=== PATIENT | male | born 1955 | race Caucasian/White ===

== ENCOUNTER → 2017-09-11 14:24 | Outpatient (CLI) | payer MEDICARE, SELFPAY ==
[2016-08-31 15:27] VITALS: BMI 33.3
[2017-09-11 18:40] LABS: Hemoglobin A1c 6.7 % (4.2-6.3)
[2017-09-11 19:03] LABS: ALB/GLOB Ratio 0.8 RATIO (0.9-2.4); AST(SGOT) 38 U/L (15-37); Alanine Aminotransfer ALT/SGPT 55 U/L (16-61); Albumin, Serum 3.2 g/dL (3.2-5.0); Alkaline Phosphatase 80 U/L (45-117); Anion Gap 10 (5-15); BUN 10 mg/dL (7-18); BUN/Creat Ratio 11.3 RATIO (10-20); Calcium,Total 8.6 mg/dL (8.5-10.1); Chloride 103 mmol/L (98-107); Cholesterol 159 mg/dL (200); Creatinine, Serum 0.88 mg/dL (0.70-1.30); EST Glomerular Filtration Rate 93 mL/min (>60); Est Glom Filt Rate - Afr Amer 113 mL/min (>60); Globulin 4.2 g/dL (2.2-4.2); Glucose 94 mg/dL (74-106); High Density Lipoprotein 34 mg/dL; Potassium 3.8 mmol/L (3.5-5.1); Protein, Total 7.4 g/dL (6.4-8.2); Sodium Level 139 mmol/L (136-145); Triglycerides 156 mg/dL; Very Low Density Lipoprotein 31 mg/dL (5-40)
== END ==
PROVIDERS: Family Provider Family Medicine; PCP Family Medicine; Visit Provider Family Medicine
DX: E11.65 Type 2 diabetes mellitus with hyperglycemia (principal); I95.9 Hypotension, unspecified; R53.83 Other fatigue
CPT/HCPCS: 36415; 80053; 80061; 83036

== ENCOUNTER 2017-11-12 05:23 | Day surgery (SDC) | payer MEDICARE, SELFPAY ==
[2016-08-31 15:27] VITALS: BMI 33.3
[2017-11-05 11:03] VITALS: BP 122/81; PULSE 81; RESP 16; TEMP 36.4; O2SAT 95; BMI 34.0
[2017-11-05 11:52] LABS: Hemoglobin 17.3 g/dl (13.0-16.5); Mean Corp Hgb Conc 33.9 g/gl (32-36); Mean Corpuscular Hgb 28.3 pg (27.0-32.0); Mean Corpuscular Volume 83.3 fL (80-94); Mean Platelet Vol. 10.7 fl (6.2-12.0); Platelet Count 279 K/mm3 (150-450); RBC Distribution Width CV 14.8 % (11.6-14.6); Red Blood Count 6.12 M/mm3 (4.6-6.2); White Blood Count 13.2 K/mm3 (4.4-11.0)
[2017-11-05 11:55] LABS: Scan Indicated on CBC? Y/N NO
[2017-11-05 12:03] LABS: International Normalized Ratio 1.2; Partial Thromboplast Time 34.7 Seconds (24.1-36.2); Prothrombin Time (Protime)PT. 14.7 SECONDS (11.7-14.9)
[2017-11-05 12:50] LABS: AST(SGOT) 24 U/L (15-37); Alanine Aminotransfer ALT/SGPT 39 U/L (16-61); Albumin, Serum 3.3 g/dL (3.2-5.0); Alkaline Phosphatase 108 U/L (45-117); Bilirubin, Direct 0.14 mg/dL (0.00-0.30); Globulin 4.2 g/dL (2.2-4.2); Protein, Total 7.5 g/dL (6.4-8.2)
[2017-11-12 05:41] VITALS: BP 132/95; PULSE 78; RESP 18; TEMP 36.1; O2SAT 96; BMI 34.0
[2017-11-12] MEDS: oxyCODONE HCl Cr 10 MG Tablet PO (05:55)
[2017-11-12 06:11] LABS: Bedside Glucose 119 mg/dL (70-110)
--- NOTE | 2017-11-12 06:55 | PCM.IMDPSTOP ---
Immediate Post-Op Note Date of Procedure: 11/12/17 Primary Surgeon/Physician: Kings Mathur DO enterostomal therapy nurse: Naheed Butts Pre-Operative Diagnosis: Right shoulder rotator cuff tear, type IV SLAP, subacromial impingement Post-Operative Diagnosis: Same as above Surgery/Procedure Performed:: Right shoulder arthroscopy, type IV SLAP debridement with associated biceps tenotomy, arthroscopic rotator cuff repair and arthroscopic subacromial decompression Description of Surgical Findings:: See dictation Estimated Blood Loss: 30 Specimen's removed: None Type of Anesthesia:: General ASA Class: ASA3 Severe Disease - Admit VTE Documentation VTE Present on Admission: No VTE Mechan Device Prophylaxis: SCD's, Knee High TYRONE Hose VTE Pharm Prophylaxis ordered?: No Reason prophylaxis not ordered:: Treatment Not Indicated
--- NOTE | 2017-11-12 06:55 | PCM.DC.ORTHO ---
Discharge Activity: Return to Normal Activity, May not drive while taking narcotic pain medications., May Shower, - - Sling 24 7 except for shower May shower in (days): 2 May resume sexual activity in: 8 weeks Ice area for (Minutes): 20 Weight Bearing Status: No weight bearing Additional Activity Instructions:: May flex and extend elbow ad kosta. Perform pendulum exercises 3 times per day. Call your doctor if your incision/area has: Continuous Slow Oozing, Sudden Increased Bleeding, Increased Pain/ Swelling, Increased Redness, Foul Smelling Discharge, Swelling at the incision site Call your doctor if you observe: Fever of 101 or Higher, Coldness, Increased Pain, Numbness or Tingling, Change in Color, Inability to urinate, Inability to have a bowel movement, Using more than one pad per hour, Shortness of breath, Dizziness, Fainting spells, Swelling in the ankles, Chest pain, Prolonged hiccoughing, Increased palpitations (irregular heartbeat), Calf discomfort, Uncontrolled pain Suture Line Care: Avoid Pulling/Pushing, Avoid Pinching/Bending Change Dressing in (Days):: 2 Remove Dressing in (days):: 2 Cleanse incision/area with: Soap & Water Additional Dressing/Incision Instructions:: Replace dressing after shower as long as there is drainage. Recommend wearing button-down shirts. Wash hands prior to touching wounds. Allergies/Adverse Reactions: Allergies codeine Adverse Reaction (Verified 08/01/17 11:53) Nausea ibuprofen Adverse Reaction (Verified 11/05/17 11:02) Nausea Medications to take at Discharge Aspirin E.C. [Ecotrin] 81 mg PO DAILY@0800 06/18/17 Tamsulosin HCl [Flomax] 0.4 mg PO DAILY 06/18/17 metoprolol succinate ER 25 mg tablet,extended release 24 hr 50 mg PO QDAY tab 07/02/17 metformin 500 mg tablet 500 mg PO ONCE tab 07/17/17 Docusate Sodium [Colace] 100 mg PO BID PRN PRN #10 cap 11/12/17 Oxycodone HCl/Acetaminophen [Percocet 5/325] 1 - 2 tablet PO Q4H PRN PRN #60 tablet 11/12/17 proMETHazine tablet [Phenergan] 25 mg PO Q4H PRN PRN #10 tab 11/12/17 The following prescriptions were given: Oxycodone HCl/Acetaminophen [Percocet 5/325] 1 - 2 tablet PO Q4H PRN PRN #60 tablet PRN Reason: Pain proMETHazine tablet [Phenergan] 25 mg PO Q4H PRN PRN #10 tab PRN Reason: Nausea Docusate Sodium [Colace] 100 mg PO BID PRN PRN #10 cap PRN Reason: Constipation Primary Care Physician: Renee Jackson DO [Primary Care Provider] - Please Follow Up With: Kings Mathur DO When: call [facility] for appt for 2 weeks Proposed Discharge Date: 11/12/17
--- NOTE | 2017-11-12 09:19 | PCM.OPRPT ---
Report of Operation Date of Procedure: 11/12/17 Pre-Operative Diagnosis: Right shoulder rotator cuff tear, type IV SLAP, subacromial impingement. Left hip trochanteric bursitis and gluteal tendinopathy Post-Operative Diagnosis: Same as above Surgery/Procedure Performed:: Right shoulder arthroscopy, type IV SLAP debridement with associated biceps tenotomy, arthroscopic rotator cuff repair and arthroscopic subacromial decompression. Left hip trochanteric injection Description of Surgical Findings:: 62-year-old male with recalcitrant right shoulder pain that failed on management to include NSAIDs activity modifications physical therapy and injections. Patient MRI consistent with SLAP changes full-thickness rotator cuff tear and significant subacromial bursitis. Patient also has a history of trochanteric bursitis and request a left trochanteric injection at the time of operative intervention. Patient was counseled and consented for a left left hip trochanteric injection and associated right shoulder rotator cuff repair SLAP debridement and subacromial decompression and evaluation the biceps labral complex for tenotomy versus tenodesis. Patient was met in the holding area where the right upper extremity and the left hip were marked and identified by the with surgeon. Patient was taken to the operating room in satisfactory condition with somewhat to place to identify patient operative procedure and limb. Patient received 2 g Ancef. He was simply placed into the beachchair position after a successful intubation. His head was in a fine neutral position. The right upper extremity was in the [place] O arm garcia. He was then prepped and draped in usual fashion. Posterior portal was established and we entered in the intra-articular space. Upon identification of anatomic triangle and anterior inferior working portal was established. Diagnostic scope should the patient have a type IV SLAP with extension into the biceps root and moving distally and fraying most likely related to the biceps lateralizing through his rotator cuff tear of the supraspinatus. The subscapularis was otherwise normal. He showed no signs of any tearing to the posterior inferior or anterior inferior labrum. The central and posterior cuffs were pristine. There is no loose bodies in the x-ray pouch. The patient had moderate synovitis to the shoulder. I subsequently debrided the type IV SLAP changes across the superior rim of the glenoid and tenotomized the biceps subsequently at the root secondary to the degenerative changes in extension. I performed a partial synovectomy around the capsule and the superior recess and release the superior glenohumeral ligament to allow for better mobilization of the rotator cuff if needed. At that point time the scope was retracted and removed in the subacromial space. We established a anterior superior mid lateral and posterior lateral working portals using standard technique. The patient had moderate to severe subacromial bursitis which was subsequently decompressed using standard technique. The patient had a type II to type III acromion and showed an impingement lesion to the CA ligament. The CA ligament was peeled off the anterolateral acromion to allow to float anteriorly and we subsequent performed a 6 mm acromioplasty using standard technique. We co-planed across the distal clavicle secondary to hypertrophy through that area. Patient's tear was obvious moving from the most leading edge of the supraspinatus into the midportion of the supraspinatus and transitioning into the infraspinatus. He showed a degree of delamination to the rotator cuff but the tendon quality was overall very good in the mobility of the tissue was greater across the superior lamination however I wish I elected to incorporate. At that point time after appropriate decompression we then acromion iced to prepare the bone bled no bed excuse me of the humeral head for better healing. This was done from the articular margin using laterally. We had good bleeding surface. At that point time using a percutaneous technique I placed 2 4.5 mm bio composite anchors from [employer] across the articular margin in order for him perform a transosseous equivalent technique. I did elect to place one margin convergent suture based on tear pattern using a free suture. This incorporated the delaminated layers into the superior layer very well. It also shortened our overall tendon construct. At that point time I then passed the suture tapes related to the implant of choice to the posterior aspect in the anterior aspects of the rotator cuff tear. I elected to place the saving suture in a simple fashion across both anchors using standard technique. I then tied the simple suture anchors which reapproximated 10 down to the articular margin and posteriorly with good incorporation. We then used the orthostasis again to perform a transosseous equivalent rotator cuff repair. One suture tape from the posterior anchor was then seated with a suture from the anterior anchor after the peripheral row had been established. This was repeated posteriorly again to give us a transosseous equivalent. We had excellent reapproximation of the anatomy covered roughly 75% of the articular footprint and the cuff moved through excellent range of motion through internal and external motion. At that point time the scope was retracted portal sites are closed with 3-0 nylon. He was injected with roughly 20 cc of 0.5% Marcaine without epinephrine around the portal sites and into the subacromial space. He was then dressed in usual fashion with Xeroform 4 x 4's ABDs and Medipore tape and placed to an UltraSling. We had no drains or complications. Implants included 2 bio composite anchors from [employer] medially with associated fiber tapes and suture and 2 peripheral anchors as well. We used 1 #2 FiberWire for margin convergent suture. After the patient had been extubated and placed onto the gurney table we then prepared his left hip using standard technique. We identified the area of maximal tenderness over the trochanter and then injected a 10 cc cocktail of 9 cc of 0.5% Marcaine without epinephrine and 1 cc of 40 mg of Kenalog mixture down onto the trochanteric bursa using needle stimulation technique. Simple bandage was then placed after application of the injection. Patient tolerated the procedures well. Patient will be discharged home and will follow me in 2 weeks. Any major issues please contact me. clinical account liaison: Naheed Butts Type of Anesthesia:: General Specimen's removed: None Estimated Blood Loss (mL): 30 Grafts/Implants Used: depuy mitek 4x 4.5mm anchors with 1 #2 fiberwire. - Complications None - Admit VTE Documentation VTE Present on Admission: No VTE Mechan Device Prophylaxis: SCD's, Knee High TYRONE Hose VTE Pharm Prophylaxis ordered?: No
[2017-11-12] MEDS: Bupivacaine 0.25% 30 ML Vial (09:23)
[2017-11-12] MEDS: Triamcinolone Acetonide 40 MG/ML Vial (09:24)
[2017-11-12 09:52] VITALS: BP 120/83; BP 132/95; PULSE 86; RESP 16; TEMP 36.2; O2SAT 91
[2017-11-12 10:03] VITALS: BP 119/86; BP 132/95; PULSE 80; RESP 16; O2SAT 96
[2017-11-12 10:16] VITALS: BP 113/71; BP 132/95; PULSE 74; RESP 16; O2SAT 95
[2017-11-12 10:30] VITALS: BP 115/89; BP 132/95; PULSE 78; RESP 16; TEMP 36.3; O2SAT 96
[2017-11-12 10:31] LABS: Bedside Glucose 100 mg/dL (70-110)
[2017-11-12 10:59] VITALS: BP 132/95
== END 2017-11-12 11:35 | disposition home or self-care (01) ==
LOC: SDC 05:24 → AC 05:25
PROVIDERS: Anesthesiology; Family Provider Family Medicine; PCP Family Medicine; Visit Provider Orthopaedic Surgery
PROC: (CPT 29827; principal; 2017-11-12 06:55)
DX: M75.41 Impingement syndrome of right shoulder (principal); M75.111 Incomplete rotator cuff tear or rupture of right shoulder, not specified as traumatic; M70.62 Trochanteric bursitis, left hip; M25.552 Pain in left hip; E11.9 Type 2 diabetes mellitus without complications; M19.90 Unspecified osteoarthritis, unspecified site; F17.200 Nicotine dependence, unspecified, uncomplicated; I10 Essential (primary) hypertension; Z95.5 Presence of coronary angioplasty implant and graft; Z86.711 Personal history of pulmonary embolism; Z86.718 Personal history of other venous thrombosis and embolism; Z79.82 Long term (current) use of aspirin; Z79.02 Long term (current) use of antithrombotics/antiplatelets; Z79.84 Long term (current) use of oral hypoglycemic drugs; Z79.899 Other long term (current) drug therapy
CPT/HCPCS: 20610; 29807; 29826; 29827; 29828; 80076; 82962; 85027; 85610; 85730; J7120; J2405

== ENCOUNTER 2017-12-03 13:25 | Outpatient (RCR) | payer MEDICARE, SELFPAY ==
[2016-08-31 15:27] VITALS: BMI 33.3
--- NOTE | 2017-12-03 15:00 | HP.PTEVAL_ITS ---
Patient's Visit Information RADHA BENJAMIN is a 62 year old M referred to Physical Therapy by Kings Mathur DO with a diagnosis of R rot cuff repair. Date of Evaluation: 12/03/17 Physical Therapist: Sergio Sullivan PT, - Visit Plan Frequency: 1x/Week Duration: 4-6 Weeks Plan: Follow rot cuff protocal. - Subjective Subjective: DOS: 11/19/17. Pt reports he had a rot cuff repair performed. Pt reports he was carrying a water heater and fell, landing on his R shoulder. Pt reports his shoulder became more and more sore, so he had an MRI which revealed a torn rot cuff. Pt enters the clinic today not wearing his brace. Pt notes he wore one for 2 weeks, but it was uncomfortable so he has stopped wearing it. Pt notes he has been moving his shoulder very little, but does move it. Pt reports his L one will need fixed in the future. Pt reports diff with sleep at this time secondary to pain. Pt is L hand dom. Pt is disabled at the time. Pt reports he has had multiple health issues over the past year, and is ready to move on now. 3/10 at rest, 10/10 if he tries to lift anything with R UE - Pain R shoulder Pain Intensity (Out of 10): 3 Pain Intensity Range: 10 - Objective Neuro: B UE sensation is WNL to light touch. ROM: L shoulder Flex= 155, abd= 115, ER= 65, IR WNL; R shoulder flex= 75, abd= 85, ER= 35, IR severely limited. Observation: Incisions are still healing. No obvious signs of infection. - Goals Goal 1:: Decrease R shoulder pain x 50% to aid with sleep Goal Time Frame: 4-6 Weeks Goal 2:: Increase R shoulder strength x 1 grade to aid with IADL's Goal Time Frame: 4-6 Weeks Goal 3:: Increase R shoulder flex and abd ROM x 40 degrees to aid with overhead activity. Goal Time Frame: 4-6 Weeks Goal 4:: I with HEP Goal Time Frame: 4-6 Weeks - Rehabilitation Potential Physical Therapy Diagnosis: R shuolder pain, weakness, and limited ROM secondary to R rot cuff repair Rehabilitation Potential: Good - Anticipated Interventions Patient/Client Instruction: Educate patient on: Condition, Plan of Care For the Purpose of:: To improve self management Therapeutic Exercise to Include: Strength training, Endurance training, Flexibilty training, Passive ROM, Active ROM, Scapular Strength/Stabilization For the Purpose of:: To decrease pain, To increase ROM, To improve muscle performance and motor function Cryotherapy (ice pack, ice massage): Yes For the Purpose of:: To decrease pain Thank you for the opportunity to evaluate your patient. For Medicare and Medicare HMO plans, please review the plan of care and approve it. It will need to be FAXED BACK to us at [phone] for Medicare purposes. Please let me know if there are questions or concerns regarding this plan of care. Physician Signature: Date:
--- NOTE | 2018-02-27 16:59 | HP.PT.NRP ---
HP - Discharge Summary (1) - Patient Information RADHA BENJAMIN was seen in my office for initial evaluation on 12/03/17. The following Plan of Care was established for this patient: Initial Frequency: 1x/Week Initial Duration: 4-6 Weeks - Anticipated Interventions Patient/Client Instruction: Educate patient on: Condition, Plan of Care For the Purpose of:: To improve self management Therapeutic Exercise to Include: Strength training, Endurance training, Flexibilty training, Passive ROM, Active ROM, Scapular Strength/Stabilization For the Purpose of:: To decrease pain, To increase ROM, To improve muscle performance and motor function Cryotherapy (ice pack, ice massage): Yes For the Purpose of:: To decrease pain This patient was last seen in our office . Pertinent comments regarding their Physical therapy will appear below: Pt was evaluated on the date 12/13/17 for his shoulder surgery. Pt did not return after that date and is therefore discontinued at this time. At this point I will be discontinuing this patient from physical therapy. I would be happy to see this patient again in the future if found appropriate by the physician. Thank you! Sergio Sullivan, PT,
== END 2017-12-03 19:00 | disposition home or self-care (01) ==
LOC: PT 13:25
PROVIDERS: Family Provider Family Medicine; PCP Family Medicine; Visit Provider Orthopaedic Surgery
DX: Z98.890 Other specified postprocedural states (principal)
CPT/HCPCS: 97161; G8984; G8985

== ENCOUNTER → 2018-02-12 08:42 | Outpatient (CLI) | payer MEDICARE, SELFPAY ==
[2016-08-31 15:27] VITALS: BMI 33.3
[2018-02-12 12:47] LABS: ALB/GLOB Ratio 0.8 RATIO (0.9-2.4); AST(SGOT) 28 U/L (15-37); Alanine Aminotransfer ALT/SGPT 40 U/L (16-61); Albumin, Serum 3.3 g/dL (3.2-5.0); Alkaline Phosphatase 91 U/L (45-117); Anion Gap 8 (5-15); BUN 10 mg/dL (7-18); BUN/Creat Ratio 9.9 RATIO (10-20); Calcium,Total 8.7 mg/dL (8.5-10.1); Chloride 107 mmol/L (98-107); Creatinine, Serum 1.01 mg/dL (0.70-1.30); EST Glomerular Filtration Rate 80 mL/min (>60); Est Glom Filt Rate - Afr Amer 96 mL/min (>60); Globulin 3.9 g/dL (2.2-4.2); Glucose 106 mg/dL (74-106); Potassium 3.5 mmol/L (3.5-5.1); Protein, Total 7.2 g/dL (6.4-8.2); Sodium Level 143 mmol/L (136-145)
== END ==
PROVIDERS: Family Provider Family Medicine; PCP Family Medicine; Visit Provider Family Medicine
DX: E11.9 Type 2 diabetes mellitus without complications (principal); R16.0 Hepatomegaly, not elsewhere classified
CPT/HCPCS: 36415; 80053

== ENCOUNTER → 2018-03-12 10:43 | Outpatient (CLI) | payer MEDICARE, SELFPAY ==
[2016-08-31 15:27] VITALS: BMI 33.3
--- NOTE | 2018-03-16 19:06 | LEAS ---
Arterial Study - Arterial Study Arterial Study: This is a 62-year-old male with a history of coronary artery disease, hypertension, hyperlipidemia, diabetes mellitus, and tobacco use. The patient also complains of bilateral lower extremity pain and discomfort. Suspecting the presence of atherosclerotic peripheral arterial occlusive disease, the patient was brought to the noninvasive vascular laboratory at this time for the purpose of bilateral noninvasive lower extremity arterial assessment. Doppler signal assessment was used to evaluate the pulses at ankle level bilaterally. The posterior tibial and dorsalis pedis pulses were triphasic bilaterally. Segmental limb pressures were obtained bilaterally. The right ankle pressure, as determined by posterior tibial pulse, was measured at 159 mmHg. The right ankle pressure, as determined by dorsalis pedis pulse, was measured at 154 mmHg. The right digital pressure was measured at 121 mmHg. The left ankle pressure, as determined by posterior tibial pulse, was measured at 160 mmHg. The left ankle pressure, as determined by dorsalis pedis pulse, was measured at 146 mmHg. The left digital pressure was measured at 129 mmHg. Pulse-volume recordings were obtained bilaterally and segmentally. Waveform amplitudes appeared to be satisfactory at all levels bilaterally, including low thigh, calf, ankle, and digital levels. Resting ankle-brachial indices were calculated bilaterally. The resting right ankle-brachial index was calculated to be 1.23. The resting left ankle-brachial index was calculated to be 1.24. Digital-brachial indices were calculated bilaterally. The right digital-brachial index was calculated to be 0.94. The left digital-brachial index was calculated to be 1.00. Impression: Based upon the findings of this resting noninvasive lower extremity arterial study, there is no evidence of significant atherosclerotic peripheral arterial occlusive disease in the lower extremities bilaterally. Triphasic waveforms were noted at ankle level bilaterally. Resting ankle-brachial indices were bilaterally normal. Digital-brachial indices were also normal bilaterally. In summary, this represents a normal resting noninvasive lower extremity arterial study bilaterally.
== END ==
PROVIDERS: Family Provider Family Medicine; PCP Family Medicine; Visit Provider Family Medicine
DX: I70.213 Atherosclerosis of native arteries of extremities with intermittent claudication, bilateral legs (principal); M79.604 Pain in right leg; M79.605 Pain in left leg
CPT/HCPCS: 93923

== ENCOUNTER → 2018-03-25 10:14 | Outpatient (CLI) | payer MEDICARE, SELFPAY ==
[2016-08-31 15:27] VITALS: BMI 33.3
== END ==
PROVIDERS: Family Provider Family Medicine; PCP Family Medicine; Visit Provider Family Medicine
DX: R16.0 Hepatomegaly, not elsewhere classified (principal); M54.16 Radiculopathy, lumbar region; M51.26 Other intervertebral disc displacement, lumbar region
CPT/HCPCS: 72148; 74183; A9585

== ENCOUNTER → 2018-08-19 13:04 | Outpatient (CLI) | payer MEDICARE, SELFPAY ==
[2016-08-31 15:27] VITALS: BMI 33.3
--- NOTE | 2018-08-19 13:07 | RAD_ITS ---
STUDY: X-RAY - LUMBOSACRAL SPINE REASON FOR EXAM: Male, 63 years old. Chronic low back pain. TECHNIQUE: 6 view(s) of the lumbosacral spine were obtained including oblique and flexion and extension views. COMPARISON: None FINDINGS: Normal lumbar lordosis. There is no substantial scoliosis. Minimal retrolisthesis of L2 on L3. This improves with the flexion maneuver. Normal vertebral bodies and endplates. There is multi-level degenerative disc disease with multi-level disc space narrowing. Normal bilateral sacral ala, sacroiliac joints, and visualized sacrum. There is atherosclerotic calcification of the abdominal aorta without a demonstrated aneurysm. RAD/L/S Spine Comp/w Bending Views IMPRESSION: Degenerative changes of the spine, as detailed above. Electronically Signed: Kg Wilhelm, at 11:00 EST , Service support ,
--- OUTSIDE RECORDS SUMMARY | 2018-10-21 17:26 | XMS RPT_ITS ---
:1955 Author Organization OHIP Support Name Relationship Address Phone D Unavailable Unavailable Unavailable SCHUR, JOSÉ MIGUEL Unavailable [address] + [place] [address] D Unavailable Unavailable Unavailable SCHUR, JOSÉ MIGUEL Unavailable [address] + [place] [address] D Unavailable Unavailable Unavailable SCHUR, JOSÉ MIGUEL Unavailable [address] + [place] [address] D Unavailable Unavailable Unavailable SCHUR, JOSÉ MIGUEL Unavailable [address] + [place] [address] D Unavailable Unavailable Unavailable SCHUR, JOSÉ MIGUEL Unavailable [address] + [place] [address] D Unavailable Unavailable Unavailable SCHUR, JOSÉ MIGUEL Unavailable [address] + [place] [address] D Unavailable Unavailable Unavailable SCHUR, JOSÉ MIGUEL Unavailable [address] + [place] [address] D Unavailable Unavailable Unavailable SCHUR, JOSÉ MIGUEL Unavailable [address] + [place] [address] D Unavailable Unavailable Unavailable SCHUR, JOSÉ MIGUEL Unavailable [address] + [place] [address] D Unavailable Unavailable Unavailable SCHUR, JOSÉ MIGUEL Unavailable [address] + [place] [address] D Unavailable Unavailable Unavailable SCHUR, JOSÉ MIGUEL Unavailable [address] + [place] [address] SCHUR, JOSÉ MIGUEL Unavailable [address] + [place] [address] UE Unavailable Unavailable Unavailable SCHUR, JOSÉ MIGUEL Unavailable [address] + [place] [address] UE Unavailable Unavailable Unavailable Care Team Providers Name Role Phone Kelsi Ahn Attending Unavailable Malys, Renee Referring Unavailable Ahn, Kelsi Attending Unavailable Malys, Renee Primary Care Unavailable Malys, Renee Attending Unavailable Malys, Renee Primary Care Unavailable Kevan, Kings Attending Unavailable Malys, Renee Referring Unavailable Malys, Renee Primary Care Unavailable Kevan, Kings Attending Unavailable Malys, Renee Primary Care Unavailable Kevan, Kings Referring Unavailable Kevan, Kings Attending Unavailable Kevan, Kings Referring Unavailable Malys, Renee Primary Care Unavailable Kevan, Kings Consulting Unavailable Kevan, Kings Attending Unavailable Malys, Renee Referring Unavailable Malys, Renee Primary Care Unavailable Kevan, Kings Attending Unavailable Kevan, Kings Referring Unavailable Malys, Renee Primary Care Unavailable Kevan, Kings Attending Unavailable Malys, Renee Referring Unavailable Nishi Haynes Attending Unavailable Malys, Renee Attending Unavailable Malys, Renee Primary Care Unavailable Malys, Renee Attending Unavailable Malys, Renee Referring Unavailable Malys, Renee Primary Care Unavailable Malys, Renee Attending Unavailable Malys, Renee Referring Unavailable Malys, Renee Primary Care Unavailable PROBLEMS PROBLEMS DATE TYPE CONDITION / CODE ATTENDING STATUS SOURCE 08/19/2018 Unknown M54.16 - Kelsi Ahn Active [facility] Radiculopathy, [facility] lumbar region / Hospital M54.16(ICD-10) Repository 03/05/2018 Unknown Z98.890 - Other Kings Mathur specified Community postprocedural Hospital states / Repository Z98.890(ICD-10) 11/12/2017 Unknown M75.101 - Kings Mathur Active [facility] Unspecified rotator Community cuff tear or rupture Hospital of right shoulder, Repository not specified as traumatic / M75.101(ICD-10) 09/12/2017 Unknown E11.65 - Type 2 Malys, Renee Active [facility] diabetes mellitus Community with hyperglycemia / Hospital E11.65(ICD-10) Repository PROCEDURES PROCEDURES No Procedure Records FoundRESULTS RESULTS ORTHOPEDIC VISIT Observed: 08/23/2018 Status: F Source: [facility] REPORT 10:38 AM [facility] REPOSITORY [facility] [address] [place] [address] OFFICE VISIT Date of Service: 08/19/18 MR#: [id number] Acct: [id number] Name: RADHA GROSS Rep #: [id number] : 1955 Provider: Kelsi Ahn MD Age/Sex: 63/M Location: [facility] Status: Signed Intake Intake Visit Reasons: LOW BACK Allergies codeine Adverse Reaction (Verified 11/25/17 10:01) Nausea ibuprofen Adverse Reaction (Verified 11/25/17 10:01) Nausea Medications Aspirin E.C. [Ecotrin] 81 mg PO DAILY@0800 06/18/17 [History Confirmed 11/05/17] Tamsulosin HCl [Flomax] 0.4 mg PO DAILY 06/18/17 [History Confirmed 11/05/17] metoprolol succinate ER 25 mg tablet,extended release 24 hr 50 mg PO QDAY tab 07/02/17 [History Confirmed 11/12/17] metformin 500 mg tablet 500 mg PO ONCE tab 07/17/17 [History Confirmed 11/05/17] Docusate Sodium [Colace] 100 mg PO BID PRN PRN #10 cap 11/12/17 [Rx] Oxycodone HCl/Acetaminophen [Percocet 5/325] 1 - 2 tab PO Q4H PRN PRN #60 tab 11/12/17 [Rx] proMETHazine tablet [Phenergan] 25 mg PO Q4H PRN PRN #10 tab 11/12/17 [Rx] PFSH Medical History Non-ST elevation (NSTEMI) myocardial infarction (Chronic 08/2016) Atherosclerosis of coronary artery of [place] heart without angina pectoris (Chronic) Trochanteric bursitis of left hip (Chronic) Saddle embolus (Chronic) Diabetes mellitus type 2 in obese (Chronic) Morbid obesity (Chronic) Hypertension (Chronic) Tobacco abuse (Chronic) Hypercholesterolemia (Chronic) Alcoholism (Chronic) Anxiety and depression (Chronic) Arthritis (Chronic) BPH (benign prostatic hyperplasia) (Chronic) COPD (chronic obstructive pulmonary disease) (Chronic) DVT (deep venous thrombosis) (Chronic) Liver mass (Chronic) Pulmonary embolism (Chronic) Seasonal allergies (Chronic) Type 2 diabetes mellitus without complications (Chronic) Surgical History History of coronary artery stent placement (Chronic 09/10/16) History of total left knee replacement (TKR) (Chronic) Previous back surgery (Chronic) S/P right rotator cuff repair (Chronic 11/12/17) H/O heart artery stent (Inactive) Herniated disc (Inactive) History of total left knee replacement (Inactive) S/P right knee arthroscopy (Inactive) S/P right unicompartmental knee replacement (Inactive) lumbar disc (Inactive) Family History Mother CHF (congestive heart failure) Social History Smoking Status: Current every day smoker HPI LOW BACK: Details: RADHA GROSS is a 63 year old LHD M here today for low back pain 50% that radiates into his left groin, medial thigh and medial calf and some right similar pattern pain 50% since 2009. He has a history of herniated disc removal of the lumbar spine 06/2015 for the back and left leg pain. He states the back pain was improved after surgery, but his leg pain remained unchanged. He denies postoperative complications. This was done by Dr. Montaño. He fell 2 months after surgery on the ice and his back pain returned. He has tried physical therapy over 1 year ago, aqua therapy, tens unit and chiropractic treatment without improvement. He takes NSAIDs at night. He states his pain is worse with everything and improved with nothing. He had injections with Dr Gauthier in 2016 without improvement. No records are available today. He is not interested in returning to Dr. Gauthier. He denies bowel or bladder issues or difficulty with hand dexterity. He does have knee pain and intermittently uses a cane. He denies constitutional symptoms. He has a history of SC status post stenting. He takes ASA. He has had a pulmonary embolism, DM, BPH, anxiety, history of left TKA complicated by infection with revision TKA and right unicompartmental knee replacement. He is retired. He smokes 1 ppd. Ortho Exam Spine Neuro: Yes Clonus (none bilaterally), Waterman's (negative bilaterally), Babinski (downgoing bilaterally), Straight Leg Raise (negative bilaterally) and Light Touch Sensation (intact throughout) General: alert, oriented x3 Skin: Yes healed (midline lumbar incision) Capillary Refill <2sec: Yes Palpable Pulses: 1+ dp/pt pulses bilaterally Gait: antalgic, other (able to heel and toe stand) Motor: strength 5/5 throughout Sensory Exam: no sensory deficits noted DTR's: Rt Triceps: 2+, Lt Triceps: 2+, Rt Biceps: 2+, Lt Biceps: 2+, Rt Brachioradialis: 2+, Lt Brachioradialis: 2+, Rt Patellar: 2+, Lt Patellar: 2+, Rt Ankle: 2+, Lt Ankle: 2+ Plantar Reflexes: Downgoing: bilateral Coordination: Romberg test normal, tandem gait normal SPINE TESTING CERVICAL THORACIC LUMBAR SLR: Negative Musculoskeletal General: Yes normal posture Cervical Spine: cervical ROM normal Thoracic/Lumbar Spine: surgical scar(s) present, straight leg raise negative bilaterally, pain with thoraco-lumbar ROM (worse with lumbar flexion than extension), thoraco-lumbar ROM limited, paraspinal tenderness Strength 0=absent - 5=normal Deltoid R (C5): 5, Deltoid L (C5): 5, R Bicep (C5-6): 5, L Bicep (C5-6): 5, R Wrist Extensor (C6): 5, L Wrist Extensor (C6): 5, R Tricep (C7): 5, L Tricep (C7): 5, R Finger Flexors (C8): 5, L Finger Flexors (C8): 5, R First Dorsal Interossei (C8): 5, L First Dorsal Interossei (C8): 5, R Hip Flexor (L1-3): 5, L Hip Flexor (L1-3): 5, R Quadriceps (L2-4): 5, L Quadriceps (L2-4): 5, R Anterior Tibialis (L4-5): 5, L Anterior Tibialis (L4- 5): 5, R Hamstrings (L5-S1): 5, L Hamstrings (L5-S1): 5, GS (S1): 5, L GS (S1): 5, R Peroneals (S1): 5, L Peroneals (S1): 5 Assessment AND Plan Problems 1. Chronic bilateral low back pain with left-sided sciatica M54.42; G89.29 Plan Imaging: XR lumbar spine 08/19/2018 reveals diffuse spondylosis MRI lumbar spine 03/25/2018 reveals diffuse spondylosis with bilateral L5-S1 foraminal stenosis. no significant central stenosis I/R/P: 1. back pain, chronic 2. left leg pain, nondermatomal 3. SC with stent 4. h/o PE 5. DM 6. nicotine use 7. prior TKA s/p infection Mr. Gross presents with chronic back pain and nondermatomal left leg pain. His MRI lumbar spine reveals lower lumbar foraminal stenosis, but his clinical symptoms do not correlate with his imaging. The natural history and course of the symptomatology of back pain was discussed in detail with the patient. I answered all questions regarding the mode of onset, pathophysiology, symptoms, imaging findings, treatment options regarding his diagnosis. Recommend continued conservative treatment, to include physical therapy and aqua therapy. Referral placed to Dr. Becerra, pain management. Counseled on nicotine cessation. Follow up as needed. Plan of care discussed. All questions answered. The patient verbalized understanding of the disease process and agreed to the treatment plan formulated for this visit. Orders Orders: Coding Level of Care Code Off vis,new,level 4 Diagnoses Chronic bilateral low back pain with left-sided sciatica M54.42; G89.29 Back pain location: low back pain Chronicity: chronic Back pain laterality: bilateral Sciatica laterality: sciatica of left side Sciatica presence: with sciatica 08/23/18 1038 <Electronically signed by Kelsi Ahn MD> Date Kelsi Ahn MD Cosigner Signature: Date (if applicable) CC: Renee Jackson DO; Helder Pleitez MD L/S SPINE COMP/W Observed: 08/19/2018 Status: F Source: [facility] BENDING VIEWS 1:07 PM [facility] REPOSITORY [facility] Imaging Services [address] [place] [address] L/S Spine Comp/w Bending Views MR#: [id number] Acct: [id number] Name: RADHA GROSS Rogerio Rep #: [id number] : 1955 M 63 From: Kg Wilhelm MD PCP: Renee Jackson DO Status: REG CLI Study: L/S Spine Comp/w Bending Views Date of Exam: 08/19/18 Exam# [id number] Ordering Dr: Kelsi Ahn MD STUDY: X-RAY - LUMBOSACRAL SPINE REASON FOR EXAM: Male, 63 years old. Chronic low back pain. TECHNIQUE: 6 view(s) of the lumbosacral spine were obtained including oblique and flexion and extension views. COMPARISON: None FINDINGS: Normal lumbar lordosis. There is no substantial scoliosis. Minimal retrolisthesis of L2 on L3. This improves with the flexion maneuver. Normal vertebral bodies and endplates. There is multi-level degenerative disc disease with multi-level disc space narrowing. Normal bilateral sacral ala, sacroiliac joints, and visualized sacrum. There is atherosclerotic calcification of the abdominal aorta without a demonstrated aneurysm. RAD/L/S Spine Comp/w Bending Views IMPRESSION: Degenerative changes of the spine, as detailed above. Electronically Signed: Kg Wilhelm, at 11:00 EST , Service support , CC: Kelsi Ahn MD; Renee Jackson DO Operations Analyst: Signed MRI ABD WITH AND W/O Observed: 03/25/2018 Status: F Source: [facility] CONTRAST 11:37 AM [facility] REPOSITORY [facility] Imaging Services [address] [place] [address] MRI Abd WITH and W/O Contrast MR#: [id number] Acct: [id number] Name: RADHA GROSS Rep #: [id number] : 1955 M 62 From: Anita Almanzar MD PCP: Renee Jackson DO Status: REG CLI Study: MRI Abd WITH and W/O Contrast Date of Exam: 03/25/18 Exam# [id number] Ordering Dr: Renee Jackson DO STUDY: MRI ABDOMEN WITH AND WITHOUT CONTRAST REASON FOR EXAM: Male, 62 years old. Follow-up of the liver lesion identified on recent CT. TECHNIQUE: Standardized fat and water weighted pulse sequences were obtained in all 3 orthogonal planes post contrast administration. 11 ml of Gadavist contrast material was administered intravenously for the contrast portion of the examination. Several images are limited by patient motion. COMPARISON: CT of the abdomen and pelvis dated June 20, 2017. FINDINGS: The visualized lung bases are unremarkable. The visualized portions of the heart are within normal limits. There is hepatic steatosis. No hepatic masses are visualized. Normal gallbladder and extrahepatic biliary system. Normal spleen. Normal pancreas. Normal bilateral adrenal glands. There is a small well-circumscribed lesion arising from lower pole the right kidney that does not appear to enhance and has decreased T1 signal measuring 8.9 mm in size. Normal left kidney. Normal visualized stomach. There is no evidence for dilated bowel or ascites. Scattered colonic diverticula are visualized. There is non-visualization of the appendix. Normal abdominal aorta. Normal inferior vena cava. Normal retroperitoneum. Normal abdominal wall. There is degenerative disc disease at L5-S1. MRI/MRI Abd WITH and W/O Contrast IMPRESSION: 1. No MR evidence for hepatic mass. 2. Hepatic steatosis. 3. Small right-sided renal cyst. Electronically Signed: Anita Almanzar MD at 4:39 EDT , Service support , CC: Renee Jackson DO Operations Analyst: Signed SPINE LUMBAR Observed: 03/25/2018 Status: F Source: BARBIE (ROUTINE) 10:23 AM [facility] REPOSITORY [facility] Imaging Services [address] [place] [address] Spine Lumbar (Routine) MR#: [id number] Acct: [id number] Name: RADHA GROSS Rep #: [id number] : 1955 M 62 From: Anita Almanzar MD PCP: Renee Jackson DO Status: REG CLI Study: Spine Lumbar (Routine) Date of Exam: 03/25/18 Exam# [id number] Ordering Dr: Renee Jackson DO STUDY: MRI LUMBAR SPINE WITHOUT CONTRAST REASON FOR EXAM: Male, 62 years old. Low back pain and bilateral leg pain. Patient had previous lumbar spine surgery in 2014. TECHNIQUE: Standardized fat and water weighted pulse sequences were obtained in the sagittal and axial planes. COMPARISON: MRI of lumbar spine dated March 23, 2014. FINDINGS: T12-L1: Normal endplates. Normal disc height, signal and morphology. Normal bilateral facet joints. Normal central canal and bilateral lateral recesses. Normal bilateral intervertebral neural foramina. Normal lumbar lordosis. There is no substantial scoliosis. Normal conus medullaris that terminates at the T12-L1. L1-2: There is mild annular disk bulge and osteophyte complex. There is mild degenerative arthropathy of the facet joints. Bilateral neuroforamina are narrowed without MR evidence for nerve impingement. There is no significant acquired central canal stenosis. L2-3: There is mild annular disk bulge and osteophyte complex. There is mild degenerative arthropathy of the facet joints. Bilateral neuroforamina are narrowed without MR evidence for nerve impingement. There is no significant acquired central canal stenosis. L3-4: There is mild annular disk bulge and osteophyte complex. There is mild degenerative arthropathy of the facet joints. Bilateral neuroforamina are narrowed without MR evidence for nerve impingement. There is no significant acquired central canal stenosis. L4-5: There is mild annular disk bulge and osteophyte complex. There is mild degenerative arthropathy of the facet joints. Bilateral neuroforamina are narrowed without MR evidence for nerve impingement. There is no significant acquired central canal stenosis. L5-S1: There is narrowing of this disc. There is a mild broad central disc fusion with endplate osteophytes. There is severe neural foraminal narrowing with potential impingement of the L5 nerve roots at the neural foramina. There is no significant central acquired canal stenosis. There is mild degenerative arthropathy of facet joints. Normal visualized sacral ala. Normal visualized paraspinous soft tissue structures. MRI/Spine Lumbar (Routine) IMPRESSION: Multilevel degenerative disc disease and degenerative arthropathy of the lumbar spine with acquired canal stenosis, neural foraminal narrowing and potential nerve impingement, as described. Electronically Signed: Anita Almanzar MD at 11:32 EDT , Service support , CC: Renee Jackson DO Operations Analyst: Signed LOWER EXT ARTERIAL Observed: 03/16/2018 Status: F Source: [facility] 7:25 PM [facility] REPOSITORY [facility] Cardiovascular Services [address] [place] [address] 03/16/18 1906 MR#: [id number] Acct: [id number] Name: RADHA GROSS Rep #: [id number] : 1955 62 From: Skyler Rodriguez MD Attending Dr: Renee Jackson DO Status: REG CLI Ordering Dr: Date: 03/16/18 Location: [facility] Sex: M C Admitted: Arterial Study - Arterial Study Arterial Study: This is a 62-year-old male with a history of coronary artery disease, hypertension, hyperlipidemia, diabetes mellitus, and tobacco use. The patient also complains of bilateral lower extremity pain and discomfort. Suspecting the presence of atherosclerotic peripheral arterial occlusive disease, the patient was brought to the noninvasive vascular laboratory at this time for the purpose of bilateral noninvasive lower extremity arterial assessment. Doppler signal assessment was used to evaluate the pulses at ankle level bilaterally. The posterior tibial and dorsalis pedis pulses were triphasic bilaterally. Segmental limb pressures were obtained bilaterally. The right ankle pressure, as determined by posterior tibial pulse, was measured at 159 mmHg. The right ankle pressure, as determined by dorsalis pedis pulse, was measured at 154 mmHg. The right digital pressure was measured at 121 mmHg. The left ankle pressure, as determined by posterior tibial pulse, was measured at 160 mmHg. The left ankle pressure, as determined by dorsalis pedis pulse, was measured at 146 mmHg. The left digital pressure was measured at 129 mmHg. Pulse-volume recordings were obtained bilaterally and segmentally. Waveform amplitudes appeared to be satisfactory at all levels bilaterally, including low thigh, calf, ankle, and digital levels. Resting ankle-brachial indices were calculated bilaterally. The resting right ankle-brachial index was calculated to be 1.23. The resting left ankle-brachial index was calculated to be 1.24. Digital-brachial indices were calculated bilaterally. The right digital-brachial index was calculated to be 0.94. The left digital-brachial index was calculated to be 1.00. Impression: Based upon the findings of this resting noninvasive lower extremity arterial study, there is no evidence of significant atherosclerotic peripheral arterial occlusive disease in the lower extremities bilaterally. Triphasic waveforms were noted at ankle level bilaterally. Resting ankle-brachial indices were bilaterally normal. Digital- brachial indices were also normal bilaterally. In summary, this represents a normal resting noninvasive lower extremity arterial study bilaterally. 03/16/181924 <Electronically signed by Skyler Rodriguez MD> Date Skyler Rodriguez MD CC: Renee Jackson DO Date Dictated: 03/16/181905 Date Transcribed: 03/16/181905 Operations Analyst: ASHLYN Barkley COMPREHENSIVE METABOLIC Collected: 02/12/2018 Status: F Source: [facility] [place]AY 8:44 AM [facility] REPOSITORY TYPE CODE TESTS RESULT OUT OF RANGE REFERENCE UNITS LAB L501.0100 74-106 mg/dL Normal GLU 106 Result Comment: Fasting Glucose result from 100 to 125 mg/dL suggests IMPAIRED HOMEOSTASIS per A.D.A. criteria. Please note revised GLUCOSE reference range effective 2017. LAB L501.1000 7-18 mg/dL Normal BUN 10 LAB L501.1100 0.70-1.30 mg/dL Normal CREAT,SERUM 1.01 Result Comment: The validity of the calculated GFR AND GFRAA in patients over 70 years has not been determined. Clinical correlation is essential. LAB L501.1110 >60 mL/min Normal EST GFR 80 Result Comment: Non- GFR Calc LAB L501.1115 >60 mL/min Normal EST GFR - AA 96 Result Comment: GFR Calc LAB L501.1300 10-20 RATIO Low BUN/CRE 9.9 LAB L501.1500 6.4-8.2 g/dL Normal T PROT 7.2 LAB L501.1800 3.2-5.0 g/dL Normal ALB 3.3 LAB L501.1950 2.2-4.2 g/dL Normal GLOB 3.9 LAB L501.2000 0.9-2.4 RATIO Low A/G 0.8 LAB L501.2200 8.5-10.1 mg/dL Normal CA 8.7 LAB L501.4100 15-37 U/L Normal AST 28 LAB L501.4305 45-117 U/L Normal ALK P 91 LAB L501.4405 16-61 U/L Normal ALT 40 LAB L501.4600 0.20-1.00 mg/dL Normal T BILI 0.60 LAB L501.5300 136-145 mmol/L Normal NA 143 LAB L501.5600 3.5-5.1 mmol/L Normal K 3.5 LAB L501.5900 98-107 mmol/L Normal CL 107 LAB L501.6100 21.0-32.0 mmol/L Normal CO2 28.0 LAB L501.6200 5-15 Normal GAP 8 Performed By: #### L500.4050 #### [facility] [address] [place], [address] ORTHOPEDIC VISIT Observed: 12/05/2017 Status: F Source: [facility] REPORT 11:24 AM [facility] REPOSITORY [facility] [address] [place] [address] OFFICE VISIT Date of Service: 11/25/17 MR#: [id number] Acct: [id number] Name: RADHA GROSS Rep #: [id number] : 1955 Provider: Kings Mathur DO Age/Sex: 62/M Location: [facility] Status: Signed Intake Intake Visit Reasons: RIGHT SHOULDER Is patient in pain?: Yes Allergies codeine Adverse Reaction (Verified 11/25/17 10:01) Nausea ibuprofen Adverse Reaction (Verified 11/25/17 10:01) Nausea Medications Aspirin E.C. [Ecotrin] 81 mg PO DAILY@0800 06/18/17 [History Confirmed 11/05/17] Tamsulosin HCl [Flomax] 0.4 mg PO DAILY 06/18/17 [History Confirmed 11/05/17] metoprolol succinate ER 25 mg tablet,extended release 24 hr 50 mg PO QDAY tab 07/02/17 [History Confirmed 11/12/17] metformin 500 mg tablet 500 mg PO ONCE tab 07/17/17 [History Confirmed 11/05/17] Docusate Sodium [Colace] 100 mg PO BID PRN PRN #10 cap 11/12/17 [Rx] Oxycodone HCl/Acetaminophen [Percocet 5/325] 1 - 2 tab PO Q4H PRN PRN #60 tab 11/12/17 [Rx] proMETHazine tablet [Phenergan] 25 mg PO Q4H PRN PRN #10 tab 11/12/17 [Rx] PFSH Medical History Back pain (Acute) Pulmonary embolism (Acute) Alcoholism (Chronic) Arthritis (Chronic) COPD (chronic obstructive pulmonary disease) (Chronic) Diabetes (Chronic) Seasonal allergies (Chronic) Surgical History S/P right rotator cuff repair (Acute) H/O heart artery stent (Inactive) Herniated disc (Inactive) History of total left knee replacement (Inactive) S/P right knee arthroscopy (Inactive) S/P right unicompartmental knee replacement (Inactive) lumbar disc (Inactive) Family History Mother CHF (congestive heart failure) Social History Smoking Status: Current every day smoker HPI RIGHT SHOULDER: Details: RADHA GROSS is a 62 year old M here today for s/p right shoulder RTC repair and left greater trochanter injection, dos 11/12/17. He is doing well and has minimal pain. Patient is not wearing his brace as it is causing him more pain. He has not been actively moving his arm. His incision is healing with no redness or drainage. Denies numbness, tingling or other associated symptoms. ROS Const Reports system reviewed and no additional complaints, except as docu Eyes Reports system reviewed and no additional complaints, except as docu ENT Reports system reviewed and no additional complaints, except as docu Card Reports system reviewed and no additional complaints, except as docu Resp Reports system reviewed and no additional complaints, except as docu GI Reports system reviewed and no additional complaints, except as docu Reports system reviewed and no additional complaints, except as docu Musc Reports muscle weakness Skin/Breast Reports system reviewed and no additional complaints, except as docu Neuro Yes system reviewed and no additional complaints, except as docu Psych Reports system reviewed and no additional complaints, except as docu Endo Reports system reviewed and no additional complaints, except as docu Ortho Exam Right Shoulder suture/rivera removed: Yes Skin/Wound: Yes CDI, Yes suture/rivera removed Contralateral Normal: Yes SHOULDER: Incisions are clean dry and intact sutures removed Steri-Strips were applied. Intraoperative findings discussed. Patient is status post right shoulder rotator cuff repair with subacromial decompression patient also had a left-sided intertrochanteric injection Assessment AND Plan Problems 1. Orthopedic aftercare Z47.89 Plan Assessment: After orthopedics status post right shoulder rotator cuff repair subacromial decompression. Patient had a left greater trochanteric injection. Doing well. Plan: We will send the patient to physical therapy at this point time. Patient needs to wear his brace even though he does not like it. Otherwise been transitioning from the new brace into a typical UltraSling. Warned the patient that noncompliance potentially can result a re-tear. This point time patient agrees to plan we will go and wear his brace. I will see him back in 4 weeks. Any major issues return. Coding Level of Care Code Global Post Op Diagnoses Orthopedic aftercare Z47.89 12/05/17 1124 <Electronically signed by Kings Mathur DO> Date Kings Mathur DO Cosigner Signature: Date (if applicable) CC: INITAL EVALUATION (1) Observed: 12/03/2017 Status: F Source: [place] Forbes PT 3:00 PM [facility] REPOSITORY [facility] [address] [place] [address]. [address] [place] [address] Fax REHABILITATION SERVICES INITIAL EVALUATION MR#: [id number] Acct: [id number] Name: RADHA GROSS Rep #: [id number] : 1955 62 From: Sergio Sullivan PT, ATC Referring Dr.: Kings Mathur DO Status: REG RCR Insurance: [employer] MEDICARE PPO SELF PAY INSURANCE Patient's Visit Information RADHA GROSS is a 62 year old M referred to Physical Therapy by Kings Mathur DO with a diagnosis of R rot cuff repair. Date of Evaluation: 12/03/17 Physical Therapist: Sergio Sullivan PT, - Visit Plan Frequency: 1x/Week Duration: 4-6 Weeks Plan: Follow rot cuff protocal. - Subjective Subjective: DOS: 11/19/17. Pt reports he had a rot cuff repair performed. Pt reports he was carrying a water heater and fell, landing on his R shoulder. Pt reports his shoulder became more and more sore, so he had an MRI which revealed a torn rot cuff. Pt enters the clinic today not wearing his brace. Pt notes he wore one for 2 weeks, but it was uncomfortable so he has stopped wearing it. Pt notes he has been moving his shoulder very little, but does move it. Pt reports his L one will need fixed in the future. Pt reports diff with sleep at this time secondary to pain. Pt is L hand dom. Pt is disabled at the time. Pt reports he has had multiple health issues over the past year, and is ready to move on now. 3/10 at rest, 10/10 if he tries to lift anything with R UE - Pain R shoulder Pain Intensity (Out of 10): 3 Pain Intensity Range: 10 - Objective Neuro: B UE sensation is WNL to light touch. ROM: L shoulder Flex= 155, abd= 115, ER= 65, IR WNL; R shoulder flex= 75, abd= 85, ER= 35, IR severely limited. Observation: Incisions are still healing. No obvious signs of infection. - Goals Goal 1:: Decrease R shoulder pain x 50% to aid with sleep Goal Time Frame: 4-6 Weeks Goal 2:: Increase R shoulder strength x 1 grade to aid with IADL's Goal Time Frame: 4-6 Weeks Goal 3:: Increase R shoulder flex and abd ROM x 40 degrees to aid with overhead activity. Goal Time Frame: 4-6 Weeks Goal 4:: I with HEP Goal Time Frame: 4-6 Weeks - Rehabilitation Potential Physical Therapy Diagnosis: R shuolder pain, weakness, and limited ROM secondary to R rot cuff repair Rehabilitation Potential: Good - Anticipated Interventions Patient/Client Instruction: Educate patient on: Condition, Plan of Care For the Purpose of:: To improve self management Therapeutic Exercise to Include: Strength training, Endurance training, Flexibilty training, Passive ROM, Active ROM, Scapular Strength/Stabilization For the Purpose of:: To decrease pain, To increase ROM, To improve muscle performance and motor function Cryotherapy (ice pack, ice massage): Yes For the Purpose of:: To decrease pain Thank you for the opportunity to evaluate your patient. For Medicare and Medicare HMO plans, please review the plan of care and approve it. It will need to be FAXED BACK to us at [phone] for Medicare purposes. Please let me know if there are questions or concerns regarding this plan of care. Physician Signature: Date: <Electronically signed by Sergio Sullivan PT, ATC> 12/03/17 1500 CC: Renee Jackson DORochelle Mathur DO [facility] Signed For Medicare only, by signing this I certify the plan of care. Physicians Signature Date BEDSIDE GLUCOSE Collected: 11/12/2017 Status: F Source: [place] 10:23 AM [facility] REPOSITORY TYPE CODE TESTS RESULT OUT OF RANGE REFERENCE UNITS LAB L501.080 70-110 mg/dL Normal BEDSIDE GLU 100 Result Comment: MANAGEMENT OF PATIENT CARE PER NURSING PROTOCOL Performed By: #### L501.080 #### [facility] Point of Care [address] [place] [address] OPERATIVE REPORT Observed: 11/12/2017 Status: F Source: [place] 9:29 AM [facility] REPOSITORY [facility] Medical Records Department [address] [place] [address] Operative Report 11/12/17 0919 MR#: [id number] Acct: [id number] Name: RADHA GROSS Rep #: [id number] : 1955 62 From: Kings Mathur DO PCP: Renee Jackson DO Status: REG SDC Y Location: [place] [address] Report of Operation Date of Procedure: 11/12/17 Pre-Operative Diagnosis: Right shoulder rotator cuff tear, type IV SLAP, subacromial impingement. Left hip trochanteric bursitis and gluteal tendinopathy Post-Operative Diagnosis: Same as above Surgery/Procedure Performed:: Right shoulder arthroscopy, type IV SLAP debridement with associated biceps tenotomy, arthroscopic rotator cuff repair and arthroscopic subacromial decompression. Left hip trochanteric injection Description of Surgical Findings:: 62-year-old male with recalcitrant right shoulder pain that failed on management to include NSAIDs activity modifications physical therapy and injections. Patient MRI consistent with SLAP changes full-thickness rotator cuff tear and significant subacromial bursitis. Patient also has a history of trochanteric bursitis and request a left trochanteric injection at the time of operative intervention. Patient was counseled and consented for a left left hip trochanteric injection and associated right shoulder rotator cuff repair SLAP debridement and subacromial decompression and evaluation the biceps labral complex for tenotomy versus tenodesis. Patient was met in the holding area where the right upper extremity and the left hip were marked and identified by the with surgeon. Patient was taken to the operating room in satisfactory condition with somewhat to place to identify patient operative procedure and limb. Patient received 2 g Ancef. He was simply placed into the beachchair position after a successful intubation. His head was in a fine neutral position. The right upper extremity was in the Maynard O arm garcia. He was then prepped and draped in usual fashion. Posterior portal was established and we entered in the intra- articular space. Upon identification of anatomic triangle and anterior inferior working portal was established. Diagnostic scope should the patient have a type IV SLAP with extension into the biceps root and moving distally and fraying most likely related to the biceps lateralizing through his rotator cuff tear of the supraspinatus. The subscapularis was otherwise normal. He showed no signs of any tearing to the posterior inferior or anterior inferior labrum. The central and posterior cuffs were pristine. There is no loose bodies in the x-ray pouch. The patient had moderate synovitis to the shoulder. I subsequently debrided the type IV SLAP changes across the superior rim of the glenoid and tenotomized the biceps subsequently at the root secondary to the degenerative changes in extension. I performed a partial synovectomy around the capsule and the superior recess and release the superior glenohumeral ligament to allow for better mobilization of the rotator cuff if needed. At that point time the scope was retracted and removed in the subacromial space. We established a anterior superior mid lateral and posterior lateral working portals using standard technique. The patient had moderate to severe subacromial bursitis which was subsequently decompressed using standard technique. The patient had a type II to type III acromion and showed an impingement lesion to the CA ligament. The CA ligament was peeled off the anterolateral acromion to allow to float anteriorly and we subsequent performed a 6 mm acromioplasty using standard technique. We co-planed across the distal clavicle secondary to hypertrophy through that area. Patient's tear was obvious moving from the most leading edge of the supraspinatus into the midportion of the supraspinatus and transitioning into the infraspinatus. He showed a degree of delamination to the rotator cuff but the tendon quality was overall very good in the mobility of the tissue was greater across the superior lamination however I wish I elected to incorporate. At that point time after appropriate decompression we then acromion iced to prepare the bone bled no bed excuse me of the humeral head for better healing. This was done from the articular margin using laterally. We had good bleeding surface. At that point time using a percutaneous technique I placed 2 4.5 mm bio composite anchors from [employer] across the articular margin in order for him perform a transosseous equivalent technique. I did elect to place one margin convergent suture based on tear pattern using a free suture. This incorporated the delaminated layers into the superior layer very well. It also shortened our overall tendon construct. At that point time I then passed the suture tapes related to the implant of choice to the posterior aspect in the anterior aspects of the rotator cuff tear. I elected to place the saving suture in a simple fashion across both anchors using standard technique. I then tied the simple suture anchors which reapproximated 10 down to the articular margin and posteriorly with good incorporation. We then used the orthostasis again to perform a transosseous equivalent rotator cuff repair. One suture tape from the posterior anchor was then seated with a suture from the anterior anchor after the peripheral row had been established. This was repeated posteriorly again to give us a transosseous equivalent. We had excellent reapproximation of the anatomy covered roughly 75% of the articular footprint and the cuff moved through excellent range of motion through internal and external motion. At that point time the scope was retracted portal sites are closed with 3-0 nylon. He was injected with roughly 20 cc of 0.5% Marcaine without epinephrine around the portal sites and into the subacromial space. He was then dressed in usual fashion with Xeroform 4 x 4's ABDs and Medipore tape and placed to an UltraSling. We had no drains or complications. Implants included 2 bio composite anchors from [employer] medially with associated fiber tapes and suture and 2 peripheral anchors as well. We used 1 #2 FiberWire for margin convergent suture. After the patient had been extubated and placed onto the gurney table we then prepared his left hip using standard technique. We identified the area of maximal tenderness over the trochanter and then injected a 10 cc cocktail of 9 cc of 0.5% Marcaine without epinephrine and 1 cc of 40 mg of Kenalog mixture down onto the trochanteric bursa using needle stimulation technique. Simple bandage was then placed after application of the injection. Patient tolerated the procedures well. Patient will be discharged home and will follow me in 2 weeks. Any major issues please contact me. 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 - Complications None - Admit VTE Documentation VTE Present on Admission: No VTE Mechan Device Prophylaxis: SCD's, Knee High TYRONE Hose VTE Pharm Prophylaxis ordered?: No 11/12/17 0929 <Electronically signed by Kings Mathur DO> Date Kings Mathur DO CC: Renee Jackson DO; Kings Mathur DO Signed DISCHARGE INSTRUCTION Observed: 11/12/2017 Status: F Source: [place] 6:57 AM [facility] REPOSITORY [facility] Medical Records Department [address] [place] [address] Instructions for Home/Discharge Instructions 11/12/17 0655 MR#: [id number] Acct: [id number] Name: RADHA GROSS Rep #: [id number] : 1955 62 From: Kings Mathur DO PCP: Renee Jackson DO Status: REG [facility] [place] Discharge Activity: Return to Normal Activity, May not drive while taking narcotic pain medications., May Shower, - - Sling 24 7 except for shower May shower in (days): 2 May resume sexual activity in: 8 weeks Ice area for (Minutes): 20 Weight Bearing Status: No weight bearing Additional Activity Instructions:: May flex and extend elbow ad kosta. Perform pendulum exercises 3 times per day. Call your doctor if your incision/area has: Continuous Slow Oozing, Sudden Increased Bleeding, Increased Pain/ Swelling, Increased Redness, Foul Smelling Discharge, Swelling at the incision site Call your doctor if you observe: Fever of 101 or Higher, Coldness, Increased Pain, Numbness or Tingling, Change in Color, Inability to urinate, Inability to have a bowel movement, Using more than one pad per hour, Shortness of breath, Dizziness, Fainting spells, Swelling in the ankles, Chest pain, Prolonged hiccoughing, Increased palpitations (irregular heartbeat), Calf discomfort, Uncontrolled pain Suture Line Care: Avoid Pulling/Pushing, Avoid Pinching/Bending Change Dressing in (Days):: 2 Remove Dressing in (days):: 2 Cleanse incision/area with: Soap AND Water Additional Dressing/Incision Instructions:: Replace dressing after shower as long as there is drainage. Recommend wearing button-down shirts. Wash hands prior to touching wounds. Allergies/Adverse Reactions: Allergies codeine Adverse Reaction (Verified 08/01/17 11:53) Nausea ibuprofen Adverse Reaction (Verified 11/05/17 11:02) Nausea Medications to take at Discharge Aspirin E.C. [Ecotrin] 81 mg PO DAILY@0800 06/18/17 Tamsulosin HCl [Flomax] 0.4 mg PO DAILY 06/18/17 metoprolol succinate ER 25 mg tablet,extended release 24 hr 50 mg PO QDAY tab 07/02/17 metformin 500 mg tablet 500 mg PO ONCE tab 07/17/17 Docusate Sodium [Colace] 100 mg PO BID PRN PRN #10 cap 11/12/17 Oxycodone HCl/Acetaminophen [Percocet 5/325] 1 - 2 tablet PO Q4H PRN PRN #60 tablet 11/12/17 proMETHazine tablet [Phenergan] 25 mg PO Q4H PRN PRN #10 tab 11/12/17 The following prescriptions were given: Oxycodone HCl/Acetaminophen [Percocet 5/325] 1 - 2 tablet PO Q4H PRN PRN #60 tablet PRN Reason: Pain proMETHazine tablet [Phenergan] 25 mg PO Q4H PRN PRN #10 tab PRN Reason: Nausea Docusate Sodium [Colace] 100 mg PO BID PRN PRN #10 cap PRN Reason: Constipation Primary Care Physician: Renee Jackson DO [Primary Care Provider] - Please Follow Up With: Kings Mathur DO When: call [facility] for appt for 2 weeks Proposed Discharge Date: 11/12/17 11/12/17 0657 <Electronically signed by Kings Mathur DO> Date Kings Mathur DO CC: Renee Jackson DO BEDSIDE GLUCOSE Collected: 11/12/2017 Status: F Source: [place] 5:52 AM [facility] REPOSITORY TYPE CODE TESTS RESULT OUT OF REFERENCE UNITS RANGE LAB L501.080 70-110 mg/dL High BEDSIDE GLU 119 Result Comment: MANAGEMENT OF PATIENT CARE PER NURSING PROTOCOL Performed By: #### L501.080 #### [facility] Point of Care [address] [place], [place] [address] CBC-COMPLETE BLOOD CNT Collected: 11/05/2017 Status: F Source: [place] NO DIFF 11:40 AM [facility] REPOSITORY TYPE CODE TESTS RESULT OUT OF RANGE REFERENCE UNITS LAB L100.1000 4.4-11.0 K/mm3 High WBC 13.2 LAB L100.1200 4.6-6.2 M/mm3 Normal RBC 6.12 LAB L100.1300 13.0-16.5 g/dl High HGB 17.3 LAB L100.1400 40-54 % Normal HCT 51.0 LAB L100.1500 80-94 fL Normal MCV 83.3 LAB L100.1600 27.0-32.0 pg Normal MCH 28.3 LAB L100.1700 32-36 g/gl Normal MCHC 33.9 LAB L100.1810 11.6-14.6 % High RDW CV 14.8 LAB L100.1820 35.1-43.9 fl High RDW SD 45.0 LAB L100.1900 150-450 K/mm3 Normal PLT 279 LAB L100.2000 6.2-12.0 fl Normal MPV 10.7 Performed By: #### L100.0500 #### [facility] [address] [place], [place], [id number] PROTHROMBIN TIME W/INR Collected: 11/05/2017 Status: F Source: [place] 11:40 AM [facility] REPOSITORY TYPE CODE TESTS RESULT OUT OF RANGE REFERENCE UNITS LAB L300.4150 11.7-14.9 SECONDS Normal PROTIME 14.7 LAB L300.4200 Normal INR 1.2 Performed By: #### L300.3900, L300.4310 #### [facility] [address] [place], [place], [id number] PARTIAL THROMBOPLAST Collected: 11/05/2017 Status: F Source: [place] TIME 11:40 AM [facility] REPOSITORY TYPE CODE TESTS RESULT OUT OF RANGE REFERENCE UNITS LAB L300.4310 24.1-36.2 Seconds Normal PTT 34.7 Performed By: #### L300.3900, L300.4310 #### [facility] [address] [facility]. [place], [place], [id number] LIVER PROFILE Collected: 11/05/2017 Status: F Source: [place] 11:40 AM [facility] REPOSITORY TYPE CODE TESTS RESULT OUT OF RANGE REFERENCE UNITS LAB L501.1500 6.4-8.2 g/dL Normal T PROT 7.5 LAB L501.1800 3.2-5.0 g/dL Normal ALB 3.3 LAB L501.1950 2.2-4.2 g/dL Normal GLOB 4.2 LAB L501.4100 15-37 U/L Normal AST 24 LAB L501.4305 45-117 U/L Normal ALK P 108 LAB L501.4405 16-61 U/L Normal ALT 39 Result Comment: Please note revised ALT reference range effective 2017. LAB L501.4600 0.20-1.00 mg/dL Normal T BILI 0.80 LAB L501.4700 0.00-0.30 mg/dL Normal D BILI 0.14 Performed By: #### L500.3400 #### [facility] [address] [place], [address] ORTHOPEDIC VISIT Observed: 10/27/2017 Status: F Source: [place] REPORT 9:10 AM [facility] REPOSITORY [facility] [address] [place] [address] [address] [place] [address] OFFICE VISIT Date of Service: 10/21/17 MR#: [id number] Acct: [id number] Name: RADHA GROSS Rep #: [id number] : 1955 Provider: Kings Mathur DO Age/Sex: 62/M [place] [facility] [place] [place]: Signed Intake Intake Visit Reasons: left shoulder Is patient in pain?: Yes Pain scale (1-10): 6 Allergies codeine Adverse Reaction (Verified 08/01/17 11:53) Nausea Medications Aspirin E.C. [Ecotrin] 81 mg PO DAILY@0800 06/18/17 [History Confirmed 10/21/17] Tamsulosin HCl [Flomax] 0.4 mg PO DAILY 06/18/17 [History Confirmed 10/21/17] Apixaban [Eliquis] 5 mg PO BID #74 tab 06/21/17 [Rx Confirmed 10/21/17] metoprolol succinate ER 25 mg tablet,extended release 24 hr 50 mg PO QDAY tab 07/02/17 [History Confirmed 10/21/17] metformin 500 mg tablet 500 mg PO ONCE tab 07/17/17 [History Confirmed 10/21/17] handicap placard See Label Instructions .ROUTE .COMPLEX #1 10/21/17 [Rx Confirmed 10/21/17] PFSH Medical History Back pain (Acute) Pulmonary embolism (Acute) Alcoholism (Chronic) Arthritis (Chronic) COPD (chronic obstructive pulmonary disease) (Chronic) Diabetes (Chronic) Seasonal allergies (Chronic) Surgical History H/O heart artery stent (Inactive) Herniated disc (Inactive) History of total left knee replacement (Inactive) S/P right knee arthroscopy (Inactive) S/P right unicompartmental knee replacement (Inactive) lumbar disc (Inactive) Family History Mother CHF (congestive heart failure) Social History Smoking Status: Current every day smoker HPI left shoulder: Details: RADHA GROSS is a 62 year old M here today for bilateral shoulder pain and left hip pain. He states he would like to discuss surgery for the right rtc tear because the injections are not helping but the left shoulder still gets three months relief with injections. His diabetes is much better controlled with his recent weight loss, A1C was 6 at latest eval. He has pain with all rom and weight bearing. His left hip is ttp and he can't sleep on that side and he is walking with a cane. Denies numbness, tingling or other associated symptoms. ROS Const Reports system reviewed and no additional complaints, except as docu Eyes Reports system reviewed and no additional complaints, except as docu ENT Reports system reviewed and no additional complaints, except as docu Card Reports system reviewed and no additional complaints, except as docu Resp Reports system reviewed and no additional complaints, except as docu GI Reports system reviewed and no additional complaints, except as docu Musc Reports joint pain, Reports muscle weakness, Reports stiffness, Reports limited joint movement, Reports abnormal walking, Reports as per HPI Skin/Breast Reports system reviewed and no additional complaints, except as docu Neuro Yes system reviewed and no additional complaints, except as docu, Yes abnormal walking Psych Reports system reviewed and no additional complaints, except as docu Endo Reports system reviewed and no additional complaints, except as docu Ortho Exam Right Shoulder Contralateral Normal: No Testing: Positive Hawkin's, Neer's, Speed's, TTP Biceps, TTP AC Joint, Drop Arm, Yergason's, empty can, AROM-Forward Elevation 0-180 (0-170), AROM-External Rotation at 90 0-60 (0-80) and AROM-External Rotation at side 0-60 (Out of 45) Internal Rotation: L1 SHOULDER: General: well developed, well nourished in no acute distress. Head: normocephalic and atraumatic Pulses: pulses normal in all 4 extremities. Neurologic: no focal deficits, cranial nerves II-XII grossly intact with normal sensation, reflexed, coordination, muscle strength and tone. Axillary Nodes: no significant adenopathy. Psych: alert and cooperative, normal mood and affect, normal attention span and concentration. Heart regular with an S1-S2. Lungs clear to auscultation bilaterally. Abdomen is soft nontender nondistended with no gross hepatosplenomegaly. MRI: Previously evaluated-patient shows partial rotator cuff tear the supraspinatus fluid in the subacromial space changes the biceps labral complex and AC arthrosis. Central posterior cuff show high-grade tendinopathy. No obvious arthrosis. Left Shoulder Contralateral Normal: No Testing: Yes Hawkin's, Yes Neer's, Yes Speed's, Yes TTP Biceps, Yes TTP AC Joint, Yes AROM-Forward Elevation 0-180, Yes empty can Internal Rotation: T12 Left Hip Hip: Present TTP Greater Troch Ganesh test: 2 Ernestine's Signs: no Overreaction, Simulation (pelvic rotation or axial loading), Regional (non-dermatomal complaint), Superficial tenderness or Flip Test (sitting vs. supine SLR test) Homans Sign: No HIP: Abductor and abductor strength is maintained. Patient is tender palpation across the greater trochanter across the IT band. There is no obvious overs at this point. Distally neurovascular intact. No calf pain negative Homans. Patient drains otherwise intact the C5 to the T2 distributions of the upper extremity and from L1-S1 distributions distally. Office Procedures Ortho Injections Injections Yes Subacromial Injection Left Details: Obtained consent for injection. Under sterile conditions, injected the patients left subacromial injection with a 10cc cocktail of 8cc bupivacaine and 2cc kenalog. The patient tolerated the injection well without any noted complication. Patient should call our office if redness develops, pain worsens or if they have any concerns. Office Meds Kenalog Performing Provider: Kings Mathur DO Administered by: Kings Mathur DO on 10/21/17 11:54 Dose Route Admin Location Lot Number Expiration DateNDC [employer] Worker 2 mg Intra-Articularleft [id number] 10/27/18 4914-5669-82 BRISTOL VYAS l SQUIBB Assessment AND Plan Problems 1. Impingement syndrome of right shoulder region M75.41 2. Nontraumatic incomplete tear of right rotator cuff M75.111 3. Chronic right shoulder pain M25.511; G89.29 4. Pain of left hip M25.552 5. Trochanteric bursitis of left hip M70.62 Plan Assessment: Right shoulder rotator cuff tear, right shoulder impingement, right shoulder pain, right shoulder AC arthrosis and biceps tendinitis. MRI: Evaluated myself patient-MRI shows patient have a right shoulder supraspinous rotator cuff tear with mild retraction. He has otherwise rotator cuff tendinopathy to the remaining portion of the cuff moving posteriorly. Fluid in subacromial space. Biceps appears to be located subscap was normal normal. Mild fluid around the biceps at this point time. Patient has radiographic evidence of AC arthrosis. Plan: Radiographic findings discussed with the patient that are consistent with his physical examination. Having failed conservative measures to include NSAIDs activity modifications physical therapy and injections the patient would like to proceed with operative intervention. At this point time patient has been counseled and consented for right shoulder arthroscopy rotator cuff repair versus debridement evaluation the biceps labral complex for possible biceps tenodesis if needed. Arthroscopic subacromial decompression and distal clavicle resection. Patient understands risks and benefits to include damage to nerves muscles arteries veins in a DVT PE infection or and continued shoulder pain and need for further information intervention. Patient desires to proceed. Reviewed the pre-operative plans with the patient. Risks and benefits of the procedure were fully explained, including but not limited to infection, neurovascular injury, continued pain, arthritis, stiffness, need for further surgery, re-injury, DVT, PE, general risks of anesthesia, and loss of limb or life. The patient understands all the risks and does wish to proceed with written consent. We will also perform a left trochanteric injection at the time of operative intervention. 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 [place], [place], [address] COMPREHENSIVE METABOLIC Collected: 09/11/2017 Status: F Source: [facility] 2:54 PM [facility] REPOSITORY TYPE CODE TESTS RESULT OUT OF RANGE REFERENCE UNITS LAB L501.0100 74-106 mg/dL Normal GLU 94 Result Comment: Please note revised GLUCOSE reference range effective 2017. LAB L501.1000 7-18 mg/dL Normal BUN 10 LAB L501.1100 0.70-1.30 mg/dL Normal CREAT,SERUM 0.88 Result Comment: The validity of the calculated GFR AND GFRAA in patients over 70 years has not been determined. Clinical correlation is essential. LAB L501.1110 >60 mL/min Normal EST GFR 93 Result Comment: Non- GFR Calc LAB L501.1115 >60 mL/min Normal EST GFR - AA 113 Result Comment: GFR Calc LAB L501.1300 10-20 RATIO Normal BUN/CRE 11.3 LAB L501.1500 6.4-8.2 g/dL T Normal PROT 7.4 LAB L501.1800 3.2-5.0 g/dL Normal ALB 3.2 LAB L501.1950 2.2-4.2 g/dL Normal GLOB 4.2 LAB L501.2000 0.9-2.4 RATIO Low A/G 0.8 LAB L501.2200 8.5-10.1 mg/dL CA Normal 8.6 LAB L501.4100 15-37 U/L High AST 38 LAB L501.4305 45-117 U/L Normal ALK P 80 LAB L501.4405 16-61 U/L Normal ALT 55 Result Comment: Please note revised ALT reference range effective 2017. LAB L501.4600 0.20-1.00 mg/dL Normal T BILI 0.80 LAB L501.5300 136-145 mmol/L Normal NA 139 LAB L501.5600 3.5-5.1 mmol/L Normal K 3.8 LAB L501.5900 98-107 mmol/L Normal CL 103 LAB L501.6100 21.0-32.0 mmol/L Normal CO2 26.0 LAB L501.6200 5-15 Normal GAP 10 Performed By: #### L500.4050, L500.4100 #### [facility] [address] [place], [place], [address] LIPID PROFILE Collected: 09/11/2017 Status: F Source: [place] 2:54 PM [facility] REPOSITORY TYPE CODE TESTS RESULT OUT OF RANGE REFERENCE UNITS LAB L501.4900 200 mg/dL Normal CHOL 159 Result Comment: <200 mg/dL Desirable 200-240 mg/dL Borderline >240 mg/dL High Risk LAB L501.5000 mg/dL Normal TRIG 156 Result Comment: The drugs N-Acetylcysteine and Metamizole may falsely depress this assay. Serum Triglycerides Reference Interval Normal <150 mg/dL Borderline high 150 - 199 mg/dL High 200 - 499 mg/dL Very High > or = 500 mg/dL LAB L501.6400 mg/dL Low HDL 34 Result Comment: The drugs N-Acetylcysteine and Metamizole may falsely depress this assay. Reference Range HDL <40 mg/dL Low HDL Cholesterol HDL >or= 60 mg/dL High HDL Cholesterol LAB L501.6500 0-130 mg/dL Normal LDL 94 LAB L501.6600 5-40 mg/dL Normal VLDL 31 Performed By: #### L500.4050, L500.4100 #### [facility] [address] [place], [address] ALLERGIES ALLERGIES DATE TYPE / CODE NAME / CODE REACTION SEVERITY SOURCE 11/25/2017 Drug codeine/F006 Nausea Unknown [facility] Allergy/4160 137639([facility] [address](SNOMED M) Repository CT) 11/25/2017 Drug ibuprofen/F0 Nausea Unknown [facility] Allergy/4160 [id number]([facility] [address](SNOMED ORM) Repository CT) ENCOUNTERS ENCOUNTERS ADMIT/DISCHARGE ACCOUNT ADMITTING ENCOUNTER LOCATION SOURCE NUMBER CLASS 08/19/2018 [id number] Ambulatory [place] [address] [facility] ing:HPRAD Repository 08/19/2018/ [id number] Ambulatory BMSBuilding:B [place] 9 0 [place].[facility] Repository 03/25/2018 [id number] Ambulatory [place] [address] [facility] ing:MRI Repository 03/12/2018 [id number] Ambulatory [place] [address] [facility] ing:CVS Repository 02/12/2018 [id number] Ambulatory [place] [address] [facility] ing:BFHLAB Repository 01/19/2018 [id number] Ambulatory BMSBuilding:B [place] 0 [facility] Repository 12/03/2017/ [id number] Ambulatory [place] Bar[place] [address] [facility] ing:PT Repository 11/28/2017 [id number] Ambulatory BMSBuilding:B [place] 5 [facility] Repository 11/25/2017/ [id number] Ambulatory BMSBuilding:B [place] 8 3 [facility] Repository 11/12/2017/ [id number] Ambulatory [place] [address] [facility] ing:SDC Repository 11/12/2017 [id number] Ambulatory BMSBuilding:B [place] 2 [facility] Repository 10/21/2017/ [id number] Ambulatory BMSBuilding:B [place] 8 8 [facility] Repository 09/11/2017 [id number] Ambulatory [place] [address] [facility] ing:BFHLAB Repository PAYERS PAYERS ENCOUNTER GUARANTOR PAYER SUBSCRIBER SOURCE 08/19/2018 RADHA D Primary RADHA D [place] [id number] Insurance:HUMANA FOREMANDOB: Community [id number] Number: Repository [address]Upu: 440 [id number] [phone] () Date:6696-12-03RD [address] [address]HX: 08/19/2018 Secondary NOT GIVENUNK [place] Insurance:SELF PAY [facility] Number: Effective Repository Date:2018-08-19 08/19/2018 RADHA D Primary RADHA D [place] [id number] Insurance:HUMANA FOREMANDOB: Community [place] [id number] Number: Repository [address]Egc: 440 [id number] [phone] () Date:2248-39-65QA [address] [address]JS: 08/19/2018 Secondary NOT GIVENUNK [place] Insurance:SELF PAY [facility] Number: Effective Repository Date:2018-08-18 03/25/2018 RADHA D Primary RADHA D [place] [id number] Insurance:HUMANA FOREMANDOB: Community [place] [id number], [place] Number: Repository [address]Rdk: 440 [id number] [phone] () Date:6337-10-22EM [address] [address]QS: 03/25/2018 Secondary NOT GIVENUNK [place] Insurance:SELF PAY [facility] Number: Effective Repository Date:2018-03-20 03/12/2018 RADHA D Primary RADAH D [place] [id number] Insurance:HUMANA FOREMANDOB: Community [place] [id number] Number: Repository [address]Ofb: 440 [id number] [phone] (HP) Date:0741-53-72FS [address] [address]UI: 03/12/2018 Secondary NOT GIVENUNK [place] Insurance:SELF PAY [facility] Number: Effective Repository Date:2018-03-05 02/12/2018 RADHA D Primary RADHA D [place] [id number] Insurance:HUMANA FOREMANDOB: Community [place] [id number] Number: Repository [address]Tlk: 440 [id number] [phone] (HP) Date:7772-54-39JG [address] [address]OO: 02/12/2018 Secondary NOT GIVENUNK [place] Insurance:SELF PAY [facility] Number: Effective Repository Date:2018-02-12 01/19/2018 RADHA D Primary RADHA D [place] [id number] Insurance:HUMANA FOREMANDOB: Community [place] [id number] Number: Repository [address]Iqj: 440 [id number] [phone] () Date:9853-04-37ZN [address] [address]RN: 01/19/2018 Secondary NOT GIVENUNK [place] Insurance:SELF PAY [facility] Number: Effective Repository Date:2018-01-19 12/03/2017 RADHA D Primary RADHA D [place] [id number] Insurance:HUMANA FOREMANDOB: Community [place] [id number] Number: Repository [address]Jai: 440 [id number] [phone] () Date:3987-51-29II [address] [address]OK: 12/03/2017 Secondary NOT GIVENUNK [place] Insurance:SELF PAY [facility] Number: Effective Repository Date:2017-11-25 11/28/2017 RADHA D Primary RADHA D [place] [id number] Insurance:HUMANA FOREMANDOB: Community [place] [id number] Number: Repository [address]Eqw: (440 [id number] [phone]) Date:3469-53-90CN [address] [place] [address]FD: 11/28/2017 Secondary NOT GIVENUNK [place] Insurance:SELF PAY [facility] Number: Effective Repository Date:2017-11-13 11/25/2017 RADHA D Primary RADHA D [place] [id number] Insurance:HUMANA FOREMANDOB: Community [place] [id number] Number: Repository [address]Sfw: 440 [id number] [phone] (HP) Date:0134-13-24WH [address] [address]KT: 11/25/2017 Secondary NOT GIVENUNK [place] Insurance:SELF PAY [facility] Number: Effective Repository Date:2017-11-25 11/12/2017 RADHA D Primary RADHA D [place] [id number] Insurance:HUMANA FOREMANDOB: Community [place] [id number], [place] Number: Repository [address]Vjl: 440 [id number] [phone]) Date:9823-61-62UE [address] [address]PI: 11/12/2017 Secondary NOT GIVENUNK [place] Insurance:SELF PAY [facility] Number: Effective Repository Date:2017-10-28 11/12/2017 RADHA D Primary RADHA D [place] [id number] Insurance:HUMANA FOREMANDOB: Community [place] [id number], [place] Number: Repository [address]Pqk: 440 [id number] [phone] (HP) Date:4912-79-17XQ [address] [address]QU: 11/12/2017 Secondary NOT GIVENUNK [place] Insurance:SELF PAY [facility] Number: Effective Repository Date:2017-11-12 10/21/2017 RADHA D Primary RADHA D [place] [id number] Insurance:HUMANA FOREMANDOB: Community [place] [id number] Number: Repository [address]Vuh: 440 [id number] [phone] () Date:9460-24-73AE [address] [place] [address]LS: 10/21/2017 Secondary NOT GIVENUNK [place] Insurance:SELF PAY [facility] Number: Effective Repository Date:2017-10-21 09/11/2017 RADHA D Primary RADHA D [place] [id number] Insurance:HUMANA FOREMANDOB: Community [place] [id number] Number: Repository [address]Ktr: 440 [id number] [phone] () Date:7285-53-44DS [address] [place] [address]TF: 09/11/2017 Secondary NOT GIVENUNK [place] Insurance:SELF PAY [facility] Number: Effective Repository Date:2017-09-11
== END ==
PROVIDERS: Family Provider Family Medicine; PCP Family Medicine; Visit Provider Orthopaedic Surgery
DX: M54.16 Radiculopathy, lumbar region (principal)
CPT/HCPCS: 72114

== ENCOUNTER → 2018-10-17 14:03 | Outpatient (CLI) | payer MEDICARE, SELFPAY ==
[2016-08-31 15:27] VITALS: BMI 33.3
--- NOTE | 2018-10-17 14:08 | RAD_ITS ---
STUDY: X-RAY - LEFT HIP REASON FOR EXAM: Male, 63 years old. Chronic hip pain. TECHNIQUE: 2 views of the hip. COMPARISON: None. FINDINGS: Normal femoral head, neck, intertrochanteric region and visualized proximal femur. There is osteoarthritic spur formation of the acetabular rim. There is mild articular joint space narrowing. Normal visualized superior and inferior pubic rami and ischial tuberosities. RAD/HIP, UNI W/ Pelvis 2-3 Views IMPRESSION: Degenerative changes of the hip. Electronically Signed: Kg Wilhelm, at 10:31 EDT , Service support ,
== END ==
PROVIDERS: Family Provider Family Medicine; PCP Family Medicine; Referring Provider Nurse Practitioner Family; Visit Provider Nurse Practitioner Family
DX: M25.552 Pain in left hip (principal)
CPT/HCPCS: 73502

== ENCOUNTER → 2019-01-08 | Outpatient (CLI) | payer MEDICARE, SELFPAY ==
[2016-08-31 15:27] VITALS: BMI 33.3
[2019-01-10 15:25] LABS: V-Zoster IgG (Immunity) 730 index (Immune >165)
== END | disposition home or self-care (01) ==
LOC: BFHLAB 08:13
PROVIDERS: Family Provider Family Medicine; PCP Family Medicine; Visit Provider Family Medicine
DX: Z11.59 Encounter for screening for other viral diseases (principal)
CPT/HCPCS: 36415; 86787

== ENCOUNTER 2019-01-25 09:24 | Emergency (ER) | payer MEDICARE, SELFPAY ==
[2016-08-31 15:27] VITALS: BMI 33.3
[2019-01-25 09:26] VITALS: BP 114/74; PULSE 64; RESP 12; TEMP 36.5; O2SAT 98; BMI 31.7
--- NOTE | 2019-01-25 09:31 | RAD_ITS ---
STUDY: X-RAY - PELVIS REASON FOR EXAM: Male, 63 years old. Fall from a ladder, pain TECHNIQUE: One view of the pelvis was obtained. COMPARISON: None. FINDINGS: There is a non-specific bowel gas pattern. Normal visualized soft tissue structures. Normal bilateral iliac wings, sacroiliac joints and visualized sacrum. Normal visualized bilateral superior and inferior pubic rami. Normal pubic symphysis. Normal ischial tuberosities. Normal visualized right femoral head. Normal right acetabulum. Normal right hip joint. Normal visualized left femoral head. Normal left acetabulum. Normal left hip joint. RAD/Pelvis 1 or 2 Views IMPRESSION: No pelvic ring fracture. Electronically Signed: Gurjit Wallace MD at 10:49 EDT , Service support ,
--- NOTE | 2019-01-25 09:31 | RAD_ITS ---
STUDY: X-RAY - RIGHT TIBIA AND FIBULA REASON FOR EXAM: Male, 63 years old. Fall from ladder, abrasions TECHNIQUE: 2 view(s) of the tibia and fibula were obtained. COMPARISON: None. FINDINGS: Normal visualized tibia. Normal visualized fibula. Hemiarthroplasty of the medial compartment. There are degenerative changes of the ankle/hindfoot. The soft tissue structures are unremarkable. RAD/Tibia & Fibula 2 Views IMPRESSION: No demonstrated fracture. Electronically Signed: Gurjit Wallace MD at 10:46 EDT , Service support ,
--- NOTE | 2019-01-25 09:31 | CT_ITS ---
STUDY: CT CERVICAL SPINE WITHOUT CONTRAST REASON FOR EXAM: Male, 63 years old. Fall from ladder, 8-10 feet, hit head, headache RADIATION DOSAGE (If Supplied By Facility): CTDIvol = ( 11.79 ) mGy, DLP = ( 222.93 ) mGycm TECHNIQUE: High resolution transaxial imaging was performed without contrast material. Sagittal and coronal images were reconstructed. Individualized dose optimization techniques were used for this CT. COMPARISON: None FINDINGS: Normal craniovertebral junction. There are degenerative changes of the anterior atlantoaxial articulation. Normal odontoid process. There is straightening of the normal cervical lordosis. Normal vertebral bodies and posterior osseous elements. C2-3: Mild spondylosis. Normal disc height and morphology. Normal central canal and intervertebral neuroforamina. Moderate facet arthropathy. C3-4: Mild spondylosis. Normal disc height and morphology. Normal central canal and intervertebral neuroforamina. Moderate facet arthropathy. C4-5: Normal endplates. Normal disc height and morphology. Normal central canal and intervertebral neuroforamina. C5-6: Endplate spondylosis. Normal disc height and morphology. Normal central canal and intervertebral neuroforamina. C6-7: Normal endplates. Normal disc height and morphology. Normal central canal and intervertebral neuroforamina. C7-T1: Normal endplates. Normal disc height and morphology. Normal central canal and intervertebral neuroforamina. Normal visualized soft tissue structures. CT/Spine Cervical without Contras IMPRESSION: 1. No cervical spine fracture or traumatic subluxation. 2. Degenerative changes. Electronically Signed: Gurjit Wallace MD at 10:50 EDT , Service support ,
--- NOTE | 2019-01-25 09:31 | RAD_ITS ---
STUDY: X-RAY - LEFT TIBIA AND FIBULA REASON FOR EXAM: Male, 63 years old. Fall from a ladder, leg pain, abrasions TECHNIQUE: 2 view(s) of the tibia and fibula were obtained. COMPARISON: None. FINDINGS: Normal visualized tibia. Normal visualized fibula. Knee replacement noted. There are degenerative changes of the ankle. Soft tissue swelling and air/defect compatible with laceration. RAD/Tibia & Fibula 2 Views IMPRESSION: No fracture or malalignment. Soft tissue laceration/injury. Electronically Signed: Gurjit Wallace MD at 10:48 EDT , Service support ,
--- NOTE | 2019-01-25 09:31 | EKG12_ITS ---
Test Reason : FALL Blood Pressure : / mmHG Vent. Rate : 059 BPM Atrial Rate : 059 BPM P-R Int : 168 ms QRS Dur : 096 ms QT Int : 442 ms P-R-T Axes : 042 -28 014 degrees QTc Int : 437 ms Sinus bradycardia Otherwise normal ECG Confirmed by KATIE BENNETT, BHAVANI ([id number]), industrial editor DARIN BLANCO ([id number]) on 01/26/2019 1:05:57 PM Referred By: AMMY Confirmed By:BHAVANI WILSON MD
--- NOTE | 2019-01-25 09:31 | CT_ITS ---
STUDY: CT BRAIN WITHOUT CONTRAST REASON FOR EXAM: Male, 63 years old. Fall 8-10 feet off ladder, hit back of head RADIATION DOSAGE (If Supplied By Facility): CTDIvol = ( 44.99 ) mGy, DLP = ( 846.73 ) mGycm TECHNIQUE: Transaxial CT imaging of the brain was performed without administration of intravenous contrast material. Individualized dose optimization techniques were used for this CT. COMPARISON: No relevant priors. FINDINGS: Small focal soft tissue swelling of the posterior scalp. Normal calvarium. There is mild cerebral atrophy with widening of the extra-axial spaces and ventricular dilatation. There are areas of decreased attenuation within the white matter tracts of the supratentorial brain, consistent with microvascular disease changes. Normal basal ganglia and thalami. Normal brainstem. Normal cerebellum. There is no intracranial hemorrhage. There are no findings of an acute ischemic infarction. Normal visualized paranasal sinuses. CT/Brain/Head without Contrast IMPRESSION: 1. No acute intracranial hemorrhage or mass effect. 2. Mild posterior scalp soft tissue swelling. 3. Central parenchymal volume loss. White matter changes that are nonspecific but most commonly associated with chronic small vessel ischemic disease. Electronically Signed: Gurjit Wallace MD at 10:35 EDT , Service support ,
--- NOTE | 2019-01-25 09:31 | RAD_ITS ---
STUDY: X-RAY CHEST REASON FOR EXAM: Male, 63 years old. Fall from a ladder, pain TECHNIQUE: AP COMPARISON: None. FINDINGS: EKG leads project over the chest. Right hemidiaphragm is mildly elevated. There is no demonstrated pleural abnormality. Normal size cardiac silhouette for portable technique. Normal mediastinum and mario. Normal visualized pulmonary arteries. Normal visualized aortic arch and descending thoracic aorta. Normal visualized thoracic spine. Normal visualized ribs, clavicles, and shoulders. There is no demonstrated abnormality of the visualized soft tissue structures of the upper abdomen. RAD/Chest 1 View (Portable) IMPRESSION: Nonacute portable x-ray examination of the chest. Electronically Signed: Gurjit Wallace MD at 10:48 EDT , Service support ,
--- NOTE | 2019-01-25 09:35 | ED.DCSUM_ITS ---
- ER Visit Summary Date of Service: 01/25/19 Chief Complaint: Fall History of Present Illness: The patient is a 63 M presents to the emergency department after a fall. Patient was on a ladder. He thinks he was approximately 10 to 12 feet up. He lost his balance and fell. He struck his anterior shins against a ladder when he was falling down. He landed and struck his head. He did not lose consciousness. On squad arrival, he was awake and alert. The patient does take baby aspirin every other day. He is on no other anticoagulants. He does have a history of coronary vascular disease. He was not prodromal prior to the fall. He has no seizure disorder. He has no history of coagulopathy. He is unsure of his last tetanus. He is otherwise been in his normal state of health. Physical Examination: Patient is awake and alert. He is a GCS of 15. He does have evidence of contusion on posterior scalp. He has no midline neck tenderness. TMs are clear. Midface is stable. No evidence of malocclusion. His airway is patent. Heart is regular rhythm. Chest is nontender. Abdomen is soft. He does have a superficial abrasion to the right lower quadrant, but no tenderness to palpation. Back is nontender. Pelvis is stable. Right lower extremity shows a linear oriented deep laceration that goes into the muscle belly that is approximately 14 cm. Left lower extremity shows a 27 cm complex degloving type injury. Pulses are normal. Test Results: [] Emergency Department Course and Treatment: Patient presents after fall from height with head injury, loss of consciousness, and significant degloving injury. I do feel that he would best be served at a trauma center. Patient was discussed with Jack canales. Patient was given Tdap and Ancef. He is given fluids and Zofran. His wounds were dressed with wet gauze. Imaging is currently pending. He will be transferred immediately to the trauma facility. Treatment Plan: [] Disposition: Transfer Impression: 1. Fall from height 2. Closed head injury 3. Bilateral lower extremity degloving injuries This note was generated with [employer] software. It may contain incorrect words, spelling, and punctuation that were not noted in review of the chart prior to signing ED Disposition - Plan for ED Patient: Referrals: Renee Jackson DO [Primary Care Provider] -
[2019-01-25] MEDS: Ondansetron 4 MG/2 ML Vial IV ×2 (09:42→09:59)
[2019-01-25] MEDS: 0.9% Normal Saline 1,000 ML 999 ML IV (09:42)
[2019-01-25 09:46] LABS: Absolute Lymphocyte Count 2.44 X10^3/ul (0.83-4.51); Absolute Neutrophil Count 5.8 X10^3/uL (2.0-7.7); Basophil# 0.05 X10^3/uL; Basophil% 0.6 % (0-1); Eosinophils% 1.1 % (0-5); Hematocrit 46.4 % (40-54); Hemoglobin 15.8 g/dl (13.0-16.5); Lymphocyte # 2.44 X10^3/ul (4.0); Lymphocyte % 27.3 % (19-41); Mean Corp Hgb Conc 34.1 g/gl (32-36); Mean Corpuscular Hgb 29.6 pg (27.0-32.0); Mean Corpuscular Volume 86.9 fL (80-94); Mean Platelet Vol. 10.2 fl (6.2-12.0); Monocyte# 0.52 X10^3/uL; Monocyte% 5.8 % (0-10); POSITIVE COUNT NO; POSITIVE DIFFERENTIAL NO; POSITIVE MORPHOLOGY NO; Platelet Count 222 K/mm3 (150-450); RBC Distribution Width CV 14.5 % (11.6-14.6); RBC Distribution Width SD 46.3 fl (35.1-43.9); Red Blood Count 5.34 M/mm3 (4.6-6.2); White Blood Count 8.9 K/mm3 (4.4-11.0)
[2019-01-25] MEDS: Diphth,Pertuss(Acell),Tet Vac 0.5 ML Vial IM (09:47)
[2019-01-25] MEDS: Cefazolin 1 GM/50 ML BAG IV (09:58)
[2019-01-25 09:59] LABS: Anion Gap 5 (5-15); BUN 13 mg/dL (7-18); BUN/Creat Ratio 13.3 RATIO (10-20); Calcium,Total 8.5 mg/dL (8.5-10.1); Chloride 112 mmol/L (98-107); Creatinine, Serum 0.98 mg/dL (0.70-1.30); EST Glomerular Filtration Rate 83 mL/min (>60); Est Glom Filt Rate - Afr Amer 100 mL/min (>60); Estimated Creatinine Clearance 78.15 ml/min; Glucose 132 mg/dL (74-106); Potassium 3.6 mmol/L (3.5-5.1); Sodium Level 142 mmol/L (136-145)
[2019-01-25 10:28] VITALS: BP 112/71; PULSE 62; RESP 14; O2SAT 98
[2019-01-25] MEDS: fentaNYL 100 MCG/2 ML Ampul 25 MCG IV (10:28)
[2019-01-25 10:36] LABS: Alcohol, Blood (Medical)-Serum < 3.0 mg/dL
== END 2019-01-25 10:48 | disposition short-term general hospital (02) ==
LOC: ED 09:45
PROVIDERS: Emergency Provider Emergency Medicine; Family Provider Family Medicine; PCP Family Medicine
DX: S00.03XA Contusion of scalp, initial encounter (principal); S81.811A Laceration without foreign body, right lower leg, initial encounter; S81.802A Unspecified open wound, left lower leg, initial encounter; Z23 Encounter for immunization; I25.2 Old myocardial infarction; I10 Essential (primary) hypertension; Z87.891 Personal history of nicotine dependence; Z79.82 Long term (current) use of aspirin; W11.XXXA Fall on and from ladder, initial encounter; Y93.89 Activity, other specified; Y92.89 Other specified places as the place of occurrence of the external cause; Y99.8 Other external cause status
CPT/HCPCS: 70450; 71045; 72125; 72170; 73590; 80048; 80320; 85025; 90715; 93005; 96365; 96375; 99284; J7030; A4216; G0480; J2405

== ENCOUNTER 2019-03-03 08:23 | Observation (INO) | payer MEDICARE, SELFPAY ==
[2016-08-31 15:27] VITALS: BMI 33.3
[2019-02-19 15:24] VITALS: BMI 31.7
[2019-03-03] VITALS (10 sets, daily range): BP systolic 110–130; BP diastolic 63–80; PULSE 54–77; RESP 16–18; TEMP 36.3–36.8; O2SAT 95–100; BMI 31.0
--- NOTE | 2019-03-03 01:09 | PCM.HP.BLA ---
History and Physical Date of Admission: 03/03/19 HISTORY OF PRESENT ILLNESS 63 year old man presents with nonhealing ulcers bilateral legs after sustaining complex degloving lacerations when he fell off a ladder on 01/25/19. He had operative intervention with cleansing of the wounds with closure. Some of the degloved tissue on the left became necrotic leading to a nonhealing ulcer. He had a portion of the sutured laceration breakdown on the right leading to a nonhealing ulcer. Patient has diabetes mellitus, and he states his last HgbA1c was 6. He had been on antibiotics for concomitant infections during the healing process. He has chronic redness and cellulitis left leg. He is currently placing antibiotic ointment on his ulcers daily. He presents at this time for surgical options for treatment. PAST MEDICAL HISTORY Non-ST elevation (NSTEMI) myocardial infarction Atherosclerosis of coronary artery of [place] heart without angina pectoris Trochanteric bursitis of left hip Hypertension Tobacco abuse Hypercholesterolemia Back problem History of prostate disorder Alcoholism Anxiety and depression Arthritis BPH (benign prostatic hyperplasia) COPD (chronic obstructive pulmonary disease) DVT (deep venous thrombosis) Liver mass Pulmonary embolism Type 2 diabetes mellitus without complications PAST SURGICAL HISTORY coronary artery stent placement total left knee replacement (TKR) back surgery - herniated disc right rotator cuff repair right knee arthroscopy right unicompartmental knee replacement ALLERGIES adhesive tape codeine ibuprofen MEDICATIONS Aspirin E.C. [Ecotrin] Tamsulosin HCl [Flomax] metoprolol succinate ER metformin clonazepam doxycycline hyclate tramadol oxycodone-acetaminophen FAMILY HISTORY Mother - CHF (congestive heart failure) SOCIAL HISTORY Smoking Status: Current every day smoker counseling given: provider counseling, counseling >10 minutes alcohol intake: never substance use type: does not use REVIEW OF SYSTEMS General - Denies fever, fatigue, and weight loss. Eyes - Denies cataracts and glaucoma. ENT - Denies nasal congestion and sore throat. Endocrine - Denies excessive thirst and urination. Has diabetes mellitus. Skin - Denies skin cancer. Has post-traumatic nonhealing ulcers bilateral legs after falling off a ladder. Musculoskeletal - Has joint pain, joint stiffness, weakness of muscles and joints, back pain. Denies arthritis. Neuro - Denies headaches. Cardiovascular - Denies chest pain, fatigue, and shortness of breath with exertion. Psych - Denies anxiety and depression. Respiratory - Denies chronic cough and shortness of breath. Patient is a smoker. Gastrointestinal - Denies nausea, vomiting, diarrhea, and constipation. Hematologic - Denies abnormal bruising and bleeding. Genitourinary - Denies hematuria and urinary frequency. PHYSICAL EXAMINATION General - Alert and Oriented. HEENT - PERRL. EOMI. Throat is clear. Neck - Supple and nontender. No cervical adenopathy. Lungs - Clear to auscultation. Heart - Regular rate and rhythm. Abdomen - Soft and nondistended. Extremities - FROM. No axillary adenopathy. Radial pulses are palpable. No inguinal adenopathy. Dorsalis pedis pulses are palpable. On the left anterior leg is a nonhealing ulcer measuring 13 x 6 cm. There is exposed subcutaneous tissue with some fat necrosis present. No purulent drainage. No exposed bone. Mild swelling present. Some surrounding redness. Some tenderness to palpation. On the right anterior lower leg is a residual ulceration into the subcutaneous tissue. Some fat necrosis present. Measures 2.5 x 0.6 cm. No purulent drainage. No exposed bone. Mild swelling present. Some surrounding redness. Some tenderness to palpation. Neuro - CN II-XII grossly intact. Psych - Normal mood and affect. ASSESSMENT 1. Fall from a ladder, sequela. 2. Nonhealing infected diabetic ulcer left anterior leg with chronic cellulitis. 3. Nonhealing infected diabetic ulcer right anterior lower leg. 4. Diabetes mellitus. 5. Smoker. PLAN Begin Silver dressing changes daily to the left anterior leg ulcer. Continue antibiotic ointment daily to the right anterior lower leg ulcer. Will begin Doxycycline until the surgery with his history of infection. Will obtain operative cultures. A positive culture may necessitate antibiotic modification. Recommend surgical preparation bilateral legs with incision and drainage and excisional debridement nonhealing infected diabetic ulcers. Will leave the ulcers open and begin postop care with the VAC. Will check a Prealbumin while in the hospital. Anticipate increased metabolic demands from the chronic ulceration. Encourage nutritional supplementation with protein to help the healing process. After discharge, will followup at the Wound Center. When the ulcers have stabilized and the infection is under control and the nutrition has maximized and the HgbA1c is less than 8, then can proceed with further operative debridement and skin grafting. Patient may ambulate. Try and minimize standing. Will wear compression JESÚS wraps to minimize swelling. For his continued ulcer pain, I wrote a script for Percocet for pain (40 tabs). Surgery will be done under general anesthesia with a surgical observation overnight stay in the hospital. Patient was informed of the risks and complications of the procedure including alternatives to surgery. These were discussed with the patient personally. Patient voices understanding and wishes to proceed. Some of the risks and complications were included in a form from the [employer]. Encouraged patient to stop smoking as it may have deleterious effects on wound healing.
[2019-03-03 07:05] LABS: International Normalized Ratio 1.1; Partial Thromboplast Time 33.9 Seconds (24.1-36.2); Prothrombin Time (Protime)PT. 14.2 SECONDS (11.7-14.9)
[2019-03-03 07:17] LABS: AST(SGOT) 15 U/L (15-37); Alanine Aminotransfer ALT/SGPT 15 U/L (16-61); Albumin, Serum 2.9 g/dL (3.2-5.0); Alkaline Phosphatase 75 U/L (45-117); Bilirubin, Direct 0.14 mg/dL (0.00-0.30); Globulin 3.6 g/dL (2.2-4.2); Protein, Total 6.5 g/dL (6.4-8.2)
[2019-03-03] MEDS: Cefazolin 2 GM in 0.9% Normal Saline 100 ML IV (07:26)
--- NOTE | 2019-03-03 07:30 | UL_PTH ---
PATIENT: RADHA BENJAMIN LOC: MS3 U#:[id number] AGE/SX: 63/M ROOM: [facility] [place] RE03/03/[address]: Dr. Og Aldana MD : [id number] BED: 1 DIS: 03/04/2019 SPEC #: [id number] RECD: 03/03/19 11:11 STATUS: JORGE LUIS REFlorencia #: [id number] GHULAM: 03/03/19 07:[address]: Og Aldana DEPT: SURGICAL PATHOLOGY RECD BY: Zach Hart ENTERED: 03/03/19 12:20 SP TYPE: ULCER OTHR DR: Dr. Renee Jackson, DO Tissues: ULCER Procedures: Surgery Specimen Level III HEADER OPERATION: Surgical prep, anterior leg with I & D, excisional debridement PRE-OP DIAGNOSIS: Nonhealing infected diabetic ulcer left anterior leg with chronic cellulitis TISSUE SUBMITTED: Debrided ulcer left anterior leg MICROSCOPIC DIAGNOSIS Skin and soft tissue, left anterior leg, excision: Ulceration with associated acute and chronic inflammation and granulation. AM:landry 03/04/19 MICROSCOPIC DESCRIPTION Slides are reviewed. GROSS DESCRIPTION Received in fixative is one container labeled with the patient's name and designated debrided ulcer left anterior leg. The specimen consists of two variable sized pieces of irregular skin measuring 10 x 5 x 0.5 cm and 9 x 3.5 x 0.5 cm. The skin surface shows an extensive area of ulceration. Field Case Manager sections are submitted in two cassettes. / ETHAN:landry 03/03/19 TC:2 CPT: 62146
[2019-03-03 07:31] LABS: Bedside Glucose 92 mg/dL (70-110)
[2019-03-03 07:44] LABS: Hemoglobin A1c 5.8 % (4.2-6.3)
--- NOTE | 2019-03-03 08:15 | OP.PCM_ITS ---
Report of Operation Date of Procedure: 03/03/19 Pre-Operative Diagnosis: 1. Fall from a ladder, sequela. 2. Nonhealing infected diabetic ulcer left anterior leg with chronic cellulitis. 3. Nonhealing infected diabetic ulcer right anterior lower leg. 4. Diabetes mellitus. 5. Smoker. Post-Operative Diagnosis: 1. Fall from a ladder, sequela. 2. Nonhealing infected diabetic ulcer left anterior leg with chronic cellulitis. 3. Infected diabetic ulcer right anterior lower leg, appears healed at this time. 4. Diabetes mellitus. 5. Smoker. Surgery/Procedure Performed:: Surgical preparation left anterior leg with incision and drainage and excisonal debridement nonhealing infected diabetic ulcer (156 cm2). Description of Surgical Findings:: 63 year old man presents with nonhealing ulcers bilateral legs after sustaining complex degloving lacerations when he fell off a ladder on 01/25/19. He had operative intervention with cleansing of the wounds with closure. Some of the degloved tissue on the left became necrotic leading to a nonhealing ulcer. He had a portion of the sutured laceration breakdown on the right leading to a nonhealing ulcer. Patient has diabetes mellitus, and he states his last HgbA1c was 6. He had been on antibiotics for concomitant infections during the healing process. He has chronic redness and cellulitis left leg. He is currently placing antibiotic ointment on his ulcers daily. On the day of surgery, the smaller ulceration on the right anterior lower leg appears healed at this time. Patient was informed of the risks and complications of the procedure including alternatives to surgery. These were discussed with the patient personally. Patient voices understanding and wishes to proceed. Some of the risks and complications were included in a form from the [employer]. Encouraged patient to stop smoking as it may have deleterious effects on wound healing. Size of defect left anterior leg - 12 x 13 cm. sex worker or escort: None Type of Anesthesia:: Local MAC - xylocaine with epinephrine and IV sedation. Specimen's removed: Nonhealing infected diabetic ulcer left anterior leg to Pathology and Microbiology. Drains: None. Estimated Blood Loss (mL): 50 ml. Description of Procedure: Patient was taken to OR in supine position and was given IV sedation. The left leg was prepped and draped in the usual fashion. SCD was placed for DVT prophylaxis on the right leg. Perioperative antibiotics were given intrav enously. The nonhealing infected diabetic ulcer left anterior leg was infiltrated with xylocaine and epinephrine. After waiting 5 minutes for the anesthetic to take effect, I proceeded with incision and drainage of the infected ulcer down through the subcutaneous tissue until the muscular fascia was seen. No pus was seen. The fascia was inflamed yet viable. A lot of fat necrosis was present. There was some necrotic skin at the edges of the ulcer from the recent trauma that was excised and debrided. The fat necrosis was also excised and debrided. Good bleeding was seen after the incision and drainage and excisional debridement. The bone was easily palpable, but it was not exposed. There was viable soft tissue covering the tibia. The size of the defect left anterior leg after incision and drainage and excisional debridement was 12 x 13 cm. The ulcer was irrigated with saline. Hemostasis was obtained with electrocautery. I dressed the ulcer with Mepitel nonadherent dressing followed by Kerlix gauze and Betadine followed by dry Kerlix gauze, ABD pads, and a compression JESÚS wrap. Patient tolerated the procedure well and was sent to PACU in satisfactory condition. Patient will be sent upstairs for continued postop care. The VAC will be applied tomorrow. It will be changed three times per week at 150 mmHg continuous suction. After discharge, he will followup at the Wound Center. If there is a plateau in the healing process, will proceed with delayed closure with skin grafting. He will keep his left leg elevated when sitting. Grafts/Implants Used: None. - Complications None. - Admit VTE Documentation VTE Present on Admission: No VTE Mechan Device Prophylaxis: SCD's VTE Pharm Prophylaxis ordered?: No Code Visit Surgery Charges CPT - 94934 ICD-10 - W11.xxxS, L97.922, L03.116, E11.622, E11.9, F17.200 01028 W11.xxxS, L97.922, L03.116, E11.622, E11.9, F17.200 21703 W11.xxxS, L97.922, L03.116, E11.622, E11.9, F17.200
[2019-03-03] MEDS: oxyCODONE 5 MG Tablet 10 MG PO ×4 (11:11→23:47)
[2019-03-03] MEDS: Lactated Ringers 1,000 ML 60 ML IV (11:11)
[2019-03-03 11:30] LABS: Bedside Glucose 94 mg/dL (70-110)
[2019-03-03] MEDS: clonazePAM 1 MG Tablet PO ×2 (14:24→21:38)
[2019-03-03] MEDS: Cefazolin 1 GM/50 ML BAG IV ×2 (15:07→21:38)
[2019-03-03] MEDS: Tamsulosin HCl 0.4 MG Capsule PO (16:57)
[2019-03-03 17:05] LABS: Bedside Glucose 126 mg/dL (70-110)
[2019-03-03 21:50] LABS: Bedside Glucose 120 mg/dL (70-110)
[2019-03-04 02:35] VITALS: BP 117/60; PULSE 65; RESP 18; TEMP 37.1; O2SAT 95
[2019-03-04] MEDS: oxyCODONE 5 MG Tablet 10 MG PO ×2 (03:55→09:57)
[2019-03-04] MEDS: Lactated Ringers 1,000 ML 60 ML IV (03:56)
[2019-03-04] MEDS: Cefazolin 1 GM/50 ML BAG IV (05:09)
[2019-03-04] MEDS: clonazePAM 1 MG Tablet PO (05:09)
[2019-03-04 05:17] LABS: Hematocrit 43.6 % (40-54); Hemoglobin 14.5 g/dL (13.0-16.5); Mean Corp Hgb Conc 33.3 g/dL (32-36); Mean Corpuscular Hgb 29.5 pg (27.0-32.0); Mean Corpuscular Volume 88.6 fL (80-94); Mean Platelet Vol. 10.9 fl (6.2-12.0); Platelet Count 222 K/mm3 (150-450); RBC Distribution Width SD 45.9 fl (35.1-43.9); Red Blood Count 4.92 M/mm3 (4.6-6.2); White Blood Count 10.3 K/mm3 (4.4-11.0)
[2019-03-04 05:56] LABS: Anion Gap 7 (5-15); BUN 13 mg/dL (7-18); BUN/Creat Ratio 13.4 RATIO (10-20); Calcium,Total 7.9 mg/dL (8.5-10.1); Chloride 108 mmol/L (98-107); Creatinine, Serum 0.97 mg/dL (0.70-1.30); EST Glomerular Filtration Rate 83 mL/min (>60); Est Glom Filt Rate - Afr Amer 101 mL/min (>60); Estimated Creatinine Clearance 76.39 ml/min; Glucose 87 mg/dL (74-106); Potassium 4.3 mmol/L (3.5-5.1); Sodium Level 140 mmol/L (136-145)
[2019-03-04 06:16] LABS: Bedside Glucose 90 mg/dL (70-110)
--- NOTE | 2019-03-04 09:50 | CASEMGMT ---
ARLETTE SHAVER Face to Face with patient for initial transition planning/care coordination assessment. ARLETTE SHAVER introduced self and role at [facility]. Patient lying in bed, alert and oriented. Patient willing to participate in assessment and is able to answer all questions appropriately. Care providers, pharmacy, and demographics verified. Patient wishes to discharge home with HHC to assist with wound vac changes. Patient states he has no further needs or concerns at this time. CM to follow for discharge planning needs that may arise. PCP: Manuel Specialists: camilo Aldana Preferred Pharmacy: [facility] Insurance: [facility] Prescription Benefit: yes Living Will/HPOA: yes, Felicia Dorcas LNOK: Living Arrangements: patient lives with in 1 story home. Transportation: DME/HHC: Patient has cane, walker, rollator at home. Patient has had HHC in the past, not sure of company. Patient would like [facility] for HHC. ARLETTE SHAVER sent referral to [facility] and they are able to accept the patient. Disposition Plan: Patient to discharge home with HHC, family support, and follow-up plans in place. Jenn TANG, RN, CM
[2019-03-04] MEDS: metFORMIN HCl 500 MG Tablet PO (09:58)
[2019-03-04 09:59] VITALS: PULSE 62
[2019-03-04] MEDS: Metoprolol(XL)Succ 25 MG Tablet PO (09:59)
[2019-03-04] MEDS: Docusate Sodium 100 MG Capsule PO (09:59)
[2019-03-04 10:13] VITALS: BP 130/86; PULSE 62; RESP 18; TEMP 36.9; O2SAT 95
--- NOTE | 2019-03-04 11:17 | NURSING ---
wound photo: left lower leg
--- NOTE | 2019-03-04 11:17 | NURSING ---
wound photo: left lower leg (lateral view)
--- NOTE | 2019-03-04 11:18 | NURSING ---
wound photo: left lower leg (medial view)
--- NOTE | 2019-03-04 11:43 | CASEMGMT ---
RN CM is to complete and discuss MINOR form with patient regarding observation level of care. Patient voiced understanding and had no questions at this time. Patient signed MINOR form and copy provided to patient. Original form filed on chart.
--- NOTE | 2019-03-04 13:11 | PCM.PN.SRG ---
Subjective: Postop #1 Patient is resting comfortably. He is tolerating po analgesia. - Physical Exam General: Alert, Oriented x3 HEENT: PERRLA, EOMI Oral: Moist Mucosa Neck: Supple Abdomen: Soft, Non-Distended Skin: Ulcer/ Wound - left leg ulcer is stable. No active bleeding seen. VAC applied today without difficulty. Covered with compression JESÚS wrap. Neurological: Cranial nerves II-XII grossly intact Psych/Mental Status: Normal Affect, Appropriate Vital Signs Temp Pulse Resp BP Pulse Ox 98.4 F 62 18 130/86 H 95 03/04/19 10:13 03/04/19 10:13 03/04/19 10:13 03/04/19 10:13 03/04/19 10:13 Oxygen Delivery Method Room Air Weight: 203 lb 14.841 oz Body Mass Index (BMI) 31.0 Finger Stick Blood Glucose 100 Intake and Output for Last 24 Hours 03/02/19 03/03/19 03/04/19 23:59 23:59 23:59 Intake Total 2785 / 2785 573 / 573 Balance 2785 / 2785 573 / 573 Microbiology Past 72 Hours 03/03/19 Unknown Gram Stain - Final Tissue - Leg, Left Laboratory Tests Past 24 Hrs 03/04/19 03/04/19 03/04/19 04:56 04:56 04:56 WBC 10.3 RBC 4.92 Hgb 14.5 Hct 43.6 MCV 88.6 MCH 29.5 MCHC 33.3 RDW Std Deviation 45.9 H RDW Coeff of Maximilian 14.0 Plt Count 222 MPV 10.9 Sodium 140 Potassium 4.3 Chloride 108 H Carbon Dioxide 25.0 Anion Gap 7 BUN 13 Creatinine 0.97 Estim Creat Clear Calc 76.39 Est GFR (MDRD) Af Amer 101 Est GFR (MDRD) Non-Af 83 BUN/Creatinine Ratio 13.4 Glucose 87 Hemoglobin A1c 6.0 Calcium 7.9 L Prealbumin 18.0 L POC Glucose 03/04/19 03/03/19 03/03/19 06:11 21:42 16:59 POC Glucose 90 120 H 126 H Medical Necessity - Tobacco Use Smoking Status: Current every day smoker Tobacco Use: Cigarettes Assessment/Plan All Active Problems (Last Updated 02/19/19 @ 15:03 by Charlee Haley) Cor pulmonale, acute (Resolved) Impingement syndrome of left shoulder (Resolved) Impingement syndrome of right shoulder (Resolved) Non-STEMI (non-ST elevated myocardial infarction) (Resolved) Unstable angina (Resolved) 1. Fall from a ladder, sequela. 2. Nonhealing infected diabetic ulcer left anterior leg with chronic cellulitis. 3. Diabetes mellitus. 4. Smoker. 5. s/p surgical preparation left anterior leg with incision and drainage and excisional debridement nonhealing infected diabetic ulcer (156 cm2). Ulcer is stable. No active bleeding noted. VAC applied today followed by compression JESÚS wrap. Operative culture is negative thus far. He will continue Doxycycline that he has at home. Prealbumin was 18.0. Encourage nutritional supplementation with protein to help the healing process. HgbA1c was 6.0. it needs to be less than 8 before proceeding with an elective skin graft reconstruction. Patient may ambulate. Minimize standing. Elevate left leg when sitting. Discharge home today. Wrote script for Valium for spasm (30 tabs). He has a recent script for Percocet at home. Followup Wound Center on 03/16/19. If there is a plateau in the healing process, can proceed with delayed closure with skin grafting.
--- NOTE | 2019-03-04 13:24 | DCINST_ITS ---
You will use the following diet at home:: No restrictions Discharge Activity: May not drive while taking narcotic pain medications., May Shower - place a plastic bag over the left leg when showering., - - no standing. elevate left leg when sitting. May shower in (days): 1 - wear plastic bag over left leg when showering. May resume sexual activity in: No Restrictions Weight Bearing Status: Weight bearing as tolerated Keep extremity elevated above heart level: Left Leg Call your doctor if your incision/area has: Continuous Slow Oozing, Sudden Increased Bleeding, Increased Pain/ Swelling, Increased Redness, Foul Smelling Discharge, Swelling at the incision site Call your doctor if you observe: Fever of 101 or Higher, Coldness, Increased Pain, Shortness of breath, Chest pain, Calf discomfort, Uncontrolled pain Suture Line Care: - - vac changes three times per week at 150 mmHg continuous suction. Change Dressing in (Days):: 2 - vac changes three times per week. Cleanse incision/area with: Soap & Water - may cleanse the left leg wound with soap and water on the days the vac is changed., - - wear plastic bag over left leg when showering. Additional Dressing/Incision Instructions:: Home Health to assist with vac dressing changes to left leg three times per week at 150 mmHg continuous suction followed by compression valery wrap. Home Health may cleanse the wound with soap and water at the time of the vac changes. Additional Instructions: DO NOT TAKE VALIUM AND CLONAZEPAM AT THE SAME TIME. THE COMBINATION OF THESE MEDICATIONS SHOULD NOT EXCEED 4 TIMES PER DAY TOTAL. Allergies/Adverse Reactions: Allergies adhesive tape Adverse Reaction (Verified 02/24/19 10:14) THIN FRAGILE SKIN codeine Adverse Reaction (Verified 02/24/19 10:13) Nausea ibuprofen Adverse Reaction (Verified 02/24/19 10:13) Nausea Medications to take at Discharge Aspirin E.C. [Ecotrin] 81 mg PO QODAY 06/18/17 Tamsulosin HCl [Flomax] 0.4 mg PO DAILY 06/18/17 metoprolol succinate ER 25 mg tablet,extended release 24 hr 25 mg PO QDAY tab 07/02/17 metformin 500 mg tablet 500 mg PO DAILY tab 07/17/17 clonazepam 1 mg tablet 1 mg PO TID 02/19/19 doxycycline hyclate 100 mg capsule 100 mg PO BID 02/19/19 tramadol 50 mg tablet 50 mg PO QHS 02/19/19 oxycodone-acetaminophen 5 mg-325 mg tablet 1 tab PO Q4H PRN 7 Days #40 tab 03/02/19 Diazepam [Valium] 5 mg PO 4X/DAY PRN PRN #30 tab 03/04/19 The following prescriptions were given: Diazepam [Valium] 5 mg PO 4X/DAY PRN PRN #30 tab PRN Reason: Spasms Prescription Printed Primary Care Physician: Renee Jackson DO [Primary Care Provider] - Test Results: Test results from this visit will be discussed in further detail at your follow- up appointment, if applicable. Please Follow Up With: Og Aldana MD When: 03/16/19 at [facility]. Call [phone] for appointment time. Proposed Discharge Date: 03/04/19
[2019-03-04 13:44] VITALS: BP 134/70; PULSE 67; RESP 18; TEMP 36.6; O2SAT 96
== END 2019-03-04 14:00 | disposition home health service (06) ==
LOC: MS3 10:41 → SDC 10:42
PROVIDERS: Anesthesiology; Admitting Provider Surgery; Family Provider Family Medicine; PCP Family Medicine; Referring Provider Surgery; Visit Provider Surgery
PROC: (CPT 15002; principal; 2019-03-03 07:20)
DX: E11.622 Type 2 diabetes mellitus with other skin ulcer (principal); L97.822 Non-pressure chronic ulcer of other part of left lower leg with fat layer exposed; I25.2 Old myocardial infarction; L03.116 Cellulitis of left lower limb; S81.812S Laceration without foreign body, left lower leg, sequela; S81.811S Laceration without foreign body, right lower leg, sequela; W11.XXXS Fall on and from ladder, sequela; J44.9 Chronic obstructive pulmonary disease, unspecified; N40.0 Benign prostatic hyperplasia without lower urinary tract symptoms; M19.90 Unspecified osteoarthritis, unspecified site; E78.00 Pure hypercholesterolemia, unspecified; I25.10 Atherosclerotic heart disease of native coronary artery without angina pectoris; F41.9 Anxiety disorder, unspecified; F32.9 Major depressive disorder, single episode, unspecified; I10 Essential (primary) hypertension; M79.89 Other specified soft tissue disorders; F17.210 Nicotine dependence, cigarettes, uncomplicated; Z86.711 Personal history of pulmonary embolism; Z79.899 Other long term (current) drug therapy; Z86.718 Personal history of other venous thrombosis and embolism; Z79.84 Long term (current) use of oral hypoglycemic drugs; Z79.82 Long term (current) use of aspirin; Z95.5 Presence of coronary angioplasty implant and graft
CPT/HCPCS: 15002; 15003; 27603; 36415; 80048; 80076; 82962; 83036; 84134; 85027; 85610; 85730; 87070; 87075; 87077; 87186; 87205; 88304; 96365; 96366; 99218; 99406; J7120; G0378; G0379

== ENCOUNTER 2019-03-23 09:15 | Outpatient (RCR) | payer MEDICARE, SELFPAY ==
[2016-08-31 15:27] VITALS: BMI 33.3
[2019-03-03 06:49] VITALS: BMI 31.0
[2019-03-16 10:56] VITALS: BP 103/72; PULSE 72; RESP 18; TEMP 36.6; BMI 31.0
--- NOTE | 2019-03-16 22:37 | PCM.WC.PN ---
Type of Wound Date of Service: 03/16/19 Chief Complaint: Nonhealing infected diabetic ulcer left anterior leg. History of Wound: Surgery 03/03/19 - Surgical preparation left anterior leg with incision and drainage and excisonal debridement nonhealing infected diabetic ulcer (156 cm2). Wound care - VAC with compression valery wrap. Operative culture - Leclercia adecarboxylata. He was initially placed on Levaquin and had issues with it and was changed to Bactrim. Prealbumin from 03/04/19 was 18.0. Encouraged nutritional supplementation with protein to help the healing process. HgbA1c from 03/04/19 was 6.0. Today he denies fever. His appetite is ok. He states he has burning nerve pain in the area of the ulcer left leg. Progress of Wound: Recent surgery 03/03/19. - Physical Exam Vital Signs Temp Pulse Resp BP 98 F 72 18 103/72 03/16/19 10:56 03/16/19 10:56 03/16/19 10:56 03/16/19 10:56 Wound Measurements and Assessment WC - Nurse 1 - General Ulcer Measurement Start: 03/16/19 10:56 Freq: Status: Active Protocol: Activity Type Activity Date Activity User E-Sign Co-Sign Detail Recorded Client Recorded Date Recorded By Document 03/16/19 10:56 DV [id number] 03/16/19 11:35 DV 03/16/19 10:56 Wound Center Nurse 1 [Ulcer Assessment] #1 LEFT POWERS -Combined with other wound No -Current Size (cm) - Length 12.0 -Current Size (cm) - Width 13.5 -Current Size (cm) - Depth 0.2 -Total Square Cm 162.00 -Date of Last Picture (Recall this 03/16/19 field) -Photo Taken Yes -Epithelialization Small 1-33% -Tunneling No -Undermining/Tunneling No -Circular Undermining No -Classification - Thickness Full Thickness without Exposed Support Structure -Exudate Type Serosanguineous -Wound Margin Flat & Intact -Granulation Amt Large (67-100%) -Granulation Quality Red -Slough/Fibrin Yes -Necrosis Amt Medium (34-66%) -Necrotic Tissue Type Adherent Slough -Structure Exposed None/Limited to Skin Breakdown -Texture (Martha-wound Skin Appearance) Assessed, Scarring -Moisture (Martha-wound Skin Appearance No Abnormality, ) Assessed -Color (Martha-wound Skin Appearance) No Abnormality, Assessed -Temperature (Martha-wound Skin No Abnormality Appearance) (Pt Warm) -Tenderness on Palpation (Martha-wound Yes Skin Appearance) -Foul Odor after Cleansing No -Anesthetic Used 5% Lidocaine Gel [Edema Assessment] -Lower Limb Edema Present No -Right Calf (cm) 34.2 -Right Ankle (cm) 24.0 -Left Ankle (cm) 32.0 -Left Foot (cm) 23.4 Debridement Note #1 Left anterior leg. Grade 2. Dimensions pre debridement - 12 x 13.5 x 0.2 cm - 162 cm2. Dimensions post debridement - 12.1 x 13.5 x 0.2 cm - 163.35 cm2. Tolerated procedure well. VAC applied. Wound debrided: #1 Left anterior leg. Laterality: Left Wound Grade/Stage: 2. Type of Debridement: Excisional debridement Anesthesia Used: 4% Lidocaine Solution Depth: Down to and including healthy tissue, in the subcutaneous layer Percentage of wound debrided: 100 Instrument Used: 7mm curette Tissue Removed: subcutaneous tissue. Severity: Fat Layer Exposed Amount of bleeding with debridement: Mild Bleeding Controlled with: Pressure Patient tolerated procedure well Assessment/Plan Assessment: 1. Fall from a ladder, sequela. 2. Nonhealing infected diabetic ulcer left anterior leg with chronic cellulitis. 3. Diabetes mellitus. 4. Smoker. 5. s/p surgical preparation left anterior leg with incision and drainage and excisonal debridement nonhealing infected diabetic ulcer (156 cm2). Plan: Continue VAC to left anterior leg to be changed three times per week at 150 mmHg continuous suction followed by compression valery wrap. Keep left leg elevated when sitting. He is tolerating the Bactrim from his operative culture that showed Leclercia adecarboxylata. Prealbumin from 03/04/19 was 18.0. Encourage nutritional supplementation with protein to help the healing process. HgbA1c from 03/04/19 was 6.0. Before any elective reconstructive surgery, it needs to be 8 or less. He is having burning nerve pain. Wrote a script for Neurontin with a refill. Renewed his Percocet for pain (40 tabs). Because of the persistent pain he is having, he would benefit from operative debridement and skin grafting sooner than later. Will discuss at future visits. Followup one week. Encouraged the patient to stop smoking as it may have deleterious effects on wound healing.
[2019-03-23 09:41] VITALS: BP 102/62; PULSE 85; RESP 16; TEMP 36.5; BMI 31.0
--- NOTE | 2019-03-23 17:03 | PCM.WC.PN ---
(1) Non-pressure chronic ulcer of left lower leg with fat layer exposed Status: Chronic Code(s): L97.922 - Non-pressure chronic ulcer of unspecified part of left lower leg with fat layer exposed (2) Diabetes mellitus with ulcer of lower extremity Status: Chronic Code(s): E11.622 - Type 2 diabetes mellitus with other skin ulcer; L97.909 - Non-pressure chronic ulcer of unspecified part of unspecified lower leg with unspecified severity (3) Diabetes mellitus Status: Chronic Code(s): E11.9 - Type 2 diabetes mellitus without complications (4) Smoker Status: Chronic Code(s): F17.200 - Nicotine dependence, unspecified, uncomplicated Type of Wound Date of Service: 03/24/19 Chief Complaint: Nonhealing infected diabetic ulcer left anterior leg. History of Wound: Surgery 03/03/19 - Surgical preparation left anterior leg with incision and drainage and excisonal debridement nonhealing infected diabetic ulcer (156 cm2). Wound care - will take a VAC holiday this week and use Fibracol covered by adaptic. Operative culture - Leclercia adecarboxylata. He was initially placed on Levaquin and had issues with it and was changed to Bactrim. Prealbumin from 03/04/19 was 18.0. Encouraged nutritional supplementation with protein to help the healing process. HgbA1c from 03/04/19 was 6.0. Today he denies fever. His appetite is ok. He states he has burning nerve pain in the area of the ulcer left leg. Progress of Wound: Recent surgery 03/03/19. Stable. - Physical Exam Vital Signs Temp Pulse Resp BP 97.7 F L 85 16 102/62 03/23/19 09:41 03/23/19 09:41 03/23/19 09:41 03/23/19 09:41 General: Alert, Oriented x3, Cooperative HEENT: Atraumatic Oral: Moist Mucosa Lungs: Normal air movement Cardiovascular: Regular rate Extremities: Capillary Refill Less than 3 Seconds, Edema, Peripheral Pulses Normal Skin: Ulcer/ Wound - Left anterior lateral leg ulcer Wound Measurements and Assessment WC - Nurse 1 - General Ulcer Measurement Start: 03/16/19 10:56 Freq: Status: Active Protocol: Activity Type Activity Date Activity User E-Sign Co-Sign Detail Recorded Client Recorded Date Recorded By Document 03/23/19 09:41 MW [id number] 03/23/19 09:43 MW 03/23/19 09:41 Wound Center Nurse 1 [Ulcer Assessment] #1 LEFT POWERS -Combined with other wound No -Current Size (cm) - Length 12.5 -Current Size (cm) - Width 12.7 -Current Size (cm) - Depth 0.3 -Total Square Cm 158.75 -Photo Taken No -Epithelialization Small 1-33% -Tunneling No -Undermining/Tunneling No -Circular Undermining No -Exudate Amt Medium -Exudate Type Serosanguineous -Wound Margin Flat & Intact -Granulation Amt Large (67-100%) -Granulation Quality [place] -Slough/Fibrin Yes -Necrosis Amt Small (1-33%) -Necrotic Tissue Type Adherent Slough -Structure Exposed N/A -Texture (Martha-wound Skin Appearance) Assessed, Scarring -Moisture (Martha-wound Skin Appearance No Abnormality, ) Assessed -Color (Martha-wound Skin Appearance) No Abnormality, Assessed -Temperature (Martha-wound Skin No Abnormality Appearance) (Pt Warm) -Tenderness on Palpation (Martha-wound No Skin Appearance) -Ulcer Cleansing SAOP AND WATER -Foul Odor after Cleansing No -Anesthetic Used 4% Lidocaine Solution,5% Lidocaine Gel [Edema Assessment] -Lower Limb Edema Present Yes -Left Calf (cm) 34.4 -Left Ankle (cm) 21.5 WC - Nurse 2 - General Ulcer CM Notes Start: 03/16/19 10:56 Freq: Status: Active Protocol: Activity Type Activity Date Activity User E-Sign Co-Sign Detail Recorded Client Recorded Date Recorded By Document 03/23/19 10:09 [id number] 03/23/19 10:20 03/23/19 10:09 Wound Center Nurse 2 [Procedure/Treatment] #1 LEFT POWERS -Time 10:10 -Correct Patient Yes -Correct Side, Site, Position Yes -Correct Procedure Yes -Procedure Performed Yes -Type of Procedure Debridement -Clinical Debridement Subcutaneous -Post Debridement Size (cm) - Length 12.3 -Post Debridement Size (cm) - Width 12.5 -Post Debridement Size (cm) - Depth 0.8 -Total Square Cm 153.75 -Wound/Ulcer Outcome Not Healed -Ulcer Cleansing Rinsed/ Irrigated with Saline -Foul Odor after Cleansing No -Bioengineered Tissue No -Bleeding Controlled with Pressure -Offloading No -Treatment Response Procedure Tolerated Well [See Physician Procedure note for Specifics] Pain Scale: 0-10 Numeric [Pain] -Is Patient Pain Free? Yes Musculoskeletal: No Tenderness to Palpation of Joints or Extremities Neurological: Neuro grossly intact Psych/Mental Status: Normal Affect, Appropriate Debridement Note Post-Debridement Measurements/Treatment WC - Nurse 2 - General Ulcer CM Notes Start: 03/16/19 10:56 Freq: Status: Active Protocol: Activity Type Activity Date Activity User E-Sign Co-Sign Detail Recorded Client Recorded Date Recorded By Document 03/23/19 10:09 [id number] 03/23/19 10:20 QUEENIE 03/23/19 10:09 Wound Center Nurse 2 #1 LEFT POWERS -Time 10:10 -Correct Patient Yes -Correct Side, Site, Position Yes -Correct Procedure Yes -Procedure Performed Yes -Type of Procedure Debridement -Clinical Debridement Subcutaneous -Post Debridement Size (cm) - Length 12.3 -Post Debridement Size (cm) - Width 12.5 -Post Debridement Size (cm) - Depth 0.8 -Total Square Cm 153.75 -Wound/Ulcer Outcome Not Healed -Ulcer Cleansing Rinsed/ Irrigated with Saline -Foul Odor after Cleansing No -Bioengineered Tissue No -Bleeding Controlled with Pressure -Offloading No -Treatment Response Procedure Tolerated Well Pain Scale: 0-10 Numeric Is Patient Pain Free? Yes Wound debrided: Left anterior lower leg Type of Debridement: Excisional debridement Anesthesia Used: 4% Lidocaine Solution, 5% Lidocaine Gel Depth: Down to and including healthy tissue, in the subcutaneous layer Percentage of wound debrided: 100 Instrument Used: 7mm curette Tissue Removed: Subcutaneous tissue and slough Severity: Fat Layer Exposed Amount of bleeding with debridement: Mild Bleeding Controlled with: Compression and gauze Patient tolerated procedure well Assessment/Plan Assessment: 1. Fall from a ladder, sequela. 2. Nonhealing infected diabetic ulcer left anterior leg with chronic cellulitis. 3. Diabetes mellitus. 4. Smoker. 5. s/p surgical preparation left anterior leg with incision and drainage and excisonal debridement nonhealing infected diabetic ulcer (156 cm2). Plan: Will do a wound VAC holiday this week and start Fibracol covered by adapt[employer]. Will use Tubigrip for compression. Keep left leg elevated when sitting. He is tolerating the Bactrim from his operative culture that showed Leclercia adecarboxylata. Prealbumin from 03/04/19 was 18.0. Encourage nutritional supplementation with protein to help the healing process. HgbA1c from 03/04/19 was 6.0. Before any elective reconstructive surgery, it needs to be 8 or less. He is having burning nerve pain, which the neurotin seems to be helping. . Because of the persistent pain he is having, he would benefit from operative debridement and skin grafting sooner than later. Will discuss at future visits. Renewed Percocet (30). Followup one week, it will have to be on Saturday due to the holiday next Saturday. Will reevaluated the VAC then. Encouraged the patient to stop smoking as it may have deleterious effects on wound healing. Code Visit [id number]
== END 2019-03-28 23:59 ==
LOC: WC 09:15
PROVIDERS: Family Provider Family Medicine; PCP Family Medicine; Visit Provider Surgery
DX: E11.622 Type 2 diabetes mellitus with other skin ulcer (principal); L97.822 Non-pressure chronic ulcer of other part of left lower leg with fat layer exposed; L03.116 Cellulitis of left lower limb; W11.XXXS Fall on and from ladder, sequela; F17.200 Nicotine dependence, unspecified, uncomplicated
CPT/HCPCS: 11042; 11045; 97606; 99213; G0463

== ENCOUNTER 2019-04-27 09:15 | Outpatient (RCR) | payer MEDICARE, SELFPAY ==
[2016-08-31 15:27] VITALS: BMI 33.3
[2019-03-29 01:13] VITALS: BP 102/62; PULSE 85; RESP 16; TEMP 36.5
[2019-03-31 14:05] VITALS: BP 101/62; PULSE 81; RESP 18; TEMP 36.6; BMI 31.0
--- NOTE | 2019-03-31 17:12 | PN.PCM_ITS ---
(1) Non-pressure chronic ulcer of left lower leg with fat layer exposed Status: Chronic Code(s): L97.922 - Non-pressure chronic ulcer of unspecified part of left lower leg with fat layer exposed (2) Diabetes mellitus with ulcer of lower extremity Status: Chronic Code(s): E11.622 - Type 2 diabetes mellitus with other skin ulcer; L97.909 - Non-pressure chronic ulcer of unspecified part of unspecified lower leg with unspecified severity (3) Diabetes mellitus Status: Chronic Code(s): E11.9 - Type 2 diabetes mellitus without complications (4) Smoker Status: Chronic Code(s): F17.200 - Nicotine dependence, unspecified, uncomplicated Type of Wound Date of Service: 03/31/19 Chief Complaint: Nonhealing infected diabetic ulcer left anterior leg. History of Wound: Surgery 03/03/19 - Surgical preparation left anterior leg with incision and drainage and excisonal debridement nonhealing infected diabetic ulcer (156 cm2). Wound care - will take a VAC holiday for another week and continue to use Fibracol covered by adapt[employer]. Operative culture - Leclercia adecarboxylata. He was initially placed on Levaquin and had issues with it and was changed to Bactrim. Prealbumin from 03/04/19 was 18.0. Encouraged nutritional supplementation with protein to help the healing process. HgbA1c from 03/04/19 was 6.0. Today he denies fever. His appetite is ok. He states he has burning nerve pain in the area of the ulcer left leg. Progress of Wound: Improved - Physical Exam Vital Signs Temp Pulse Resp BP 97.8 F 81 18 101/62 03/31/19 14:05 03/31/19 14:05 03/31/19 14:05 03/31/19 14:05 General: Alert, Oriented x3, Cooperative HEENT: Atraumatic Oral: Moist Mucosa Neck: Supple Lungs: Normal air movement Cardiovascular: Regular rate Extremities: Capillary Refill Less than 3 Seconds, Edema, Peripheral Pulses Normal Skin: Ulcer/ Wound - Left anterior leg Wound Measurements and Assessment WC - Nurse 1 - General Ulcer Measurement Start: 03/31/19 14:05 Freq: Status: Active Protocol: Activity Type Activity Date Activity User E-Sign Co-Sign Detail Recorded Client Recorded Date Recorded By Document 03/31/19 14:05 [id number] 03/31/19 14:09 03/31/19 14:05 Wound Center Nurse 1 [Ulcer Assessment] #1 LEFT POWERS -Combined with other wound No -Current Size (cm) - Length 12.3 -Current Size (cm) - Width 3.2 -Current Size (cm) - Depth 0.3 -Total Square Cm 39.36 -Tunneling No -Undermining/Tunneling No -Circular Undermining No -Exudate Amt Small -Exudate Type Serosanguineous -Wound Margin Flat & Intact -Granulation Amt Medium (34-66%) -Granulation Quality [place] -Slough/Fibrin Yes -Necrosis Amt Small (1-33%) -Necrotic Tissue Type Adherent Slough -Structure Exposed N/A -Texture (Martha-wound Skin Appearance) Assessed, Scarring -Moisture (Martha-wound Skin Appearance Assessed ) -Color (Martha-wound Skin Appearance) Assessed -Temperature (Martha-wound Skin No Abnormality Appearance) (Pt Warm) -Tenderness on Palpation (Martha-wound No Skin Appearance) -Ulcer Cleansing Wound Cleanser -Foul Odor after Cleansing No -Anesthetic Used 4% Lidocaine Solution [Edema Assessment] -Lower Limb Edema Present Yes -Left Calf (cm) 34 -Left Ankle (cm) 22 WC - Nurse 2 - General Ulcer CM Notes Start: 03/31/19 14:05 Freq: Status: Active Protocol: Activity Type Activity Date Activity User E-Sign Co-Sign Detail Recorded Client Recorded Date Recorded By Document 03/31/19 14:32 [id number] 03/31/19 14:36 03/31/19 14:32 Wound Center Nurse 2 [Procedure/Treatment] #1 LEFT POWERS -Time 14:32 -Correct Patient Yes -Correct Side, Site, Position Yes -Correct Procedure Yes -Procedure Performed Yes -Type of Procedure Debridement -Clinical Debridement Subcutaneous -Post Debridement Size (cm) - Length 12.2 -Post Debridement Size (cm) - Width 13.0 -Post Debridement Size (cm) - Depth 0.5 -Total Square Cm 158.60 -Wound/Ulcer Outcome Not Healed -Ulcer Cleansing Rinsed/ Irrigated with Saline -Foul Odor after Cleansing No -Bioengineered Tissue No -Bleeding Controlled with Pressure -Offloading No -Treatment Response Procedure Tolerated Well [See Physician Procedure note for Specifics] Pain Scale: 0-10 Numeric [Pain] -Is Patient Pain Free? Yes Musculoskeletal: No Tenderness to Palpation of Joints or Extremities Neurological: Neuro grossly intact Psych/Mental Status: Normal Affect, Appropriate Debridement Note Post-Debridement Measurements/Treatment WC - Nurse 2 - General Ulcer CM Notes Start: 03/31/19 14:05 Freq: Status: Active Protocol: Activity Type Activity Date Activity User E-Sign Co-Sign Detail Recorded Client Recorded Date Recorded By Document 03/31/19 14:32 [id number] 03/31/19 14:36 03/31/19 14:32 Wound Center Nurse 2 #1 LEFT POWERS -Time 14:32 -Correct Patient Yes -Correct Side, Site, Position Yes -Correct Procedure Yes -Procedure Performed Yes -Type of Procedure Debridement -Clinical Debridement Subcutaneous -Post Debridement Size (cm) - Length 12.2 -Post Debridement Size (cm) - Width 13.0 -Post Debridement Size (cm) - Depth 0.5 -Total Square Cm 158.60 -Wound/Ulcer Outcome Not Healed -Ulcer Cleansing Rinsed/ Irrigated with Saline -Foul Odor after Cleansing No -Bioengineered Tissue No -Bleeding Controlled with Pressure -Offloading No -Treatment Response Procedure Tolerated Well Pain Scale: 0-10 Numeric Is Patient Pain Free? Yes Wound debrided: Left anterior leg Type of Debridement: Excisional debridement Anesthesia Used: 4% Lidocaine Solution, 5% Lidocaine Gel Depth: Down to and including healthy tissue, in the subcutaneous layer Percentage of wound debrided: 100 Instrument Used: 7mm curette Tissue Removed: Subcutaneous tissue and slough Severity: Fat Layer Exposed Amount of bleeding with debridement: Mild Bleeding Controlled with: Pressure, Compression and gauze Patient tolerated procedure well Assessment/Plan Assessment: 1. Fall from a ladder, sequela. 2. Nonhealing infected diabetic ulcer left anterior leg with chronic cellulitis. 3. Diabetes mellitus. 4. Smoker. 5. s/p surgical preparation left anterior leg with incision and drainage and excisonal debridement nonhealing infected diabetic ulcer (156 cm2). Plan: Will do a wound VAC holiday again this week and continue Fibracol covered by adaptic. Will use Tubigrip for compression. Keep left leg elevated when sitting. He is tolerating the Bactrim from his operative culture that showed Leclercia adecarboxylata. Prealbumin from 03/04/19 was 18.0. Encourage nutritional supplementation with protein to help the healing process. HgbA1c from 03/04/19 was 6.0. Before any elective reconstructive surgery, it needs to be 8 or less. He is having burning nerve pain, which the neurotin seems to be helping. . Because of the persistent pain he is having, he would benefit from operative debridement and skin grafting sooner than later. Will discuss at future visits. Renewed Percocet (30) OARRS report run, no suspicous activity. Followup one week. Will reevaluated the VAC then. Encouraged the patient to stop smoking as it may have deleterious effects on wound healing. Code Visit [id number]
[2019-04-07 15:26] VITALS: BP 120/73; PULSE 74; RESP 16; TEMP 36.4; BMI 31.0
--- NOTE | 2019-04-07 16:38 | PCM.WC.PN ---
(1) Non-pressure chronic ulcer of left lower leg with fat layer exposed Status: Chronic Current Visit: Yes Code(s): L97.922 - Non-pressure chronic ulcer of unspecified part of left lower leg with fat layer exposed (2) Diabetes mellitus with ulcer of lower extremity Status: Chronic Current Visit: Yes Code(s): E11.622 - Type 2 diabetes mellitus with other skin ulcer; L97.909 - Non-pressure chronic ulcer of unspecified part of unspecified lower leg with unspecified severity (3) Diabetes mellitus Status: Chronic Current Visit: Yes Code(s): E11.9 - Type 2 diabetes mellitus without complications (4) Smoker Status: Chronic Current Visit: Yes Code(s): F17.200 - Nicotine dependence, unspecified, uncomplicated Type of Wound Date of Service: 04/07/19 Chief Complaint: Nonhealing infected diabetic ulcer left anterior leg. History of Wound: Surgery 03/03/19 - Surgical preparation left anterior leg with incision and drainage and excisonal debridement nonhealing infected diabetic ulcer (156 cm2). Wound care - will discontinue the VAC per the patient request and continue to use Fibracol covered by [employer]. Will apply for [employer] advanced wound product. Patient would benefit from having an adavanced wound product to help with wound healing. Operative culture - Leclercia adecarboxylata. He was initially placed on Levaquin and had issues with it and was changed to Bactrim. Prealbumin from 03/04/19 was 18.0. Encouraged nutritional supplementation with protein to help the healing process. HgbA1c from 03/04/19 was 6.0. Today he denies fever. His appetite is ok. He states he has burning nerve pain in the area of the ulcer left leg. Progress of Wound: Stable - Physical Exam Vital Signs Temp Pulse Resp BP 97.5 F L 74 16 120/73 04/07/19 15:26 04/07/19 15:26 04/07/19 15:26 04/07/19 15:26 General: Alert, Oriented x3, Cooperative HEENT: Atraumatic Oral: Moist Mucosa Lungs: Normal air movement Cardiovascular: Regular rate Abdomen: Soft Extremities: Capillary Refill Less than 3 Seconds, Edema, Peripheral Pulses Normal Skin: Ulcer/ Wound - Left lower anterior leg ulcer Wound Measurements and Assessment WC - Nurse 1 - General Ulcer Measurement Start: 03/31/19 14:05 Freq: Status: Active Protocol: Activity Type Activity Date Activity User E-Sign Co-Sign Detail Recorded Client Recorded Date Recorded By Document 04/07/19 15:26 MW [id number] 04/07/19 15:35 MW 04/07/19 15:26 Wound Center Nurse 1 [Ulcer Assessment] #1 LEFT POWERS -Combined with other wound No -Current Size (cm) - Length 11.5 -Current Size (cm) - Width 11.7 -Current Size (cm) - Depth 0.1 -Total Square Cm 134.55 -Photo Taken No -Epithelialization Small 1-33% -Tunneling No -Undermining/Tunneling No -Circular Undermining No -Exudate Amt Large -Exudate Type Serosanguineous -Wound Margin Flat & Intact -Granulation Amt Large (67-100%) -Granulation Quality [place] -Slough/Fibrin Yes -Necrosis Amt Small (1-33%) -Necrotic Tissue Type Adherent Slough -Structure Exposed N/A -Texture (Martha-wound Skin Appearance) Assessed, Localized Edema ,Scarring -Moisture (Martha-wound Skin Appearance Assessed,Dry/ ) Scaly -Color (Martha-wound Skin Appearance) No Abnormality, Assessed -Temperature (Martha-wound Skin No Abnormality Appearance) (Pt Warm) -Tenderness on Palpation (Martha-wound No Skin Appearance) -Ulcer Cleansing soap and water -Foul Odor after Cleansing No -Anesthetic Used 4% Lidocaine Solution,5% Lidocaine Gel [Edema Assessment] -Lower Limb Edema Present Yes -Left Calf (cm) 34.0 -Left Ankle (cm) 20.2 WC - Nurse 2 - General Ulcer CM Notes Start: 03/31/19 14:05 Freq: Status: Active Protocol: Activity Type Activity Date Activity User E-Sign Co-Sign Detail Recorded Client Recorded Date Recorded By Document 04/07/19 15:51 JF [id number] 04/07/19 15:56 JF 04/07/19 15:51 Wound Center Nurse 2 [Procedure/Treatment] #1 LEFT POWERS -Time 15:51 -Correct Patient Yes -Correct Side, Site, Position Yes -Correct Procedure Yes -Procedure Performed Yes -Type of Procedure Debridement -Clinical Debridement Subcutaneous -Post Debridement Size (cm) - Length 12.2 -Post Debridement Size (cm) - Width 12.7 -Post Debridement Size (cm) - Depth 0.4 -Total Square Cm 154.94 -Wound/Ulcer Outcome Not Healed -Ulcer Cleansing Rinsed/ Irrigated with Saline -Foul Odor after Cleansing No -Bioengineered Tissue No -Bleeding Controlled with Pressure -Offloading No -Treatment Response Procedure Tolerated Well [See Physician Procedure note for Specifics] Pain Scale: 0-10 Numeric [Pain] -Is Patient Pain Free? Yes Musculoskeletal: No Tenderness to Palpation of Joints or Extremities Neurological: Neuro grossly intact Psych/Mental Status: Normal Affect, Appropriate Debridement Note Post-Debridement Measurements/Treatment WC - Nurse 2 - General Ulcer CM Notes Start: 03/31/19 14:05 Freq: Status: Active Protocol: Activity Type Activity Date Activity User E-Sign Co-Sign Detail Recorded Client Recorded Date Recorded By Document 03/31/19 14:32 [id number] 03/31/19 14:36 Document 04/07/19 15:51 [id number] 04/07/19 15:56 03/31/19 04/07/19 14:32 15:51 Wound Center Nurse 2 #1 LEFT POWERS -Time 14:32 15:51 -Correct Patient Yes Yes -Correct Side, Site, Position Yes Yes -Correct Procedure Yes Yes -Procedure Performed Yes Yes -Type of Procedure Debridement Debridement -Clinical Debridement Subcutaneous Subcutaneous -Post Debridement Size (cm) - Length 12.2 12.2 -Post Debridement Size (cm) - Width 13.0 12.7 -Post Debridement Size (cm) - Depth 0.5 0.4 -Total Square Cm 158.60 154.94 -Wound/Ulcer Outcome Not Healed Not Healed -Ulcer Cleansing Rinsed/ Rinsed/ Irrigated with Irrigated with Saline Saline -Foul Odor after Cleansing No No -Bioengineered Tissue No No -Bleeding Controlled with Pressure Pressure -Offloading No No -Treatment Response Procedure Procedure Tolerated Well Tolerated Well Pain Scale: 0-10 Numeric Is Patient Pain Free? Yes Yes Wound debrided: Left lower anterior leg ulcer Laterality: Left Type of Debridement: Excisional debridement Anesthesia Used: 4% Lidocaine Solution, 5% Lidocaine Gel Depth: Down to and including healthy tissue, in the subcutaneous layer Percentage of wound debrided: 100 Instrument Used: 7mm curette Tissue Removed: Subcutaneous tissue and slough Severity: Fat Layer Exposed Amount of bleeding with debridement: Mild Bleeding Controlled with: Pressure, Compression and gauze Patient tolerated procedure well Increased hypergranulation Assessment/Plan Active Problems (Last Updated 02/19/19 @ 15:03 by Charlee Haley) Diabetes mellitus (Chronic) Smoker (Chronic) Diabetes mellitus with ulcer of lower extremity (Chronic) 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 Fall from a ladder, sequela. 2. Nonhealing infected diabetic ulcer left anterior leg with chronic cellulitis. 3. Diabetes mellitus. 4. Smoker. 5. s/p surgical preparation left anterior leg with incision and drainage and excisonal debridement nonhealing infected diabetic ulcer (156 cm2). Plan: Will discontinue the wound VAC per patient request and continue Fibracol covered by [employer]. Will use Tubigrip for compression. Keep left leg elevated when sitting. Patient would benefit from an advanced wound healing product to help decrease the size of the ulcer. The patient is interested in having a skin graft in the future, but would like the ulcer to be smaller so that there does not have to be as much donor skin obtained. We will apply for [employer] to help decrease the size of his ulcer. 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 Prealbumin from 03/04/19 was 18.0. Encourage nutritional supplementation with protein to help the healing process. HgbA1c from 03/04/19 was 6.0. Before any elective reconstructive surgery, it needs to be 8 or less. He is having burning nerve pain, which the neurotin seems to be helping. . Because of the persistent pain he is having, he would benefit from operative debridement and skin grafting sooner than later. Will discuss at future visits. Renewed Percocet (21) OARRS report run, no suspicous activity. Followup one week. Encouraged the patient to stop smoking as it may have deleterious effects on wound healing. Code Visit [id number]
[2019-04-13 12:01] VITALS: BP 107/71; PULSE 78; RESP 18; TEMP 36.4; BMI 31.0
--- NOTE | 2019-04-13 14:13 | PN.PCM_ITS ---
(1) Non-pressure chronic ulcer of left lower leg with fat layer exposed Status: Chronic Current Visit: Yes Code(s): L97.922 - Non-pressure chronic ulcer of unspecified part of left lower leg with fat layer exposed (2) Diabetes mellitus with ulcer of lower extremity Status: Chronic Current Visit: Yes Code(s): E11.622 - Type 2 diabetes mellitus with other skin ulcer; L97.909 - Non-pressure chronic ulcer of unspecified part of unspecified lower leg with unspecified severity (3) Diabetes mellitus Status: Chronic Current Visit: Yes Code(s): E11.9 - Type 2 diabetes mellitus without complications (4) Smoker Status: Chronic Current Visit: Yes Code(s): F17.200 - Nicotine dependence, unspecified, uncomplicated Type of Wound Date of Service: 04/13/19 Chief Complaint: Nonhealing infected diabetic ulcer left anterior leg. History of Wound: Surgery 03/03/19 - Surgical preparation left anterior leg with incision and drainage and excisonal debridement nonhealing infected diabetic ulcer (156 cm2). Wound care - will continue to use Fibracol covered by [email or web address]. Applied for [employer] advanced wound product. Waiting for insurance approval. Patient would benefit from having an adavanced wound product to help with wound healing. Operative culture - Leclercia adecarboxylata. He was initially placed on Levaquin and had issues with it and was changed to Bactrim. Prealbumin from 03/04/19 was 18.0. Encouraged nutritional supplementation with protein to help the healing process. HgbA1c from 03/04/19 was 6.0. Today he denies fever. His appetite is ok. He states he has burning nerve pain in the area of the ulcer left leg. Progress of Wound: Improved - Physical Exam Vital Signs Temp Pulse Resp BP 97.5 F L 78 18 107/71 04/13/19 12:01 04/13/19 12:01 04/13/19 12:01 04/13/19 12:01 General: Alert, Oriented x3, Cooperative HEENT: Atraumatic Oral: Moist Mucosa Lungs: Normal air movement Cardiovascular: Regular rate Extremities: Capillary Refill Less than 3 Seconds, Peripheral Pulses Normal Skin: Ulcer/ Wound - Left anterior lower leg ulcer Wound Measurements and Assessment WC - Nurse 1 - General Ulcer Measurement Start: 03/31/19 14:05 Freq: Status: Active Protocol: Activity Type Activity Date Activity User E-Sign Co-Sign Detail Recorded Client Recorded Date Recorded By Document 04/13/19 12:01 [id number] 04/13/19 12:11 04/13/19 12:01 Wound Center Nurse 1 [Ulcer Assessment] #1 LEFT POWERS -Combined with other wound No -Current Size (cm) - Length 11.4 -Current Size (cm) - Width 12.0 -Current Size (cm) - Depth 0.1 -Total Square Cm 136.80 -Photo Taken No -Epithelialization Small 1-33% -Tunneling No -Undermining/Tunneling No -Circular Undermining No -Exudate Amt Medium -Exudate Type Serosanguineous -Wound Margin Flat & Intact -Granulation Amt Large (67-100%) -Granulation Quality Red -Slough/Fibrin Yes -Necrosis Amt Small (1-33%) -Necrotic Tissue Type Adherent Slough -Structure Exposed N/A -Texture (Martha-wound Skin Appearance) Assessed, Localized Edema ,Scarring -Moisture (Martha-wound Skin Appearance No Abnormality, ) Assessed -Color (Martha-wound Skin Appearance) No Abnormality, Assessed -Temperature (Martha-wound Skin No Abnormality Appearance) (Pt Warm) -Tenderness on Palpation (Martha-wound No Skin Appearance) -Ulcer Cleansing soap and water -Foul Odor after Cleansing No [Edema Assessment] -Lower Limb Edema Present Yes -Left Calf (cm) 34.0 -Left Ankle (cm) 20.5 WC - Nurse 2 - General Ulcer CM Notes Start: 03/31/19 14:05 Freq: Status: Active Protocol: Activity Type Activity Date Activity User E-Sign Co-Sign Detail Recorded Client Recorded Date Recorded By Document 04/13/19 12:50 [id number] 04/13/19 12:55 04/13/19 12:50 Wound Center Nurse 2 [Procedure/Treatment] #1 LEFT POWERS -Time 12:51 -Correct Patient Yes -Correct Side, Site, Position Yes -Correct Procedure Yes -Procedure Performed Yes -Type of Procedure Debridement -Clinical Debridement Subcutaneous -Post Debridement Size (cm) - Length 11.5 -Post Debridement Size (cm) - Width 12.5 -Post Debridement Size (cm) - Depth 0.5 -Total Square Cm 143.75 -Wound/Ulcer Outcome Not Healed -Ulcer Cleansing Rinsed/ Irrigated with Saline -Foul Odor after Cleansing No -Bioengineered Tissue No -Bleeding Controlled with Pressure -Offloading No -Treatment Response Procedure Tolerated Well [See Physician Procedure note for Specifics] Pain Scale: 0-10 Numeric [Pain] -Is Patient Pain Free? Yes Musculoskeletal: No Tenderness to Palpation of Joints or Extremities Neurological: Neuro grossly intact Psych/Mental Status: Normal Affect, Appropriate Debridement Note Post-Debridement Measurements/Treatment WC - Nurse 2 - General Ulcer CM Notes Start: 03/31/19 14:05 Freq: Status: Active Protocol: Activity Type Activity Date Activity User E-Sign Co-Sign Detail Recorded Client Recorded Date Recorded By Document 03/31/19 14:32 [id number] 03/31/19 14:36 Document 04/07/19 15:51 [id number] 04/07/19 15:56 Document 04/13/19 12:50 [id number] 04/13/19 12:55 03/31/19 04/07/19 04/13/19 14:32 15:51 12:50 Wound Center Nurse 2 #1 LEFT POWERS -Time 14:32 15:51 12:51 -Correct Patient Yes Yes Yes -Correct Side, Site, Position Yes Yes Yes -Correct Procedure Yes Yes Yes -Procedure Performed Yes Yes Yes -Type of Procedure Debridement Debridement Debridement -Clinical Debridement Subcutaneous Subcutaneous Subcutaneous -Post Debridement Size (cm) - Length 12.2 12.2 11.5 -Post Debridement Size (cm) - Width 13.0 12.7 12.5 -Post Debridement Size (cm) - Depth 0.5 0.4 0.5 -Total Square Cm 158.60 154.94 143.75 -Wound/Ulcer Outcome Not Healed Not Healed Not Healed -Ulcer Cleansing Rinsed/ Rinsed/ Rinsed/ Irrigated with Irrigated with Irrigated with Saline Saline Saline -Foul Odor after Cleansing No No No -Bioengineered Tissue No No No -Bleeding Controlled with Pressure Pressure Pressure -Offloading No No No -Treatment Response Procedure Procedure Procedure Tolerated Well Tolerated Well Tolerated Well Pain Scale: 0-10 Numeric Is Patient Pain Free? Yes Yes Yes Wound debrided: Left anterior leg Laterality: Left Type of Debridement: Excisional debridement Anesthesia Used: 4% Lidocaine Solution, 5% Lidocaine Gel Depth: Down to and including healthy tissue, in the subcutaneous layer Percentage of wound debrided: 100 Instrument Used: 7mm curette Tissue Removed: Subcutaneous tissue and slough Severity: Fat Layer Exposed Amount of bleeding with debridement: Mild Bleeding Controlled with: Pressure, Compression and gauze Patient tolerated procedure well Assessment/Plan Active Problems (Last Updated 02/19/19 @ 15:03 by Charlee Haley) Diabetes mellitus (Chronic) Smoker (Chronic) Diabetes mellitus with ulcer of lower extremity (Chronic) 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 Fall from a ladder, sequela. 2. Nonhealing infected diabetic ulcer left anterior leg with chronic cellulitis. 3. Diabetes mellitus. 4. Smoker. 5. s/p surgical preparation left anterior leg with incision and drainage and excisonal debridement nonhealing infected diabetic ulcer (156 cm2). Plan: VAC was discontinued per patient request and continue Fibracol covered by [employer]. Will use Tubigrip for compression. Keep left leg elevated when sitting. Patient would benefit from an advanced wound healing product to help decrease the size of the ulcer. The patient is interested in having a skin graft in the future, but would like the ulcer to be smaller so that there does not have to be as much donor skin obtained. Waiting for approval from insurance for Theraskin to help decrease the size of his ulcer. 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 Prealbumin from 03/04/19 was 18.0. Encourage nutritional supplementation with protein to help the healin g process. HgbA1c from 03/04/19 was 6.0. Before any elective reconstructive surgery, it needs to be 8 or less. He is having burning nerve pain, which the neurotin seems to be helping. Because of the persistent pain he is having, he would benefit from operative debridement and skin grafting sooner than later. Will discuss at future visits. He states his pain has been much worse this past week. Renewed Percocet (28) OARRS report run, no suspicous activity. Followup one week. Also will renew his Colace. Encouraged the patient to stop smoking as it may have deleterious effects on wound healing. Code Visit 33253
[2019-04-20 14:14] VITALS: BP 115/76; PULSE 71; RESP 16; TEMP 36.6; BMI 31.0
[2019-04-27 09:28] VITALS: BP 118/69; PULSE 63; RESP 18; TEMP 36.6; BMI 31.0
--- NOTE | 2019-04-27 14:04 | PN.PCM_ITS ---
(1) Non-pressure chronic ulcer of left lower leg with fat layer exposed Status: Chronic Current Visit: Yes Code(s): L97.922 - Non-pressure chronic ulcer of unspecified part of left lower leg with fat layer exposed (2) Diabetes mellitus with ulcer of lower extremity Status: Chronic Current Visit: Yes Code(s): E11.622 - Type 2 diabetes mellitus with other skin ulcer; L97.909 - Non-pressure chronic ulcer of unspecified part of unspecified lower leg with unspecified severity (3) Diabetes mellitus Status: Chronic Current Visit: Yes Code(s): E11.9 - Type 2 diabetes mellitus without complications (4) Smoker Status: Chronic Current Visit: Yes Code(s): F17.200 - Nicotine dependence, unspecified, uncomplicated Type of Wound Date of Service: 04/27/19 Chief Complaint: Nonhealing infected diabetic ulcer left anterior leg. History of Wound: Surgery 03/03/19 - Surgical preparation left anterior leg with incision and drainage and excisonal debridement nonhealing infected diabetic ulcer (156 cm2). Wound care - will continue to use Fibracol covered by [employer]. Applied for [employer] advanced wound product. It is too expensive for the patient. He is scheduled for a skin graft 05/12/19. Operative culture - Leclercia adecarboxylata. He was initially placed on Levaquin and had issues with it and was changed to Bactrim. Prealbumin from 03/04/19 was 18.0. Encouraged nutritional supplementation with protein to help the healing process. HgbA1c from 03/04/19 was 6.0. Today he denies fever. His appetite is ok. Progress of Wound: Improved - Physical Exam Vital Signs Temp Pulse Resp BP 97.8 F 63 18 118/69 04/27/19 09:28 04/27/19 09:28 04/27/19 09:28 04/27/19 09:28 General: Alert, Oriented x3, Cooperative HEENT: Atraumatic Oral: Moist Mucosa Lungs: Normal air movement Cardiovascular: Regular rate Extremities: Capillary Refill Less than 3 Seconds, Edema, Peripheral Pulses No rmal Skin: Ulcer/ Wound - left anterior lower leg Wound Measurements and Assessment WC - Nurse 1 - General Ulcer Measurement Start: 03/31/19 14:05 Freq: Status: Active Protocol: Activity Type Activity Date Activity User E-Sign Co-Sign Detail Recorded Client Recorded Date Recorded By Document 04/27/19 09:28 DL [id number] 04/27/19 09:34 DL 04/27/19 09:28 Wound Center Nurse 1 [Ulcer Assessment] #1 LEFT POWERS -Current Size (cm) - Length 10.5 -Current Size (cm) - Width 10 -Current Size (cm) - Depth 0.1 -Total Square Cm 105.0 -Photo Taken No -Exudate Amt Small -Exudate Type Serosanguineous -Wound Margin Distinct, Outline Attached -Granulation Amt Large (67-100%) -Granulation Quality Red -Necrosis Amt None Present (0 %) -Structure Exposed N/A -Texture (Martha-wound Skin Appearance) Scarring -Moisture (Martha-wound Skin Appearance No Abnormality ) -Color (Martha-wound Skin Appearance) Hemosiderin Staining -Temperature (Martha-wound Skin No Abnormality Appearance) (Pt Warm) -Tenderness on Palpation (Martha-wound No Skin Appearance) -Ulcer Cleansing Rinsed/ Irrigated with Saline -Foul Odor after Cleansing No -Anesthetic Used 4% Lidocaine Solution,5% Lidocaine Gel [Edema Assessment] -Left Calf (cm) 31.5 -Left Ankle (cm) 19.4 WC - Nurse 2 - General Ulcer CM Notes Start: 03/31/19 14:05 Freq: Status: Active Protocol: Activity Type Activity Date Activity User E-Sign Co-Sign Detail Recorded Client Recorded Date Recorded By Document 04/27/19 10:09 [email or web address] [id number] 04/27/19 10:11 04/27/19 10:09 Wound Center Nurse 2 [Procedure/Treatment] #1 LEFT POWERS -Time 10:09 -Correct Patient Yes -Correct Side, Site, Position Yes -Correct Procedure Yes -Procedure Performed Yes -Type of Procedure Debridement -Clinical Debridement Subcutaneous -Post Debridement Size (cm) - Length 10.5 -Post Debridement Size (cm) - Width 10.5 -Post Debridement Size (cm) - Depth 0.2 -Total Square Cm 110.25 -Wound/Ulcer Outcome Not Healed -Ulcer Cleansing Rinsed/ Irrigated with Saline -Foul Odor after Cleansing No -Bioengineered Tissue No -Bleeding Controlled with Pressure -Offloading No -Treatment Response Procedure Tolerated Well [See Physician Procedure note for Specifics] Pain Scale: 0-10 Numeric [Pain] -Is Patient Pain Free? Yes Musculoskeletal: Tenderness Neurological: Neuro grossly intact Psych/Mental Status: Normal Affect, Appropriate, Anxious Debridement Note Post-Debridement Measurements/Treatment WC - Nurse 2 - General Ulcer CM Notes Start: 03/31/19 14:05 Freq: Status: Active Protocol: Activity Type Activity Date Activity User E-Sign Co-Sign Detail Recorded Client Recorded Date Recorded By Document 03/31/19 14:32 [id number] 03/31/19 14:36 Document 04/07/19 15:51 [id number] 04/07/19 15:56 Document 04/13/19 12:50 [id number] 04/13/19 12:55 Document 04/20/19 15:06 [id number] 04/20/19 15:11 Document 04/27/19 10:09 [id number] 04/27/19 10:11 03/31/19 04/07/19 04/13/19 14:32 15:51 12:50 Wound Center Nurse 2 #1 LEFT POWERS -Time 14:32 15:51 12:51 -Correct Patient Yes Yes Yes -Correct Side, Site, Position Yes Yes Yes -Correct Procedure Yes Yes Yes -Procedure Performed Yes Yes Yes -Type of Procedure Debridement Debridement Debridement -Clinical Debridement Subcutaneous Subcutaneous Subcutaneous -Post Debridement Size (cm) - Length 12.2 12.2 11.5 -Post Debridement Size (cm) - Width 13.0 12.7 12.5 -Post Debridement Size (cm) - Depth 0.5 0.4 0.5 -Total Square Cm 158.60 154.94 143.75 -Wound/Ulcer Outcome Not Healed Not Healed Not Healed -Ulcer Cleansing Rinsed/ Rinsed/ Rinsed/ Irrigated with Irrigated with Irrigated with Saline Saline Saline -Foul Odor after Cleansing No No No -Bioengineered Tissue No No No -Bleeding Controlled with Pressure Pressure Pressure -Offloading No No No -Treatment Response Procedure Procedure Procedure Tolerated Well Tolerated Well Tolerated Well Pain Scale: 0-10 Numeric Is Patient Pain Free? Yes Yes Yes 04/20/19 04/27/19 15:06 10:09 Wound Center Nurse 2 #1 LEFT POWERS -Time 15:06 10:09 -Correct Patient Yes Yes -Correct Side, Site, Position Yes Yes -Correct Procedure Yes Yes -Procedure Performed Yes Yes -Type of Procedure Debridement Debridement -Clinical Debridement Subcutaneous Subcutaneous -Post Debridement Size (cm) - Length 10.8 10.5 -Post Debridement Size (cm) - Width 11.4 10.5 -Post Debridement Size (cm) - Depth 0.3 0.2 -Total Square Cm 123.12 110.25 -Wound/Ulcer Outcome Not Healed Not Healed -Ulcer Cleansing Rinsed/ Rinsed/ Irrigated with Irrigated with Saline Saline -Foul Odor after Cleansing No No -Bioengineered Tissue No No -Bleeding Controlled with Pressure Pressure -Offloading No No -Treatment Response Procedure Procedure Tolerated Well Tolerated Well Pain Scale: 0-10 Numeric Is Patient Pain Free? Yes Yes Wound debrided: left lower anterior leg Laterality: Left Type of Debridement: Excisional debridement Anesthesia Used: 4% Lidocaine Solution, 5% Lidocaine Gel Depth: Down to and including healthy tissue, in the subcutaneous layer Percentage of wound debrided: 100 Instrument Used: 7mm curette Tissue Removed: Subcutanous tissue and slough Severity: Fat Layer Exposed Amount of bleeding with debridement: Mild Bleeding Controlled with: Pressure, Compression and gauze Patient tolerated procedure well Assessment/Plan Active Problems (Last Updated 02/19/19 @ 15:03 by Charlee Haley) Diabetes mellitus (Chronic) Smoker (Chronic) Diabetes mellitus with ulcer of lower extremity (Chronic) 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 Fall from a ladder, sequela. 2. Nonhealing infected diabetic ulcer left anterior leg with chronic cellulitis. 3. Diabetes mellitus. 4. Smoker. 5. s/p surgical preparation left anterior leg with incision and drainage and excisonal debridement nonhealing infected diabetic ulcer (156 cm2). Plan: Wound care is Fibracol covered by [employer]. Will use Tubigrip for compression. Keep left leg elevated when sitting. Theraskin was approved but is too much out of pocket for patient. He is scheduled 05/12/19 for a skin graft. 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 Prealbumin from 03/04/19 was 18.0. Encourage nutritional supplementation with protein to help the healing process. HgbA1c from 03/04/19 was 6.0. Before any elective reconstructive surgery, it needs to be 8 or less. He is having burning nerve pain, which the neurotin seems to be helping. Because of the persistent pain he is having, he would benefit from operative debridement and skin grafting sooner than later. Will discuss at future visits. He states his pain has been much worse this past week. The pain medication only lasts 2-3 hours. He saw pain management and is waiting to hear back from them for their recommendations. He states when his pain is bad it makes his anxiety worse. Renewed Percocet (28) OARRS report run, no suspicous activity. He has a an appointment with pain management in [place] this week. Followup one week. Encouraged the patient to stop smoking as it may have deleterious effects on wound healing. Code Visit [id number]: [id number] Melinda subq tissue 20 sq cm/< Add On Codes: [id number] Melinda subq tissue add-on - x5
--- NOTE | 2019-04-27 19:00 | PN.PCM_ITS ---
(1) Non-pressure chronic ulcer of left lower leg with fat layer exposed Status: Chronic Code(s): L97.922 - Non-pressure chronic ulcer of unspecified part of left lower leg with fat layer exposed (2) Diabetes mellitus with ulcer of lower extremity Status: Chronic Code(s): E11.622 - Type 2 diabetes mellitus with other skin ulcer; L97.909 - Non-pressure chronic ulcer of unspecified part of unspecified lower leg with unspecified severity (3) Diabetes mellitus Status: Chronic Code(s): E11.9 - Type 2 diabetes mellitus without complications (4) Smoker Status: Chronic Code(s): F17.200 - Nicotine dependence, unspecified, uncomplicated Type of Wound Date of Service: 04/20/19 Chief Complaint: Nonhealing infected diabetic ulcer left anterior leg. History of Wound: Surgery 03/03/19 - Surgical preparation left anterior leg with incision and drainage and excisonal debridement nonhealing infected diabetic ulcer (156 cm2). Wound care - will continue to use Fibracol covered by [employer]. Applied for [employer] advanced wound product. It is too expensive for the patient. He is scheduled for a skin graft 05/12/19. Operative culture - Leclercia adecarboxylata. He was initially placed on Levaquin and had issues with it and was changed to Bactrim. Prealbumin from 03/04/19 was 18.0. Encouraged nutritional supplementation with protein to help the healing process. HgbA1c from 03/04/19 was 6.0. Today he denies fever. His appetite is ok. Progress of Wound: Improved - Physical Exam Vital Signs Temp Pulse Resp BP 97.8 F 63 18 118/69 04/27/19 09:28 04/27/19 09:28 04/27/19 09:28 04/27/19 09:28 General: Alert, Oriented x3, Cooperative HEENT: Atraumatic Oral: Moist Mucosa Lungs: Normal air movement Cardiovascular: Regular rate Extremities: Edema, Peripheral Pulses Normal Skin: Ulcer/ Wound - Left anterior lower leg Wound Measurements and Assessment WC - Nurse 1 - General Ulcer Measurement Start: 03/31/19 14:05 Freq: Status: Active Protocol: Activity Type Activity Date Activity User E-Sign Co-Sign Detail Recorded Client Recorded Date Recorded By Document 04/27/19 09:28 DL [id number] 04/27/19 09:34 DL 04/27/19 09:28 Wound Center Nurse 1 [Ulcer Assessment] #1 LEFT POWERS -Current Size (cm) - Length 10.5 -Current Size (cm) - Width 10 -Current Size (cm) - Depth 0.1 -Total Square Cm 105.0 -Photo Taken No -Exudate Amt Small -Exudate Type Serosanguineous -Wound Margin Distinct, Outline Attached -Granulation Amt Large (67-100%) -Granulation Quality Red -Necrosis Amt None Present (0 %) -Structure Exposed N/A -Texture (Martha-wound Skin Appearance) Scarring -Moisture (Martha-wound Skin Appearance No Abnormality ) -Color (Martha-wound Skin Appearance) Hemosiderin Staining -Temperature (Martha-wound Skin No Abnormality Appearance) (Pt Warm) -Tenderness on Palpation (Martha-wound No Skin Appearance) -Ulcer Cleansing Rinsed/ Irrigated with Saline -Foul Odor after Cleansing No -Anesthetic Used 4% Lidocaine Solution,5% Lidocaine Gel [Edema Assessment] -Left Calf (cm) 31.5 -Left Ankle (cm) 19.4 WC - Nurse 2 - General Ulcer CM Notes Start: 03/31/19 14:05 Freq: Status: Active Protocol: Activity Type Activity Date Activity User E-Sign Co-Sign Detail Recorded Client Recorded Date Recorded By Document 04/27/19 10:09 QUEENIE [id number] 04/27/19 10:11 04/27/19 10:09 Wound Center Nurse 2 [Procedure/Treatment] #1 LEFT POWERS -Time 10:09 -Correct Patient Yes -Correct Side, Site, Position Yes -Correct Procedure Yes -Procedure Performed Yes -Type of Procedure Debridement -Clinical Debridement Subcutaneous -Post Debridement Size (cm) - Length 10.5 -Post Debridement Size (cm) - Width 10.5 -Post Debridement Size (cm) - Depth 0.2 -Total Square Cm 110.25 -Wound/Ulcer Outcome Not Healed -Ulcer Cleansing Rinsed/ Irrigated with Saline -Foul Odor after Cleansing No -Bioengineered Tissue No -Bleeding Controlled with Pressure -Offloading No -Treatment Response Procedure Tolerated Well [See Physician Procedure note for Specifics] Pain Scale: 0-10 Numeric [Pain] -Is Patient Pain Free? Yes Musculoskeletal: No Tenderness to Palpation of Joints or Extremities Neurological: Neuro grossly intact Psych/Mental Status: Normal Affect, Appropriate, Anxious Debridement Note Post-Debridement Measurements/Treatment WC - Nurse 2 - General Ulcer CM Notes Start: 03/31/19 14:05 Freq: Status: Active Protocol: Activity Type Activity Date Activity User E-Sign Co-Sign Detail Recorded Client Recorded Date Recorded By Document 03/31/19 14:32 [id number] 03/31/19 14:36 Document 04/07/19 15:51 [id number] 04/07/19 15:56 Document 04/13/19 12:50 [id number] 04/13/19 12:55 Document 04/20/19 15:06 [id number] 04/20/19 15:11 Document 04/27/19 10:09 [id number] 04/27/19 10:11 03/31/19 04/07/19 04/13/19 14:32 15:51 12:50 Wound Center Nurse 2 #1 LEFT POWERS -Time 14:32 15:51 12:51 -Correct Patient Yes Yes Yes -Correct Side, Site, Position Yes Yes Yes -Correct Procedure Yes Yes Yes -Procedure Performed Yes Yes Yes -Type of Procedure Debridement Debridement Debridement -Clinical Debridement Subcutaneous Subcutaneous Subcutaneous -Post Debridement Size (cm) - Length 12.2 12.2 11.5 -Post Debridement Size (cm) - Width 13.0 12.7 12.5 -Post Debridement Size (cm) - Depth 0.5 0.4 0.5 -Total Square Cm 158.60 154.94 143.75 -Wound/Ulcer Outcome Not Healed Not Healed Not Healed -Ulcer Cleansing Rinsed/ Rinsed/ Rinsed/ Irrigated with Irrigated with Irrigated with Saline Saline Saline -Foul Odor after Cleansing No No No -Bioengineered Tissue No No No -Bleeding Controlled with Pressure Pressure Pressure -Offloading No No No -Treatment Response Procedure Procedure Procedure Tolerated Well Tolerated Well Tolerated Well Pain Scale: 0-10 Numeric Is Patient Pain Free? Yes Yes Yes 04/20/19 04/27/19 15:06 10:09 Wound Center Nurse 2 #1 LEFT POWERS -Time 15:06 10:09 -Correct Patient Yes Yes -Correct Side, Site, Position Yes Yes -Correct Procedure Yes Yes -Procedure Performed Yes Yes -Type of Procedure Debridement Debridement -Clinical Debridement Subcutaneous Subcutaneous -Post Debridement Size (cm) - Length 10.8 10.5 -Post Debridement Size (cm) - Width 11.4 10.5 -Post Debridement Size (cm) - Depth 0.3 0.2 -Total Square Cm 123.12 110.25 -Wound/Ulcer Outcome Not Healed Not Healed -Ulcer Cleansing Rinsed/ Rinsed/ Irrigated with Irrigated with Saline Saline -Foul Odor after Cleansing No No -Bioengineered Tissue No No -Bleeding Controlled with Pressure Pressure -Offloading No No -Treatment Response Procedure Procedure Tolerated Well Tolerated Well Pain Scale: 0-10 Numeric Is Patient Pain Free? Yes Yes Wound debrided: anterior lower leg Laterality: Left Type of Debridement: Excisional debridement Anesthesia Used: 4% Lidocaine Solution, 5% Lidocaine Gel Depth: Down to and including healthy tissue, in the subcutaneous layer Percentage of wound debrided: 100 Instrument Used: 7mm curette Tissue Removed: Subcutaneous tissue and slough Severity: Fat Layer Exposed Amount of bleeding with debridement: Mild Bleeding Controlled with: Pressure, Compression and gauze Patient tolerated procedure well Assessment/Plan Assessment: 1. Fall from a ladder, sequela. 2. Nonhealing infected diabetic ulcer left anterior leg with chronic cellulitis. 3. Diabetes mellitus. 4. Smoker. 5. s/p surgical preparation left anterior leg with incision and drainage and excisonal debridement nonhealing infected diabetic ulcer (156 cm2). Plan: Wound care is Fibracol covered by [employer]. Will use Tubigrip for compression. Keep left leg elevated when sitting. Theraskin was approved but is too much out of pocket for patient. He is scheduled 05/12/19 for a skin graft. 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 Prealbumin from 03/04/19 was 18.0. Encourage nutritional supplementation with protein to help the healing process. HgbA1c from 03/04/19 was 6.0. Before any elective reconstructive surgery, it needs to be 8 or less. He is having burning nerve pain, which the neurotin seems to be helping. Because of the persistent pain he is having, he would benefit from operative debridement and skin grafting sooner than later. Will discuss at future visits. He states his pain has been much worse this past week. Renewed Percocet (21) OARRS report run, no suspicous activity. He has a an appointment with pain management in [place] this week. Followup one week. Encouraged the patient to stop smoking as it may have deleterious effects on wound healing. Code Visit 111xxx-113xx: 71240 Melinda subq tissue 20 sq cm/< Add On Codes: [id number] Melinda subq tissue add-on
== END 2019-04-27 23:59 ==
LOC: WC 09:15
PROVIDERS: Family Provider Family Medicine; PCP Family Medicine; Visit Provider Surgery
DX: E11.622 Type 2 diabetes mellitus with other skin ulcer (principal); L97.822 Non-pressure chronic ulcer of other part of left lower leg with fat layer exposed; F17.200 Nicotine dependence, unspecified, uncomplicated; W11.XXXS Fall on and from ladder, sequela; L03.116 Cellulitis of left lower limb
CPT/HCPCS: 11042; 11045

== ENCOUNTER → 2019-05-13 | Outpatient (CLI) | payer MEDICARE, SELFPAY ==
[2016-08-31 15:27] VITALS: BMI 33.3
[2019-05-11 08:12] VITALS: BMI 31.0
--- NOTE | 2019-05-13 10:31 | RAD_ITS ---
STUDY: X-RAY - LEFT ANKLE REASON FOR EXAM: Male, 64 years old. Pain TECHNIQUE: 3 view(s) of the ankle. COMPARISON: July 20, 2015 FINDINGS: Normal visualized distal tibia and fibula. Old healed fracture of the distal tibial plafond. Normal medial and lateral malleoli. Normal tibiotalar articulation and ankle mortise. Normal visualized talus. Small plantar calcaneal spur and calcific tendinitis of the Achilles tendon The visualized subtalar, talonavicular, calcaneocuboid and tarsal articulations are normal. The soft tissue structures are unremarkable. No change since prior exam RAD/Ankle min 3 Views IMPRESSION: No acute fracture or dislocation. Findings unchanged since prior exam Electronically Signed: Cesar Barahona MD at 16:42 EDT , Service support ,
--- NOTE | 2019-05-13 10:31 | RAD_ITS ---
STUDY: X-RAY - LEFT FOOT CLINICAL: Male, 64 years old. Pain TECHNIQUE: 3 view(s) of the foot. COMPARISON: None. FINDINGS: Normal talus,, and tarsal bones. Small plantar calcaneal spur and posterior enthesophyte Normal visualized subtalar, talonavicular, calcaneocuboid, tarsal and tarsometatarsal articulations. Normal metatarsi. Normal metatarsophalangeal joint of the great toe. Normal tibial and fibular sesamoid bones. Normal interphalangeal joint of the great toe. Normal phalanges of the great toe. Normal second through fifth metatarsophalangeal joints. Normal interphalangeal joints and phalanges of the lesser toes. The soft tissue structures are unremarkable. RAD/Foot min 3 Views IMPRESSION: No acute fracture or dislocation Calcaneal spurring.. Electronically Signed: Cesar Barahona MD at 16:43 EDT , Service support ,
== END | disposition home or self-care (01) ==
LOC: HPRAD 10:29
PROVIDERS: Family Provider Family Medicine; PCP Family Medicine; Referring Provider Podiatrist; Visit Provider Podiatrist
DX: M19.072 Primary osteoarthritis, left ankle and foot (principal)
CPT/HCPCS: 73610; 73630

== ENCOUNTER 2019-05-25 09:30 | Outpatient (RCR) | payer MEDICARE, SELFPAY ==
[2016-08-31 15:27] VITALS: BMI 33.3
[2019-04-28 01:04] VITALS: BP 118/69; PULSE 63; RESP 18; TEMP 36.6
[2019-05-04 08:46] VITALS: BP 109/76; PULSE 74; RESP 20; TEMP 36.4; BMI 31.0
--- NOTE | 2019-05-04 23:03 | PCM.WC.PN ---
Type of Wound Date of Service: 05/04/19 Chief Complaint: Nonhealing infected diabetic ulcer left anterior leg. History of Wound: Surgery 03/03/19 - Surgical preparation left anterior leg with incision and drainage and excisonal debridement nonhealing infected diabetic ulcer (156 cm2). Wound care - Fibracol with Tubigrip for compression. Operative culture - Leclercia adecarboxylata. He was initially placed on Levaquin and had issues with it and was changed to Bactrim and has finished them. Prealbumin from 03/04/19 was 18.0. Encouraged nutritional supplementation with protein to help the healing process. HgbA1c from 03/04/19 was 6.0. Today he denies fever. His appetite is ok. He states his burning nerve pain in the area of the ulcer left leg has improved. Progress of Wound: Improved. - Physical Exam Vital Signs Temp Pulse Resp BP 97.5 F L 74 20 H 109/76 05/04/19 08:46 05/04/19 08:46 05/04/19 08:46 05/04/19 08:46 Wound Measurements and Assessment WC - Nurse 1 - General Ulcer Measurement Start: 05/04/19 08:46 Freq: Status: Active Protocol: Activity Type Activity Date Activity User E-Sign Co-Sign Detail Recorded Client Recorded Date Recorded By Document 05/04/19 08:46 DL [id number] 05/04/19 08:53 DL 05/04/19 08:46 Wound Center Nurse 1 [Ulcer Assessment] #1 LEFT POWERS -Current Size (cm) - Length 9.9 -Current Size (cm) - Width 9 -Current Size (cm) - Depth 0.1 -Total Square Cm 89.1 -Photo Taken No -Exudate Amt Small -Exudate Type Serosanguineous -Wound Margin Distinct, Outline Attached -Granulation Amt Large (67-100%) -Granulation Quality Red -Necrosis Amt None Present (0 %) -Structure Exposed N/A -Texture (Martha-wound Skin Appearance) Scarring -Moisture (Martha-wound Skin Appearance No Abnormality ) -Color (Martha-wound Skin Appearance) Hemosiderin Staining -Temperature (Martha-wound Skin No Abnormality Appearance) (Pt Warm) -Tenderness on Palpation (Martha-wound No Skin Appearance) -Ulcer Cleansing Rinsed/ Irrigated with Saline -Foul Odor after Cleansing No -Anesthetic Used 4% Lidocaine Solution [Edema Assessment] -Left Calf (cm) 31.5 -Left Ankle (cm) 19 WC - Nurse 2 - General Ulcer CM Notes Start: 05/04/19 08:46 Freq: Status: Active Protocol: Activity Type Activity Date Activity User E-Sign Co-Sign Detail Recorded Client Recorded Date Recorded By Document 05/04/19 09:34 [id number] 05/04/19 09:40 05/04/19 09:34 Wound Center Nurse 2 [Procedure/Treatment] #1 LEFT POWERS -Time 09:36 -Correct Patient Yes -Correct Side, Site, Position Yes -Correct Procedure Yes -Procedure Performed Yes -Type of Procedure Debridement -Clinical Debridement Subcutaneous -Post Debridement Size (cm) - Length 10.3 -Post Debridement Size (cm) - Width 10 -Post Debridement Size (cm) - Depth 0.2 -Total Square Cm 103.0 -Wound/Ulcer Outcome Not Healed -Ulcer Cleansing Rinsed/ Irrigated with Saline -Foul Odor after Cleansing No -Bioengineered Tissue No -Bleeding Controlled with Pressure -Offloading No -Treatment Response Procedure Tolerated Well [See Physician Procedure note for Specifics] Pain Scale: 0-10 Numeric [Pain] -Is Patient Pain Free? Yes Debridement Note Post-Debridement Measurements/Treatment - Nurse 2 - General Ulcer CM Notes Start: 05/04/19 08:46 Freq: Status: Active Protocol: Activity Type Activity Date Activity User E-Sign Co-Sign Detail Recorded Client Recorded Date Recorded By Document 05/04/19 09:34 JF [id number] 05/04/19 09:40 05/04/19 09:34 Wound Center Nurse 2 #1 LEFT POWERS -Time 09:36 -Correct Patient Yes -Correct Side, Site, Position Yes -Correct Procedure Yes -Procedure Performed Yes -Type of Procedure Debridement -Clinical Debridement Subcutaneous -Post Debridement Size (cm) - Length 10.3 -Post Debridement Size (cm) - Width 10 -Post Debridement Size (cm) - Depth 0.2 -Total Square Cm 103.0 -Wound/Ulcer Outcome Not Healed -Ulcer Cleansing Rinsed/ Irrigated with Saline -Foul Odor after Cleansing No -Bioengineered Tissue No -Bleeding Controlled with Pressure -Offloading No -Treatment Response Procedure Tolerated Well Pain Scale: 0-10 Numeric Is Patient Pain Free? Yes Wound debrided: #1 Left anterior leg. Laterality: Left Wound Grade/Stage: 2. Type of Debridement: Excisional debridement Anesthesia Used: 4% Lidocaine Solution Depth: Down to and including healthy tissue, in the subcutaneous layer Percentage of wound debrided: 100 Instrument Used: 5mm curette Tissue Removed: subcutaneous tissue. Severity: Fat Layer Exposed Amount of bleeding with debridement: Mild Bleeding Controlled with: Pressure Patient tolerated procedure well Assessment/Plan Assessment: 1. Fall from a ladder, sequela. 2. Nonhealing infected diabetic ulcer left anterior leg with chronic cellulitis. 3. Diabetes mellitus. 4. Smoker. 5. s/p surgical preparation left anterior leg with incision and drainage and excisonal debridement nonhealing infected diabetic ulcer (156 cm2). Plan: Continue Fibracol dressing changes daily to left anterior leg followed by Tubigrip for compression. Keep left leg elevated when sitting. 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 Prealbumin from 03/04/19 was 18.0. Encourage nutritional supplementation with protein to help the healing process. HgbA1c from 03/04/19 was 6.0. Before any elective reconstructive surgery, it needs to be 8 or less. His burning nerve pain has improved with the Neurontin. Because of his persistent pain, it was recommended that he proceed with operative debridement and skin grafting. He has declined on any further surgery at this time as he states his pain is slowly improving in his left leg. Followup one week. Encouraged the patient to stop smoking as it may have deleterious effects on wound healing.
[2019-05-11 08:12] VITALS: RESP 16; TEMP 36.2; BMI 31.0
--- NOTE | 2019-05-11 09:20 | PN.PCM_ITS ---
(1) Non-pressure chronic ulcer of left lower leg with fat layer exposed Status: Chronic Code(s): L97.922 - Non-pressure chronic ulcer of unspecified part of left lower leg with fat layer exposed (2) Diabetes mellitus Status: Chronic Code(s): E11.9 - Type 2 diabetes mellitus without complications Type of Wound Date of Service: 05/11/19 Chief Complaint: Nonhealing infected diabetic ulcer left anterior leg. History of Wound: Surgery 03/03/19 - Surgical preparation left anterior leg with incision and drainage and excisonal debridement nonhealing infected diabetic ulcer (156 cm2). Wound care - will continue to use Fibracol plus covered by [employer]. Applied for [employer] advanced wound product. It is too expensive for the patient. He is scheduled for a skin graft 05/12/19. Operative culture - Leclercia adecarboxylata. He was initially placed on Levaquin and had issues with it and was changed to Bactrim. Prealbumin from 03/04/19 was 18.0. Encouraged nutritional supplementation with protein to help the healing process. HgbA1c from 03/04/19 was 6.0. Today he denies fever. His appetite is ok. Progress of Wound: Improved - Physical Exam Vital Signs Temp Pulse Resp BP 97.1 F L 74 16 109/76 05/11/19 08:12 05/04/19 08:46 05/11/19 08:12 05/04/19 08:46 General: Alert, Oriented x3, Cooperative HEENT: Atraumatic Oral: Moist Mucosa Lungs: Normal air movement Cardiovascular: Regular rate Extremities: Capillary Refill Less than 3 Seconds, Edema Skin: Ulcer/ Wound - left lower anterior leg Wound Measurements and Assessment WC - Nurse 1 - General Ulcer Measurement Start: 05/04/19 08:46 Freq: Status: Active Protocol: Activity Type Activity Date Activity User E-Sign Co-Sign Detail Recorded Client Recorded Date Recorded By Document 05/11/19 08:12 [facility] [id number] 05/11/19 08:20 [facility] 05/11/19 08:12 Wound Center Nurse 1 [Ulcer Assessment] #1 LEFT POWERS -Combined with other wound No -Current Size (cm) - Length 9.6 -Current Size (cm) - Width 8.8 -Current Size (cm) - Depth 0.1 -Total Square Cm 84.48 -Photo Taken No -Epithelialization Small 1-33% -Tunneling No -Undermining/Tunneling No -Circular Undermining No -Exudate Amt Medium -Exudate Type Serosanguineous -Wound Margin Distinct, Outline Attached -Granulation Amt Large (67-100%) -Granulation Quality Pale,Red -Slough/Fibrin Yes -Necrosis Amt Small (1-33%) -Necrotic Tissue Type Adherent Slough -Texture (Martha-wound Skin Appearance) Assessed, Scarring -Moisture (Martha-wound Skin Appearance Assessed ) -Color (Martha-wound Skin Appearance) Assessed -Temperature (Martha-wound Skin No Abnormality Appearance) (Pt Warm) -Tenderness on Palpation (Martha-wound No Skin Appearance) -Ulcer Cleansing Rinsed/ Irrigated with Saline -Foul Odor after Cleansing No -Anesthetic Used 5% Lidocaine Gel [Edema Assessment] -Lower Limb Edema Present Yes -Left Calf (cm) 33.5 -Left Ankle (cm) 20 WC - Nurse 2 - General Ulcer CM Notes Start: 05/04/19 08:46 Freq: Status: Active Protocol: Activity Type Activity Date Activity User E-Sign Co-Sign Detail Recorded Client Recorded Date Recorded By Document 05/11/19 08:32 [id number] 05/11/19 08:36 QUEENIE 05/11/19 08:32 Wound Center Nurse 2 [Procedure/Treatment] #1 LEFT POWERS -Time 08:32 -Correct Patient Yes -Correct Side, Site, Position Yes -Correct Procedure Yes -Procedure Performed Yes -Type of Procedure Debridement -Clinical Debridement Subcutaneous -Post Debridement Size (cm) - Length 10.4 -Post Debridement Size (cm) - Width 10 -Post Debridement Size (cm) - Depth 0.1 -Total Square Cm 104.0 -Wound/Ulcer Outcome Not Healed -Ulcer Cleansing Rinsed/ Irrigated with Saline -Foul Odor after Cleansing No -Bioengineered Tissue No -Bleeding Controlled with Pressure -Offloading No -Treatment Response Procedure Tolerated Well [See Physician Procedure note for Specifics] Pain Scale: 0-10 Numeric [Pain] -Is Patient Pain Free? Yes Musculoskeletal: No Tenderness to Palpation of Joints or Extremities Lymphatic: No Cervical, Supraclavicular, or Inguinal Adenopathy Neurological: Neuro grossly intact Psych/Mental Status: Normal Affect, Appropriate Debridement Note Post-Debridement Measurements/Treatment WC - Nurse 2 - General Ulcer CM Notes Start: 05/04/19 08:46 Freq: Status: Active Protocol: Activity Type Activity Date Activity User E-Sign Co-Sign Detail Recorded Client Recorded Date Recorded By Document 05/04/19 09:34 [id number] 05/04/19 09:40 Document 05/11/19 08:32 [id number] 05/11/19 08:36 05/04/19 05/11/19 09:34 08:32 Wound Center Nurse 2 #1 LEFT POWERS -Time 09:36 08:32 -Correct Patient Yes Yes -Correct Side, Site, Position Yes Yes -Correct Procedure Yes Yes -Procedure Performed Yes Yes -Type of Procedure Debridement Debridement -Clinical Debridement Subcutaneous Subcutaneous -Post Debridement Size (cm) - Length 10.3 10.4 -Post Debridement Size (cm) - Width 10 10 -Post Debridement Size (cm) - Depth 0.2 0.1 -Total Square Cm 103.0 104.0 -Wound/Ulcer Outcome Not Healed Not Healed -Ulcer Cleansing Rinsed/ Rinsed/ Irrigated with Irrigated with Saline Saline -Foul Odor after Cleansing No No -Bioengineered Tissue No No -Bleeding Controlled with Pressure Pressure -Offloading No No -Treatment Response Procedure Procedure Tolerated Well Tolerated Well Pain Scale: 0-10 Numeric Is Patient Pain Free? Yes Yes Wound debrided: lower anterior leg Laterality: Left Type of Debridement: Excisional debridement Anesthesia Used: 4% Lidocaine Solution, 5% Lidocaine Gel Depth: Down to and including healthy tissue, in the subcutaneous layer Percentage of wound debrided: 100 Instrument Used: 7mm curette Tissue Removed: Subcutaneous tissue and slough Severity: Fat Layer Exposed Amount of bleeding with debridement: Moderate Bleeding Controlled with: Pressure, Compression and gauze Patient tolerated procedure well Assessment/Plan Assessment: 1. Fall from a ladder, sequela. 2. Nonhealing infected diabetic ulcer left anterior leg with chronic cellulitis. 3. Diabetes mellitus. 4. Smoker. 5. s/p surgical preparation left anterior leg with incision and drainage and excisonal debridement nonhealing infected diabetic ulcer (156 cm2). Plan: Wound care is Fibracol plus covered by [employer]. Will use Tubigrip for compression. Keep left leg elevated when sitting. [employer]in was approved but is too much out of pocket for patient. He chose not to have a skin graft. He would prefer to continue with the current wound care since he is healing. 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 Prealbumin from 03/04/19 was 18.0. Encourage nutritional supplementation with protein to help the healing process. HgbA1c from 03/04/19 was 6.0. Before any elective reconstructive surgery, it needs to be 8 or less. He is having burning nerve pain, which the neurotin seems to be helping. Because of the persistent pain he is having, he would benefit from operative debridement and skin grafting sooner than later. Will discuss at future visits. He saw pain management and they are willing to prescribe pain medication from him but they don't want to drive to [place] to pickle sorter the prescription and told them that they would just get pain medication from either Dr. Aldana or myself. Plus he was concerned because they wanted to prescribe more pills per day then he thought was necessary. I did discuss with them that we need to wean him off the pain medication or he will need to get them from pain management. Renewed Percocet (21) OARRS report run, no suspicous activity. Followup one week. Encouraged the patient to stop smoking as it may have deleterious effects on wound healing. Code Visit 111xxx-113xx: 59075 Melinda subq tissue 20 sq cm/< Add On Codes: [id number] Melinda subq tissue add-on - x5
[2019-05-18 08:43] VITALS: BP 134/75; PULSE 48; RESP 16; TEMP 36.1; BMI 31.0
--- NOTE | 2019-05-18 09:47 | PCM.WC.PN ---
(1) Non-pressure chronic ulcer of left lower leg with fat layer exposed Status: Chronic Code(s): L97.922 - Non-pressure chronic ulcer of unspecified part of left lower leg with fat layer exposed (2) Diabetes mellitus Status: Chronic Code(s): E11.9 - Type 2 diabetes mellitus without complications Type of Wound Date of Service: 05/18/19 Chief Complaint: Nonhealing infected diabetic ulcer left anterior leg. History of Wound: Surgery 03/03/19 - Surgical preparation left anterior leg with incision and drainage and excisonal debridement nonhealing infected diabetic ulcer (156 cm2). Wound care - Fibracol (+) with Tubigrip for compression. Operative culture - Leclercia adecarboxylata. He was initially placed on Levaquin and had issues with it and was changed to Bactrim and has finished them. Prealbumin from 03/04/19 was 18.0. Encouraged nutritional supplementation with protein to help the healing process. HgbA1c from 03/04/19 was 6.0. Today he denies fever. His appetite is ok. He states his burning nerve pain in the area of the ulcer left leg has improved. Progress of Wound: Improved. - Physical Exam Vital Signs Temp Pulse Resp BP 96.9 F L 48 L 16 134/75 H 05/18/19 08:43 05/18/19 08:43 05/18/19 08:43 05/18/19 08:43 General: Alert, Oriented x3, Cooperative HEENT: Atraumatic Oral: Moist Mucosa Lungs: Normal air movement Cardiovascular: Regular rate Extremities: Capillary Refill Less than 3 Seconds, Edema Skin: Ulcer/ Wound - Left lower leg ulcer Wound Measurements and Assessment WC - Nurse 1 - General Ulcer Measurement Start: 05/04/19 08:46 Freq: Status: Active Protocol: Activity Type Activity Date Activity User E-Sign Co-Sign Detail Recorded Client Recorded Date Recorded By Document 05/18/19 08:43 MW [id number] 05/18/19 08:51 MW 05/18/19 08:43 Wound Center Nurse 1 [Ulcer Assessment] #1 LEFT POWERS -Combined with other wound No -Current Size (cm) - Length 8.9 -Current Size (cm) - Width 8.0 -Current Size (cm) - Depth 0.1 -Total Square Cm 71.20 -Date of Last Picture (Recall this 05/18/19 field) -Photo Taken Yes -Epithelialization Small 1-33% -Tunneling No -Undermining/Tunneling No -Circular Undermining No -Exudate Amt Medium -Exudate Type Serosanguineous -Wound Margin Flat & Intact -Granulation Amt Large (67-100%) -Granulation Quality [place] -Slough/Fibrin Yes -Necrosis Amt Small (1-33%) -Necrotic Tissue Type Adherent Slough -Structure Exposed N/A -Texture (Martha-wound Skin Appearance) Assessed, Scarring -Moisture (Martha-wound Skin Appearance No Abnormality, ) Assessed -Color (Martha-wound Skin Appearance) No Abnormality, Assessed -Temperature (Martha-wound Skin No Abnormality Appearance) (Pt Warm) -Tenderness on Palpation (Martha-wound No Skin Appearance) -Ulcer Cleansing soap and water -Foul Odor after Cleansing No -Anesthetic Used 4% Lidocaine Solution,5% Lidocaine Gel [Edema Assessment] -Lower Limb Edema Present Yes -Right Calf (cm) 33.5 -Right Ankle (cm) 20.5 WC - Nurse 2 - General Ulcer CM Notes Start: 05/04/19 08:46 Freq: Status: Active Protocol: Activity Type Activity Date Activity User E-Sign Co-Sign Detail Recorded Client Recorded Date Recorded By Document 05/18/19 09:07 QUEENIE [id number] 05/18/19 09:10 QUEENIE 05/18/19 09:07 Wound Center Nurse 2 [Procedure/Treatment] #1 LEFT POWERS -Time 09:08 -Correct Patient Yes -Correct Side, Site, Position Yes -Correct Procedure Yes -Procedure Performed Yes -Type of Procedure Debridement -Clinical Debridement Subcutaneous -Post Debridement Size (cm) - Length 9.5 -Post Debridement Size (cm) - Width 9.2 -Post Debridement Size (cm) - Depth 0.1 -Total Square Cm 87.40 -Wound/Ulcer Outcome Not Healed -Ulcer Cleansing Rinsed/ Irrigated with Saline -Foul Odor after Cleansing No -Bioengineered Tissue No -Bleeding Controlled with Pressure -Offloading No -Treatment Response Procedure Tolerated Well [See Physician Procedure note for Specifics] Pain Scale: 0-10 Numeric [Pain] -Is Patient Pain Free? Yes Musculoskeletal: No Tenderness to Palpation of Joints or Extremities Neurological: Neuro grossly intact Psych/Mental Status: Normal Affect, Appropriate Debridement Note Post-Debridement Measurements/Treatment WC - Nurse 2 - General Ulcer CM Notes Start: 05/04/19 08:46 Freq: Status: Active Protocol: Activity Type Activity Date Activity User E-Sign Co-Sign Detail Recorded Client Recorded Date Recorded By Document 05/04/19 09:34 [id number] 05/04/19 09:40 Document 05/11/19 08:32 [id number] 05/11/19 08:36 Document 05/18/19 09:07 [id number] 05/18/19 09:10 05/04/19 05/11/19 05/18/19 09:34 08:32 09:07 Wound Center Nurse 2 #1 LEFT POWERS -Time 09:36 08:32 09:08 -Correct Patient Yes Yes Yes -Correct Side, Site, Position Yes Yes Yes -Correct Procedure Yes Yes Yes -Procedure Performed Yes Yes Yes -Type of Procedure Debridement Debridement Debridement -Clinical Debridement Subcutaneous Subcutaneous Subcutaneous -Post Debridement Size (cm) - Length 10.3 10.4 9.5 -Post Debridement Size (cm) - Width 10 10 9.2 -Post Debridement Size (cm) - Depth 0.2 0.1 0.1 -Total Square Cm 103.0 104.0 87.40 -Wound/Ulcer Outcome Not Healed Not Healed Not Healed -Ulcer Cleansing Rinsed/ Rinsed/ Rinsed/ Irrigated with Irrigated with Irrigated with Saline Saline Saline -Foul Odor after Cleansing No No No -Bioengineered Tissue No No No -Bleeding Controlled with Pressure Pressure Pressure -Offloading No No No -Treatment Response Procedure Procedure Procedure Tolerated Well Tolerated Well Tolerated Well Pain Scale: 0-10 Numeric Is Patient Pain Free? Yes Yes Yes Wound debrided: left lower leg ulcer Laterality: Left Type of Debridement: Excisional debridement Anesthesia Used: 4% Lidocaine Solution, 5% Lidocaine Gel Depth: Down to and including healthy tissue, in the subcutaneous layer Percentage of wound debrided: 100 Instrument Used: 7mm curette Tissue Removed: Subcutaneous tissue and slough Severity: Fat Layer Exposed Amount of bleeding with debridement: Mild Bleeding Controlled with: Pressure, Compression and gauze Patient tolerated procedure well Assessment/Plan Assessment: 1. Fall from a ladder, sequela. 2. Nonhealing infected diabetic ulcer left anterior leg with chronic cellulitis. 3. Diabetes mellitus. 4. Smoker. 5. s/p surgical preparation left anterior leg with incision and drainage and excisonal debridement nonhealing infected diabetic ulcer (156 cm2). Plan: Continue Fibracol plus covered by adapatic dressing changes daily to left anterior leg followed by Tubigrip for compression. Keep left leg elevated when sitting. 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 Prealbumin from 03/04/19 was 18.0. Encourage nutritional supplementation with protein to help the healing process. HgbA1c from 03/04/19 was 6.0. Before any elective reconstructive surgery, it needs to be 8 or less. His burning nerve pain has improved with the Neurontin. Because of his persistent pain, it was recommended that he proceed with operative debridement and skin grafting. He has declined on any further surgery at this time as he states his pain is slowly improving in his left leg. Renewed Percocet (21). OARRS reviewed. Patient has an appointment with pain management who is willing to treat his pain. Patient doesn't want to drive to [place] for his pain medication. Instructed patient that we need to be weaning his pain meds, therefore for his chronic pain he needs to be getting his medication from Pain management. Followup one week. Encouraged the patient to stop smoking as it may have deleterious effects on wound healing. Code Visit 111xxx-113xx: [id number] Melinda subq tissue 20 sq cm/< Add On Codes: [id number] Melinda subq tissue add-on - x4
[2019-05-25 09:36] VITALS: BP 124/74; PULSE 59; RESP 18; TEMP 36.2; BMI 31.0
--- NOTE | 2019-05-25 18:31 | PN.PCM_ITS ---
Type of Wound Date of Service: 05/25/19 Chief Complaint: Nonhealing infected diabetic ulcer left anterior leg. History of Wound: Surgery 03/03/19 - Surgical preparation left anterior leg with incision and drainage and excisonal debridement nonhealing infected diabetic ulcer (156 cm2). Wound care - Fibracol with Tubigrip for compression. Operative culture - Leclercia adecarboxylata. He was initially placed on Levaquin and had issues with it and was changed to Bactrim and has finished them. Prealbumin from 03/04/19 was 18.0. Encouraged nutritional supplementation with protein to help the healing process. HgbA1c from 03/04/19 was 6.0. Today he denies fever. His appetite is ok. He states his burning nerve pain in the area of the ulcer left leg has improved. Progress of Wound: Improved. - Physical Exam Vital Signs Temp Pulse Resp BP 97.1 F L 59 L 18 124/74 H 05/25/19 09:36 05/25/19 09:36 05/25/19 09:36 05/25/19 09:36 Wound Measurements and Assessment WC - Nurse 1 - General Ulcer Measurement Start: 05/04/19 08:46 Freq: Status: Active Protocol: Activity Type Activity Date Activity User E-Sign Co-Sign Detail Recorded Client Recorded Date Recorded By Document 05/25/19 09:36 DL [id number] 05/25/19 09:40 DL 05/25/19 09:36 Wound Center Nurse 1 [Ulcer Assessment] #1 LEFT POWERS -Current Size (cm) - Length 8.2 -Current Size (cm) - Width 7.8 -Current Size (cm) - Depth 0.1 -Total Square Cm 63.96 -Photo Taken No -Exudate Amt Small -Exudate Type Serosanguineous -Wound Margin Distinct, Outline Attached -Granulation Amt Large (67-100%) -Granulation Quality Red -Necrosis Amt Small (1-33%) -Necrotic Tissue Type Adherent Slough -Structure Exposed Fat Layer Exposed -Texture (Martha-wound Skin Appearance) Scarring -Moisture (Martha-wound Skin Appearance No Abnormality ) -Color (Martha-wound Skin Appearance) Hemosiderin Staining,Rubor -Temperature (Martha-wound Skin No Abnormality Appearance) (Pt Warm) -Tenderness on Palpation (Martha-wound No Skin Appearance) -Ulcer Cleansing Wound Cleanser -Anesthetic Used 4% Lidocaine Solution,5% Lidocaine Gel [Edema Assessment] -Left Calf (cm) 33.3 -Left Ankle (cm) 20.1 - Nurse 2 - General Ulcer CM Notes Start: 05/04/19 08:46 Freq: Status: Active Protocol: Activity Type Activity Date Activity User E-Sign Co-Sign Detail Recorded Client Recorded Date Recorded By Document 05/25/19 09:46 [id number] 05/25/19 09:48 05/25/19 09:46 Wound Center Nurse 2 [Procedure/Treatment] #1 LEFT POWERS -Time 09:46 -Correct Patient Yes -Correct Side, Site, Position Yes -Correct Procedure Yes -Procedure Performed Yes -Type of Procedure Debridement -Clinical Debridement Subcutaneous -Post Debridement Size (cm) - Length 8.3 -Post Debridement Size (cm) - Width 7.4 -Post Debridement Size (cm) - Depth 0.1 -Total Square Cm 61.42 -Wound/Ulcer Outcome Not Healed -Ulcer Cleansing Rinsed/ Irrigated with Saline -Foul Odor after Cleansing No -Bioengineered Tissue No -Bleeding Controlled with Pressure -Offloading No -Treatment Response Procedure Tolerated Well [See Physician Procedure note for Specifics] Pain Scale: 0-10 Numeric [Pain] -Is Patient Pain Free? Yes Debridement Note Post-Debridement Measurements/Treatment - Nurse 2 - General Ulcer CM Notes Start: 05/04/19 08:46 Freq: Status: Active Protocol: Activity Type Activity Date Activity User E-Sign Co-Sign Detail Recorded Client Recorded Date Recorded By Document 05/04/19 09:34 [id number] 05/04/19 09:40 Document 05/11/19 08:32 [id number] 05/11/19 08:36 Document 05/18/19 09:07 [id number] 05/18/19 09:10 Document 05/25/19 09:46 [id number] 05/25/19 09:48 05/04/19 05/11/19 05/18/19 09:34 08:32 09:07 Wound Center Nurse 2 #1 LEFT POWERS -Time 09:36 08:32 09:08 -Correct Patient Yes Yes Yes -Correct Side, Site, Position Yes Yes Yes -Correct Procedure Yes Yes Yes -Procedure Performed Yes Yes Yes -Type of Procedure Debridement Debridement Debridement -Clinical Debridement Subcutaneous Subcutaneous Subcutaneous -Post Debridement Size (cm) - Length 10.3 10.4 9.5 -Post Debridement Size (cm) - Width 10 10 9.2 -Post Debridement Size (cm) - Depth 0.2 0.1 0.1 -Total Square Cm 103.0 104.0 87.40 -Wound/Ulcer Outcome Not Healed Not Healed Not Healed -Ulcer Cleansing Rinsed/ Rinsed/ Rinsed/ Irrigated with Irrigated with Irrigated with Saline Saline Saline -Foul Odor after Cleansing No No No -Bioengineered Tissue No No No -Bleeding Controlled with Pressure Pressure Pressure -Offloading No No No -Treatment Response Procedure Procedure Procedure Tolerated Well Tolerated Well Tolerated Well Pain Scale: 0-10 Numeric Is Patient Pain Free? Yes Yes Yes 05/25/19 09:46 Wound Center Nurse 2 #1 LEFT POWERS -Time 09:46 -Correct Patient Yes -Correct Side, Site, Position Yes -Correct Procedure Yes -Procedure Performed Yes -Type of Procedure Debridement -Clinical Debridement Subcutaneous -Post Debridement Size (cm) - Length 8.3 -Post Debridement Size (cm) - Width 7.4 -Post Debridement Size (cm) - Depth 0.1 -Total Square Cm 61.42 -Wound/Ulcer Outcome Not Healed -Ulcer Cleansing Rinsed/ Irrigated with Saline -Foul Odor after Cleansing No -Bioengineered Tissue No -Bleeding Controlled with Pressure -Offloading No -Treatment Response Procedure Tolerated Well Pain Scale: 0-10 Numeric Is Patient Pain Free? Yes Wound debrided: #1 Left anterior leg. Laterality: Left Wound Grade/Stage: 2. Type of Debridement: Excisional debridement Anesthesia Used: 4% Lidocaine Solution Depth: Down to and including healthy tissue, in the subcutaneous layer Percentage of wound debrided: 100 Instrument Used: 5mm curette Tissue Removed: subcutaneous tissue. Severity: Fat Layer Exposed Amount of bleeding with debridement: Mild Bleeding Controlled with: Pressure Patient tolerated procedure well Assessment/Plan Assessment: 1. Fall from a ladder, sequela. 2. Nonhealing infected diabetic ulcer left anterior leg with chronic cellulitis. 3. Diabetes mellitus. 4. Smoker. 5. s/p surgical preparation left anterior leg with incision and drainage and excisonal debridement nonhealing infected diabetic ulcer (156 cm2). Plan: Continue Fibracol dressing changes daily to left anterior leg followed by Tubigrip for compression. Keep left leg elevated when sitting. 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 Prealbumin from 03/04/19 was 18.0. Encourage nutritional supplementation with protein to help the healing process. HgbA1c from 03/04/19 was 6.0. Before any elective reconstructive surgery, it needs to be 8 or less. His burning nerve p ain has improved with the Neurontin. Because of his persistent pain, it was recommended that he proceed with operative debridement and skin grafting. He has declined on any further surgery at this time as he states his pain is slowly improving in his left leg. Renewed his Percocet for pain (14 tabs). We are weaning him off the Percocet, so then additional medication can be addressed to his Pain Management Physician. Followup 2 weeks. Encouraged the patient to stop smoking as it may have deleterious effects on wound healing.
== END 2019-05-28 23:59 ==
LOC: WC 09:30
PROVIDERS: Family Provider Family Medicine; PCP Family Medicine; Visit Provider Surgery
DX: E11.622 Type 2 diabetes mellitus with other skin ulcer (principal); L97.822 Non-pressure chronic ulcer of other part of left lower leg with fat layer exposed; F17.200 Nicotine dependence, unspecified, uncomplicated; L03.116 Cellulitis of left lower limb; W11.XXXA Fall on and from ladder, initial encounter
CPT/HCPCS: 11042; 11045

== ENCOUNTER 2019-06-22 09:00 | Outpatient (RCR) | payer MEDICARE, SELFPAY ==
[2016-08-31 15:27] VITALS: BMI 33.3
[2019-05-29 01:01] VITALS: BP 124/74; PULSE 59; RESP 18; TEMP 36.2
[2019-06-08 09:58] VITALS: BP 136/69; PULSE 73; RESP 18; TEMP 37; BMI 31.0
--- NOTE | 2019-06-08 11:00 | PCM.WC.PN ---
(1) Non-pressure chronic ulcer of left lower leg with fat layer exposed Status: Chronic Code(s): L97.922 - Non-pressure chronic ulcer of unspecified part of left lower leg with fat layer exposed (2) Diabetes mellitus Status: Chronic Code(s): E11.9 - Type 2 diabetes mellitus without complications Type of Wound Date of Service: 06/08/19 Chief Complaint: Nonhealing infected diabetic ulcer left anterior leg. History of Wound: Surgery 03/03/19 - Surgical preparation left anterior leg with incision and drainage and excisonal debridement nonhealing infected diabetic ulcer (156 cm2). Wound care - Fibracol with Tubigrip for compression. Operative culture - Leclercia adecarboxylata. He was initially placed on Levaquin and had issues with it and was changed to Bactrim and has finished them. Prealbumin from 03/04/19 was 18.0. Encouraged nutritional supplementation with protein to help the healing process. HgbA1c from 03/04/19 was 6.0. Today he denies fever. His appetite is ok. He states his burning nerve pain in the area of the ulcer left leg has improved. Progress of Wound: Improved. - Physical Exam Vital Signs Temp Pulse Resp BP 98.6 F 73 18 136/69 H 06/08/19 09:58 06/08/19 09:58 06/08/19 09:58 06/08/19 09:58 General: Alert, Oriented x3, Cooperative HEENT: Atraumatic Oral: Moist Mucosa Lungs: Normal air movement Cardiovascular: Regular rate Extremities: Capillary Refill Less than 3 Seconds, Peripheral Pulses Normal Skin: Ulcer/ Wound - left anterior lower leg Wound Measurements and Assessment WC - Nurse 1 - General Ulcer Measurement Start: 06/08/19 09:58 Freq: Status: Active Protocol: Activity Type Activity Date Activity User E-Sign Co-Sign Detail Recorded Client Recorded Date Recorded By Document 06/08/19 09:58 DV [id number] 06/08/19 10:07 DV 06/08/19 09:58 Wound Center Nurse 1 [Ulcer Assessment] #1 LEFT POWERS -Combined with other wound No -Current Size (cm) - Length 6.2 -Current Size (cm) - Width 7.0 -Current Size (cm) - Depth 0.1 -Total Square Cm 43.40 -Photo Taken No -Epithelialization Small 1-33% -Tunneling No -Undermining/Tunneling No -Circular Undermining No -Exudate Amt Medium -Exudate Type Serosanguineous -Wound Margin Flat & Intact -Granulation Amt Large (67-100%) -Granulation Quality Red -Slough/Fibrin Yes -Necrosis Amt Medium (34-66%) -Necrotic Tissue Type Adherent Slough -Structure Exposed None/Limited to Skin Breakdown -Texture (Martha-wound Skin Appearance) Assessed, Scarring -Moisture (Martha-wound Skin Appearance Assessed, ) Weeping -Color (Martha-wound Skin Appearance) No Abnormality, Assessed -Temperature (Martha-wound Skin No Abnormality Appearance) (Pt Warm) -Tenderness on Palpation (Martha-wound No Skin Appearance) -Ulcer Cleansing Rinsed/ Irrigated with Saline -Foul Odor after Cleansing No -Anesthetic Used 4% Lidocaine Solution - Nurse 2 - General Ulcer CM Notes Start: 06/08/19 09:58 Freq: Status: Active Protocol: Activity Type Activity Date Activity User E-Sign Co-Sign Detail Recorded Client Recorded Date Recorded By Document 06/08/19 10:27 QUEENIE [id number] 06/08/19 10:32 QUEENIE 06/08/19 10:27 Wound Center Nurse 2 [Procedure/Treatment] -Time 10:27 -Correct Patient Yes -Correct Side, Site, Position Yes -Correct Procedure Yes -Procedure Performed Yes -Type of Procedure Debridement -Clinical Debridement Subcutaneous -Post Debridement Size (cm) - Length 7 -Post Debridement Size (cm) - Width 8 -Post Debridement Size (cm) - Depth 0.1 -Total Square Cm 56 -Wound/Ulcer Outcome Not Healed -Ulcer Cleansing Rinsed/ Irrigated with Saline -Foul Odor after Cleansing No -Bioengineered Tissue No -Bleeding Controlled with Pressure -Offloading No -Treatment Response Procedure Tolerated Well [See Physician Procedure note for Specifics] Pain Scale: 0-10 Numeric [Pain] -Is Patient Pain Free? Yes Musculoskeletal: No Muscle Wasting Neurological: Neuro grossly intact Psych/Mental Status: Normal Affect, Appropriate Debridement Note Post-Debridement Measurements/Treatment - Nurse 2 - General Ulcer CM Notes Start: 06/08/19 09:58 Freq: Status: Active Protocol: Activity Type Activity Date Activity User E-Sign Co-Sign Detail Recorded Client Recorded Date Recorded By Document 06/08/19 10:27 QUEENIE [id number] 06/08/19 10:32 JF 06/08/19 10:27 Wound Center Nurse 2 #1 LEFT POWERS -Time 10:27 -Correct Patient Yes -Correct Side, Site, Position Yes -Correct Procedure Yes -Procedure Performed Yes -Type of Procedure Debridement -Clinical Debridement Subcutaneous -Post Debridement Size (cm) - Length 7 -Post Debridement Size (cm) - Width 8 -Post Debridement Size (cm) - Depth 0.1 -Total Square Cm 56 -Wound/Ulcer Outcome Not Healed -Ulcer Cleansing Rinsed/ Irrigated with Saline -Foul Odor after Cleansing No -Bioengineered Tissue No -Bleeding Controlled with Pressure -Offloading No -Treatment Response Procedure Tolerated Well Pain Scale: 0-10 Numeric Is Patient Pain Free? Yes Wound debrided: ulcer lower anterior leg Laterality: Left Type of Debridement: Excisional debridement Anesthesia Used: 5% Lidocaine Gel Depth: Down to and including healthy tissue, in the subcutaneous layer Percentage of wound debrided: 100 Instrument Used: 5mm curette Tissue Removed: subcutaneous tissue and slough Severity: Fat Layer Exposed Amount of bleeding with debridement: Mild Bleeding Controlled with: Pressure, Compression and gauze Patient tolerated procedure well Assessment/Plan Assessment: 1. Fall from a ladder, sequela. 2. Nonhealing infected diabetic ulcer left anterior leg with chronic cellulitis. 3. Diabetes mellitus. 4. Smoker. 5. s/p surgical preparation left anterior leg with incision and drainage and excisonal debridement nonhealing infected diabetic ulcer (156 cm2). Plan: Continue Fibracol dressing changes daily to left anterior leg followed by Tubigrip for compression. Keep left leg elevated when sitting. 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 Prealbumin from 03/04/19 was 18.0. Encourage nutritional supplementation with protein to help the healing process. HgbA1c from 03/04/19 was 6.0. Before any elective reconstructive surgery, it needs to be 8 or less. His burning nerve pain has improved with the Neurontin. Because of his persistent pain, it was recommended that he proceed with operative debridement and skin grafting. He has declined on any further surgery at this time as he states his pain is slowly improving in his left leg. Renewed his Percocet for pain (14 tabs). We are weaning him off the Percocet, so then additional medication can be addressed to his Pain Management Physician. Followup 2 weeks. Encouraged the patient to stop smoking as it may have deleterious effects on wound healing. Code Visit 111xxx-113xx: [id number] Melinda subq tissue 20 sq cm/< Add On Codes: [id number] Melinda subq tissue add-on
[2019-06-22 09:01] VITALS: BP 138/64; PULSE 70; RESP 20; TEMP 30.1; BMI 31.0
--- NOTE | 2019-06-22 14:05 | PCM.WC.PN ---
(1) Non-pressure chronic ulcer of left lower leg with fat layer exposed Status: Chronic Code(s): L97.922 - Non-pressure chronic ulcer of unspecified part of left lower leg with fat layer exposed (2) Tobacco abuse Status: Chronic Code(s): Z72.0 - Tobacco use (3) Diabetes mellitus Status: Chronic Code(s): E11.9 - Type 2 diabetes mellitus without complications Type of Wound Date of Service: 06/22/19 Chief Complaint: Nonhealing infected diabetic ulcer left anterior leg. History of Wound: Surgery 03/03/19 - Surgical preparation left anterior leg with incision and drainage and excisonal debridement nonhealing infected diabetic ulcer (156 cm2). Wound care - Fibracol with Tubigrip for compression. Operative culture - Leclercia adecarboxylata. He was initially placed on Levaquin and had issues with it and was changed to Bactrim and has finished them. Prealbumin from 03/04/19 was 18.0. Encouraged nutritional supplementation with protein to help the healing process. HgbA1c from 03/04/19 was 6.0. Today he denies fever. His appetite is ok. He states his burning nerve pain in the area of the ulcer left leg has improved. Progress of Wound: Improved. - Physical Exam Vital Signs Temp Pulse Resp BP 86.2 F L 70 20 H 138/64 H 06/22/19 09:01 06/22/19 09:01 06/22/19 09:01 06/22/19 09:01 General: Alert, Oriented x3, Cooperative HEENT: Atraumatic Oral: Moist Mucosa Lungs: Normal air movement Cardiovascular: Regular rate Extremities: Capillary Refill Less than 3 Seconds, Edema, Peripheral Pulses Normal Skin: Ulcer/ Wound - left anterior lower leg ulcer improving Wound Measurements and Assessment WC - Nurse 1 - General Ulcer Measurement Start: 06/08/19 09:58 Freq: Status: Active Protocol: Activity Type Activity Date Activity User E-Sign Co-Sign Detail Recorded Client Recorded Date Recorded By Document 06/22/19 09:01 [email or web address] [id number] 06/22/19 09:08 DL 06/22/19 09:01 Wound Center Nurse 1 [Ulcer Assessment] #1 LEFT POWERS -Current Size (cm) - Length 5 -Current Size (cm) - Width 2.8 -Current Size (cm) - Depth 0.1 -Total Square Cm 14.0 -Photo Taken No -Exudate Amt Small -Exudate Type Serosanguineous -Wound Margin Thickened -Granulation Amt Large (67-100%) -Granulation Quality Red -Structure Exposed N/A -Texture (Martha-wound Skin Appearance) Scarring -Moisture (Martha-wound Skin Appearance Dry/Scaly ) -Color (Martha-wound Skin Appearance) No Abnormality -Temperature (Martha-wound Skin No Abnormality Appearance) (Pt Warm) -Tenderness on Palpation (Martha-wound No Skin Appearance) -Ulcer Cleansing Wound Cleanser -Foul Odor after Cleansing No -Anesthetic Used 4% Lidocaine Solution [Edema Assessment] -Left Calf (cm) 36.6 -Left Ankle (cm) 19.5 - Nurse 2 - General Ulcer CM Notes Start: 06/08/19 09:58 Freq: Status: Active Protocol: Activity Type Activity Date Activity User E-Sign Co-Sign Detail Recorded Client Recorded Date Recorded By Document 06/22/19 09:47 [id number] 06/22/19 09:49 06/22/19 09:47 Wound Center Nurse 2 [Procedure/Treatment] #1 LEFT POWERS -Time 09:47 -Correct Patient Yes -Correct Side, Site, Position Yes -Correct Procedure Yes -Procedure Performed Yes -Type of Procedure Debridement -Clinical Debridement Subcutaneous -Post Debridement Size (cm) - Length 6.0 -Post Debridement Size (cm) - Width 6.2 -Post Debridement Size (cm) - Depth 0.2 -Total Square Cm 37.20 -Wound/Ulcer Outcome Not Healed -Ulcer Cleansing Rinsed/ Irrigated with Saline -Foul Odor after Cleansing No -Bioengineered Tissue No -Bleeding Controlled with Pressure -Offloading No -Treatment Response Procedure Tolerated Well [See Physician Procedure note for Specifics] Pain Scale: 0-10 Numeric [Pain] -Is Patient Pain Free? Yes Musculoskeletal: No Tenderness to Palpation of Joints or Extremities Neurological: Neuro grossly intact Psych/Mental Status: Normal Affect, Appropriate Debridement Note Post-Debridement Measurements/Treatment - Nurse 2 - General Ulcer CM Notes Start: 06/08/19 09:58 Freq: Status: Active Protocol: Activity Type Activity Date Activity User E-Sign Co-Sign Detail Recorded Client Recorded Date Recorded By Document 06/08/19 10:27 [id number] 06/08/19 10:32 Document 06/22/19 09:47 [id number] 06/22/19 09:49 06/08/19 06/22/19 10:27 09:47 Wound Center Nurse 2 #1 LEFT POWERS -Time 10:27 09:47 -Correct Patient Yes Yes -Correct Side, Site, Position Yes Yes -Correct Procedure Yes Yes -Procedure Performed Yes Yes -Type of Procedure Debridement Debridement -Clinical Debridement Subcutaneous Subcutaneous -Post Debridement Size (cm) - Length 7 6.0 -Post Debridement Size (cm) - Width 8 6.2 -Post Debridement Size (cm) - Depth 0.1 0.2 -Total Square Cm 56 37.20 -Wound/Ulcer Outcome Not Healed Not Healed -Ulcer Cleansing Rinsed/ Rinsed/ Irrigated with Irrigated with Saline Saline -Foul Odor after Cleansing No No -Bioengineered Tissue No No -Bleeding Controlled with Pressure Pressure -Offloading No No -Treatment Response Procedure Procedure Tolerated Well Tolerated Well Pain Scale: 0-10 Numeric Is Patient Pain Free? Yes Yes Wound debrided: anterior lower leg ulcer Laterality: Left Type of Debridement: Excisional debridement Anesthesia Used: 5% Lidocaine Gel Depth: Down to and including healthy tissue, in the subcutaneous layer Percentage of wound debrided: 100 Instrument Used: 5mm curette Tissue Removed: subcutaneous tissue and slough Severity: Fat Layer Exposed Amount of bleeding with debridement: Mild Bleeding Controlled with: Pressure, Compression and gauze Patient tolerated procedure well Assessment/Plan Assessment: 1. Fall from a ladder, sequela. 2. Nonhealing infected diabetic ulcer left anterior leg with chronic cellulitis. 3. Diabetes mellitus. 4. Smoker. 5. s/p surgical preparation left anterior leg with incision and drainage and excisonal debridement nonhealing infected diabetic ulcer (156 cm2). Plan: Continue Fibracol dressing changes daily and cover with adaptic. to left anterior leg followed by Tubigrip for compression. Keep left leg elevated when sitting. 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 Prealbumin from 03/04/19 was 18.0. Encourage nutritional supplementation with protein to help the healing process. HgbA1c from 03/04/19 was 6.0. Before any elective reconstructive surgery, it needs to be 8 or less. His burning nerve pain has improved with the Neurontin. Because of his persistent pain, it was recommended that he proceed with operative debridement and skin grafting. He has declined on any further surgery at this time as he states his pain is slowly improving in his left leg. We have weaned him off the Percocet, so then additional medication can be addressed to his Pain Management Physician. Followup 2 weeks. Encouraged the patient to stop smoking as it may have deleterious effects on wound healing. Code Visit 111xxx-113xx: 12031 Melinda subq tissue 20 sq cm/< Add On Codes: [id number] Melinda subq tissue add-on
== END 2019-06-27 23:59 ==
LOC: WC 09:00
PROVIDERS: Family Provider Family Medicine; PCP Family Medicine; Visit Provider Surgery
DX: E11.622 Type 2 diabetes mellitus with other skin ulcer (principal); L97.822 Non-pressure chronic ulcer of other part of left lower leg with fat layer exposed; W11.XXXA Fall on and from ladder, initial encounter; F17.200 Nicotine dependence, unspecified, uncomplicated; L03.116 Cellulitis of left lower limb
CPT/HCPCS: 11042; 11045

== ENCOUNTER 2019-07-20 09:30 | Outpatient (RCR) | payer MEDICARE, SELFPAY ==
[2016-08-31 15:27] VITALS: BMI 33.3
[2019-06-28 00:47] VITALS: BP 138/64; PULSE 70; RESP 20; TEMP 30.1
[2019-07-06 09:06] VITALS: BP 122/73; PULSE 77; RESP 16; TEMP 36.2; BMI 31.0
--- NOTE | 2019-07-06 14:43 | PCM.WC.PN ---
(1) Non-pressure chronic ulcer of left lower leg with fat layer exposed Status: Chronic Code(s): L97.922 - Non-pressure chronic ulcer of unspecified part of left lower leg with fat layer exposed (2) Diabetes mellitus with ulcer of lower extremity Status: Chronic Code(s): E11.622 - Type 2 diabetes mellitus with other skin ulcer; L97.909 - Non-pressure chronic ulcer of unspecified part of unspecified lower leg with unspecified severity (3) Tobacco abuse Status: Chronic Code(s): Z72.0 - Tobacco use Type of Wound Date of Service: 07/06/19 Chief Complaint: Nonhealing infected diabetic ulcer left anterior leg. History of Wound: Surgery 03/03/19 - Surgical preparation left anterior leg with incision and drainage and excisonal debridement nonhealing infected diabetic ulcer (156 cm2). Wound care - Moistened Fibracol covered by adaptic with Tubigrip for compression. Operative culture - Leclercia adecarboxylata. He was initially placed on Levaquin and had issues with it and was changed to Bactrim and has finished them. Prealbumin from 03/04/19 was 18.0. Encouraged nutritional supplementation with protein to help the healing process. HgbA1c from 03/04/19 was 6.0. Today he denies fever. His appetite is ok. He states his burning nerve pain in the area of the ulcer left leg has improved. Progress of Wound: Improved. - Physical Exam Vital Signs Temp Pulse Resp BP 97.1 F L 77 16 122/73 H 07/06/19 09:06 07/06/19 09:06 07/06/19 09:06 07/06/19 09:06 General: Alert, Oriented x3, Cooperative HEENT: Atraumatic Oral: Moist Mucosa Lungs: Normal air movement Cardiovascular: Regular rate Extremities: Capillary Refill Less than 3 Seconds, Diminished Peripheral Pulses, Edema Skin: Ulcer/ Wound - left anterior lower leg Wound Measurements and Assessment WC - Nurse 1 - General Ulcer Measurement Start: 07/06/19 09:06 Freq: Status: Active Protocol: Activity Type Activity Date Activity User E-Sign Co-Sign Detail Recorded Client Recorded Date Recorded By Document 07/06/19 09:06 MW [id number] 07/06/19 09:17 MW 07/06/19 09:06 Wound Center Nurse 1 [Ulcer Assessment] #1 LEFT POWERS -Combined with other wound No -Current Size (cm) - Length 4.0 -Current Size (cm) - Width 4.0 -Current Size (cm) - Depth 0.1 -Total Square Cm 16.00 -Date of Last Picture (Recall this 07/06/19 field) -Photo Taken Yes -Epithelialization Small 1-33% -Tunneling No -Undermining/Tunneling No -Circular Undermining No -Exudate Amt Small -Exudate Type Serosanguineous -Wound Margin Flat & Intact -Granulation Amt Large (67-100%) -Granulation Quality Red -Slough/Fibrin Yes -Necrosis Amt Small (1-33%) -Necrotic Tissue Type Adherent Slough -Structure Exposed N/A -Texture (Martha-wound Skin Appearance) Assessed, Scarring -Moisture (Martha-wound Skin Appearance Assessed,Dry/ ) Scaly -Color (Martha-wound Skin Appearance) No Abnormality, Assessed -Temperature (Martha-wound Skin No Abnormality Appearance) (Pt Warm) -Tenderness on Palpation (Martha-wound No Skin Appearance) -Ulcer Cleansing soap and water -Foul Odor after Cleansing No [Edema Assessment] -Lower Limb Edema Present Yes -Left Calf (cm) 34.4 -Left Ankle (cm) 21.0 WC - Nurse 2 - General Ulcer CM Notes Start: 07/06/19 09:06 Freq: Status: Active Protocol: Activity Type Activity Date Activity User E-Sign Co-Sign Detail Recorded Client Recorded Date Recorded By Document 07/06/19 09:38 QUEENIE [id number] 07/06/19 09:39 QUEENIE 07/06/19 09:38 Wound Center Nurse 2 [Procedure/Treatment] #1 LEFT POWERS -Time 09:38 -Correct Patient Yes -Correct Side, Site, Position Yes -Correct Procedure Yes -Procedure Performed Yes -Type of Procedure Debridement -Clinical Debridement Subcutaneous -Post Debridement Size (cm) - Length 5.5 -Post Debridement Size (cm) - Width 3.5 -Post Debridement Size (cm) - Depth 0.1 -Total Square Cm 19.25 -Wound/Ulcer Outcome Not Healed -Ulcer Cleansing Rinsed/ Irrigated with Saline -Foul Odor after Cleansing No -Bioengineered Tissue No -Bleeding Controlled with Pressure -Offloading No -Treatment Response Procedure Tolerated Well [See Physician Procedure note for Specifics] Pain Scale: 0-10 Numeric [Pain] -Is Patient Pain Free? Yes Musculoskeletal: No Muscle Wasting Neurological: Neuro grossly intact Psych/Mental Status: Normal Affect, Appropriate Debridement Note Post-Debridement Measurements/Treatment WC - Nurse 2 - General Ulcer CM Notes Start: 07/06/19 09:06 Freq: Status: Active Protocol: Activity Type Activity Date Activity User E-Sign Co-Sign Detail Recorded Client Recorded Date Recorded By Document 07/06/19 09:38 [id number] 07/06/19 09:39 07/06/19 09:38 Wound Center Nurse 2 #1 LEFT POWERS -Time 09:38 -Correct Patient Yes -Correct Side, Site, Position Yes -Correct Procedure Yes -Procedure Performed Yes -Type of Procedure Debridement -Clinical Debridement Subcutaneous -Post Debridement Size (cm) - Length 5.5 -Post Debridement Size (cm) - Width 3.5 -Post Debridement Size (cm) - Depth 0.1 -Total Square Cm 19.25 -Wound/Ulcer Outcome Not Healed -Ulcer Cleansing Rinsed/ Irrigated with Saline -Foul Odor after Cleansing No -Bioengineered Tissue No -Bleeding Controlled with Pressure -Offloading No -Treatment Response Procedure Tolerated Well Pain Scale: 0-10 Numeric Is Patient Pain Free? Yes Wound debrided: Anterior lower leg Laterality: Left Type of Debridement: Excisional debridement Anesthesia Used: 5% Lidocaine Gel Depth: Down to and including healthy tissue Percentage of wound debrided: 100 Instrument Used: 7mm curette Tissue Removed: Subcutaneous tissue and slough Severity: Fat Layer Exposed Amount of bleeding with debridement: Mild Bleeding Controlled with: Pressure Patient tolerated procedure well Assessment/Plan Assessment: 1. Fall from a ladder, sequela. 2. Nonhealing infected diabetic ulcer left anterior leg with chronic cellulitis. 3. Diabetes mellitus. 4. Smoker. 5. s/p surgical preparation left anterior leg with incision and drainage and excisonal debridement nonhealing infected diabetic ulcer (156 cm2). Plan: Continue moistened Fibracol dressing changes daily and cover with adaptic to left anterior leg followed by Tubigrip for compression. Keep left leg elevated when sitting. 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 Prealbumin from 03/04/19 was 18.0. Encourage nutritional supplementation with protein to help the healing process. HgbA1c from 03/04/19 was 6.0. Before any elective reconstructive surgery, it needs to be 8 or less. His burning nerve pain has improved with the Neurontin. Because of his persistent pain, it was recommended that he proceed with operative debridement and skin grafting. He has declined on any further surgery at this time as he states his pain is slowly improving in his left leg. We have weaned him off the Percocet, so then additional medication can be addressed to his Pain Management Physician. Followup 2 weeks. Encouraged the patient to stop smoking as it may have deleterious effects on wound healing. Code Visit 111xxx-113xx: 24253 Melinda subq tissue 20 sq cm/<
[2019-07-20 09:32] VITALS: BP 121/73; PULSE 77; RESP 16; TEMP 36.7; BMI 31.0
--- NOTE | 2019-07-20 15:46 | PN.PCM_ITS ---
(1) Non-pressure chronic ulcer of left lower leg with fat layer exposed Status: Chronic Code(s): L97.922 - Non-pressure chronic ulcer of unspecified part of left lower leg with fat layer exposed (2) Diabetes mellitus with ulcer of lower extremity Status: Chronic Code(s): E11.622 - Type 2 diabetes mellitus with other skin ulcer; L97.909 - Non-pressure chronic ulcer of unspecified part of unspecified lower leg with unspecified severity (3) Tobacco abuse Status: Chronic Code(s): Z72.0 - Tobacco use Type of Wound Date of Service: 07/20/19 Chief Complaint: Nonhealing infected diabetic ulcer left anterior leg. History of Wound: Surgery 03/03/19 - Surgical preparation left anterior leg with incision and drainage and excisonal debridement nonhealing infected diabetic ulcer (156 cm2). Wound care - Moistened Fibracol covered by adaptic with Tubigrip for compression. Operative culture - Leclercia adecarboxylata. He was initially placed on Levaquin and had issues with it and was changed to Bactrim and has finished them. Prealbumin from 03/04/19 was 18.0. Encouraged nutritional supplementation with protein to help the healing process. HgbA1c from 03/04/19 was 6.0. Today he denies fever. His appetite is ok. He states his burning nerve pain in the area of the ulcer left leg has improved. Progress of Wound: Improved. - Physical Exam Vital Signs Temp Pulse Resp BP 98.1 F 77 16 121/73 H 07/20/19 09:32 07/20/19 09:32 07/20/19 09:32 07/20/19 09:32 General: Alert, Oriented x3, Cooperative HEENT: Atraumatic Oral: Moist Mucosa Lungs: Normal air movement Cardiovascular: Regular rate Extremities: No edema, Capillary Refill Less than 3 Seconds, Diminished Peripheral Pulses Skin: Ulcer/ Wound - Left lower anterior leg Wound Measurements and Assessment WC - Nurse 1 - General Ulcer Measurement Start: 07/06/19 09:06 Freq: Status: Active Protocol: Activity Type Activity Date Activity User E-Sign Co-Sign Detail Recorded Client Recorded Date Recorded By Document 07/20/19 09:32 [facility] [id number] 07/20/19 09:35 BMF 07/20/19 09:32 Wound Center Nurse 1 [Ulcer Assessment] #1 LEFT POWERS -Combined with other wound No -Current Size (cm) - Length 5.2 -Current Size (cm) - Width 2.7 -Current Size (cm) - Depth 0.1 -Total Square Cm 14.04 -Photo Taken No -Epithelialization Small 1-33% -Tunneling No -Undermining/Tunneling No -Circular Undermining No -Exudate Amt Small -Exudate Type Serosanguineous -Wound Margin Distinct, Outline Attached -Granulation Amt Large (67-100%) -Granulation Quality Red -Slough/Fibrin No -Necrosis Amt None Present (0 %) -Texture (Martha-wound Skin Appearance) Assessed, Scarring -Moisture (Martha-wound Skin Appearance Assessed,Dry/ ) Scaly -Color (Martha-wound Skin Appearance) Assessed -Temperature (Martha-wound Skin No Abnormality Appearance) (Pt Warm) -Tenderness on Palpation (Martha-wound No Skin Appearance) -Ulcer Cleansing Rinsed/ Irrigated with Saline -Foul Odor after Cleansing No -Anesthetic Used 5% Lidocaine Gel [Edema Assessment] -Lower Limb Edema Present Yes -Left Ankle (cm) 33.5 -Left Foot (cm) 20.4 WC - Nurse 2 - General Ulcer CM Notes Start: 07/06/19 09:06 Freq: Status: Active Protocol: Activity Type Activity Date Activity User E-Sign Co-Sign Detail Recorded Client Recorded Date Recorded By Document 07/20/19 10:06 QUEENIE [id number] 07/20/19 10:06 QUEENIE 07/20/19 10:06 Wound Center Nurse 2 [Procedure/Treatment] #1 LEFT POWERS -Time 10:06 -Correct Patient Yes -Correct Side, Site, Position Yes -Correct Procedure Yes -Procedure Performed Yes -Type of Procedure Debridement -Clinical Debridement Subcutaneous -Post Debridement Size (cm) - Length 3.5 -Post Debridement Size (cm) - Width 3.0 -Post Debridement Size (cm) - Depth 0.2 -Total Square Cm 10.50 -Wound/Ulcer Outcome Not Healed -Ulcer Cleansing Rinsed/ Irrigated with Saline -Foul Odor after Cleansing No -Bioengineered Tissue No -Bleeding Controlled with Pressure -Offloading No -Treatment Response Procedure Tolerated Well [See Physician Procedure note for Specifics] Pain Scale: 0-10 Numeric [Pain] -Is Patient Pain Free? Yes Musculoskeletal: No Muscle Wasting Lymphatic: No Cervical, Supraclavicular, or Inguinal Adenopathy Neurological: Neuro grossly intact Psych/Mental Status: Normal Affect, Appropriate Debridement Note Post-Debridement Measurements/Treatment - Nurse 2 - General Ulcer CM Notes Start: 07/06/19 09:06 Freq: Status: Active Protocol: Activity Type Activity Date Activity User E-Sign Co-Sign Detail Recorded Client Recorded Date Recorded By Document 07/06/19 09:38 [id number] 07/06/19 09:39 Document 07/20/19 10:06 [id number] 07/20/19 10:06 07/06/19 07/20/19 09:38 10:06 Wound Center Nurse 2 #1 LEFT POWERS -Time 09:38 10:06 -Correct Patient Yes Yes -Correct Side, Site, Position Yes Yes -Correct Procedure Yes Yes -Procedure Performed Yes Yes -Type of Procedure Debridement Debridement -Clinical Debridement Subcutaneous Subcutaneous -Post Debridement Size (cm) - Length 5.5 3.5 -Post Debridement Size (cm) - Width 3.5 3.0 -Post Debridement Size (cm) - Depth 0.1 0.2 -Total Square Cm 19.25 10.50 -Wound/Ulcer Outcome Not Healed Not Healed -Ulcer Cleansing Rinsed/ Rinsed/ Irrigated with Irrigated with Saline Saline -Foul Odor after Cleansing No No -Bioengineered Tissue No No -Bleeding Controlled with Pressure Pressure -Offloading No No -Treatment Response Procedure Procedure Tolerated Well Tolerated Well Pain Scale: 0-10 Numeric Is Patient Pain Free? Yes Yes Wound debrided: Lower anterior leg ulcer Laterality: Left Type of Debridement: Excisional debridement Anesthesia Used: 5% Lidocaine Gel Depth: Down to and including healthy tissue, in the subcutaneous layer Percentage of wound debrided: 100 Instrument Used: 5mm curette Tissue Removed: Subcutaneous tissue and slough Severity: Limited To Skin Breakdown Amount of bleeding with debridement: Mild Bleeding Controlled with: Pressure Patient tolerated procedure well Assessment/Plan Assessment: 1. Fall from a ladder, sequela. 2. Nonhealing infected diabetic ulcer left anterior leg with chronic cellulitis. 3. Diabetes mellitus. 4. Smoker. 5. s/p surgical preparation left anterior leg with incision and drainage and excisonal debridement nonhealing infected diabetic ulcer (156 cm2). Plan: Continue moistened Fibracol dressing changes daily and cover with adaptic to left anterior leg followed by Tubigrip for compression. Keep left leg elevated when sitting. 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 Prealbumin from 03/04/19 was 18.0. Encourage nutritional supplementation with protein to help the healing process. HgbA1c from 03/04/19 was 6.0. Before any elective reconstructive surgery, it needs to be 8 or less. His burning nerve pain has improved with the Neurontin. Because of his persistent pain, it was recommended that he proceed with operative debridement and skin grafting. He has declined on any further surgery at this time as he states his pain is slowly improving in his left leg. We have weaned him off the Percocet, so then additional medication can be addressed to his Pain Management Physician. Followup 3 weeks per patient request. Encou raged the patient to stop smoking as it may have deleterious effects on wound healing. Code Visit 111xxx-113xx: [id number] Melinda subq tissue 20 sq cm/<
== END 2019-07-28 23:59 ==
LOC: WC 09:30
PROVIDERS: Family Provider Family Medicine; PCP Family Medicine; Visit Provider Surgery
DX: E11.622 Type 2 diabetes mellitus with other skin ulcer (principal); L97.822 Non-pressure chronic ulcer of other part of left lower leg with fat layer exposed; L03.116 Cellulitis of left lower limb; F17.200 Nicotine dependence, unspecified, uncomplicated; L97.821 Non-pressure chronic ulcer of other part of left lower leg limited to breakdown of skin
CPT/HCPCS: 11042

== ENCOUNTER 2019-08-10 08:31 | Outpatient (RCR) | payer MEDICARE, SELFPAY ==
[2016-08-31 15:27] VITALS: BMI 33.3
[2019-07-29 00:36] VITALS: BP 121/73; PULSE 77; RESP 16; TEMP 36.7
[2019-08-10 09:13] VITALS: BP 105/69; PULSE 75; RESP 16; TEMP 36.5; BMI 31.0
--- NOTE | 2019-08-10 15:14 | PCM.WC.PN ---
(1) Non-pressure chronic ulcer of left lower leg with fat layer exposed Status: Chronic Current Visit: Yes Code(s): L97.922 - Non-pressure chronic ulcer of unspecified part of left lower leg with fat layer exposed (2) Diabetes mellitus Status: Chronic Current Visit: Yes Code(s): E11.9 - Type 2 diabetes mellitus without complications (3) Smoker Status: Chronic Current Visit: Yes Code(s): F17.200 - Nicotine dependence, unspecified, uncomplicated Type of Wound Date of Service: 08/10/19 Chief Complaint: Nonhealing infected diabetic ulcer left anterior leg. History of Wound: Surgery 03/03/19 - Surgical preparation left anterior leg with incision and drainage and excisonal debridement nonhealing infected diabetic ulcer (156 cm2). Wound care - Moistened Fibracol covered by adaptic with Tubigrip for compression. Operative culture - Leclercia adecarboxylata. He was initially placed on Levaquin and had issues with it and was changed to Bactrim and has finished them. Prealbumin from 03/04/19 was 18.0. Encouraged nutritional supplementation with protein to help the healing process. HgbA1c from 03/04/19 was 6.0. Today he denies fever. His appetite is ok. He states his burning nerve pain in the area of the ulcer left leg has improved. Progress of Wound: Improved. - Physical Exam Vital Signs Temp Pulse Resp BP 97.7 F L 75 16 105/69 08/10/19 09:13 08/10/19 09:13 08/10/19 09:13 08/10/19 09:13 General: Alert, Oriented x3, Cooperative HEENT: Atraumatic Oral: Moist Mucosa Lungs: Normal air movement Cardiovascular: Regular rate Skin: Ulcer/ Wound - left lower anterior leg ulcer Wound Measurements and Assessment WC - Nurse 1 - General Ulcer Measurement Start: 08/10/19 09:12 Freq: Status: Active Protocol: Activity Type Activity Date Activity User E-Sign Co-Sign Detail Recorded Client Recorded Date Recorded By Document 08/10/19 09:13 [facility] [id number] 08/10/19 09:21 [facility] 08/10/19 09:13 Wound Center Nurse 1 [Ulcer Assessment] #1 LEFT POWERS -Combined with other wound No -Current Size (cm) - Length 2.5 -Current Size (cm) - Width 2 -Current Size (cm) - Depth 0.1 -Total Square Cm 5.0 -Date of Last Picture (Recall this 08/10/19 field) -Photo Taken Yes -Epithelialization Small 1-33% -Tunneling No -Undermining/Tunneling No -Circular Undermining No -Exudate Amt Small -Exudate Type Serosanguineous -Wound Margin Distinct, Outline Attached -Granulation Amt Large (67-100%) -Granulation Quality Red -Slough/Fibrin No -Necrosis Amt None Present (0 %) -Texture (Martha-wound Skin Appearance) Assessed, Scarring -Moisture (Martha-wound Skin Appearance Assessed,Dry/ ) Scaly -Color (Martha-wound Skin Appearance) Assessed -Temperature (Martha-wound Skin No Abnormality Appearance) (Pt Warm) -Tenderness on Palpation (Martha-wound No Skin Appearance) -Ulcer Cleansing Rinsed/ Irrigated with Saline -Foul Odor after Cleansing No -Anesthetic Used 5% Lidocaine Gel [Edema Assessment] -Lower Limb Edema Present Yes -Left Calf (cm) 32.9 -Left Ankle (cm) 19.7 WC - Nurse 2 - General Ulcer CM Notes Start: 08/10/19 09:12 Freq: Status: Active Protocol: Activity Type Activity Date Activity User E-Sign Co-Sign Detail Recorded Client Recorded Date Recorded By Document 08/10/19 09:36 QUEENIE [id number] 08/10/19 09:44 QUEENIE 08/10/19 09:36 Wound Center Nurse 2 [Procedure/Treatment] #1 LEFT POWERS -Time 09:37 -Correct Patient Yes -Correct Side, Site, Position Yes -Correct Procedure Yes -Procedure Performed Yes -Type of Procedure Debridement -Clinical Debridement Subcutaneous -Post Debridement Size (cm) - Length 5.5 -Post Debridement Size (cm) - Width 2.0 -Post Debridement Size (cm) - Depth 0.1 -Total Square Cm 11.00 -Wound/Ulcer Outcome Not Healed -Ulcer Cleansing Rinsed/ Irrigated with Saline -Foul Odor after Cleansing No -Bioengineered Tissue No -Bleeding Controlled with Pressure -Offloading No -Treatment Response Procedure Tolerated Well [See Physician Procedure note for Specifics] Pain Scale: 0-10 Numeric [Pain] -Is Patient Pain Free? Yes Musculoskeletal: No Tenderness to Palpation of Joints or Extremities Neurological: Neuro grossly intact Psych/Mental Status: Normal Affect, Appropriate Debridement Note Post-Debridement Measurements/Treatment WC - Nurse 2 - General Ulcer CM Notes Start: 08/10/19 09:12 Freq: Status: Active Protocol: Activity Type Activity Date Activity User E-Sign Co-Sign Detail Recorded Client Recorded Date Recorded By Document 08/10/19 09:36 QUEENIE [id number] 08/10/19 09:44 QUEENIE 08/10/19 09:36 Wound Center Nurse 2 #1 LEFT POWERS -Time 09:37 -Correct Patient Yes -Correct Side, Site, Position Yes -Correct Procedure Yes -Procedure Performed Yes -Type of Procedure Debridement -Clinical Debridement Subcutaneous -Post Debridement Size (cm) - Length 5.5 -Post Debridement Size (cm) - Width 2.0 -Post Debridement Size (cm) - Depth 0.1 -Total Square Cm 11.00 -Wound/Ulcer Outcome Not Healed -Ulcer Cleansing Rinsed/ Irrigated with Saline -Foul Odor after Cleansing No -Bioengineered Tissue No -Bleeding Controlled with Pressure -Offloading No -Treatment Response Procedure Tolerated Well Pain Scale: 0-10 Numeric Is Patient Pain Free? Yes Wound debrided: anterior lower Laterality: Left Type of Debridement: Excisional debridement Anesthesia Used: 5% Lidocaine Gel Depth: Down to and including healthy tissue, in the subcutaneous layer Percentage of wound debrided: 100 Instrument Used: 5mm curette Tissue Removed: subcutaneous tissue and slough Severity: Limited To Skin Breakdown Amount of bleeding with debridement: Mild Bleeding Controlled with: Pressure Patient tolerated procedure well Assessment/Plan Active Problems (Last Updated 02/19/19 @ 15:03 by Chalree Haley) Diabetes mellitus (Chronic) Smoker (Chronic) 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 Fall from a ladder, sequela. 2. Nonhealing infected diabetic ulcer left anterior leg with chronic cellulitis. 3. Diabetes mellitus. 4. Smoker. 5. s/p surgical preparation left anterior leg with incision and drainage and excisonal debridement nonhealing infected diabetic ulcer (156 cm2). Plan: Continue moistened Fibracol dressing changes daily and cover with adaptic to left anterior leg followed by Tubigrip for compression. Keep left leg elevated when sitting. 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 Prealbumin from 03/04/19 was 18.0. Encourage nutritional supplementation with protein to help the healing process. HgbA1c from 03/04/19 was 6.0. Before any elective reconstructive surgery, it needs to be 8 or less. His burning nerve pain has improved with the Neurontin. Because of his persistent pain, it was recommended that he proceed with operative debridement and skin grafting. He has declined on any further surgery at this time as he states his pain is slowly improving in his left leg. We have weaned him off the Percocet, so then additional medication can be addressed to his Pain Management Physician. Followup 3 weeks per patient request. Encouraged the patient to stop smoking as it may have deleterious effects on wound healing. Code Visit [id number]: [id number] Melinda subq tissue 20 sq cm/<
== END 2019-08-28 23:59 ==
LOC: WC 08:31
PROVIDERS: Family Provider Family Medicine; PCP Family Medicine; Visit Provider Surgery
DX: E11.622 Type 2 diabetes mellitus with other skin ulcer (principal); F17.200 Nicotine dependence, unspecified, uncomplicated; L97.821 Non-pressure chronic ulcer of other part of left lower leg limited to breakdown of skin
CPT/HCPCS: 11042

== ENCOUNTER 2019-09-14 09:00 | Outpatient (RCR) | payer MEDICARE, SELFPAY ==
[2016-08-31 15:27] VITALS: BMI 33.3
[2019-08-29 00:38] VITALS: BP 105/69; PULSE 75; RESP 16; TEMP 36.5
[2019-08-31 09:12] VITALS: BP 122/75; PULSE 72; RESP 18; TEMP 36.2; BMI 31.0
--- NOTE | 2019-08-31 14:56 | PCM.WC.PN ---
(1) Non-pressure chronic ulcer of left lower leg with fat layer exposed Status: Chronic Code(s): L97.922 - Non-pressure chronic ulcer of unspecified part of left lower leg with fat layer exposed (2) Smoker Status: Chronic Code(s): F17.200 - Nicotine dependence, unspecified, uncomplicated (3) Diabetes mellitus Status: Chronic Code(s): E11.9 - Type 2 diabetes mellitus without complications Type of Wound Date of Service: 08/31/19 Chief Complaint: Nonhealing infected diabetic ulcer left anterior leg. History of Wound: Surgery 03/03/19 - Surgical preparation left anterior leg with incision and drainage and excisonal debridement nonhealing infected diabetic ulcer (156 cm2). Wound care - Will stop the moistened Fibracol and start Collagen hydrogel covered by adaptic with Tubigrip for compression. Operative culture - Leclercia adecarboxylata. He was initially placed on Levaquin and had issues with it and was changed to Bactrim and has finished them. Prealbumin from 03/04/19 was 18.0. Encouraged nutritional supplementation with protein to help the healing process. HgbA1c from 03/04/19 was 6.0. Today he denies fever. His appetite is ok. He states his burning nerve pain in the area of the ulcer left leg has improved. Progress of Wound: Improved. - Physical Exam Vital Signs Temp Pulse Resp BP 97.2 F L 72 18 122/75 H 08/31/19 09:12 08/31/19 09:12 08/31/19 09:12 08/31/19 09:12 General: Alert, Oriented x3, Cooperative HEENT: Atraumatic Oral: Moist Mucosa Lungs: Normal air movement Cardiovascular: Regular rate Extremities: Capillary Refill Less than 3 Seconds, Diminished Peripheral Pulses Skin: Ulcer/ Wound - Left lower leg ulcer Wound Measurements and Assessment WC - Nurse 1 - General Ulcer Measurement Start: 08/31/19 09:11 Freq: Status: Active Protocol: Activity Type Activity Date Activity User E-Sign Co-Sign Detail Recorded Client Recorded Date Recorded By Document 08/31/19 09:12 DL [id number] 08/31/19 09:16 DL 08/31/19 09:12 Wound Center Nurse 1 [Ulcer Assessment] #1 LEFT POWERS -Current Size (cm) - Length 0.2 -Current Size (cm) - Width 0.2 -Current Size (cm) - Depth 0.1 -Total Square Cm 0.04 -Photo Taken No -Exudate Amt None Present -Wound Margin Flat & Intact -Granulation Amt Small (1-33%) -Granulation Quality Queets -Necrosis Amt None Present (0 %) -Texture (Martha-wound Skin Appearance) Scarring -Moisture (Martha-wound Skin Appearance Dry/Scaly ) -Color (Martha-wound Skin Appearance) Hemosiderin Staining -Temperature (Martha-wound Skin No Abnormality Appearance) (Pt Warm) -Tenderness on Palpation (Martha-wound No Skin Appearance) -Ulcer Cleansing Rinsed/ Irrigated with Saline -Foul Odor after Cleansing No -Anesthetic Used 4% Lidocaine Solution [Edema Assessment] -Left Calf (cm) 31.2 -Left Ankle (cm) 19 WC - Nurse 2 - General Ulcer CM Notes Start: 08/31/19 09:11 Freq: Status: Active Protocol: Activity Type Activity Date Activity User E-Sign Co-Sign Detail Recorded Client Recorded Date Recorded By Document 08/31/19 09:35 QUEENIE [id number] 08/31/19 09:42 08/31/19 09:35 Wound Center Nurse 2 [Procedure/Treatment] #1 LEFT POWERS -Time 09:35 -Correct Patient Yes -Correct Side, Site, Position Yes -Correct Procedure Yes -Procedure Performed Yes -Type of Procedure Debridement -Clinical Debridement Subcutaneous -Post Debridement Size (cm) - Length 3.9 -Post Debridement Size (cm) - Width 3.2 -Post Debridement Size (cm) - Depth 0.1 -Total Square Cm 12.48 -Wound/Ulcer Outcome Not Healed -Ulcer Cleansing Rinsed/ Irrigated with Saline -Foul Odor after Cleansing No -Bioengineered Tissue No -Bleeding Controlled with Pressure -Offloading No -Treatment Response Procedure Tolerated Well [See Physician Procedure note for Specifics] Pain Scale: 0-10 Numeric [Pain] -Is Patient Pain Free? Yes Musculoskeletal: Tenderness Neurological: Neuro grossly intact Psych/Mental Status: Normal Affect, Appropriate Debridement Note Post-Debridement Measurements/Treatment - Nurse 2 - General Ulcer CM Notes Start: 08/31/19 09:11 Freq: Status: Active Protocol: Activity Type Activity Date Activity User E-Sign Co-Sign Detail Recorded Client Recorded Date Recorded By Document 08/31/19 09:35 QUEENIE [id number] 08/31/19 09:42 JF 08/31/19 09:35 Wound Center Nurse 2 #1 LEFT POWERS -Time 09:35 -Correct Patient Yes -Correct Side, Site, Position Yes -Correct Procedure Yes -Procedure Performed Yes -Type of Procedure Debridement -Clinical Debridement Subcutaneous -Post Debridement Size (cm) - Length 3.9 -Post Debridement Size (cm) - Width 3.2 -Post Debridement Size (cm) - Depth 0.1 -Total Square Cm 12.48 -Wound/Ulcer Outcome Not Healed -Ulcer Cleansing Rinsed/ Irrigated with Saline -Foul Odor after Cleansing No -Bioengineered Tissue No -Bleeding Controlled with Pressure -Offloading No -Treatment Response Procedure Tolerated Well Pain Scale: 0-10 Numeric Is Patient Pain Free? Yes Wound debrided: anterior lower leg Laterality: Left Type of Debridement: Excisional debridement Anesthesia Used: 5% Lidocaine Gel Depth: Down to and including healthy tissue, in the subcutaneous layer Percentage of wound debrided: 100 Instrument Used: 5mm curette Tissue Removed: subcutaneous tissue and slough Severity: Limited To Skin Breakdown Amount of bleeding with debridement: Mild Bleeding Controlled with: Pressure Patient tolerated procedure well Assessment/Plan Assessment: 1. Fall from a ladder, sequela. 2. Nonhealing infected diabetic ulcer left anterior leg with chronic cellulitis. 3. Diabetes mellitus. 4. Smoker. 5. s/p surgical preparation left anterior leg with incision and drainage and excisonal debridement nonhealing infected diabetic ulcer (156 cm2). Plan: Stop moistened Fibracol dressing changes and change to Collagen hydrogel covered with adaptic daily to left anterior leg followed by Tubigrip for compression. Keep left leg elevated when sitting. 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 Prealbumin from 03/04/19 was 18.0. Encourage nutritional supplementation with protein to help the healing process. HgbA1c from 03/04/19 was 6.0. Before any elective reconstructive surgery, it needs to be 8 or less. His burning nerve pain has improved with the Neurontin. Because of his persistent pain, it was recommended that he proceed with operative debridement and skin grafting. He has declined on any further surgery at this time as he states his pain is slowly improving in his left leg. We have weaned him off the Percocet, so then additional medication can be addressed to his Pain Management Physician. Followup 2 weeks. Encouraged the patient to stop smoking as it may have deleterious effects on wound healing. Code Visit 111xxx-113xx: [id number] Melinda subq tissue 20 sq cm/<
[2019-09-14 09:08] VITALS: BP 110/76; PULSE 75; RESP 16; TEMP 35.5; BMI 31.0
--- NOTE | 2019-09-14 18:12 | PCM.WC.PN ---
Type of Wound Date of Service: 09/14/19 Chief Complaint: Nonhealing infected diabetic ulcer left anterior leg. History of Wound: Surgery 03/03/19 - Surgical preparation left anterior leg with incision and drainage and excisonal debridement nonhealing infected diabetic ulcer (156 cm2). Wound care - Collagen Hydrogel with Tubigrip for compression. Operative culture - Leclercia adecarboxylata. He was initially placed on Levaquin and had issues with it and was changed to Bactrim and has finished them. Prealbumin from 03/04/19 was 18.0. Encouraged nutritional supplementation with protein to help the healing process. HgbA1c from 03/04/19 was 6.0. Today he denies fever. His appetite is ok. He states his burning nerve pain in the area of the ulcer left leg has improved. Progress of Wound: Healed. - Physical Exam Vital Signs Temp Pulse Resp BP 96 F L 75 16 110/76 09/14/19 09:08 09/14/19 09:08 09/14/19 09:08 09/14/19 09:08 General: Alert, Oriented x3 HEENT: PERRLA, EOMI Oral: Moist Mucosa Neck: Supple Lungs: Clear to auscultation Cardiovascular: Regular rate, Regular Rhythm Abdomen: Soft, Non-Distended Skin: Ulcer/ Wound - ulcer left leg has healed. Wound Measurements and Assessment WC - Nurse 1 - General Ulcer Measurement Start: 08/31/19 09:11 Freq: Status: Active Protocol: Activity Type Activity Date Activity User E-Sign Co-Sign Detail Recorded Client Recorded Date Recorded By Document 09/14/19 09:08 [facility] [id number] 09/14/19 09:11 [facility] 09/14/19 09:08 Wound Center Nurse 1 [Ulcer Assessment] #1 LEFT POWERS -Combined with other wound No -Current Size (cm) - Length 0.3 -Current Size (cm) - Width 0.3 -Current Size (cm) - Depth 0.1 -Total Square Cm 0.09 -Photo Taken No -Epithelialization Medium 34-66% -Tunneling No -Undermining/Tunneling No -Circular Undermining No -Exudate Amt None Present -Wound Margin Distinct, Outline Attached -Granulation Amt None Present (0 %) -Slough/Fibrin Yes -Necrosis Amt Small (1-33%) -Necrotic Tissue Type Eschar -Texture (Martha-wound Skin Appearance) Assessed, Scarring -Moisture (Martha-wound Skin Appearance Assessed,Dry/ ) Scaly -Color (Martha-wound Skin Appearance) Assessed -Temperature (Martha-wound Skin No Abnormality Appearance) (Pt Warm) -Tenderness on Palpation (Martha-wound No Skin Appearance) -Ulcer Cleansing Rinsed/ Irrigated with Saline -Foul Odor after Cleansing No -Anesthetic Used 5% Lidocaine Gel [Edema Assessment] -Lower Limb Edema Present No -Left Calf (cm) 33.4 -Left Ankle (cm) 20.4 - Nurse 2 - General Ulcer CM Notes Start: 08/31/19 09:11 Freq: Status: Active Protocol: Activity Type Activity Date Activity User E-Sign Co-Sign Detail Recorded Client Recorded Date Recorded By Document 09/14/19 09:34 QUEENIE [id number] 09/14/19 09:38 09/14/19 09:34 Wound Center Nurse 2 [Procedure/Treatment] #1 LEFT POWERS -Time 09:34 -Correct Patient No -Correct Side, Site, Position No -Correct Procedure No -Procedure Performed No -Post Debridement Size (cm) - Length 0 -Post Debridement Size (cm) - Width 0 -Post Debridement Size (cm) - Depth 0 -Total Square Cm 0 -Wound/Ulcer Outcome Healed- Epithelialized -Ulcer Cleansing Rinsed/ Irrigated with Saline -Foul Odor after Cleansing No -Bioengineered Tissue No -Bleeding Controlled with Pressure -Offloading No -Treatment Response Procedure Tolerated Well [See Physician Procedure note for Specifics] Pain Scale: 0-10 Numeric [Pain] -Is Patient Pain Free? Yes Neurological: Cranial nerves II-XII grossly intact Psych/Mental Status: Normal Affect, Appropriate Debridement Note Post-Debridement Measurements/Treatment - Nurse 2 - General Ulcer CM Notes Start: 08/31/19 09:11 Freq: Status: Active Protocol: Activity Type Activity Date Activity User E-Sign Co-Sign Detail Recorded Client Recorded Date Recorded By Document 08/31/19 09:35 [id number] 08/31/19 09:42 Document 09/14/19 09:34 QUEENIE [id number] 09/14/19 09:38 08/31/19 09/14/19 09:35 09:34 Wound Center Nurse 2 #1 LEFT POWERS -Time 09:35 09:34 -Correct Patient Yes No -Correct Side, Site, Position Yes No -Correct Procedure Yes No -Procedure Performed Yes No -Type of Procedure Debridement -Clinical Debridement Subcutaneous -Post Debridement Size (cm) - Length 3.9 0 -Post Debridement Size (cm) - Width 3.2 0 -Post Debridement Size (cm) - Depth 0.1 0 -Total Square Cm 12.48 0 -Wound/Ulcer Outcome Not Healed Healed- Epithelialized -Ulcer Cleansing Rinsed/ Rinsed/ Irrigated with Irrigated with Saline Saline -Foul Odor after Cleansing No No -Bioengineered Tissue No No -Bleeding Controlled with Pressure Pressure -Offloading No No -Treatment Response Procedure Procedure Tolerated Well Tolerated Well Pain Scale: 0-10 Numeric Is Patient Pain Free? Yes Yes Wound debrided: #1 Left anterior leg. Laterality: Left Wound Grade/Stage: 2. No debridement was completed today - The ulcer has healed. Assessment/Plan Assessment: 1. Fall from a ladder, sequela. 2. Diabetic ulcer left anterior leg with chronic cellulitis, healed. 3. Diabetes mellitus. 4. Smoker. 5. s/p surgical preparation left anterior leg with incision and drainage and excisonal debridement nonhealing infected diabetic ulcer (156 cm2). Plan: The ulcer has healed. Massage with skin lotion daily to help soften the scar. Continue compression to minimize swelling. Elevate legs when sitting. Followup on an as needed basis. Encouraged the patient to stop smoking as it may have deleterious effects on wound healing. Code Visit Office Visits / Consults: [id number] OV L3 Est - ICD-10 - E11.622, W11.xxxS, E11.9, F17.200
== END 2019-09-26 23:59 ==
LOC: WC 09:00
PROVIDERS: Family Provider Family Medicine; PCP Family Medicine; Visit Provider Surgery
DX: E11.622 Type 2 diabetes mellitus with other skin ulcer (principal); L97.821 Non-pressure chronic ulcer of other part of left lower leg limited to breakdown of skin; F17.200 Nicotine dependence, unspecified, uncomplicated
CPT/HCPCS: 11042; 99213; G0463

== ENCOUNTER → 2019-10-12 | Outpatient (CLI) | payer MEDICARE, SELFPAY ==
[2016-08-31 15:27] VITALS: BMI 33.3
[2019-09-14 09:08] VITALS: BMI 31.0
--- NOTE | 2019-10-12 12:31 | RAD_ITS ---
STUDY: X-RAY - LEFT KNEE REASON FOR EXAM: Male, 64 years old. Fall on knee. Pain. Unable to bear weight. TECHNIQUE: 3 view(s) of the knee. COMPARISON: July 27, 2013. FINDINGS: Total knee arthroplasty in normal alignment. No evidence of loosening or an acute fracture. 4 mm ovoid density adjacent to the lateral aspect of the distal femoral component, present previously. There may be mild soft tissue swelling medial to the distal femur. RAD/Knee 4 or More Views IMPRESSION: Stable appearance of a total knee arthroplasty without evidence of loosening. No fracture identified. Mild medial soft tissue swelling. Electronically Signed: Moustapha Cornelius MD at 2:23 EDT , Service support ,
== END | disposition home or self-care (01) ==
LOC: HPRAD 12:29
PROVIDERS: PCP Family Medicine; Referring Provider Family Medicine; Visit Provider Family Medicine
DX: M25.562 Pain in left knee (principal)
CPT/HCPCS: 73564

== ENCOUNTER 2019-11-18 13:08 | Emergency (ER) | payer MEDICARE, SELFPAY ==
[2016-08-31 15:27] VITALS: BMI 33.3
[2019-10-12 13:10] VITALS: BMI 31.0
[2019-11-18 13:09] VITALS: BP 153/89; PULSE 64; RESP 15; TEMP 36.4; O2SAT 98; BMI 30.7
--- NOTE | 2019-11-18 13:09 | EKG12_ITS ---
Test Reason : CP Blood Pressure : / mmHG Vent. Rate : 065 BPM Atrial Rate : 065 BPM P-R Int : 164 ms QRS Dur : 096 ms QT Int : 398 ms P-R-T Axes : 055 -28 037 degrees QTc Int : 413 ms Normal sinus rhythm Normal ECG Confirmed by KATHLEEN BENNETT, LUBNA ([id number]), features editor DAI GARZA ([id number]) on 11/23/2019 10:54:01 AM Referred By: JOANIE Confirmed By:ARISTIDES WANG MD
[2019-11-18 13:11] VITALS: BP 153/89; PULSE 65; RESP 14; O2SAT 98
[2019-11-18 13:18] VITALS: O2SAT 98
--- NOTE | 2019-11-18 13:21 | ED.VIS.GEN ---
History of Present Illness Chief Complaint: Chest Pain Informant: Patient Onset: Yesterday Context: Sudden Onset Timing: Continuous Quality: Midsternal pain Location: Midsternum Current Severity: Mild Maximum Severity: Moderate Worsened by: Deep breathing Relieved by: Nothing Associated Symptoms: No associated symptoms Narrative: Patient is a 64-year-old male with known history of coronary disease with placement of [address] Fajardo approximately 3 years ago as well as pulmonary embolus who presents with midsternal chest pain that started yesterday at rest. There is a pleuritic component. Pain does not radiate. There is no associated symptoms. He reports chronic leg pain. He denies swelling or discoloration. He did take aspirin. He states he takes a baby aspirin every other day because he bruises easily. He denies black or maroon stool. He denies anorexia, he denies food intolerance. There is no history of GERD. He states he was on medicine for diabetes. He is no longer because he lost 55 pounds. Prior similar symptoms: Yes - PE Recent Illness/Hospitalization: No - Past Medical History (1) History of coronary artery stent placement Status: Chronic Comment: [id number] LAD 3.5 x 12 Promus Synergy stent (2) Hypercholesterolemia Status: Chronic (3) Hypertension Status: Chronic (4) Smoker Status: Chronic Past Medical History - Allergies and Home Meds Allergies/Adverse Reactions: Allergies adhesive tape Adverse Reaction (Verified 11/18/19 13:08) THIN FRAGILE SKIN codeine Adverse Reaction (Verified 11/18/19 13:08) Nausea ibuprofen Adverse Reaction (Verified 11/18/19 13:08) Nausea Primary Care Physician: Renee Jackson DO [Primary Care Provider] - Prior records reviewed: Yes Surgical History: noncontributory, total knee arthroplasty - TKA on the left with a partial knee replacement on the R. Lives: Alone Smoking Status: Current every day smoker Alcohol: None Drugs: None - Family History Maternal Family History: Family History (Last Reviewed 02/19/19 @ 15:04 by Charlee Haley) Mother CHF (congestive heart failure) Family History: Reports: No pertinent history, - Review of Systems General: Denies: Chills, Fever, Malaise, Subjective, Sweats ENT: Denies: Rhinorrhea, Sore throat Cardiovascular: Reports: Chest pain. Denies: Palpitations, Heart racing Respiratory: Denies: Dyspnea, Cough, Dyspnea on exertion, Orthopnea, Paroxysmal nocturnal dyspnea Gastrointestinal: Denies: Abdominal pain, Nausea, Vomiting, Diarrhea, Melena, Hematochezia Genitourinary: Denies: Dysuria, Hematuria, Frequency Musculoskeletal: Denies: Myalgias, Arthralgias, Neck pain, Back pain, Swelling, Extremity Pain, -, - Skin: Denies: Rash, Wounds Neurological: Denies: Headache, Weakness, Numbness Endocrine: Denies: Polyuria, Polydipsia Hematologic: Reports: Easy bruising. Denies: Easy bleeding Allergy: Denies: Uticaria Physical Exam Vital Signs/Narrative: Vital Signs Temp Pulse Resp BP Pulse Ox 11/18/19 13:18 98 11/18/19 13:11 65 14 153/89 H 98 11/18/19 13:09 97.6 F L 64 15 153/89 H 98 Inital Vital Signs reviewed: Yes General: Well nourished, Well developed, No Acute Distress Head: Normocephalic, Atraumatic Eyes: Perrl, EOMI. Negative for: Pale conjunctiva, Scleral icterus ENT: Moist mucous membranes, No rhinorrhea Neck: Supple, Nontender, No lymphadenopathy, No JVD Cardiovascular: Regular rate, Regular rhythm, No murmurs, Normal S1, Normal S2 Respiratory: No distress, CTA bilaterally, Chest nontender Abdomen: Soft, Nontender, Nondistended, Normal bowel sounds Rectal: Deferred Back: Nontender, Normal Inspection. Negative for: CVA tenderness Extremities: No edema, - - Patient has tenderness, which she reports is chronic. There is evidence of prior trauma to both right and left lower extremity.. Negative for: Nontender Skin: Normal color, No rash, No Trauma. Negative for: Cyanosis, Diaphoresis, Jaundice Neurological: Alert, Oriented x3, Cranial nerves II-XII grossly intact, Normal Strength, Normal Sensation Psychological: Normal affect, Normal Mood Diagnostic/Tx/Re-eval Impressions Chest X-Ray 11/18/19 13:33 IMPRESSION: No acute abnormality is seen. Electronically Signed: Kg Wilhelm, at 13:42 EDT , Service support , Chest CTA 11/18/19 13:40 IMPRESSION: There is no evidence of thromboembolism. Emphysematous changes. Small gallstones. Electronically Signed: Kg Wilhelm, at 15:14 EDT , Service support , 11/18/19 13:33 Chest PA and Lateral [RAD] Stat 11/18/19 13:40 CTA Chest W/WO Contrast [CT] Stat Laboratory Results 11/18/19 11/18/19 11/18/19 13:13 13:13 13:13 WBC 10.1 RBC 5.64 Hgb 16.4 Hct 50.0 MCV 88.7 MCH 29.1 MCHC 32.8 RDW Std Deviation 43.8 RDW Coeff of Maximilian 13.6 Plt Count 243 MPV 10.7 Immature Gran % (Auto) 0.500 Neut % (Auto) 62.6 Lymph % (Auto) 24.9 [place] % (Auto) 9.9 Eos % (Auto) 1.4 Baso % (Auto) 0.7 Absolute Neuts (auto) 6.3 Absolute Lymphs (auto) 2.50 Nucleated RBC % 0 D-Dimer Quant (PE/DVT) 1.42 H* Sodium 138 Potassium 3.3 L Chloride 104 Carbon Dioxide 31.0 Anion Gap 3 L BUN 10 Creatinine 0.85 Estim Creat Clear Calc 83.17 Est GFR (MDRD) Af Amer 117 Est GFR (MDRD) Non-Af 97 BUN/Creatinine Ratio 11.8 Glucose 87 Calcium 8.7 Troponin I < 0.015 Cardiac work-up was unremarkable. D-dimer is elevated even if corrected for age. With prior history of PE and DVT a CTA was obtained to evaluate for PE. There is no evidence of PE. There is evidence of cholelithiasis. This would not explain his central chest pain with pleuritic component. With a normal EKG and normal troponin with greater than 16 hours of pain coronary etiology is ruled out as the cause of his present chest pain. - Rhythm Strip Rhythm Strip: Sinus Rhythm Rate: 70 Ectopy: None - EKG Initial EKG Interpretation: Sinus Rhythm - Sinus rhythm with a ventricular rate of 65. WV interval is 164 ms. QRS duration 96 ms. QT duration 398 ms. Butternut is normal. The EKG is normal. The EKG was obtained with patient experiencing pain - Medical Decision Making She presents with chest pain. Differential diagnoses coronary disease, pulmonary embolus, GI etiology, pulmonary etiology. Chest x-ray, EKG and appropriate labs were obtained. Patient did not receive aspirin since he has recently taken his dose aspirin and reports history of bruising easily. ED Disposition - Plan for ED Patient: Disposition: Home or Assisted Living Diagnosis: Central chest pain, Pleuritic chest pain, Atherosclerosis of coronary artery of [place] heart without angina pectoris, Hypertension Instructions: ED Chest Pain NonCardiac Referrals: Renee Jackson DO [Primary Care Provider] - 3-5 Days if not improving Additional Instructions: The cause of your chest pain is unknown. There is no evidence of heart disease. If there is no improvement follow-up with your primary care physician.
[2019-11-18] MEDS: 0.9% Normal Saline 1,000 ML 150 ML IV (13:25)
[2019-11-18 13:26] LABS: Absolute Neutrophil Count 6.3 X10^3/uL (2.0-7.7); Basophil# 0.07 X10^3/uL; Basophil% 0.7 % (0-1); Eosinophil# 0.14 X10^3/uL; Eosinophils% 1.4 % (0-5); Hemoglobin 16.4 g/dL (13.0-16.5); Lymphocyte % 24.9 % (19-41); Mean Corp Hgb Conc 32.8 g/dL (32-36); Mean Corpuscular Hgb 29.1 pg (27.0-32.0); Mean Corpuscular Volume 88.7 fL (80-94); Mean Platelet Vol. 10.7 fl (6.2-12.0); Monocyte% 9.9 % (0-10); NRBC Flagged by Analyzer 0 % (0-5); Neutrophil % 62.6 % (47-70); Platelet Count 243 K/mm3 (150-450); RBC Distribution Width CV 13.6 % (11.6-14.6); RBC Distribution Width SD 43.8 fl (35.1-43.9); Red Blood Count 5.64 M/mm3 (4.6-6.2); White Blood Count 10.1 K/mm3 (4.4-11.0)
--- NOTE | 2019-11-18 13:33 | RAD_ITS ---
STUDY: X-RAY CHEST REASON FOR EXAM: Male, 64 years old. CHEST PAIN TECHNIQUE: PA and lateral views of the chest. COMPARISON: Comparison is made with prior study dated January 25, 2019. FINDINGS: EKG electrodes are seen. The lungs are clear and expanded. There is no demonstrated pleural abnormality. Normal size heart. Normal mediastinum and mario. Normal visualized pulmonary arteries. There is atherosclerotic tortuosity of the aortic arch and descending thoracic aorta. There are diffuse degenerative changes of the visualized thoracic spine. Normal visualized ribs, clavicles, and shoulders. There is no demonstrated abnormality of the visualized soft tissue structures of the upper abdomen. RAD/Chest PA and Lateral IMPRESSION: No acute abnormality is seen. Electronically Signed: Kg Wilhelm, at 13:42 EDT , Service support ,
[2019-11-18 13:40] LABS: D-Dimer Quantitative (DVT/PE) 1.42 FEU/ug/m (0.27-0.49)
--- NOTE | 2019-11-18 13:40 | CT_ITS ---
STUDY: CTA CHEST REASON FOR EXAM: Male, 64 years old. PLEURITIC CHEST PAIN SINCE LAST NIGHT, ELEVATED D-DIMER RADIATION DOSAGE (If Supplied By Facility): CTDIvol = ( 12.585 ) mGy, DLP = ( 608.43 ) mGycm TECHNIQUE: The examination was performed with the intravenous administration of IV 100mL Isovue-370. Post-processing of the angiographic images was performed, with multiplanar reformation and 3D reconstruction. Individualized dose optimization techniques were used for this CT. COMPARISON: Comparison is made with prior chest radiograph done earlier in the day as well as prior CT scan of thorax dated June 18, 2017. FINDINGS: Normal enhancement of the main pulmonary artery and right and left pulmonary arteries. Normal enhancement of the bilateral peripheral pulmonary arteries. There is no demonstrated pulmonary embolism. Normal thoracic aorta and visualized great vessels. There is no demonstrated aortic dissection. Normal heart and pericardium. Normal mediastinum. Normal hilar regions. Normal visualized trachea and bronchi. The lungs are hyper expanded, with flattening of the hemidiaphragms. There is evidence of emphysematous changes with cystic formation worse in the upper lobes. No acute infiltration is seen. Normal pleura. Normal chest wall structures. There are degenerative changes of thoracic spine. Small gallstones. Small hiatal hernia. CT/CTA Chest W/WO Contrast IMPRESSION: There is no evidence of thromboembolism. Emphysematous changes. Small gallstones. Electronically Signed: Kg Wilhelm, at 15:14 EDT , Service support ,
[2019-11-18 14:13] LABS: Anion Gap 3 (5-15); BUN 10 mg/dL (7-18); BUN/Creat Ratio 11.8 RATIO (10-20); Calcium,Total 8.7 mg/dL (8.5-10.1); Chloride 104 mmol/L (98-107); Creatinine, Serum 0.85 mg/dL (0.70-1.30); EST Glomerular Filtration Rate 97 mL/min (>60); Est Glom Filt Rate - Afr Amer 117 mL/min (>60); Estimated Creatinine Clearance 83.17 ml/min; Glucose 87 mg/dL (74-106); Potassium 3.3 mmol/L (3.5-5.1); Sodium Level 138 mmol/L (136-145)
[2019-11-18 16:17] VITALS: BP 140/79; PULSE 66; RESP 16; O2SAT 95
[2019-11-18 16:33] VITALS: BP 140/79; PULSE 66; RESP 16; O2SAT 95
== END 2019-11-18 16:37 | disposition home or self-care (01) ==
PROVIDERS: Emergency Provider Emergency Medicine; PCP Family Medicine
DX: R07.81 Pleurodynia (principal); I25.10 Atherosclerotic heart disease of native coronary artery without angina pectoris; I10 Essential (primary) hypertension; E11.9 Type 2 diabetes mellitus without complications; F17.200 Nicotine dependence, unspecified, uncomplicated; Z86.711 Personal history of pulmonary embolism; Z95.5 Presence of coronary angioplasty implant and graft; Z79.82 Long term (current) use of aspirin; Z79.899 Other long term (current) drug therapy
CPT/HCPCS: 71046; 71275; 80048; 84484; 85025; 85379; 93005; 96360; 96361; 99284; J7030; Q9967; A4216

== ENCOUNTER → 2019-11-20 06:19 | Outpatient (CLI) | payer MEDICARE, SELFPAY ==
[2016-08-31 15:27] VITALS: BMI 33.3
[2019-11-18 13:09] VITALS: BMI 30.7
--- NOTE | 2019-11-20 12:27 | STRESSREP_ITS ---
Stress Test Report Date: 11-20-2019 Procedure: Pharmacologic stress nuclear imaging study Indications: Chest pain Consent: Per the patient Procedure: The patient underwent pharmacologic (Regadenoson) evaluation with a peak heart rate of 96 beats per minute (61 %predicted maximal heart rate) and a peak blood pressure of 108/70 mmHg. The baseline ECG demonstrated sinus bradycardia. The peak pharmacologic ECG demonstrated no obvious ECG changes. There were no cardiac dysrhythmias pretest, during pharmacologic infusion, or recovery. The patient has had chronic chest discomfort pretest, during pharmacologic infusion, and recovery without significant change. The examination was discontinued secondary to completion of protocol. Impression: 1. Pharmacologic (Regadenoson) evaluation 2. Peak pharmacologic ECG with no obvious ECG changes. 3. There were no cardiac dysrhythmias pretest, during pharmacologic infusion, or recovery. 4. Nuclear images pending Myocardial perfusion imaging study: Technique: The patient was injected with 14.0 millicuries of technetium 99m Cardiolite and subsequently rest SPECT Cardiolite nuclear imaging was obtained in the horizontal long, vertical long, and short axis views. The patient underwent pharmacologic (Regadenoson) evaluation with a peak heart rate of 96 beats per minute (61 % percent predicted maximal heart rate) and a peak blood pressure of 108/70 mmHg. The patient was injected with 42.0 millicuries of technetium 99m Cardiolite and subsequently stress SPECT Cardiolite nuclear imaging was obtained in the horizontal long, vertical long, and short axis views. A gated Cardiolite study at peak stress was obtained. Interpretation: Rest and stress SPECT Cardiolite nuclear imaging status post realignment, normalization, and attenuation correction demonstrate relative uniform tracer uptake and myocardial perfusion appearing within normal limits. There is end systolic thickening and brightening. The gated Cardiolite study demonstrates myocardial thickening and inward wall motion. The reported LVEF is 59 %. Impression: 1. Rest and stress SPECT Cardiolite nuclear imaging demonstrate relative uniform tracer uptake and myocardial perfusion appearing within normal limits. 2. The gated Cardiolite study reports an LVEF of 59 %. This note was generated with [id number] software. It may contain incorrect words, spelling, and punctuation that were not noted in checking the note before signing.
== END ==
PROVIDERS: PCP Family Medicine; Referring Provider Family Medicine; Visit Provider Family Medicine
DX: R07.9 Chest pain, unspecified (principal)
CPT/HCPCS: 78452; 93017; A9500; A4216; J2785

== ENCOUNTER 2019-11-20 07:50 | Emergency (ER) | payer MEDICARE, SELFPAY ==
[2016-08-31 15:27] VITALS: BMI 33.3
[2019-11-20 07:53] VITALS: BP 96/66; PULSE 54; RESP 13; TEMP 36.4; O2SAT 97; BMI 29.8
--- NOTE | 2019-11-20 08:12 | RAD_ITS ---
STUDY: X-RAY CHEST REASON FOR EXAM: Male, 64 years old. HYPOTENSIVE DURING STRESS TEST TECHNIQUE: Single AP portable view of the chest. COMPARISON: Comparison is made with prior study dated November 18, 2019. FINDINGS: EKG electrodes are seen. Stable elevation of the right hemidiaphragm. There is no demonstrated pleural abnormality. There is mild cardiac enlargement. Normal mediastinum and mario. Normal visualized pulmonary arteries. Normal visualized aortic arch and descending thoracic aorta. There are diffuse degenerative changes of the visualized thoracic spine. Normal visualized ribs, clavicles, and shoulders. There is no demonstrated abnormality of the visualized soft tissue structures of the upper abdomen. RAD/Chest 1 View (Portable) IMPRESSION: Stable examination. No acute abnormality is seen. Electronically Signed: Kg Wilhelm, at 9:11 EDT , Service support ,
--- NOTE | 2019-11-20 08:12 | EKG12_ITS ---
Test Reason : CP Blood Pressure : / mmHG Vent. Rate : 052 BPM Atrial Rate : 052 BPM P-R Int : 164 ms QRS Dur : 100 ms QT Int : 472 ms P-R-T Axes : 036 -20 022 degrees QTc Int : 438 ms Sinus bradycardia Poor R wave progression Confirmed by PABLITO BENNETT, ISAIAH ([id number]), newspaper editor DAI GARZA ([id number]) on 11/23/2019 10:07:14 AM Referred By: CELESTINA Confirmed By:ISAIAH KENNEY MD
[2019-11-20] MEDS: 0.9% Normal Saline 1,000 ML 1000 ML IV (08:20)
--- NOTE | 2019-11-20 08:27 | ED.DCSUM_ITS ---
- ER Visit Summary Date of Service: 11/20/19 Chief Complaint: Chest pain History of Present Illness: The patient is a [address] Reeves and Dr. Fajardo. Patient reports he is substernal chest pain that began 2 days ago. Is gradually gotten worse it is a continuous pressure that is 8 out of 10 at worst and 5 out of 10 currently. Is worsened by movement of his arms. There is no change with exertion or breathing. Is relieved by sleep. Reports that this morning he is nauseated, but he has not had breakfast. No vomiting, diaphoresis, or shortness of breath. Patient denies any injury. No fall, MVA, or change in activity. Patient was seen in the emergency department 2 days ago and had a negative work- up including a CT of the chest that was negative. He was started on Imdur by his primary care physician and took his first dose at 6:00 yesterday. He is unsure of the dose of this. He reports it was the lowest dose they could give me. His last dose of metoprolol was yesterday morning. He also reports that he was placed on trazodone 1 month ago. Physical Examination: Vitals: Stable. Afebrile. General: Well-nourished and well-developed. Head: Normocephalic atraumatic. Neck: Supple, no lymphadenopathy. No JVD. Nontender. Cardiovascular: Regular rate and rhythm. No murmurs. Respiratory: No respiratory distress. Clear to auscultation bilaterally. Abdominal: Soft, nontender, nondistended, normal bowel sounds. No guarding, rebound, or peritoneal signs. Back: Nontender. Extremities: Nontender, no edema. Healed wound to the left leg. There is no erythema, warmth, induration, or fluctuance to suggest infection. Skin: Normal color, no rash. Neurologic: Alert and oriented ?3. Cranial nerves II through XII are intact. Normal strength and sensation. Psych: Normal affect. Test Results: EKG is sinus bradycardia at 52. Is unchanged from 2 days ago. CBC is normal. Chem-7 shows a chloride of 108 and calcium of 8.4. Lactic acid is 0.8. Troponin is negative. TSH is normal. Chest x-ray shows chronic changes. Emergency Department Course and Treatment: Patient was given a liter of normal saline. He is resting comfortably. His blood pressure is improved to the 120 systolic. His heart rate is in the 40s to 50s. Treatment Plan: The patient was sent was discussed with Dr. Marin. He is instructed not take Imdur again. He is and will have his metoprolol decreased from 25 mg every morning to 12.5 mg every morning. Will be sent over to complete the stress test and instructed to follow-up his primary care physician 1 to 2 days for another exam. Follow-up with Dr. Fajardo as soon as possible. Return to the emergency department for any worsening symptoms. Disposition: To home in improved and stable condition. Impression: 1. Atypical chest pain. 2. Hypotension after Imdur. 3. Bradycardia on metoprolol. This note was generated with [employer] software. It may contain incorrect words, spelling, and punctuation that were not noted in review of the chart prior to signing ED Disposition - Plan for ED Patient: Disposition: Home or Assisted Living Instructions: ED Chest Pain Atypical Unkn Cause, ED Drug React Adverse Other Prescriptions: Metoprolol Succinate 12.5 mg PO CONT #30 tab.er.24h Prescription Printed Referrals: Ramesh Fajardo MD [STAFF PHYSICIAN] - As soon as possible Renee Jackson DO [Primary Care Provider] - 1-2 Days if not improving Additional Instructions: Decrease your metoprolol to 12.5 mg a day. Do not take a dose today. Do NOT take imdur anymore.
[2019-11-20 08:32] LABS: Absolute Lymphocyte Count 2.34 X10^3/uL (0.83-4.51); Absolute Neutrophil Count 7.3 X10^3/uL (2.0-7.7); Basophil# 0.06 X10^3/uL; Basophil% 0.6 % (0-1); Eosinophil# 0.11 X10^3/uL; Hematocrit 44.8 % (40-54); Hemoglobin 14.5 g/dL (13.0-16.5); Lymphocyte # 2.34 X10^3/ul (4.0); Lymphocyte % 21.6 % (19-41); Mean Corp Hgb Conc 32.4 g/dL (32-36); Mean Corpuscular Hgb 28.3 pg (27.0-32.0); Mean Corpuscular Volume 87.5 fL (80-94); Monocyte# 1.03 X10^3/uL; Monocyte% 9.5 % (0-10); NRBC Flagged by Analyzer 0 % (0-5); Neutrophil # 7.25 X10^3/uL (2.7-7.7); Neutrophil % 66.9 % (47-70); Platelet Count 219 K/mm3 (150-450); RBC Distribution Width CV 13.7 % (11.6-14.6); RBC Distribution Width SD 44.2 fl (35.1-43.9); Red Blood Count 5.12 M/mm3 (4.6-6.2); White Blood Count 10.8 K/mm3 (4.4-11.0)
[2019-11-20 08:53] LABS: Anion Gap 5 (5-15); BUN 15 mg/dL (7-18); BUN/Creat Ratio 14.6 RATIO (10-20); Calcium,Total 8.4 mg/dL (8.5-10.1); Chloride 108 mmol/L (98-107); Creatinine, Serum 1.03 mg/dL (0.70-1.30); EST Glomerular Filtration Rate 77 mL/min (>60); Est Glom Filt Rate - Afr Amer 94 mL/min (>60); Estimated Creatinine Clearance 71.02 ml/min; Glucose 95 mg/dL (74-106); Potassium 3.6 mmol/L (3.5-5.1); Sodium Level 142 mmol/L (136-145); Thyroid Stim Hormone (TSH) 2.01 uIU/mL (0.358-3.74)
[2019-11-20 08:57] LABS: Lactic Acid 0.8 mmol/L (0.4-1.9)
[2019-11-20 08:58] VITALS: BP 105/73; PULSE 57; RESP 18; O2SAT 99
[2019-11-20 09:46] VITALS: BP 117/73; PULSE 51; RESP 14; O2SAT 97
--- NOTE | 2019-11-20 09:48 | ED.RN ---
IV SITE LEFT INTACT FOR [facility]. DISCHARGE INSTRUCTIONS GIVEN TO AND REVIEWED WITH PATIENT, PATIENT DENIES QUESTIONS OR CONCERNS AND VOICES UNDERSTANDING OF DISCHARGE INSTRUCTIONS. [facility] MADE AWARE THAT PATIENT IS DC'ED AND THEY CAN PICK HIM UP VIA WHEELCHAIR.
--- NOTE | 2019-11-20 09:58 | ED.RN ---
PT TO [facility] VIA WHEELCHA[facility].
== END 2019-11-20 09:58 | disposition home or self-care (01) ==
PROVIDERS: Emergency Provider Emergency Medicine; PCP Family Medicine
DX: R07.9 Chest pain, unspecified (principal); R00.1 Bradycardia, unspecified; I95.2 Hypotension due to drugs; T46.3X5A Adverse effect of coronary vasodilators, initial encounter; I25.10 Atherosclerotic heart disease of native coronary artery without angina pectoris; J44.9 Chronic obstructive pulmonary disease, unspecified; E11.9 Type 2 diabetes mellitus without complications; E78.00 Pure hypercholesterolemia, unspecified; Z86.718 Personal history of other venous thrombosis and embolism; Z86.711 Personal history of pulmonary embolism; Z72.0 Tobacco use; Z79.82 Long term (current) use of aspirin; Z79.899 Other long term (current) drug therapy
CPT/HCPCS: 71045; 78452; 80048; 83605; 84443; 84484; 85025; 93005; 93017; 96360; 99283; A9500; J7030; A4216; J2785

== ENCOUNTER 2019-12-16 10:14 | Observation (INO) | payer MEDICARE, SELFPAY ==
[2016-08-31 15:27] VITALS: BMI 33.3
[2019-12-16] VITALS (10 sets, daily range): BP systolic 76–145; BP diastolic 45–79; PULSE 56–75; RESP 16–18; TEMP 36.4–36.7; O2SAT 93–99; BMI 29.5; BMI 28.5; BMI 28.6
--- NOTE | 2019-12-16 10:31 | RAD_ITS ---
STUDY: X-RAY CHEST REASON FOR EXAM: Male, 64 years old. Syncope, hypotension TECHNIQUE: Single AP portable view of the chest. COMPARISON: 11/20/2019 FINDINGS: EKG leads overlie the chest. The lungs are clear and expanded. There is no demonstrated pleural abnormality. Normal size heart. Normal mediastinum and mario. Normal visualized pulmonary arteries. Normal visualized aortic arch and descending thoracic aorta. There are diffuse degenerative changes of the visualized thoracic spine. Normal visualized ribs, clavicles, and shoulders. There is no demonstrated abnormality of the visualized soft tissue structures of the upper abdomen. RAD/Chest 1 View (Portable) IMPRESSION: No acute pulmonary process, no interval change Electronically Signed: Carlos Nicole MD at 10:59 EDT , Service support ,
--- NOTE | 2019-12-16 10:32 | EKG12_ITS ---
Test Reason : SYNCOPE Blood Pressure : / mmHG Vent. Rate : 058 BPM Atrial Rate : 058 BPM P-R Int : 168 ms QRS Dur : 104 ms QT Int : 480 ms P-R-T Axes : 056 -27 024 degrees QTc Int : 471 ms Sinus bradycardia Otherwise normal ECG Confirmed by KATIE BENNETT, BHAVANI ([id number]), book or script editor DAI GARZA ([id number]) on 12/22/2019 2:19:25 PM Referred By: RASHEL/MANA Confirmed By:BHAVANI WILSON MD
--- NOTE | 2019-12-16 10:33 | ED.VISSUMM ---
- ER Visit Summary Date of Service: 12/16/19 Chief Complaint: [Syncope] History of Present Illness: The patient is a 64 M [patient presents to the ER via EMS with a syncopal episode that occurred prior to arrival. Patient states that he was at urgent care for some wrist pain he been having he thinks related to gout when he stood up to leave after getting his prescriptions. Patient states that once he started to walk he started feeling lightheaded and passed out. Patient did not sustain any injuries as apparently his normally holds onto him for balance and both the and the nurse caught him. Patient denies any chest pain or shortness of breath. He has not had any recent illness. He had been having some chest discomfort last month and had a stress test that was unremarkable and was treated for GERD and states that his symptoms mostly resolved. Patient also has history of anxiety. He does have a heart history with prior coronary stents. Patient has history of diabetes and hypertension. Patient has not had syncopal episodes before. He denies any blood in stool or black tarry stools. Feels relatively well currently.] Physical Examination: [HEENT-PERRLA, EOMI. Cranial nerves II through XII grossly intact. TMs clear. Mucous membranes moist. No adenopathy. Cardiovascular-regular rate and rhythm without murmur or ectopy Lungs-clear to auscultation, chest wall stable without crepitus or subcu emphysema Abdomen-normoactive bowel sounds, soft, nontender, no rebound or rigidity, no peritoneal signs. Extremities-intact ?4, normal range of motion, normal pulses, atraumatic] Test Results: [EKG obtained arrival shows sinus bradycardia with a ventricular rate of 58 bpm with no acute ST segment changes. CBC with differential was normal. Chemistries unremarkable other than a slightly depressed potassium at 3.0. Troponin is less than 0.015. Chest x-ray was unremarkable.] Orthostatic vital signs were positive and his pressure dropped into the 70s systolic. Emergency Department Course and Treatment: [Patient was given a 500 cc fluid bolus. Patient placed on president & founder on arrival. Care discussed with hospitalist will evaluate patient for admission] Treatment Plan: [Admit for fluids and further evaluation of his syncope.] Disposition: [Admit] Impression: [Syncope Orthostatic hypotension] This note was generated with [employer] software. It may contain incorrect words, spelling, and punctuation that were not noted in review of the chart prior to signing ED Disposition - Plan for ED Patient: Referrals: Renee Jackson DO [Primary Care Provider] -
[2019-12-16 10:46] LABS: Absolute Lymphocyte Count 2.09 X10^3/uL (0.83-4.51); Absolute Neutrophil Count 7.4 X10^3/uL (2.0-7.7); Basophil# 0.07 X10^3/uL; Basophil% 0.6 % (0-1); Eosinophil# 0.12 X10^3/uL; Eosinophils% 1.1 % (0-5); Hematocrit 45.2 % (40-54); Hemoglobin 14.8 g/dL (13.0-16.5); Lymphocyte # 2.09 X10^3/ul (4.0); Lymphocyte % 19.1 % (19-41); Mean Corp Hgb Conc 32.7 g/dL (32-36); Mean Corpuscular Hgb 29.4 pg (27.0-32.0); Mean Corpuscular Volume 89.7 fL (80-94); Mean Platelet Vol. 10.8 fl (6.2-12.0); NRBC Flagged by Analyzer 0 % (0-5); Neutrophil # 7.41 X10^3/uL (2.7-7.7); Neutrophil % 67.9 % (47-70); Platelet Count 211 K/mm3 (150-450); RBC Distribution Width CV 13.2 % (11.6-14.6); RBC Distribution Width SD 43.4 fl (35.1-43.9); Red Blood Count 5.04 M/mm3 (4.6-6.2); White Blood Count 10.9 K/mm3 (4.4-11.0)
[2019-12-16] MEDS: 0.9% Normal Saline 1,000 ML 150 ML IV (11:02)
[2019-12-16 11:03] LABS: Anion Gap 5 (5-15); BUN 10 mg/dL (7-18); BUN/Creat Ratio 9.2 RATIO (10-20); Calcium,Total 8.2 mg/dL (8.5-10.1); Chloride 104 mmol/L (98-107); Creatinine, Serum 1.09 mg/dL (0.70-1.30); EST Glomerular Filtration Rate 73 mL/min (>60); Est Glom Filt Rate - Afr Amer 88 mL/min (>60); Estimated Creatinine Clearance 69.37 ml/min; Glucose 110 mg/dL (74-106); Sodium Level 139 mmol/L (136-145)
[2019-12-16] MEDS: 0.9% Normal Saline 500 ML IV.SOLN. IV (11:10)
--- NOTE | 2019-12-16 11:20 | NURSING ---
DR ISAIAS MILLER
--- NOTE | 2019-12-16 11:23 | ED.RN ---
TC MADE TO [facility]OS[facility] MIGUEL TO UPDATE ON ADMISSION. NO ANSWER, LEFT MESSAGE
--- NOTE | 2019-12-16 11:28 | NURSING ---
PCU OBS ISAIAS SYNCOPE, ORTHOSTATIC HYPOTENSION
--- NOTE | 2019-12-16 11:29 | HP.PCM_ITS ---
Problem List (1) Syncope and collapse Status: Acute (2) Diabetes mellitus Status: Chronic (3) Smoker Status: Chronic (4) Diabetes mellitus with ulcer of lower extremity Status: Chronic (5) Fall on and from ladder, sequela Status: Chronic (6) Non-pressure chronic ulcer of left lower leg with fat layer exposed Status: Chronic (7) Cellulitis of left anterior lower leg Status: Chronic (8) Non-pressure chronic ulcer of right lower leg with fat layer exposed Status: Chronic (9) Non-ST elevation (NSTEMI) myocardial infarction Status: Chronic (10) Left hip pain Status: Chronic (11) History of coronary artery stent placement Status: Chronic Comment: [id number] LAD 3.5 x 12 Promus Synergy stent (12) Atherosclerosis of coronary artery of [place] without angina pectoris Status: Chronic Comment: [id number]-ACS-[id number] LAD 3.5 x 12 Promus Synergy stent 09/10/2016 (13) Trochanteric bursitis of left hip Status: Chronic (14) Saddle embolus Status: Chronic (15) Diabetes mellitus type 2 in obese Status: Chronic (16) Morbid obesity Status: Chronic (17) Hypertension Status: Chronic (18) Tobacco abuse Status: Chronic (19) Hypercholesterolemia Status: Chronic History of Present Illness Date of Admission: 12/16/19 Chief Complaint: Syncope and collapse today in urgent care The patient is a 64 year old M with multiple comorbidities as listed above including coronary artery disease status post stents 3 years ago was brought in to ER by EMS after he had syncopal episode in urgent care. Patient had colonoscopy on last Saturday about 5 days ago and since then feeling tired and thirsty. He went to urgent care for left wrist pain which he was told because of gout but he felt dizzy and then passed out when he stood up on the way out. He does not have any history of seizure, drop attack or other prior syncope. Patient denies chest pain, shortness of breath, diaphoresis, missed heartbeat/arrhythmia or incontinence of bowel or bladder. He came back to senses after a few seconds/minutes. In ED, his orthostatics vital signs are positive of hypotension, from 102/62, Heart rate 75-70 6/45, 55 on standing. Patient was given 500 normal saline bolus and then started on 150 mL/h. Of note, patient is also on prazosin and Flomax for long time. ER basic labs shows hypokalemia, K3.0, magnesium 2.2. Troponin normal. Patient has other comorbidities diabetes mellitus type 2 and his A1c improved from 15 about 3 to 4 years ago to 5.9 the most recent about few months ago. He also lost 65 pounds on purpose. Chest x-ray no acute pulmonary process. [] Past Medical History Past Medical History (Chronic Problems): Chronic Problems (Last Updated 10/12/19 @ 13:09 by Glory Saleem) Diabetes mellitus (Chronic) Smoker (Chronic) Diabetes mellitus with ulcer of lower extremity (Chronic) Fall on and from ladder, sequela (Chronic) 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) Cellulitis of left anterior lower leg (Chronic) Non-pressure chronic ulcer of right lower leg with fat layer exposed (Chronic) Non-ST elevation (NSTEMI) myocardial infarction (Chronic ~08/2016) Left hip pain (Chronic) History of coronary artery stent placement (Chronic 09/10/16) [id number] LAD 3.5 x 12 Promus Synergy stent Atherosclerosis of coronary artery of [place] without angina pectoris (Chronic) [id number]-[id number] LAD 3.5 x 12 Promus Synergy stent 09/10/2016 Trochanteric bursitis of left hip (Chronic) Saddle embolus (Chronic) Diabetes mellitus type 2 in obese (Chronic) Morbid obesity (Chronic) Hypertension (Chronic) Tobacco abuse (Chronic) Hypercholesterolemia (Chronic) Medical History: Medical History (Last Updated 10/12/19 @ 13:09 by Glory Saleem) Non-ST elevation (NSTEMI) myocardial infarction (Chronic) Onset Date: ~08/2016 I21.4 Atherosclerosis of coronary artery of [place] without angina pectoris (Chronic) I25.10 MRZ-RIF-Oill LAD 3.5 x 12 Promus Synergy stent 09/10/2016 Trochanteric bursitis of left hip (Chronic) M70.62 Saddle embolus (Chronic) I74.9 Diabetes mellitus type 2 in obese (Chronic) E11.69, E66.9 Morbid obesity (Chronic) E66.01 Hypertension (Chronic) I10 Tobacco abuse (Chronic) Z72.0 Hypercholesterolemia (Chronic) E78.00 Back problem M53.9 History of prostate disorder Z87.438 Alcoholism F10.20 Anxiety and depression F41.9, F32.9 Arthritis M19.90 BPH (benign prostatic hyperplasia) N40.0 COPD (chronic obstructive pulmonary disease) J44.9 DVT (deep venous thrombosis) I82.409 Pulmonary embolism I26.99 Seasonal allergies J30.2 Liver mass R16.0 Type 2 diabetes mellitus without complications E11.9 Allergies adhesive tape Adverse Reaction (Verified 12/16/19 10:18) THIN FRAGILE SKIN codeine Adverse Reaction (Verified 12/16/19 10:18) Nausea ibuprofen Adverse Reaction (Verified 12/16/19 10:18) Nausea Home Medications: Ambulatory Orders Medication Instructions Recorded Aspirin E.C. [Ecotrin] 81 mg PO QODAY 06/18/17 Tamsulosin HCl [Flomax] 0.4 mg PO DAILY 06/18/17 metoprolol succinate 25 mg 25 mg PO DAILY tab 07/02/17 tablet,extended release 24 hr clonazepam 1 mg tablet 1 mg PO TID 02/19/19 fluoxetine 10 mg capsule 10 mg PO DAILY 10/12/19 Prazosin HCl 1 mg PO QHS 12/16/19 Surgical History: Surgical History (Last Reviewed 02/19/19 @ 15:03 by Charlee Haley) History of coronary artery stent placement (Chronic) Onset Date: 09/10/16 Z95.5 RJO-BSD-Pnow LAD 3.5 x 12 Promus Synergy stent History of total left knee replacement (TKR) Z96.652 Previous back surgery Z98.890 S/P right rotator cuff repair Onset Date: 11/12/17 Z98.890 11/12/17 H/O heart artery stent Z95.5 08/2015 Herniated disc 2014 History of total left knee replacement Z96.652 S/P right knee arthroscopy Z98.890 04/24/16 S/P right unicompartmental knee replacement Z96.651 07/10/16 lumbar disc 07/26/14 Surgical History: noncontributory, total knee arthroplasty - TKA on the left with a partial knee replacement on the R. Psychiatric History: No pertinent psych hx Smoking Status: Current every day smoker - Since teenage - *Family History Maternal Family History: Family History (Last Reviewed 02/19/19 @ 15:04 by Charlee Haley) Mother CHF (congestive heart failure) History Items: No pertinent history, - Review of Systems Constitutional: Denies: Chills, Fever, Weight Change HEENT: Denies: Head Aches, Sinus Congestion, Sinus Drainage Cardiovascular: Reports: Syncope. Denies: Chest Pain, Palpitations Respiratory: Denies: Cough, Shortness of breath at rest, Sputum production Gastrointestinal: Denies: Abdominal Pain, Nausea, Vomiting Genitourinary: Denies: Dysuria, Frequency, Hematuria, Incontinence, Urgency Musculoskeletal: Denies: Joint Pain, Joint Tenderness Skin: Reports: Wounds - Scab wound on right leg. Patient had nonhealing infected diabetic ulcer on the left anterior leg and right anterior leg after a fall from a ladder. Had incision and drainage and excisional debridement by Dr. Aldana on February 2019.. Denies: Rash Neurological: Denies: Numbness, Tingling, Focal weakness Psychiatric: Denies: Anxiety, Depression, Homicidal Ideations, Suicidal Ideations Hematologic/ Lymphatic: Denies: Easy Bruising, Easy Bleeding VTE Information - Inpt Only VTE Present on Admission: No VTE Mechan Device Prophylaxis: None VTE Pharm Prophylaxis ordered?: Yes Patient Problems: Active and Suspected Problems (Last Updated 10/12/19 @ 13:09 by Glory Saleem) Syncope and collapse (Acute) - Physical Exam Vitals/I&O's: Vital Signs Temp Pulse Resp BP Pulse Ox 97.8 F 60 18 100/57 L 97 12/16/19 11:25 12/16/19 11:25 12/16/19 11:25 12/16/19 11:25 12/16/19 11:25 Weight: 199 lb 11.821 oz Body Mass Index (BMI) 29.5 Finger Stick Blood Glucose 100 Intake and Output for Last 24 Hours 12/14/19 12/15/19 12/16/19 23:59 23:59 23:59 Intake Total Balance General: Alert, Oriented x3, Cooperative HEENT: Atraumatic, PERRLA, EOMI, Normocephalic Neck: Supple, No JVD, Negative Carotid Bruits Lungs: Clear to auscultation, No rhonchi, No wheeze, No rales, - - Air entry diminished bilaterally Cardiovascular: Regular rate, Regular Rhythm, Normal S1, Normal S2, No murmurs Abdomen: Bowel Sounds Present, Soft, Non Tender, Non-Distended Extremities: No edema, Capillary Refill Less than 3 Seconds Skin: No rashes, Ulcer/ Wound - Scabbed wound over right lower leg anteriorly. Healing scar on the left leg. History of bilateral nonhealing diabetic ulcers after fall in February 2019 status post debridement Musculoskeletal: No Tenderness to Palpation of Joints or Extremities, Arthritic Changes Neurological: Cranial nerves II-XII grossly intact, Neuro grossly intact Psych/Mental Status: Normal Affect, Appropriate Laboratory Results 12/16/19 10:37: WBC 10.9, RBC 5.04, Hgb 14.8, Hct 45.2, MCV 89.7, MCH 29.4, MCHC 32.7, RDW Std Deviation 43.4, RDW Coeff of Maximilian 13.2, Plt Count 211, MPV 10.8, Immature Gran % (Auto) 0.300, Neut % (Auto) 67.9, Lymph % (Auto) 19.1, Giles % (Auto) 11.0 H, Eos % (Auto) 1.1, Baso % (Auto) 0.6, Absolute Neuts (auto) 7.4, Absolute Lymphs (auto) 2.09, Nucleated RBC % 0 12/16/19 10:37: Sodium 139, Potassium 3.0 L, Chloride 104, Carbon Dioxide 30.0, Anion Gap 5, BUN 10, Creatinine 1.09, Estim Creat Clear Calc 69.37, Est GFR (MDRD) Af Amer 88, Est GFR (MDRD) Non-Af 73, BUN/Creatinine Ratio 9.2 L, Glucose 110 H, Calcium 8.2 L, Troponin I < 0.015 12/16/19 10:37: Magnesium Pending Current Medications Sodium Chloride () 1,000 mls @ 150 mls/hr IV .Q6H40M [facility] Last Infusion: 12/16/19 11:10 Dose: 0 mls/hr Documented by: Potassium Chloride (K-Dur) 40 meq PO Q3H JAMES Stop: 12/16/19 14:31 Assessment/Plan All Active Problems (Last Updated 10/12/19 @ 13:09 by Glory Saleem) Syncope and collapse (Acute) Cor pulmonale, acute (Resolved) Impingement syndrome of left shoulder (Resolved) Impingement syndrome of right shoulder (Resolved) Non-STEMI (non-ST elevated myocardial infarction) (Resolved) Unstable angina (Resolved) The patient is a 64 year old M with multiple comorbidities as listed above including coronary artery disease status post stents 3 years ago was brought in to ER by EMS after he had syncopal episode in urgent care. In ED, his orthostatics vital signs are positive of hypotension, from 102/62, Heart rate 75-70 6/45, 55 on standing. ER basic labs shows hypokalemia, K3.0, magnesium 2.2. Troponin normal. 1. Syncope secondary to orthostatic hypotension most probably from hypovolemia after colon prep compounded by prazosin and Flomax/other medications: Patient is being admitted in PCU. EKG independently reviewed and shows sinus bradycardia at 58 bpm. Volume resuscitation with IV fluid normal saline 100 mils per hour for 2 L. Repeat orthostatic vitals after volume resuscitation. Monitor intake and output. Hold prazosin. He takes prazosin for nightmares/PTSD. Chest x- ray no acute pulmonary process. Serial troponins x2 are negative 2. Coronary artery status post stent: Continue aspirin, metoprolol. Metoprolol with holding parameter. 3. Mild hypokalemia: Potassium replaced. Magnesium normal. 4. Diabetes mellitus type 2 with scabbed wound on the lower legs: Patient glucose is well controlled. Last A1c 5.8 on 03/04/2019. On 1800 ADA diet. 5. Other chronic comorbidities include hypertension, chronic tobacco/nicotine cigarette smoking, dyslipidemia and history of saddle embolus: Home medication reconciliation done. Currently not on antithrombotic agent. DVT prophylaxis: Lovenox 40 mg subcu daily. Living will/advanced directive/end of life care: Patient does not have living will or advanced directive. Power of assistant district attorney for health is his after discussion of procedures involved with full code, DNR CC arrest and DNR CC, the patient opted for DNR-CC Arrest Patient does not want artificial life support including intubation, tube feed, ventilator and/chest compression, central venous catheter, vasopressor and DC shock if needed DNR CC arrest. Total time spent in [id number] encounter in discussion of advanced directive 16 minutes. OBSV E&M: 17313 Initial observation care L3 Procedures: 31577 Advncd Care Plan 30 Min
[2019-12-16 11:48] LABS: Magnesium 2.2 mg/dL (1.6-2.6)
--- NOTE | 2019-12-16 12:06 | ECHOCS_ITS ---
Reason For Study: syncope Procedure This was a 2D Doppler, Color Flow transthoracic echocardiogram. The study was technically difficult. Due to body habitus. Contrast injection was performed. Exam performed portable in patient room. Left Ventricle Normal LV size. Left ventricular systolic function is normal. The estimated ejection fraction is 65 %. No regional wall motion abnormalities noted. Right Ventricle Normal RV size. Normal systolic function. Atria Normal left atrium. Normal right atrium. Mitral Valve Mitral valve not well visualized. Tricuspid Valve Normal tricuspid valve. Unable to estimate RV systolic pressure/pulmonary artery pressure due to technically difficult study. Aortic Valve The aortic valve is not well visualized. Pulmonic Valve The pulmonic valve is not well visualized. Great Vessels Normal aortic root. The pulmonary artery is normal size. Normal inferior vena cava. Pericardium/Pleural No pericardial effusion. Medication Definity3.0ml given slow IV push to enhance endocardial definition. MMode/2D Measurements & Calculations LVIDd: 4.3 cm IVSd: 1.1 cm Ao root diam: 3.1 cm LVIDs: 2.7 cm LVPWd: 1.1 cm RVDd: 3.2 cm FS: 36.9 % LAV(MOD-sp4): 53.0 ml LA A4 area: 19.3 cm2 LA dimension(2D): 3.6 cm RA A4 area: 15.4 cm2 Time Measurements MV dec time: 0.20 sec Doppler Measurements & Calculations MV E max justin: 80.7 cm/sec Lat Peak E' Justin: 7.9 cm/sec Med Peak E' Justin: 7.2 cm/sec MV A max justin: 89.7 cm/sec E/E' lat: 10.2 E/E' med: 11.3 MV E/A: 0.90 Ao V2 max: 116.9 cm/sec LV V1 max: 92.4 cm/sec PA V2 max: 109.7 cm/sec Ao max P.5 mmHg LV V1 max P.4 mmHg Interpretation Summary Normal LV size. Left ventricular systolic function is normal. The estimated ejection fraction is 65 %. Contrast injection was performed. Ordering Physician: Omid Segura Referring Physician: Renee Jackson Performed By: Krystal Guaman, FLORIN, RVT
[2019-12-16] MEDS: 0.9% Normal Saline 1,000 ML 100 ML IV ×2 (12:15→22:28)
[2019-12-16] MEDS: Enoxaparin 40 MG/0.4 ML Syringe SC (12:56)
[2019-12-16] MEDS: clonazePAM 1 MG Tablet PO ×2 (14:29→22:38)
[2019-12-16 16:50] LABS: Bedside Glucose 123 mg/dL (70-110)
[2019-12-16 23:01] LABS: Bedside Glucose 112 mg/dL (70-110)
[2019-12-17] VITALS (10 sets, daily range): BP systolic 87–125; BP diastolic 53–84; PULSE 57–73; RESP 14–18; TEMP 36.6–36.9; O2SAT 90–95
[2019-12-17] MEDS: clonazePAM 1 MG Tablet PO ×2 (05:00→13:41)
[2019-12-17 06:51] LABS: Bedside Glucose 88 mg/dL (70-110)
[2019-12-17 06:59] LABS: Absolute Lymphocyte Count 2.23 X10^3/uL (0.83-4.51); Absolute Neutrophil Count 5.5 X10^3/uL (2.0-7.7); Basophil# 0.06 X10^3/uL; Basophil% 0.7 % (0-1); Eosinophil# 0.14 X10^3/uL; Eosinophils% 1.5 % (0-5); Hematocrit 44.4 % (40-54); Hemoglobin 14.3 g/dL (13.0-16.5); Lymphocyte # 2.23 X10^3/ul (4.0); Lymphocyte % 24.5 % (19-41); Mean Corp Hgb Conc 32.2 g/dL (32-36); Mean Corpuscular Hgb 28.2 pg (27.0-32.0); Mean Corpuscular Volume 87.6 fL (80-94); Mean Platelet Vol. 11.5 fl (6.2-12.0); Monocyte# 1.15 X10^3/uL; Monocyte% 12.6 % (0-10); NRBC Flagged by Analyzer 0 % (0-5); Neutrophil # 5.52 X10^3/uL (2.7-7.7); Neutrophil % 60.5 % (47-70); Platelet Count 180 K/mm3 (150-450); RBC Distribution Width CV 13.2 % (11.6-14.6); RBC Distribution Width SD 42.4 fl (35.1-43.9); Red Blood Count 5.07 M/mm3 (4.6-6.2); White Blood Count 9.1 K/mm3 (4.4-11.0)
[2019-12-17 07:30] LABS: Anion Gap 5 (5-15); BUN 8 mg/dL (7-18); BUN/Creat Ratio 9.8 RATIO (10-20); Calcium,Total 7.8 mg/dL (8.5-10.1); Chloride 109 mmol/L (98-107); Creatinine, Serum 0.81 mg/dL (0.70-1.30); EST Glomerular Filtration Rate 102 mL/min (>60); Est Glom Filt Rate - Afr Amer 123 mL/min (>60); Estimated Creatinine Clearance 93.35 ml/min; Glucose 91 mg/dL (74-106); Potassium 3.8 mmol/L (3.5-5.1); Sodium Level 139 mmol/L (136-145)
[2019-12-17] MEDS: Tamsulosin HCl 0.4 MG Capsule PO (09:12)
[2019-12-17] MEDS: Enoxaparin 40 MG/0.4 ML Syringe SC (09:12)
[2019-12-17] MEDS: FLUoxetine 10 MG Capsule PO (09:12)
[2019-12-17] MEDS: 0.9% Normal Saline 1,000 ML 999 ML IV (11:00)
[2019-12-17 11:56] LABS: Bedside Glucose 111 mg/dL (70-110)
--- NOTE | 2019-12-17 13:49 | DCINST_ITS ---
- Discharge Diagnoses Current Active Problems: Current Active and Chronic Problems (Last Updated 10/12/19 @ 13:09 by Glory Saleem) Syncope and collapse (Acute) You will use the following diet at home:: No restrictions Discharge Activity: Return to Normal Activity Call your doctor if you observe: Shortness of breath, Dizziness, Fainting spells, Chest pain Additional Instructions: HOLD home prazosin and Flomax regimen until repeat orthostatic vitals at PCP follow-up. Allergies/Adverse Reactions: Allergies adhesive tape Adverse Reaction (Verified 12/16/19 10:18) THIN FRAGILE SKIN codeine Adverse Reaction (Verified 12/16/19 10:18) Nausea ibuprofen Adverse Reaction (Verified 12/16/19 10:18) Nausea Medications to take at Discharge Aspirin E.C. [Ecotrin] 81 mg PO QODAY 06/18/17 Tamsulosin HCl [Flomax] 0.4 mg PO DAILY 06/18/17 metoprolol succinate 25 mg tablet,extended release 24 hr 25 mg PO DAILY tab 07/02/17 clonazepam 1 mg tablet 1 mg PO TID 02/19/19 fluoxetine 10 mg capsule 10 mg PO DAILY 10/12/19 Prazosin HCl 1 mg PO QHS 12/16/19 Primary Care Physician: Renee Jackson DO [Primary Care Provider] - Please follow up with your Primary Care Physician in: Early next week- please make appt prior to DC Test Results: Test results from this visit will be discussed in further detail at your follow- up appointment, if applicable. Please Follow Up With: Ramesh Fajardo MD When: 2 Weeks Proposed Discharge Date: 12/17/19
--- NOTE | 2019-12-17 13:53 | DS.PCM_ITS ---
<Elizabeth Balbuena - Last Filed: 12/17/19 14:47> Discharge Date and Diagnosis Date of Admission: 12/16/19 Date of Discharge: 12/17/19 - Primary Discharge Diagnosis Acute Problems: Active Problems (Last Updated 10/12/19 @ 13:09 by Glory Saleem) 1. Syncope secondary to orthostatic hypotension 2. CAD with history of stent 3. Type 2 diabetes mellitus 4. Hypertension 5. Tobacco dependence 6. Hyperlipidemia 7. History of PE with saddle embolus 8. 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) Cellulitis of left anterior lower leg (Chronic) Non-pressure chronic ulcer of right lower leg with fat layer exposed (Chronic) Non-ST elevation (NSTEMI) myocardial infarction (Chronic ~08/2016) Left hip pain (Chronic) History of coronary artery stent placement (Chronic 09/10/16) [id number] LAD 3.5 x 12 Promus Synergy stent Atherosclerosis of coronary artery of [place] heart without angina pectoris (C hronic) [id number] LAD 3.5 x 12 Promus Synergy stent 09/10/2016 Trochanteric bursitis of left hip (Chronic) Saddle embolus (Chronic) Diabetes mellitus type 2 in obese (Chronic) Morbid obesity (Chronic) Hypertension (Chronic) Tobacco abuse (Chronic) Hypercholesterolemia (Chronic) Hospital Course and Treatment Imaging Results: Diagnostic Data Chest X-Ray 12/16/19 10:31 IMPRESSION: No acute pulmonary process, no interval change Electronically Signed: Carlos Nicole MD at 10:59 EDT , Service support , Operations: None Procedures: 2-D Echocardiogram Summary of Care Provided: The patient is a 64 year old M admitted 12/16/2019 due to syncope and collapse. 1. Syncope secondary to orthostatic hypotension-orthostatic vitals improved following IV fluids and holding prazosin/Flomax. Echocardiogram demonstrates an EF of 65%. Troponin negative. Recommend continuing to hold prazosin/Flomax at discharge. Follow-up with PCP early next week for repeat orthostatic vitals. Encouraged fluid intake. 2. CAD with history of stent-continue aspirin, beta-maryjane. 3. Type 2 diabetes mellitus-diet controlled. 4. Hypertension-stable, continue metoprolol regimen. 5. Tobacco dependence- encouraged cessation. 6. Hyperlipidemia- not on statin. 7. History of PE with saddle embolus 8. BPH- flomax on hold. Patient seen and examined prior to discharge. Physical assessment as noted below. Patient is stable for discharge with follow up recommendations as noted above. This patient was seen by ZEINAB Chase under the supervision of Dr. Segura. - Physical Exam Vitals/I&O's: Vital Signs Temp Pulse Resp BP Pulse Ox 97.8 F 61 14 125/77 H 92 12/17/19 13:32 12/17/19 13:35 12/17/19 13:32 12/17/19 13:35 12/17/19 13:32 Oxygen Delivery Method Room Air Weight: 196 lb 6.91 oz Body Mass Index (BMI) 28.5 Finger Stick Blood Glucose 100 Orthostatic Vital Signs Start: 12/17/19 04:55 Freq: q24h Status: Active Protocol: Activity Type Activity Date Activity User E-Sign Co-Sign Detail Recorded Client Recorded Date Recorded By Document 12/17/19 13:35 [facility] [id number] 12/17/19 13:35 [facility] 12/17/19 13:35 Orthostatic Vitals Sitting -Blood Pressure (90/60-120/80) 117/70 -Extremity Use Left Arm -Pulse Rate (60-100) 62 Lying -Blood Pressure (90/60-120/80) 125/77 H -Extremity Use Left Arm -Pulse Rate (60-100) 61 Intake and Output for Last 24 Hours 12/15/19 12/16/19 12/17/19 23:59 23:59 23:59 Intake Total 1480 / 1480 2119 Balance 1480 / 1480 2119 General: Alert, Oriented x3, Cooperative HEENT: Atraumatic, PERRLA, EOMI, Normocephalic Neck: Supple, No JVD, Negative Carotid Bruits Lungs: Clear to auscultation, Normal air movement Cardiovascular: Regular rate, Regular Rhythm, Normal S1, Normal S2, No murmurs Abdomen: Bowel Sounds Present, Soft, Non Tender, Non-Distended Extremities: No clubbing, No cyanosis, No edema, Capillary Refill Less than 3 Seconds Skin: No rashes, No breakdown Musculoskeletal: No Tenderness to Palpation of Joints or Extremities Neurological: Cranial nerves II-XII grossly intact, Neuro grossly intact Psych/Mental Status: Normal Affect, Appropriate Laboratory Results 12/16/19 13:30: Troponin I < 0.015 12/16/19 16:44: Troponin I < 0.015 12/16/19 16:45: POC Glucose 123 H 12/16/19 22:30: POC Glucose 112 H 12/17/19 06:18: WBC 9.1, RBC 5.07, Hgb 14.3, Hct 44.4, MCV 87.6, MCH 28.2, MCHC 32.2, RDW Std Deviation 42.4, RDW Coeff of Maximilian 13.2, Plt Count 180, MPV 11.5, Immature Gran % (Auto) 0.200, Neut % (Auto) 60.5, Lymph % (Auto) 24.5, [place] % (Auto) 12.6 H, Eos % (Auto) 1.5, Baso % (Auto) 0.7, Absolute Neuts (auto) 5.5, Absolute Lymphs (auto) 2.23, Nucleated RBC % 0 12/17/19 06:18: Sodium 139, Potassium 3.8, Chloride 109 H, Carbon Dioxide 25.0, Anion Gap 5, BUN 8, Creatinine 0.81, Estim Creat Clear Calc 93.35, Est GFR (MDRD) Af Amer 123, Est GFR (MDRD) Non-Af 102, BUN/Creatinine Ratio 9.8 L, Glucose 91, Calcium 7.8 L, TSH 1.00 12/17/19 06:47: POC Glucose 88 12/17/19 11:51: POC Glucose 111 H Current Medications Acetaminophen (Tylenol) 650 mg PO Q6H PRN PRN PRN Reason: Pain Score 1-10/Temp > 100.7 F Albuterol Sulfate (Ventolin Aerosols) 2.5 mg INHALATION Q2H PRN PRN PRN Reason: SOB/Wheezing Aspirin (Ecotrin) 81 mg PO QODAY@0800 JAMES Clonazepam (Klonopin) 1 mg PO TID JAMES Last Admin: 12/17/19 13:41 Dose: 1 mg Documented by: Dextrose (D50w Syringe) 0 gm IV X1 PRN; Protocol PRN Reason: Hypoglycemia Enoxaparin Sodium (Lovenox) 40 mg SC DAILY [facility] Last Admin: 12/17/19 09:12 Dose: 40 mg Documented by: Fluoxetine HCl (Prozac) 10 mg PO DAILY [facility] Last Admin: 12/17/19 09:12 Dose: 10 mg Documented by: Glucagon () 1 mg IM .X1 PRN PRN Reason: Hypoglycemia Sodium Chloride () 250 mls @ 15 mls/hr IV .[id number] PRN PRN Reason: Saline Flush Sodium Chloride () 250 mls @ 15 mls/hr IV .[id number] PRN PRN Reason: Additional IVPB Infusion Insulin Human Lispro (Humalog Kwikpen (Bkc)) 0 unit SC ACHS [facility]; Protocol Last Admin: 12/17/19 12:08 Dose: Not Given Documented by: Metoprolol Succinate (Toprol Xl (Beta Maryjane)) 25 mg PO DAILY [facility] Last Admin: 12/17/19 09:11 Dose: Not Given Documented by: Nitroglycerin (Nitrostat) 0.4 mg SUBLINGUAL Q5M PRN PRN Reason: CARDIAC/CHEST PAIN Prochlorperazine Edisylate (Compazine Iv) 5 mg IV Q4H PRN PRN PRN Reason: Breakthrough Nausea/Vomiting Psyllium Hydrophilic Mucilloid (Metamucil) 1 packet PO DAILY PRN PRN PRN Reason: Constipation Senna/Docusate Sodium (Senokot-S, Martha-Colace) 2 tablet PO BID [facility] Last Admin: 12/17/19 09:11 Dose: Not Given Documented by: Sodium Chloride () 10 - 40 ml IV UD PRN PRN Reason: SALINE FLUSH Tamsulosin HCl (Flomax) 0.4 mg PO DAILY@0830 [facility] Last Admin: 12/17/19 09:12 Dose: 0.4 mg Documented by: Discharge Diet: No Restrictions Discharge Activity: Return to Normal Activity Call your doctor if you observe: Shortness of breath, Dizziness, Fainting spells, Chest pain Home Medications: Medications to take at Discharge Aspirin E.C. [Ecotrin] 81 mg PO QODAY 06/18/17 Tamsulosin HCl [Flomax] 0.4 mg PO DAILY 06/18/17 metoprolol succinate 25 mg tablet,extended release 24 hr 25 mg PO DAILY tab 07/02/17 clonazepam 1 mg tablet 1 mg PO TID 02/19/19 fluoxetine 10 mg capsule 10 mg PO DAILY 10/12/19 Prazosin HCl 1 mg PO QHS 12/16/19 Primary Care Physician: Renee Jackson DO [Primary Care Provider] - Please follow up with your Primary Care Physician in: Early next week- please make appt prior to DC Please Follow Up With: Ramesh Fajardo MD When: 2 Weeks Disposition: Home Minutes spent on discharge:: 35 Patient Condition:: Stable Medical Necessity - Tobacco Use Smoking Status: Current every day smoker - Since teenage Meaningful Use Info Meaningful Use Diagnoses (Choose all that apply): None applicable <Omid Segura - Last Filed: 12/17/19 16:02> Discharge Date and Diagnosis - Secondary Discharge Diagnosis Chronic Problems: Chronic Problems (Last Updated 10/12/19 @ 13:09 by Glory Saleem) Diabetes mellitus (Chronic) Smoker (Chronic) Diabetes mellitus with ulcer of lower extremity (Chronic) Fall on and from ladder, sequela (Chronic) 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) Cellulitis of left anterior lower leg (Chronic) Non-pressure chronic ulcer of right lower leg with fat layer exposed (Chronic) Non-ST elevation (NSTEMI) myocardial infarction (Chronic ~08/2016) Left hip pain (Chronic) History of coronary artery stent placement (Chronic 09/10/16) [id number] LAD 3.5 x 12 Promus Synergy stent Atherosclerosis of coronary artery of [place] heart without angina pectoris (Chronic) [id number] LAD 3.5 x 12 Promus Synergy stent 09/10/2016 Trochanteric bursitis of left hip (Chronic) Saddle embolus (Chronic) Diabetes mellitus type 2 in obese (Chronic) Morbid obesity (Chronic) Hypertension (Chronic) Tobacco abuse (Chronic) Hypercholesterolemia (Chronic) Hospital Course and Treatment Summary of Care Provided: This patient was seen in conjunction with [employer]izabeth. I have independently interviewed and examined the patient and reviewed pertinent history, examination findings, laboratory and plan of management. I have reviewed the note and agree with the documented findings with the few additional points. In brief, patient is admitted for syncope secondary to orthostatic hypotension mostly from hypovolemia after colon prep compounded by prazosin and Flomax and other medications. Patient was admitted in PCU. Patient is volume assisted with normal saline. Near syncope symptoms resolved. EKG shows sinus bradycardia at 58 beats per hour. Orthostatic vitals were positive. Serial troponins negative. Chest x-ray no acute cardiopulmonary process. 2D echo was done shows EF 65%. Patient is advised to hold Prazosin was seen for 7 days. Mild hypokalemia corrected. Magnesium level normal. Patient has other comorbidities as mentioned above including coronary artery disease with stent, diabetes mellitus type 2 with well-controlled glucose. Last A1c 5.8 on 03/04/2019. Diet controlled Discharge medication reconciliation done. Discharge follow-up instructions completed. Discharge process discussed with the patient and all questions were answered to patient's satisfaction. Total time spent, exact 35 minutes on discharge meds reconciliation, examination, coordination of care with nurses and ancillary staff, review of imaging and blood test and discussion with the patient on follow-up instructions I have discussed my assessment with [employer]lizabeth and orders have been reviewed. [] Objective: Seen and examined. Patient did not had symptoms of near syncope or syncope including dizziness, diaphoresis, palpitation even when walking. Orthostatics done in the morning showed not much change between supine and sitting position but blood pressure dropped from 110/68 supine to 88/63 on standing. Heart rate did not show significant difference. 1 L normal saline bolus was given. - Physical Exam Vitals/I&O's: Vital Signs Temp Pulse Resp BP Pulse Ox 97.8 F 61 14 125/77 H 92 12/17/19 13:32 12/17/19 13:35 12/17/19 13:32 12/17/19 13:35 12/17/19 13:32 Oxygen Delivery Method Room Air Weight: 196 lb 6.91 oz Body Mass Index (BMI) 28.5 Finger Stick Blood Glucose 100 Orthostatic Vital Signs Start: 12/17/19 04:55 Freq: q24h Status: Active Protocol: Activity Type Activity Date Activity User E-Sign Co-Sign Detail Recorded Client Recorded Date Recorded By Document 12/17/19 13:35 [facility] [id number] 12/17/19 13:35 BAM 12/17/19 13:35 Orthostatic Vitals Sitting -Blood Pressure (90/60-120/80) 117/70 -Extremity Use Left Arm -Pulse Rate (60-100) 62 Lying -Blood Pressure (90/60-120/80) 125/77 H -Extremity Use Left Arm -Pulse Rate (60-100) 61 Intake and Output for Last 24 Hours 12/15/19 12/16/19 12/17/19 23:59 23:59 23:59 Intake Total 1480 / 1480 2119 Balance 1480 / 1480 2119 General: Alert, Oriented x3, Cooperative HEENT: Atraumatic, PERRLA, EOMI, Normocephalic Neck: Supple, No JVD, Negative Carotid Bruits Lungs: Clear to auscultation, Normal air movement Cardiovascular: Regular rate, Regular Rhythm, Normal S1, Normal S2, No murmurs Abdomen: Bowel Sounds Present, Soft, Non Tender Extremities: No edema, Capillary Refill Less than 3 Seconds Skin: Ulcer/ Wound - Scabbed wound on left leg. Musculoskeletal: No Tenderness to Palpation of Joints or Extremities Neurological: Cranial nerves II-XII grossly intact, Deep Tendon Reflexes 2+/4 and Symmetrical, Neuro grossly intact Psych/Mental Status: Normal Affect, Appropriate Laboratory Results 12/16/19 16:44: Troponin I < 0.015 12/16/19 16:45: POC Glucose 123 H 12/16/19 22:30: POC Glucose 112 H 12/17/19 06:18: WBC 9.1, RBC 5.07, Hgb 14.3, Hct 44.4, MCV 87.6, MCH 28.2, MCHC 32.2, RDW Std Deviation 42.4, RDW Coeff of Maximilian 13.2, Plt Count 180, MPV 11.5, Immature Gran % (Auto) 0.200, Neut % (Auto) 60.5, Lymph % (Auto) 24.5, [place] % (Auto) 12.6 H, Eos % (Auto) 1.5, Baso % (Auto) 0.7, Absolute Neuts (auto) 5.5, Absolute Lymphs (auto) 2.23, Nucleated RBC % 0 12/17/19 06:18: Sodium 139, Potassium 3.8, Chloride 109 H, Carbon Dioxide 25.0, Anion Gap 5, BUN 8, Creatinine 0.81, Estim Creat Clear Calc 93.35, Est GFR (MDRD) Af Amer 123, Est GFR (MDRD) Non-Af 102, BUN/Creatinine Ratio 9.8 L, Glucose 91, Calcium 7.8 L, TSH 1.00 12/17/19 06:47: POC Glucose 88 12/17/19 11:51: POC Glucose 111 H OBSV E&M: [id number] Observation care discharge
== END 2019-12-17 13:50 | disposition home or self-care (01) ==
LOC: ED 10:35 → PCU 11:57
PROVIDERS: Admitting Provider Internal Medicine; Emergency Provider Emergency Medicine; PCP Family Medicine; Visit Provider Internal Medicine
DX: I95.1 Orthostatic hypotension (principal); I25.10 Atherosclerotic heart disease of native coronary artery without angina pectoris; E11.9 Type 2 diabetes mellitus without complications; I10 Essential (primary) hypertension; E78.5 Hyperlipidemia, unspecified; N40.0 Benign prostatic hyperplasia without lower urinary tract symptoms; F41.9 Anxiety disorder, unspecified; M19.90 Unspecified osteoarthritis, unspecified site; R00.1 Bradycardia, unspecified; I25.2 Old myocardial infarction; E87.6 Hypokalemia; Z86.711 Personal history of pulmonary embolism; Z79.899 Other long term (current) drug therapy; Z79.82 Long term (current) use of aspirin; Z86.718 Personal history of other venous thrombosis and embolism; Z95.5 Presence of coronary angioplasty implant and graft; F17.210 Nicotine dependence, cigarettes, uncomplicated
CPT/HCPCS: 36415; 71045; 80048; 82962; 83735; 84443; 84484; 85025; 93005; 93306; 96360; 96361; 96372; 99218; 99251; 99285; 99406; J7030; Q9957; A4216; C8929; G0378; G0463

== ENCOUNTER 2020-01-29 08:44 | Emergency (ER) | payer MEDICARE, SELFPAY ==
[2016-08-31 15:27] VITALS: BMI 33.3
[2019-12-16 12:24] VITALS: BMI 28.5
[2020-01-29 08:45] VITALS: BP 129/76; PULSE 60; RESP 20; TEMP 36.7; O2SAT 96; BMI 29.5
--- NOTE | 2020-01-29 09:09 | CT_ITS ---
STUDY: CT BRAIN WITHOUT CONTRAST REASON FOR EXAM: Male, 64 years old. PT STATED FALL X3 HYPOTENSION RADIATION DOSAGE (If Supplied By Facility): CTDIvol = ( 44.99 ) mGy, DLP = ( 829.85 ) mGycm TECHNIQUE: Transaxial CT imaging of the brain was performed without administration of intravenous contrast material. Coronal and sagittal reconstructions were performed. Individualized dose optimization techniques were used for this CT. COMPARISON: CT head without contrast 01/25/2019. FINDINGS: Normal soft tissue structures. Normal calvarium. Normal size ventricles and extra-axial spaces for the patient''s age. Normal white matter tracts of the cerebral hemispheres. Normal basal ganglia and thalami. Normal brainstem. Normal cerebellum. There is no intracranial hemorrhage. There are no findings of an acute ischemic infarction. Normal visualized paranasal sinuses. CT/Brain/Head without Contrast IMPRESSION: Normal unenhanced CT scan of the brain and unchanged when compared to 01/25/2019. Electronically Signed: Duncan Agrawal MD at 10:05 EDT , Service support ,
--- NOTE | 2020-01-29 09:12 | RAD_ITS ---
STUDY: X-RAY - RIGHT HAND REASON FOR EXAM: Male, 64 years old. Pain in right hand. Patient has fallen 3 times in the last 2 days. Pat doesn''t remember falling this morning. TECHNIQUE: 3 view(s) of the hand. COMPARISON: None. FINDINGS: Normal radiocarpal articulation. Normal distal radioulnar joint. Normal visualized carpal bones. Normal carpal articulations Normal carpometacarpal articulation of the thumb. Normal second through fifth carpometacarpal joints. Normal metacarpi. Normal metacarpophalangeal joint of the thumb. Normal interphalangeal joint of the thumb. Normal proximal and distal phalanges of the thumb. Normal metacarpophalangeal joints of the second through fifth fingers. Normal proximal and distal interphalangeal joints of the second through fifth fingers. Normal phalanges of the second through fifth fingers. The soft tissue structures are unremarkable. RAD/Hand Min 3 Views IMPRESSION: No acute fracture or dislocation of the right hand. Electronically Signed: Duncan Agrawal MD at 10:26 EDT , Service support ,
--- NOTE | 2020-01-29 09:13 | RAD_ITS ---
STUDY: X-RAY - RIGHT SHOULDER REASON FOR EXAM: Male, 64 years old. Pain in right shoulder. Pat has fallen 3 times in the last 2 days. Pat doesn''t remember falling this morning. TECHNIQUE: 3 view(s) of the shoulder. COMPARISON: None. FINDINGS: Normal glenohumeral articulation. Normal acromioclavicular joint. Normal acromion. Normal humeral head and visualized proximal humerus. The soft tissue structures are unremarkable. Normal visualized pulmonary apex. RAD/Shoulder min 2 Views IMPRESSION: No acute fracture or dislocation of the right shoulder. Electronically Signed: Duncan Agrawal MD at 10:29 EDT , Service support ,
[2020-01-29 09:16] LABS: Absolute Lymphocyte Count 1.65 X10^3/uL (0.83-4.51); Absolute Neutrophil Count 7.1 X10^3/uL (2.0-7.7); Basophil# 0.06 X10^3/uL; Basophil% 0.6 % (0-1); Eosinophil# 0.06 X10^3/uL; Eosinophils% 0.6 % (0-5); Hematocrit 46.3 % (40-54); Hemoglobin 15.1 g/dL (13.0-16.5); Lymphocyte # 1.65 X10^3/ul (4.0); Lymphocyte % 16.7 % (19-41); Mean Corp Hgb Conc 32.6 g/dL (32-36); Mean Corpuscular Hgb 28.4 pg (27.0-32.0); Mean Corpuscular Volume 87.2 fL (80-94); Mean Platelet Vol. 10.8 fl (6.2-12.0); Monocyte# 0.96 X10^3/uL; Monocyte% 9.7 % (0-10); NRBC Flagged by Analyzer 0 % (0-5); Neutrophil # 7.13 X10^3/uL (2.7-7.7); Neutrophil % 72.1 % (47-70); Platelet Count 236 K/mm3 (150-450); RBC Distribution Width CV 12.7 % (11.6-14.6); RBC Distribution Width SD 40.2 fl (35.1-43.9); Red Blood Count 5.31 M/mm3 (4.6-6.2); White Blood Count 9.9 K/mm3 (4.4-11.0)
--- NOTE | 2020-01-29 09:21 | ED.VIS.GEN ---
History of Present Illness Chief Complaint: Fall Informant: Patient, Significant Other Onset: Today Narrative: 64-year-old male with past medical history of hypertension and coronary artery disease presents with concern for syncope. Patient presents with his who states that she heard him fall approximately 4 hours ago. States that she found him on the ground. States that he was responsive. States that his blood pressure was 70 systolic. States that over the course of laying him flat and raising his legs they are able to increase his blood pressure to approximately 120 over the course of the next 2 hours. Patient then walked outside and sat down to get some fresh air and had another episode of syncope and his blood pressure was low again. Patient has had this issue multiple times before in the past and 3 days ago was seen by his primary care physician who advised cutting his metoprolol in half. That he was following this advice and actually did not even take his medication yesterday. States that he likely did strike his head against the house but has no headache or vision change. States that his mood significant pain is in his right hand as well as the shoulder. He denies any chest pain, shortness of breath, nausea, vomiting, diaphoresis. She is only on aspirin and no other anticoagulation. Past Medical History - Allergies and Home Meds Allergies/Adverse Reactions: Allergies adhesive tape Adverse Reaction (Verified 01/29/20 08:51) THIN FRAGILE SKIN codeine Adverse Reaction (Verified 01/29/20 08:51) Nausea ibuprofen Adverse Reaction (Verified 01/29/20 08:51) Nausea Primary Care Physician: Renee Jackson DO [Primary Care Provider] - Past Medical History: - - HTN, CAD, HLD Surgical History: noncontributory, total knee arthroplasty - TKA on the left with a partial knee replacement on the R. Lives: Spouse/ Significant Other Smoking Status: Current every day smoker Alcohol: None Drugs: None - Family History Maternal Family History: Family History (Last Reviewed 02/19/19 @ 15:04 by Charlee Haley) Mother CHF (congestive heart failure) Family History: Reports: No pertinent history, - Review of Systems General: Denies: Chills, Fever, Sweats Eyes: Denies: Visual changes - bilaterally, Diplopia ENT: Denies: Rhinorrhea, Sore throat Cardiovascular: Denies: Chest pain, Palpitations Respiratory: Denies: Dyspnea, Cough, Dyspnea on exertion Gastrointestinal: Denies: Abdominal pain, Nausea, Vomiting, Diarrhea, Melena, Hematochezia Genitourinary: Denies: Dysuria, Hematuria, Frequency Musculoskeletal: Reports: Arthralgias. Denies: Back pain, Extremity Pain Skin: Denies: Rash, Wounds Neurological: Denies: Headache, Weakness, Numbness Physical Exam Vital Signs/Narrative: Vital Signs Temp Pulse Resp BP Pulse Ox 01/29/20 08:45 98.0 F 60 20 H 129/76 H 96 Inital Vital Signs reviewed: Yes General: Well nourished, Well developed, No Acute Distress Head: Normocephalic, Atraumatic Eyes: Perrl, EOMI ENT: Moist mucous membranes, No rhinorrhea Neck: Supple, Nontender Cardiovascular: Regular rate, Regular rhythm, No murmurs Respiratory: No distress, CTA bilaterally, Chest nontender Abdomen: Soft, Nontender, Nondistended, Normal bowel sounds Back: Nontender, Normal Inspection Extremities: No edema, - - TTP of the right hand and shoulder. Strong and palpable pulses. No change in sensation. Skin: Normal color, No rash, - - Skin tear to the right hand. Neurological: Alert, Oriented x3, Cranial nerves II-XII grossly intact, Normal Strength, Normal Sensation Psychological: Normal affect, Normal Mood Diagnostic/Tx/Re-eval Clinical Impression(s) from Imaging Studies Brain CT 01/29/20 09:09 IMPRESSION: Normal unenhanced CT scan of the brain and unchanged when compared to 01/25/2019. Electronically Signed: Duncan Agrawal MD at 10:05 EDT , Service support , Hand X-Ray 01/29/20 09:12 IMPRESSION: No acute fracture or dislocation of the right hand. Electronically Signed: Duncan Agrwaal MD at 10:26 EDT , Service support , Shoulder X-Ray 01/29/20 09:13 IMPRESSION: No acute fracture or dislocation of the right shoulder. Electronically Signed: Duncan Agrawal MD at 10:29 EDT , Service support , Chest X-Ray 01/29/20 09:55 IMPRESSION: Normal x-ray examination of the chest and unchanged when compared to 12/16/2019. Electronically Signed: Duncan Agrawal MD at 10:27 EDT , Service support , Laboratory Data 01/29/20 01/29/20 08:51 08:51 WBC 9.9 RBC 5.31 Hgb 15.1 Hct 46.3 MCV 87.2 MCH 28.4 MCHC 32.6 RDW Std Deviation 40.2 RDW Coeff of Maximilian 12.7 Plt Count 236 MPV 10.8 Immature Gran % (Auto) 0.300 Neut % (Auto) 72.1 H Lymph % (Auto) 16.7 L [place] % (Auto) 9.7 Eos % (Auto) 0.6 Baso % (Auto) 0.6 Absolute Neuts (auto) 7.1 Absolute Lymphs (auto) 1.65 Nucleated RBC % 0 Sodium 139 Potassium 3.3 L Chloride 109 H Carbon Dioxide 26.0 Anion Gap 4 L BUN 9 Creatinine 0.86 Estim Creat Clear Calc 85.06 Est GFR (MDRD) Af Amer 115 Est GFR (MDRD) Non-Af 95 BUN/Creatinine Ratio 10.4 Glucose 99 Calcium 8.0 L Total Bilirubin 1.10 H AST 13 L ALT 12 L Alkaline Phosphatase 92 Troponin I < 0.015 Total Protein 6.4 Albumin 2.8 L Globulin 3.6 Albumin/Globulin Ratio 0.8 L - Rhythm Strip Rhythm Strip: Sinus Bradycardia Rate: 59 Ectopy: None - EKG Initial EKG Interpretation: Sinus Bradycardia - Sinus bradycardia of [address] changes. CO and QTC within normal limits. - Medical Decision Making Patient appears well nontoxic. No evidence of head trauma. Patient has skin tear to the right hand as well as pain in the right shoulder. Imaging negative of the brain as well as right shoulder and right hand. Patient states he is up-to-date on tetanus. The wound was cleaned and dressed. Patient cannot stand up for orthostatics given the fact that he is too dizzy. He was given a total of 1.5 L of normal saline. Patient had a hypokalemia replaced p.o. Patient was advised that he likely needs to be admitted given his continued dizziness upon standing. I feel this is likely secondary to his metoprolol which needs to be discontinued or titrated more aggressively. Patient at this time does not want to be admitted and wants to leave AGAINST MEDICAL ADVICE. Discussion was had that he would be at risk for loss of life, limb, permanent disability. Patient states that he has a Rollator at home and will use this and ensures me that he will stay on the couch. I did advise him stopping his beta-caren for this time being and monitor his blood pressure as well as his heart rate. Patient states that he would return if he had any worsening symptoms. Patient stable at time of leaving AGAINST MEDICAL ADVICE. ED Disposition - Plan for ED Patient: Disposition: Against Medical Advice Diagnosis: Syncope, Orthostatic hypotension, Closed head injury, Skin tear, Shoulder contusion, Hand contusion Instructions: ED Low Blood Pressure All Causes, ED Fainting Uncertain Cause Referrals: Renee Jackson DO [Primary Care Provider] -
[2020-01-29] MEDS: 0.9% Normal Saline 1,000 ML 999 ML IV (09:30)
[2020-01-29 09:31] LABS: ALB/GLOB Ratio 0.8 RATIO (0.9-2.4); AST(SGOT) 13 U/L (15-37); Alanine Aminotransfer ALT/SGPT 12 U/L (16-61); Albumin, Serum 2.8 g/dL (3.2-5.0); Alkaline Phosphatase 92 U/L (45-117); Anion Gap 4 (5-15); BUN 9 mg/dL (7-18); BUN/Creat Ratio 10.4 RATIO (10-20); Chloride 109 mmol/L (98-107); Creatinine, Serum 0.86 mg/dL (0.70-1.30); EST Glomerular Filtration Rate 95 mL/min (>60); Est Glom Filt Rate - Afr Amer 115 mL/min (>60); Estimated Creatinine Clearance 85.06 ml/min; Globulin 3.6 g/dL (2.2-4.2); Glucose 99 mg/dL (74-106); Potassium 3.3 mmol/L (3.5-5.1); Protein, Total 6.4 g/dL (6.4-8.2); Sodium Level 139 mmol/L (136-145)
--- NOTE | 2020-01-29 09:55 | RAD_ITS ---
STUDY: X-RAY CHEST REASON FOR EXAM: Male, 64 years old. Pat has fallen 3 times in the last 2 days. Patient doesn''t remember falling this morning TECHNIQUE: AP upright portable view. COMPARISON: 12/16/2019. FINDINGS: The lungs are clear and expanded. There is no demonstrated pleural abnormality. Normal size heart. Normal mediastinum and mario. Normal visualized pulmonary arteries. Normal visualized aortic arch and descending thoracic aorta. Normal visualized thoracic spine. Normal visualized ribs, clavicles, and shoulders. There is no demonstrated abnormality of the visualized soft tissue structures of the upper abdomen. RAD/Chest 1 View (Portable) IMPRESSION: Normal x-ray examination of the chest and unchanged when compared to 12/16/2019. Electronically Signed: Duncan Agrawal MD at 10:27 EDT , Service support ,
[2020-01-29 10:27] VITALS: BP 136/80; BP 147/88; PULSE 57; PULSE 59
--- NOTE | 2020-01-29 10:27 | ED.RN ---
pt states that he is unable to stand, he becomes dizzy.
--- NOTE | 2020-01-29 10:28 | ED.RN ---
pt states that he is unable to provide an urine sample, provider aware. no new orders given.
[2020-01-29 11:24] VITALS: BP 141/75; PULSE 62; RESP 17
[2020-01-29 11:25] VITALS: BP 141/75; PULSE 62; RESP 17
== END 2020-01-29 11:32 | disposition left against medical advice (07) ==
PROVIDERS: Emergency Provider Emergency Medicine; PCP Family Medicine
DX: I95.1 Orthostatic hypotension (principal); S09.90XA Unspecified injury of head, initial encounter; S40.011A Contusion of right shoulder, initial encounter; S61.411A Laceration without foreign body of right hand, initial encounter; E87.6 Hypokalemia; E78.5 Hyperlipidemia, unspecified; I25.10 Atherosclerotic heart disease of native coronary artery without angina pectoris; I10 Essential (primary) hypertension; F17.200 Nicotine dependence, unspecified, uncomplicated; W18.30XA Fall on same level, unspecified, initial encounter; Y93.01 Activity, walking, marching and hiking; Y92.008 Other place in unspecified non-institutional (private) residence as the place of occurrence of the external cause; Y99.8 Other external cause status
CPT/HCPCS: 70450; 71045; 73030; 73130; 80053; 84484; 85025; 93005; 96360; 96361; 99285; J7040; A4216

== ENCOUNTER 2020-02-25 15:51 | Outpatient (RCR) | payer MEDICARE, SELFPAY ==
[2016-08-31 15:27] VITALS: BMI 33.3
--- NOTE | 2020-02-25 17:03 | HP.PTEVAL_ITS ---
Patient's Visit Information RADHA BENJAMIN is a 64 year old M referred to Physical Therapy by Dr. Renee Jackson DO with a diagnosis of Debility. Date of Evaluation: 02/25/20 Physical Therapist: Sergio Sullivan PT, ATC - Visit Plan Plan: Pt would be a good candidate for a motorized scooter secondary to his lack of balance and Hx of falls. Pt also has B UE and LE pain and weakness which limits his ability to live a good quality of life out in the community. Discharge - Subjective Pt reports he has had significant difficulty with regulating his BP over the past few months. Pt reports he is 100% disabled through medicare and 60% through [facility]. Pt reports anytime he attempts to go shopping with his , he ambulates for a short distance with his rollator until he has to sit down secondary to dizzyness and fatigue. Pt reports he has had many orthopedic and dermal surgeries over the past several years. Pt reports his goal is to be able to have a better quality of life by getting a motorized scooter and being able to enjoy community mobility. Pt reports he is very unhappy that he has to sit for so much of his life due to the lack of tolerance for mobility. Pt reports his L LE has tingling a lot of time. No other LE tingling or numbness. Pt has fallen 4 times over the last month secondary to L LE giving out on him due to weakness. Pt has also fallen lately secondary to his BP irregularities that he is being treated for. - Pain overall body pain Pain Intensity (Out of 10): 6 Pain Intensity Range: 10 - Objective Neuro: L LE is hypersensitive to light touch. R LE sensation is WNL to light touch. Reflexes not tested secondary to pain in all LE joints. MMT: B UE's are rated at 3/5 and is painful with all testing. R LE is grossly 4+/5 while L LE is grossly 3/5 with all testing. ROM: B LE's are WFL at this time. Pt is unable to lift and maintain shoulder elevation greater than 90 degrees. Trunk control: Pt is able to sit upright throughout the entire evaluation, mostly without back support. Gait: - Rehabilitation Potential Physical Therapy Diagnosis: Pt has UE and LE weakness, poor balance, and a history of falls secondary to debilitation Rehabilitation Potential: Fair - Anticipated Interventions Thank you for the opportunity to evaluate your patient. For Medicare and Medicare HMO plans, please review the plan of care and approve it. It will need to be FAXED BACK to us at [phone] for Medicare purposes. For Medicare only, by signing this I certify the plan of care. Please let me know if there are questions or concerns regarding this plan of care. Physician Signature: Date:
--- NOTE | 2020-02-25 17:14 | HP.PTEVAL ---
Patient's Visit Information RADHA BENJAMIN is a 64 year old M referred to Physical Therapy by Dr. Renee Jackson DO with a diagnosis of Debility. Date of Evaluation: 02/25/20 Physical Therapist: Sergio Sullivan PT, ATC - Visit Plan Plan: Pt would be a good candidate for a motorized scooter secondary to his lack of balance and Hx of falls. Pt also has B UE and LE pain and weakness which limits his ability to live a good quality of life out in the community. Discharge - Subjective Pt reports he has had significant difficulty with regulating his BP over the past few months. Pt reports he is 100% disabled through medicare and 60% through [facility]. Pt reports anytime he attempts to go shopping with his , he ambulates for a short distance with his rollator until he has to sit down secondary to dizzyness and fatigue. Pt reports he has had many orthopedic and dermal surgeries over the past several years. Pt reports his goal is to be able to have a better quality of life by getting a motorized scooter and being able to enjoy community mobility. Pt reports he is very unhappy that he has to sit for so much of his life due to the lack of tolerance for mobility. Pt reports his L LE has tingling a lot of time. No other LE tingling or numbness. Pt has fallen 4 times over the last month secondary to L LE giving out on him due to weakness. Pt has also fallen lately secondary to his BP irregularities that he is being treated for. - Pain overall body pain Pain Intensity (Out of 10): 6 Pain Intensity Range: 10 - Objective Neuro: L LE is hypersensitive to light touch. R LE sensation is WNL to light touch. Reflexes not tested secondary to pain in all LE joints. MMT: B UE's are rated at 3/5 and is painful with all testing. R LE is grossly 4+/5 while L LE is grossly 3/5 with all testing. ROM: B LE's are WFL at this time. Pt is unable to lift and maintain shoulder elevation greater than 90 degrees. Trunk control: Pt is able to sit upright throughout the entire evaluation, mostly without back support. Gait: Pt ambulates with a slow cadance and use of rollator. Able to ambulate 170 feet until being out of breath and needing to rest - Rehabilitation Potential Physical Therapy Diagnosis: Pt has UE and LE weakness, poor balance, and a history of falls secondary to debilitation Rehabilitation Potential: Fair - Anticipated Interventions Thank you for the opportunity to evaluate your patient. For Medicare and Medicare HMO plans, please review the plan of care and approve it. It will need to be FAXED BACK to us at [phone] for Medicare purposes. For Medicare only, by signing this I certify the plan of care. Please let me know if there are questions or concerns regarding this plan of care. Physician Signature: Date:
== END 2020-02-25 19:00 | disposition home or self-care (01) ==
LOC: PT 15:51
PROVIDERS: PCP Family Medicine; Referring Provider Family Medicine; Visit Provider Family Medicine
DX: R53.81 Other malaise (principal)
CPT/HCPCS: 97161

== ENCOUNTER → 2020-04-28 | Outpatient (CLI) | payer MEDICARE, SELFPAY ==
[2016-08-31 15:27] VITALS: BMI 33.3
--- NOTE | 2020-04-28 13:19 | VDLE_ITS ---
Reason For Study: calf pain RIGHT LEFT GSV is normal. GSV is normal. CFV is compressible, spontaneous, phasic, CFV is compressible, spontaneous, phasic, competent and demonstrates normal competent, and demonstrates normal augmentation. augmentation. FV is compressible, spontaneous, phasic, FV is compressible, spontaneous, phasic, competent and demonstrates normal competent and demonstrates normal augmentation. augmentation. POP V is compressible, spontaneous, phasic, POP V is compressible, spontaneous, phasic, competent and demonstrates normal competent and demonstrates normal augmentation. augmentation. T/P Trunk is compressible. T/P Trunk is compressible. PTV is compressible. PTV is compressible. RT PerV is compressible. LT PerV is compressible. Heterogeneous area in the calf measuring SSV is dilated and noncompressible. No 1.36 x 5.3 cm. Area is nonvascular. extension into the deep veins. Procedure Exam performed in department. The exam was diagnostic. A preliminary report was called and/or faxed to Dr. Jackson. Interpretation Summary Deep veins of the lower extremities are bilaterally patent and compressible segmentally. There is no evidence of deep vein thrombosis on either side. Valvular competence appears intact within the proximal deep venous systems bilaterally. The great saphenous veins appear bilaterally patent and compressible segmentally. The right small saphenous vein is patent and compressible. Acute superficial thrombophlebitis is noted in the left small saphenous vein. A non-vascular, heterogeneous area is noted in the right calf, measuring 1.36 cm x 5.3 cm. This may represent a seroma or hematoma. Clinical correlation is advised. Ordering Physician: Renee Jackson Performed By: Marshal Hamilton RVT
== END | disposition home or self-care (01) ==
LOC: CVS 13:17
PROVIDERS: PCP Family Medicine; Referring Provider Family Medicine; Visit Provider Family Medicine
DX: M79.661 Pain in right lower leg (principal); M79.662 Pain in left lower leg
CPT/HCPCS: 93970

== ENCOUNTER 2020-08-18 16:11 | Emergency (ER) | payer OTHER, MEDICARE, SELFPAY ==
[2016-08-31 15:27] VITALS: BMI 33.3
[2020-08-18 16:12] VITALS: BP 97/67; PULSE 78; PULSE 82; RESP 16; TEMP 36.7; O2SAT 96; O2SAT 97; BMI 30.5
[2020-08-18] MEDS: oxyCODONE 5 MG Tablet PO (16:35)
--- NOTE | 2020-08-18 17:21 | US_ITS ---
STUDY: VENOUS DOPPLER ULTRASOUND - LEFT LOWER EXTREMITY REASON FOR EXAM: Male, 65 years old. LT LEG PAIN TECHNIQUE: Ultrasound evaluation of the deep vein system to include sal-scale imaging and compression was performed. Sal-scale imaging and Doppler sonographic evaluation, including duplex spectral analysis and qualitative color flow sonography, was performed. COMPARISON: None. FINDINGS: Common Femoral Vein: There is a hyperechoic noncompressible focus consistent with a thrombus. Common Femoral Vein/Greater Saphenous Junction: There is a thrombus present. Femoral Proximal: There is a thrombus present Femoral Middle: There is a thrombus. Femoral Distal: There is a thrombus visualized. Popliteal Vein: There is a thrombus. Posterior Tibial Vein: Normal compression. Normal color Doppler. Peroneal Vein: Normal compression. US/Venous Duplex Imag/Limited/Uni IMPRESSION: Thrombosed common femoral, femoral and popliteal veins. Electronically Signed: Liliana Thakur MD at 18:51 EST Tel , Service support ,
--- NOTE | 2020-08-18 18:08 | ED.DCSUM_ITS ---
- ER Visit Summary Date of Service: 08/18/20 Chief Complaint: Left leg pain History of Present Illness: The patient is a [address] Jackson. He reports that he has left leg and thigh pain that began today. Is a sharp pain is 9-10 worsened for 10 currently. Is worsened by standing relieved by laying down. He denies any trauma. No fall, MVA, or change in activity. Reports that he does have a history of DVT. However, this is not similar to that. Patient denies any chest pain or shortness of breath. Physical Examination: Vitals: Stable. Afebrile. General: Well-nourished and well-developed. Head: Normocephalic atraumatic. Neck: Supple, no lymphadenopathy. No JVD. Nontender. Cardiovascular: Regular rate and rhythm. No murmurs. Respiratory: No respiratory distress. Clear to auscultation bilaterally. Abdominal: Soft, nontender, nondistended, normal bowel sounds. No guarding, rebound, or peritoneal signs. Back: Nontender. Extremities: Mild tenderness palpation of the left calf and moderate tense palpation to the medial left thigh, no edema. 1+ dorsalis pedis pulse bilaterally. He has a red discoloration to his left leg and thigh that is diffuse. There is no warmth. He does not appear to be infected. This looks more like venous congestion. Skin: Normal color, no rash. Neurologic: Alert and oriented ?3. Cranial nerves II through XII are intact. Normal strength and sensation. Psych: Normal affect. Test Results: Left lower extremity Doppler shows a DVT that extends from his calf up to the common femoral. Emergency Department Course and Treatment: Patient was treated with oxycodone and Xarelto. Treatment Plan: Patient reports that he is been on both Eliquis and Xarelto in the past. He does not have a preference between these. He will be discharged prescription for 12 Percocet and Xarelto. Instructed to follow-up his primary care physician 1 week for another exam. Return to the emergency department for any worsening symptoms. Disposition: To home in improved and stable condition. Impression: 1. DVT left leg. This note was generated with [employer] software. It may contain incorrect words, spelling, and punctuation that were not noted in review of the chart prior to signing ED Disposition - Plan for ED Patient: Instructions: ED Deep Vein Thrombosis (DVT) Prescriptions: Oxycodone HCl/Acetaminophen [Percocet 5/325] 1 tablet PO Q6H PRN PRN 3 Days #12 tablet PRN Reason: Pain Rivaroxaban [Xarelto] 15 mg PO BID #42 tablet Referrals: Renee Jackson DO [Primary Care Provider] - 1 Week
[2020-08-18] MEDS: Rivaroxaban 15 MG Tablet PO (18:29)
[2020-08-18 18:30] VITALS: BP 108/74; PULSE 62; RESP 15; O2SAT 97
== END 2020-08-18 18:31 | disposition home or self-care (01) ==
LOC: ED 17:11
PROVIDERS: Emergency Provider Emergency Medicine; PCP Family Medicine
DX: I82.462 Acute embolism and thrombosis of left calf muscular vein (principal); I82.412 Acute embolism and thrombosis of left femoral vein; Z86.718 Personal history of other venous thrombosis and embolism; I25.10 Atherosclerotic heart disease of native coronary artery without angina pectoris; F41.9 Anxiety disorder, unspecified; Z72.0 Tobacco use; Z79.02 Long term (current) use of antithrombotics/antiplatelets; Z79.899 Other long term (current) drug therapy
CPT/HCPCS: 93971; 99283

== ENCOUNTER → 2020-10-06 11:54 | Outpatient (CLI) | payer MEDICARE, SELFPAY ==
[2016-08-31 15:27] VITALS: BMI 33.3
[2020-10-06 13:09] LABS: Absolute Neutrophil Count 6.3 X10^3/uL (2.0-7.7); Eosinophil# 0.11 X10^3/uL; Eosinophils% 1.1 % (0-5); Hematocrit 51.8 % (40-54); Hemoglobin 16.3 g/dL (13.0-16.5); Lymphocyte % 26.9 % (19-41); Mean Corp Hgb Conc 31.5 g/dL (32-36); Mean Corpuscular Hgb 27.5 pg (27.0-32.0); Mean Corpuscular Volume 87.5 fL (80-94); Monocyte# 1.02 X10^3/uL; Monocyte% 9.8 % (0-10); NRBC Flagged by Analyzer 0 % (0-5); Neutrophil # 6.32 X10^3/uL (2.7-7.7); Neutrophil % 60.5 % (47-70); Platelet Count 321 K/mm3 (150-450); RBC Distribution Width CV 13.1 % (11.6-14.6); RBC Distribution Width SD 42.1 fl (35.1-43.9); Red Blood Count 5.92 M/mm3 (4.6-6.2); White Blood Count 10.4 K/mm3 (4.4-11.0)
[2020-10-06 13:38] LABS: ALB/GLOB Ratio 0.8 RATIO (0.9-2.4); AST(SGOT) 14 U/L (15-37); Alanine Aminotransfer ALT/SGPT 17 U/L (16-61); Albumin, Serum 3.2 g/dL (3.2-5.0); Alkaline Phosphatase 93 U/L (45-117); Anion Gap 6 (5-15); BUN 17 mg/dL (7-18); BUN/Creat Ratio 12.2 RATIO (10-20); Calcium,Total 8.7 mg/dL (8.5-10.1); Chloride 100 mmol/L (98-107); Creatinine, Serum 1.39 mg/dL (0.70-1.30); EST Glomerular Filtration Rate 55 mL/min (>60); Est Glom Filt Rate - Afr Amer 66 mL/min (>60); Free T3 2.7 pg/mL (2.18-3.98); Glucose 90 mg/dL (74-106); Potassium 3.3 mmol/L (3.5-5.1); Protein, Total 7.2 g/dL (6.4-8.2); Sodium Level 137 mmol/L (136-145); T4 Free Direct 1.28 ng/dL (0.76-1.46)
== END ==
PROVIDERS: PCP Family Medicine; Referring Provider Family Medicine; Visit Provider Family Medicine
DX: N18.31 Chronic kidney disease, stage 3a (principal); R53.83 Other fatigue; Z51.81 Encounter for therapeutic drug level monitoring
CPT/HCPCS: 36415; 80053; 84439; 84443; 84481; 85025

== ENCOUNTER → 2020-10-20 14:16 | Outpatient (CLI) | payer MEDICARE, SELFPAY ==
[2016-08-31 15:27] VITALS: BMI 33.3
[2020-10-20 14:34] LABS: Bacteria 0 SEEN /hpf (None Seen); Mucous, Urine 0 SEEN /hpf (<or=2+); Red Blood Cells-Urine 0 SEEN /hpf (0-5); Squamous Epithelial Cells - UA 0 SEEN /hpf (0-5); White Blood Cells 0 SEEN /hpf (0-5)
[2020-10-20 15:11] LABS: Color, Urine Yellow (Yellow); Glucose, Dipstick Normal (Normal); Ketone-Dipstick Negative (Negative); Leukocyte Esterase-Dipstick Negative /ul (Negative); Nitrite-Dipstick Negative (Negative); Occult Blood-Urine Negative /ul (Negative); Protein-Dipstick Negative (Negative); Specific Gravity, Urine 1.005 (1.002-1.030); Urine Bilirubin Dipstick Negative (Negative); Urine Clarity Clear (Clear); Urine Urobilinogen Normal (Normal)
[2020-10-20 15:29] LABS: Microalbumin,Random Urine < 5.0 mg/L (NO RANGE EST.)
[2020-10-20 15:30] LABS: Anion Gap 5 (5-15); BUN 17 mg/dL (7-18); BUN/Creat Ratio 11.9 RATIO (10-20); Calcium,Total 8.6 mg/dL (8.5-10.1); Chloride 100 mmol/L (98-107); Creatinine, Serum 1.43 mg/dL (0.70-1.30); EST Glomerular Filtration Rate 53 mL/min (>60); Est Glom Filt Rate - Afr Amer 64 mL/min (>60); Glucose 92 mg/dL (74-106); Potassium 3.3 mmol/L (3.5-5.1); Sodium Level 138 mmol/L (136-145)
== END ==
PROVIDERS: PCP Family Medicine; Visit Provider Family Medicine
DX: E11.22 Type 2 diabetes mellitus with diabetic chronic kidney disease (principal); N18.32 Chronic kidney disease, stage 3b
CPT/HCPCS: 36415; 80048; 81001; 82043; 82570

== ENCOUNTER 2020-11-04 22:13 | Emergency (ER) | payer OTHER, MEDICARE, SELFPAY ==
[2016-08-31 15:27] VITALS: BMI 33.3
[2020-11-04 22:14] VITALS: BP 118/75; PULSE 75; RESP 18; TEMP 36.2; O2SAT 98; BMI 28.6
--- NOTE | 2020-11-04 23:00 | RAD_ITS ---
STUDY: X-RAY - RIGHT FOOT CLINICAL: Male, 65 years old. Injury/Pain TECHNIQUE: 3 view(s) of the foot. COMPARISON: None. FINDINGS: There is an enthesophyte involving the posterior superior calcaneus at the site of insertion of the Achilles tendon. Normal visualized subtalar, talonavicular, calcaneocuboid, tarsal and tarsometatarsal articulations. Normal metatarsi. There is mild degenerative arthrosis of the metatarsophalangeal joint of the hallux . Normal tibial and fibular sesamoid bones. There is degenerative arthrosis of the interphalangeal joint of the great toe. Normal phalanges of the great toe. Normal second through fifth metatarsophalangeal joints. Narrowing of the interphalangeal joints otherwise normal phalanges of the lesser toes. The soft tissue structures are unremarkable. There is no demonstrated fracture. RAD/Foot min 3 Views IMPRESSION: Mild degenerative disease as described. No acute fracture or subluxation. Electronically Signed: Sofie Espino MD at 23:30 EDT , Service support ,
--- NOTE | 2020-11-04 23:00 | RAD_ITS ---
STUDY: X-RAY - RIGHT RADIUS AND ULNA REASON FOR EXAM: Male, 65 years old. Injury/Pain TECHNIQUE: 2 view(s) of the forearm. COMPARISON: None. FINDINGS: There is no demonstrated soft tissue swelling. Normal visualized radius. Normal visualized ulna. RAD/Forearm 2 Views IMPRESSION: Unremarkable x-ray examination of the radius and ulna. Electronically Signed: Sofie Espino MD at 23:31 EDT , Service support ,
--- NOTE | 2020-11-04 23:00 | RAD_ITS ---
STUDY: X-RAY - PELVIS AND RIGHT HIP REASON FOR EXAM: Male, 65 years old. Injury/Pain TECHNIQUE: 3 views of the pelvis and hip. COMPARISON: None. FINDINGS: There is a non-specific bowel gas pattern. Normal visualized soft tissue structures. There is narrowing with cortical sclerosis and osteophyte formation of the sacroiliac joint consistent with degenerative osteoarthritic changes. Normal bilateral superior and inferior pubic rami. There are degenerative changes of the pubic symphysis with articular narrowing and sclerosis. Normal bilateral ischial tuberosities. There are mild osteoarthritic changes of the femoral head with marginal osteophyte formation. Normal acetabulum. There is mild articular joint space narrowing of the hip. RAD/HIP, UNI W/ Pelvis 2-3 Views IMPRESSION: Degenerative disease as described. No acute fracture or subluxation. Electronically Signed: Sofie Espino MD at 23:36 EDT , Service support ,
--- NOTE | 2020-11-04 23:00 | RAD_ITS ---
STUDY: X-RAY - RIGHT HUMERUS REASON FOR EXAM: Male, 65 years old. Injury/Pain TECHNIQUE: 2 view(s) of the humerus. COMPARISON: None. FINDINGS: Normal visualized humerus. There is no demonstrated fracture or osseous destructive process. There is mild degenerative disease at the acromial clavicular joint. There is no demonstrated soft tissue abnormality. RAD/Humerus min 2 Views IMPRESSION: Unremarkable x-ray examination of the humerus. Specifically, no acute fracture or subluxation. Electronically Signed: Sofie Espino MD at 23:32 EDT , Service support ,
[2020-11-04] MEDS: traMADol 50 MG Tablet PO (23:29)
--- NOTE | 2020-11-04 23:52 | ED.DCSUM_ITS ---
History of Present Illness Chief Complaint: Fall Informant: Patient, Significant Other Onset: Today Narrative: Patient presents with mechanical fall at around 1 PM today nearly 12 hours ago. He states he has unstable gait due to bad knees and injury to his left lower e xtremity from a fall in the past. There is no fractures or surgeries he has a skin wound however healed secondarily. He has had total bilateral knee replacements. He ambulates with the walker. He states he was at a place of business when he turned causing the fall onto his right side. He was able to drive home and ambulate. Complains of pain in the right foot right hip right wrist and right upper arm. He is on Xarelto for history of DVT and PE. When asked about head injury he was adamant about no injuries to the head. Denies headache neck pain or back pain. Has not taken any medications. Allergy to codeine however is tolerated other opiates. No paresthesias. Prior similar symptoms: Yes Past Medical History - Allergies and Home Meds Allergies/Adverse Reactions: Allergies adhesive tape Adverse Reaction (Verified 11/04/20 22:14) THIN FRAGILE SKIN codeine Adverse Reaction (Verified 11/04/20 22:14) Nausea ibuprofen Adverse Reaction (Verified 11/04/20 22:14) Nausea Primary Care Physician: Renee Jackson DO [Primary Care Provider] - 5-7 Days Past Medical History: - - PE, DVTs, diabetes, hypertension, hyperlipidemia, coronary disease, Surgical History: noncontributory, total knee arthroplasty - TKA on the left with a partial knee replacement on the R. Smoking Status: Current every day smoker - Family History Maternal Family History: Family History (Last Reviewed 02/19/19 @ 15:04 by Charlee Haley) Mother CHF (congestive heart failure) Family History: Reports: No pertinent history, - Review of Systems General: Denies: Chills, Fever, Sweats Eyes: Denies: Visual changes - bilaterally, Diplopia ENT: Denies: Rhinorrhea, Sore throat Cardiovascular: Denies: Chest pain, Palpitations Respiratory: Denies: Dyspnea, Cough, Dyspnea on exertion Gastrointestinal: Denies: Abdominal pain, Nausea, Vomiting, Diarrhea, Melena, Hematochezia Genitourinary: Denies: Dysuria, Hematuria, Frequency Musculoskeletal: Reports: Arthralgias. Denies: Neck pain, Back pain, Extremity Pain Skin: Denies: Rash, Wounds Neurological: Denies: Headache, Weakness, Numbness Physical Exam Vital Signs/Narrative: Vital Signs Temp Pulse Resp BP Pulse Ox 11/04/20 22:14 97.1 F L 75 18 118/75 98 Inital Vital Signs reviewed: Yes General: Well nourished, Well developed, No Acute Distress, - - GCS 15 Head: Normocephalic, Atraumatic Eyes: Perrl, EOMI ENT: Moist mucous membranes, No rhinorrhea, TM's clear Neck: Supple, Nontender Cardiovascular: Regular rate, Regular rhythm, No murmurs Respiratory: No distress, CTA bilaterally, Chest nontender Abdomen: Soft, Nontender, Nondistended, Normal bowel sounds Back: Nontender, Normal Inspection Extremities: - - Right upper extremity: No deformities, passive and active full range of motion. There is mild tenderness distal forearm, no hand tenderness. Left upper extremity: No tenderness or deformities. Right lower extremity: N egative logroll negative shortening or rotation. Skin: No rash, - - Healing different stage areas of ecchymosis bilateral forearms and hands, skin was intact. There was no new bruising. Neurological: Alert, Oriented x3, Cranial nerves II-XII grossly intact, Normal Strength, Normal Sensation Psychological: Normal affect, Normal Mood Diagnostic/Tx/Re-eval Clinical Impression(s) from Imaging Studies Foot X-Ray 11/04/20 23:00 IMPRESSION: Mild degenerative disease as described. No acute fracture or subluxation. Electronically Signed: Sofie Espino MD at 23:30 EDT , Service support , Forearm X-Ray 11/04/20 23:00 IMPRESSION: Unremarkable x-ray examination of the radius and ulna. Electronically Signed: Sofie Espino MD at 23:31 EDT , Service support , Hip/Pelvis X-Ray 11/04/20 23:00 IMPRESSION: Degenerative disease as described. No acute fracture or subluxation. Electronically Signed: Sofie Espino MD at 23:36 EDT , Service support , Humerus X-Ray 11/04/20 23:00 IMPRESSION: Unremarkable x-ray examination of the humerus. Specifically, no acute fracture or subluxation. Electronically Signed: Sofie Espino MD at 23:32 EDT , Service support , - Medical Decision Making Additional exam right lower extremity tender right at the greater trochanteric, negative logroll. No ecchymosis in the region. Due to being on Xarelto will avoid NSAIDs these requests letter dose of medication therefore tramadol was given. 2 view x-ray humerus, 2 view x-ray forearm, 3 view x-ray right hip, 3 view x-ray right foot all reviewed by myself and read by radiology with no acute fracture or dislocation. Patient is able to ambulate with a walker. Short prescription for tramadol to use as needed. GCS 15 denies any head injury or any neurologic complaints, therefore did not feel any head imagings were needed. He will follow-up with his PCP as an outpatient with signs and symptoms to return. ED Disposition - Plan for ED Patient: Disposition: Home or Assisted Living Diagnosis: Right wrist sprain, Contusion of arm, right, Right foot sprain, Contusion of right hip Instructions: ED Contusion, Lower Extremity, ED Contusion, Upper Extremity, ED Wrist Sprain Prescriptions: traMADol [Ultram] 50 mg PO Q6H PRN PRN 3 Days #12 tablet PRN Reason: Pain Transmission Status: Received by [employer] [id number] Referrals: Renee Jackson DO [Primary Care Provider] - 5-7 Days
[2020-11-05 00:20] VITALS: BP 102/74; PULSE 68; RESP 16
== END 2020-11-05 00:22 | disposition home or self-care (01) ==
PROVIDERS: Emergency Provider Emergency Medicine; PCP Family Medicine
DX: S63.501A Unspecified sprain of right wrist, initial encounter (principal); S40.021A Contusion of right upper arm, initial encounter; S93.601A Unspecified sprain of right foot, initial encounter; S70.01XA Contusion of right hip, initial encounter; E78.5 Hyperlipidemia, unspecified; E11.9 Type 2 diabetes mellitus without complications; I10 Essential (primary) hypertension; F17.200 Nicotine dependence, unspecified, uncomplicated; Z86.718 Personal history of other venous thrombosis and embolism; Z86.711 Personal history of pulmonary embolism; Z79.02 Long term (current) use of antithrombotics/antiplatelets; W18.30XA Fall on same level, unspecified, initial encounter; Y93.89 Activity, other specified; Y92.89 Other specified places as the place of occurrence of the external cause; Y99.8 Other external cause status
CPT/HCPCS: 73060; 73090; 73502; 73630; 99283

== ENCOUNTER → 2020-11-29 09:54 | Outpatient (CLI) | payer MEDICARE, SELFPAY ==
[2016-08-31 15:27] VITALS: BMI 33.3
[2020-11-04 22:14] VITALS: BMI 28.6
--- NOTE | 2020-11-29 09:56 | VDLE_ITS ---
Reason For Study: Embolism RIGHT LEFT CFV is compressible, spontaneous, phasic, GSV is normal. competent and demonstrates normal CFV, FV and PopV is partially compressible augmentation. with minimal flow noted. Procedure Acute superficial vein thrombosis is noted in This is a venous duplex using B-mode, color the left SSV. flow and spectral Doppler. T/P Trunk is compressible. Exam performed in department. PTV is compressible. Compared to study done on 08/18/2020. LT PerV is compressible. A preliminary report was called and/or faxed to [facility]. VL/Venous Duplex US, Unilateral Interpretation Summary Chronic deep venous thrombosis left common femoral, femoral, and popliteal vein s Superficial thrombophlebitis left small saphenous vein Normal flow patterns right common femoral vein Findings would appear similar to the reported findings August 18, 2020 Ordering Physician: Renee Jackson Referring Physician: Renee Jackson Performed By: Jenn Craig RVT
== END ==
PROVIDERS: PCP Family Medicine; Referring Provider Family Medicine; Visit Provider Family Medicine
DX: I82.462 Acute embolism and thrombosis of left calf muscular vein (principal)
CPT/HCPCS: 93971

== ENCOUNTER → 2021-02-01 13:49 | Outpatient (CLI) | payer MEDICARE, SELFPAY ==
[2016-08-31 15:27] VITALS: BMI 33.3
--- NOTE | 2021-02-01 13:53 | VDLE_ITS ---
Reason For Study: Lt leg DVT Procedure LEFT This is a venous duplex using B-mode, color GSV is normal. flow and spectral Doppler. CFV, FV and PopV is partially compressible Exam performed in department. with bright intraluminal echoes noted. Compared to 11/29/2020. SSV is partially compressible with bright A preliminary report was called and/or faxed intraluminal echoes noted. to [facility]. T/P Trunk is compressible. PTV is compressible. LT PerV is compressible. VL/Venous Duplex US, Unilateral Interpretation Summary Deep venous thrombosis left common femoral, femoral, and popliteal veins. Brigh t echo suggest a more chronic process. Superficial thrombophlebitis left small saphenous vein. Findings would suggest a more organized chronic process from the previous exami nation of November 29, 2020 Ordering Physician: Renee Jackson Referring Physician: Renee Jackson Performed By: Jenn Craig RVT
[2021-02-01 18:12] LABS: ALB/GLOB Ratio 0.8 RATIO (0.9-2.4); AST(SGOT) 20 U/L (15-37); Alanine Aminotransfer ALT/SGPT 21 U/L (16-61); Albumin, Serum 3.4 g/dL (3.2-5.0); Alkaline Phosphatase 92 U/L (45-117); Anion Gap 4 (5-15); BUN 22 mg/dL (7-18); BUN/Creat Ratio 16.7 RATIO (10-20); Calcium,Total 8.9 mg/dL (8.5-10.1); Chloride 100 mmol/L (98-107); Creatinine, Serum 1.32 mg/dL (0.70-1.30); EST Glomerular Filtration Rate 58 mL/min (>60); Est Glom Filt Rate - Afr Amer 70 mL/min (>60); Globulin 4.1 g/dL (2.2-4.2); Glucose 78 mg/dL (74-106); Potassium 3.1 mmol/L (3.5-5.1); Protein, Total 7.5 g/dL (6.4-8.2); Sodium Level 137 mmol/L (136-145)
== END ==
PROVIDERS: PCP Family Medicine; Referring Provider Family Medicine; Visit Provider Family Medicine
DX: I82.5Z2 Chronic embolism and thrombosis of unspecified deep veins of left distal lower extremity (principal); Z51.81 Encounter for therapeutic drug level monitoring
CPT/HCPCS: 36415; 80053; 93971

== ENCOUNTER → 2021-05-09 09:50 | Outpatient (CLI) | payer MEDICARE, SELFPAY ==
[2016-08-31 15:27] VITALS: BMI 33.3
--- NOTE | 2021-05-09 09:53 | VDLE_ITS ---
Reason For Study: Left leg DVT Procedure LEFT This is a venous duplex using B-mode, color GSV is normal. flow and spectral Doppler. CFV is compressible, spontaneous, phasic, Exam performed in department. competent, and demonstrates normal Compared to 02/01/2021. augmentation. A preliminary report was called and/or faxed FV is partially compressible with bright to [facility]. intraluminal echoes. SSV is compressible. POP V is compressible, spontaneous, phasic, competent and demonstrates normal augmentation. T/P Trunk is compressible. PTV is compressible. LT PerV is compressible. VL/Venous Duplex US, Unilateral Interpretation Summary Chronic deep venous thrombosis left femoral vein Patent and compressible left great saphenous vein Some improvement noted from the previous examination of February 01, 2021 Ordering Physician: Renee Jackson Referring Physician: Renee Jackson Performed By: Jenn Craig RVT
== END ==
PROVIDERS: PCP Family Medicine; Referring Provider Family Medicine; Visit Provider Family Medicine
DX: I82.4Z2 Acute embolism and thrombosis of unspecified deep veins of left distal lower extremity (principal)
CPT/HCPCS: 93971

== ENCOUNTER 2021-11-08 09:54 | Outpatient (CLI) | payer MEDICARE, SELFPAY ==
[2016-08-31 15:27] VITALS: BMI 33.3
--- NOTE | 2021-11-08 09:55 | VDLE_ITS ---
Reason For Study: DVT Left leg follow up Procedure LEFT This is a venous duplex using B-mode, color GSV is normal. flow and spectral Doppler. CFV is compressible, spontaneous, phasic, Exam performed in department. competent, and demonstrates normal Compared to 05/18/21. augmentation. A preliminary report was called and/or faxed FV is partially compressible with bright to Manuel. intraluminal echoes, venous flow noted. POP V is compressible, spontaneous, phasic, competent and demonstrates normal augmentation. T/P Trunk is compressible. PTV is compressible. LT PerV is compressible. VL/Venous Duplex US, Unilateral Interpretation Summary Left femoral vein partially compressible with echogenic material consistent wit h chronic deep venous thrombosis. Patent and compressible left great saphenous vein No apparent change from the previous examination of May 09, 2021 Ordering Physician: Renee Jackson Referring Physician: Renee Jackson Performed By: Jenn Craig RVT
[2021-11-08 11:14] LABS: Microalbumin,Random Urine 9.4 mg/L (NO RANGE EST.); Microalbumin:Creatinine Ratio 3.5 mg/g CRE (<30 mg/g CRE)
[2021-11-08 11:24] LABS: Cholesterol 139 mg/dL (200); High Density Lipoprotein 31 mg/dL; Triglycerides 117 mg/dL; Very Low Density Lipoprotein 23 mg/dL (5-40)
== END 2021-11-08 23:59 | disposition home or self-care (01) ==
PROVIDERS: PCP Family Medicine; Visit Provider Family Medicine
DX: E11.9 Type 2 diabetes mellitus without complications (principal); I82.402 Acute embolism and thrombosis of unspecified deep veins of left lower extremity; I10 Essential (primary) hypertension; M79.662 Pain in left lower leg
CPT/HCPCS: 36415; 80061; 82043; 82570; 93971

== ENCOUNTER → 2022-02-06 | Outpatient (CLI) | payer MEDICARE, SELFPAY ==
[2016-08-31 15:27] VITALS: BMI 33.3
[2022-02-06 14:58] LABS: Absolute Lymphocyte Count 2.52 X10^3/uL (0.83-4.51); Absolute Neutrophil Count 4.7 X10^3/uL (2.0-7.7); Basophil# 0.07 X10^3/uL; Basophil% 0.8 % (0-1); Eosinophil# 0.26 X10^3/uL; Hematocrit 47.5 % (40-54); Hemoglobin 15.5 g/dL (13.0-16.5); Lymphocyte # 2.52 X10^3/ul (0.83-4.51); Lymphocyte % 29.4 % (19-41); Mean Corp Hgb Conc 32.6 g/dL (32-36); Mean Corpuscular Hgb 28.2 pg (27.0-32.0); Mean Corpuscular Volume 86.4 fL (80-94); Monocyte# 0.96 X10^3/uL; Monocyte% 11.2 % (0-10); NRBC Flagged by Analyzer 0 % (0-5); Neutrophil # 4.72 X10^3/uL (2.7-7.7); Neutrophil % 55.2 % (47-70); Platelet Count 245 K/mm3 (150-450); RBC Distribution Width CV 13.6 % (11.6-14.6); RBC Distribution Width SD 43.2 fl (35.1-43.9); White Blood Count 8.6 K/mm3 (4.4-11.0)
[2022-02-06 15:39] LABS: Vitamin B12 329 pg/mL (211-911)
[2022-02-06 15:48] LABS: ALB/GLOB Ratio 0.8 RATIO (0.9-2.4); AST(SGOT) 20 U/L (15-37); Alanine Aminotransfer ALT/SGPT 20 U/L (16-61); Albumin, Serum 2.9 g/dL (3.2-5.0); Alkaline Phosphatase 80 U/L (45-117); Anion Gap 5 (5-15); BUN 13 mg/dL (7-18); BUN/Creat Ratio 12.3 RATIO (10-20); Calcium,Total 8.5 mg/dL (8.5-10.1); Chloride 105 mmol/L (98-107); Creatinine, Serum 1.06 mg/dL (0.70-1.30); EST Glomerular Filtration Rate 74 mL/min (>60); Est Glom Filt Rate - Afr Amer 90 mL/min (>60); Ferritin 68 ng/mL (26-388); Free T3 2.9 pg/mL (2.18-3.98); Globulin 3.8 g/dL (2.2-4.2); Glucose 117 mg/dL (74-106); Iron 62 ug/dL (65-175); Potassium 3.5 mmol/L (3.5-5.1); Protein, Total 6.7 g/dL (6.4-8.2); Sodium Level 138 mmol/L (136-145); T4 Free Direct 1.17 ng/dL (0.76-1.46); Thyroid Stim Hormone (TSH) 1.96 uIU/mL (0.358-3.74)
== END | disposition home or self-care (01) ==
LOC: LAB 14:32
PROVIDERS: PCP Family Medicine; Referring Provider Family Medicine; Visit Provider Family Medicine
DX: E03.9 Hypothyroidism, unspecified (principal); R53.83 Other fatigue; E55.9 Vitamin D deficiency, unspecified; E53.8 Deficiency of other specified B group vitamins; Z51.81 Encounter for therapeutic drug level monitoring
CPT/HCPCS: 36415; 80053; 82607; 82728; 83540; 84439; 84443; 84481; 85025

== ENCOUNTER 2022-03-31 12:21 | Emergency (ER) | payer MEDICARE, SELFPAY ==
[2016-08-31 15:27] VITALS: BMI 33.3
[2022-03-31 12:24] VITALS: BP 104/79; PULSE 87; RESP 16; TEMP 36.4; O2SAT 97; BMI 30.1
--- NOTE | 2022-03-31 12:43 | CT_ITS ---
STUDY: CT BRAIN WITHOUT CONTRAST REASON FOR EXAM: Male, 66 years old. Head injury. RADIATION DOSAGE (If Supplied By Facility): CTDIvol = ( 44.99 ) mGy, DLP = ( 863.60 ) mGycm TECHNIQUE: Transaxial CT imaging of the brain was performed without administration of intravenous contrast material. Individualized dose optimization techniques were used for this CT. COMPARISON: 01/29/2020. FINDINGS: Normal soft tissue structures. Normal calvarium. There is mild cerebral atrophy with widening of the extra-axial spaces and ventricular dilatation. Normal white matter tracts of the cerebral hemispheres. Normal basal ganglia and thalami. Normal brainstem. Normal cerebellum. There is no intracranial hemorrhage. There are no findings of an acute ischemic infarction. Normal visualized paranasal sinuses. CT/Brain/Head without Contrast IMPRESSION: No acute intracranial process. Electronically Signed: Wil Stevenson MD at 13:11 EDT ,
--- NOTE | 2022-03-31 12:43 | EX.ED.GENINJ ---
HPI History of Present Illness Chief Complaint: Fall Informant: patient and spouse/S.O. Narrative Narrative: 66-year-old male who is on Xarelto had a syncopal episode 2 nights ago. He states that he took his medications around midnight which make him very drowsy. Around 3:00 he started having multiple episodes of diarrhea. 1 time he went to stand up and fainted. He has a history of recurrent syncope and has had extensive cardiac testing. He notes no headache nausea or vomiting. He was speaking with his [facility] commercial representative and mentioned what happened and they advised him that since he is on anticoagulation he should be evaluated in emergency. [facility] Medical History Alcoholism Anxiety and depression Arthritis Atherosclerosis of coronary artery of [place] heart without angina pectoris Back problem BPH (benign prostatic hyperplasia) COPD (chronic obstructive pulmonary disease) Diabetes mellitus type 2 in obese DVT (deep venous thrombosis) History of prostate disorder Hypercholesterolemia Hypertension Liver mass Morbid obesity Non-ST elevation (NSTEMI) myocardial infarction (~08/2016) Pulmonary embolism Saddle embolus Seasonal allergies Tobacco abuse Trochanteric bursitis of left hip Type 2 diabetes mellitus without complications Home Medications aspirin 81 mg tablet,delayed release 81 mg PO QODAY preventative heart/stroke 06/18/17 [History Last Taken 01/28/20] tamsulosin 0.4 mg capsule 0.4 mg PO DAILY urine flow 06/18/17 [History Last Taken 01/28/20] metoprolol succinate 25 mg tablet,extended release 24 hr (Toprol XL) 25 mg PO DAILY heart rate 07/02/17 [History Last Taken 01/28/20] clonazepam 1 mg tablet 1 mg PO TID anxiety 02/19/19 [History Last Taken 01/28/20] prazosin 1 mg capsule 1 mg PO QHS nightmares 12/16/19 [History Last Taken 01/28/20] B12 6,000 mcg PO.IVFORM DAILY 03/31/22 [History Last Taken Unknown] Eliquis 5 mg PO.IVFORM BID 03/31/22 [History Last Taken Unknown] Probiotic 1 tab PO.IVFORM DAILY 03/31/22 [History Last Taken Unknown] cholecalciferol (vitamin D3) 50 mcg PO.IVFORM DAILY 03/31/22 [History Last Taken Unknown] omeprazole 40 mg capsule,delayed release 40 mg PO BID 03/31/22 [History Last Taken Unknown] senna 1 tab PO.IVFORM TID 03/31/22 [History Last Taken Unknown] simvastatin 5 mg tablet 5 mg PO DAILY 03/31/22 [History Last Taken Unknown] Allergy/AdvReac Type Severity Reaction Status Date / Time adhesive tape AdvReac THIN Verified 11/04/20 22:14 FRAGILE SKIN codeine AdvReac Nausea Verified 11/04/20 22:14 doxycycline AdvReac Upset Verified 03/31/22 12:23 Stomach ibuprofen AdvReac Nausea Verified 11/04/20 22:14 Family History Mother CHF (congestive heart failure) Surgical History H/O heart artery stent Herniated disc History of coronary artery stent placement (09/10/16) History of total left knee replacement History of total left knee replacement (TKR) lumbar disc Previous back surgery S/P right knee arthroscopy S/P right rotator cuff repair (11/12/17) S/P right unicompartmental knee replacement Social History Smoking Status: Current every day smoker tobacco type: cigarettes counseling given: provider counseling and counseling >10 minutes alcohol intake: never substance use type: does not use additional social history: DOES USE ASPIRIN DOES NOT USE IBUPROFEN ROS ROS ED Constitutional Constitutional ED: Denies chills or weight loss Eyes Eyes: Denies change in vision or diplopia ENT ENT ED: Denies ear pain, rhinorrhea or sore throat Cardiovascular Cardiovascular: Reports other Details: Syncope ; Denies chest pain, orthopnea, palpitations or racing heartbeat Respiratory/Chest Respiratory/Chest: Denies cough, dyspnea or orthopnea Gastrointestinal Gastrointestinal: Reports diarrhea; Denies abdominal pain, nausea or vomiting Genitourinary Genitourinary ED: Denies dysuria, hematuria or urinary frequency Musculoskeletal Musculoskeletal: Denies arthralgias or myalgias Integumentary Denies abscess or rash Neurologic Neurologic: Denies headache(s) or weakness Psychiatric Psychiatric: Denies anxiety, depression, suicidal ideation or suicidal thoughts Endocrine Endocrinology: Denies polydipsia, polyphagia or polyuria Allergic/Immunologic Allergic/Immunologic ED: Denies mouth swelling, tongue swelling or urticaria EXAM Physical Exam Const Vital Signs: 03/31/22 12:24 03/31/22 12:36 Temperature 97.6 F L Temperature Source Temporal Pulse Rate 87 Respiratory Rate 16 Respiratory Effort Normal Non-Labored Respiratory Depth Normal Respiratory Pattern Normal Blood Pressure 104/79 Blood Pressure Mean 87 Pulse Ox 97 Oxygen Delivery Method Room Air Room Air Positive well nourished and well developed General Appearance ED: well developed HEENT Reports normocephalic and moist mucous membranes HEENT Narrative: Occipital hematoma Eyes PERRL and EOMs intact bilaterally Neck no lymphadenopathy, supple and no JVD Resp normal respiratory effort and clear to auscultation bilaterally Cardio regular rate, regular rhythm and no murmurs GI normal to inspection, nondistended, normoactive bowel sounds and non-tender Palpation: soft Back/Spine no CVA tenderness and normal ROM Extremity normal to inspection General Extremety ED: Negative for edema General Extremity: Negative for edema Neuro oriented x3 and CN's II-XII intact bilaterally Sensorium / Orientation: alert Motor Exam: strength 5/5 throughout Psych mental status grossly normal Mood & Affect: Negative for depressed or tearful Skin no rashes or lesions noted and no wounds MDM MDM MDM Narrative Medical decision making narrative: CT of brain was obtained and is negative for intracranial hemorrhage or fracture. Patient will be discharged home following up with primary care as needed. Radiography Diagnostic Testing: Clinical Impression(s) from Imaging Studies Brain CT 03/31/22 12:43 IMPRESSION: No acute intracranial process. Electronically Signed: Wil Stevenson MD at 13:11 EDT , Discharge Plan Triage Chief Complaint: Fall ED Provider: Ramesh Brewster Dx/Rx/DC Orders Clinical Impression: Anticoagulated, Syncope and collapse, Hematoma of scalp Instructions: ED Head Injury (Adult) Prescriptions: No Action clonazepam 1 mg tablet 1 mg PO TID tamsulosin 0.4 MG capsule 0.4 mg PO DAILY aspirin 81 MG tablet 81 mg PO QODAY Label Comments: anti-platelet prazosin 1 MG capsule 1 mg PO QHS B12 6,000 mcg PO.IVFORM DAILY omeprazole 40 mg capsule,delayed release(DR/EC) 40 mg PO BID Label Comments: Take 1 capsule by mouth twice daily. simvastatin 5 mg tablet 5 mg PO DAILY Label Comments: Take 1 tablet by mouth every other day in the evening Eliquis 5 mg PO.IVFORM BID Probiotic 1 tab PO.IVFORM DAILY cholecalciferol (vitamin D3) 50 mcg PO.IVFORM DAILY senna 1 tab PO.IVFORM TID metoprolol succinate [Toprol XL] 25 mg tablet extended release 24 hr 25 mg PO DAILY Primary Care Provider: Renee Jackson Referrals: Renee Jackson DO [Primary Care Provider] - As Needed Disposition Disposition: Home, Self Care
== END 2022-03-31 13:22 | disposition home or self-care (01) ==
LOC: ED 13:02
PROVIDERS: Emergency Provider Emergency Medicine; PCP Family Medicine; Visit Provider Emergency Medicine
DX: S00.03XA Contusion of scalp, initial encounter (principal); J44.9 Chronic obstructive pulmonary disease, unspecified; E11.9 Type 2 diabetes mellitus without complications; R55 Syncope and collapse; I10 Essential (primary) hypertension; I25.10 Atherosclerotic heart disease of native coronary artery without angina pectoris; R19.7 Diarrhea, unspecified; E78.00 Pure hypercholesterolemia, unspecified; Z79.01 Long term (current) use of anticoagulants; M19.90 Unspecified osteoarthritis, unspecified site; Z79.82 Long term (current) use of aspirin; Z79.899 Other long term (current) drug therapy; W19.XXXA Unspecified fall, initial encounter
CPT/HCPCS: 70450; 99282

== ENCOUNTER → 2022-09-21 | Outpatient (CLI) | payer MEDICARE, SELFPAY ==
[2016-08-31 15:27] VITALS: BMI 33.3
[2022-09-21 10:19] LABS: Absolute Lymphocyte Count 2.95 X10^3/uL (0.83-4.51); Absolute Neutrophil Count 4.6 X10^3/uL (2.0-7.7); Basophil% 1.2 % (0-1); Eosinophil# 0.25 X10^3/uL; Eosinophils% 2.9 % (0-5); Hematocrit 51.3 % (40-54); Hemoglobin 16.7 g/dL (13.0-16.5); Lymphocyte # 2.95 X10^3/ul (0.83-4.51); Lymphocyte % 34.1 % (19-41); Mean Corp Hgb Conc 32.6 g/dL (32-36); Mean Corpuscular Hgb 28.7 pg (27.0-32.0); Mean Corpuscular Volume 88.1 fL (80-94); Mean Platelet Vol. 11.5 fl (6.2-12.0); Monocyte# 0.74 X10^3/uL; Monocyte% 8.5 % (0-10); NRBC Flagged by Analyzer 0 % (0-5); Neutrophil # 4.58 X10^3/uL (2.7-7.7); Neutrophil % 52.8 % (47-70); Platelet Count 249 K/mm3 (150-450); RBC Distribution Width CV 14.1 % (11.6-14.6); RBC Distribution Width SD 45.4 fl (35.1-43.9); Red Blood Count 5.82 M/mm3 (4.6-6.2); White Blood Count 8.7 K/mm3 (4.4-11.0)
[2022-09-21 10:48] LABS: Vitamin B12 517 pg/mL (211-911)
[2022-09-21 10:57] LABS: Hemoglobin A1c 5.8 % (3.8-5.6)
[2022-09-21 11:18] LABS: ALB/GLOB Ratio 0.8 RATIO (0.9-2.4); AST(SGOT) 20 U/L (15-37); Alanine Aminotransfer ALT/SGPT 21 U/L (16-61); Albumin, Serum 3.1 g/dL (3.2-5.0); Alkaline Phosphatase 105 U/L (45-117); BUN 14 mg/dL (7-18); BUN/Creat Ratio 13.1 RATIO (10-20); Calcium,Total 8.5 mg/dL (8.5-10.1); Cholesterol 132 mg/dL (200); Creatinine, Serum 1.07 mg/dL (0.70-1.30); EST Glomerular Filtration Rate 73 mL/min (>60); Est Glom Filt Rate - Afr Amer 89 mL/min (>60); Globulin 3.7 g/dL (2.2-4.2); Glucose 93 mg/dL (74-106); Protein, Total 6.8 g/dL (6.4-8.2); Triglycerides 138 mg/dL
[2022-09-21 11:19] LABS: Anion Gap 7 (5-15); Chloride 106 mmol/L (98-107); Ferritin 56 ng/mL (26-388); Free T3 2.6 pg/mL (2.18-3.98); High Density Lipoprotein 29 mg/dL; Iron 148 ug/dL (65-175); Potassium 3.5 mmol/L (3.5-5.1); Sodium Level 140 mmol/L (136-145); T4 Free Direct 1.18 ng/dL (0.76-1.46); Thyroid Stim Hormone (TSH) 2.39 uIU/mL (0.358-3.74); Very Low Density Lipoprotein 28 mg/dL (5-40)
== END | disposition home or self-care (01) ==
LOC: LAB 08:53
PROVIDERS: PCP Family Medicine; Visit Provider Family Medicine
DX: E03.9 Hypothyroidism, unspecified (principal); E11.9 Type 2 diabetes mellitus without complications; R53.83 Other fatigue; E55.9 Vitamin D deficiency, unspecified; E53.8 Deficiency of other specified B group vitamins; Z51.81 Encounter for therapeutic drug level monitoring
CPT/HCPCS: 36415; 80053; 80061; 82607; 82728; 83036; 83540; 84439; 84443; 84481; 85025

== ENCOUNTER → 2022-10-12 | Outpatient (CLI) | payer MEDICARE, SELFPAY ==
[2016-08-31 15:27] VITALS: BMI 33.3
--- NOTE | 2022-10-12 13:25 | CT_ITS ---
INDICATION: PULMONARY NODULE EXAMINATION: CT CHEST WITHOUT CONTRAST - CT Chest W/O Contrast Injection TECHNIQUE: Helically acquired images were obtained of the chest. A radiation dose optimization technique was used for this scan. IV Contrast dosage and agent: None. COMPARISON: 11/18/2019 FINDINGS: LUNGS, PLEURA AND LARGE AIRWAYS: Lung windows show the lungs to be normally expanded. Mild underlying emphysema noted. There are interstitial changes and pleural thickening without organized infiltrate or effusion. No suspicious noncalcified mass or nodule. THYROID: No thyroid lesions. HEART AND PERICARDIUM: Heart size is normal. No pericardial effusion. CORONARY ARTERIES: Coronary artery calcification is seen. VESSELS: Thoracic aorta is not dilated. MEDIASTINUM AND ABBY: No special mediastinal or hilar adenopathy. Esophagus is unremarkable. No hiatal hernia. UPPER ABDOMEN: Limited cuts through the upper abdomen show cholelithiasis. Bony structures show degenerative change BONES: Bony structures show degenerative change CT/Chest without Contrast IMPRESSION: Underlying emphysema without evidence of a superimposed acute pulmonary process or suspicious noncalcified mass or nodule No suspicious adenopathy Calcified coronary vessels Degenerative bony changes Electronically Signed: Carlos Nicole MD at 13:52 EDT ,
--- NOTE | 2022-10-12 13:37 | VDLE_ITS ---
Reason For Study: Pain RIGHT LEFT CFV is compressible, spontaneous, phasic, GSV is normal. competent and demonstrates normal CFV is compressible, spontaneous, phasic, augmentation. competent, and demonstrates normal Procedure augmentation. This is a venous duplex using B-mode, color FV is partially compressible with bright flow and spectral Doppler. intraluminal echoes, venous flow noted. Exam performed in department. POP V is compressible, spontaneous, phasic, A preliminary report was called and/or faxed competent and demonstrates normal to Dr. Jackson. augmentation. T/P Trunk is compressible. PTV is compressible. LT PerV is compressible. VL/Venous Duplex US, Unilateral Interpretation Summary Chronic deep venous thrombosis left femoral vein with venous flow noted that chalo cifuentes similar to a previous examination of November 08, 2021. That examination was felt to be similar to her exam of May 09, 2021. No acute findings noted Patent and compressible left great saphenous vein Normal flow patterns right common femoral vein Ordering Physician: Renee Jackson Referring Physician: Renee Jackson Performed By: Jenn Craig RVT
== END | disposition home or self-care (01) ==
PROVIDERS: PCP Family Medicine; Referring Provider Family Medicine; Visit Provider Family Medicine
DX: R91.1 Solitary pulmonary nodule (principal); Z12.2 Encounter for screening for malignant neoplasm of respiratory organs; M79.605 Pain in left leg
CPT/HCPCS: 71250; 93971

== ENCOUNTER 2023-04-06 18:54 | Emergency (ER) | payer MEDICARE, OTHER, SELFPAY ==
[2016-08-31 15:27] VITALS: BMI 33.3
[2023-04-06 18:55] VITALS: BP 103/83; PULSE 68; RESP 16; TEMP 36; O2SAT 97
[2023-04-06] MEDS: Oxycodone/Apap 5/325 Tablet PO (19:39)
--- NOTE | 2023-04-06 20:09 | EX.ED.DYSGE1 ---
HPI <ZEINAB Mari - Last Filed: 04/06/23 20:39> History of Present Illness Chief Complaint: Lower Extremity Injury Narrative Narrative: 67-year-old male with history of cardiac disease, left leg DVT on Eliquis, difficulty ambulating with multiple orthopedic surgeries, chronic back pain presents to the emergency department with significant right lower extremity pain. Patient dates he was sitting when he had pain to his right knee all the way down to his right ankle. He denies any injury. He states that the pain was so bad he could not lift it. He denies any fever or chills. Denies any trauma. [facility] <ZEINAB Mari - Last Filed: 04/06/23 20:39> [facility] Medical History Alcoholism Anxiety and depression Arthritis Atherosclerosis of coronary artery of [place] heart without angina pectoris Back problem BPH (benign prostatic hyperplasia) COPD (chronic obstructive pulmonary disease) Diabetes mellitus type 2 in obese DVT (deep venous thrombosis) History of prostate disorder Hypercholesterolemia Hypertension Liver mass Morbid obesity Non-ST elevation (NSTEMI) myocardial infarction (~08/2016) Pulmonary embolism Saddle embolus Seasonal allergies Tobacco abuse Trochanteric bursitis of left hip Type 2 diabetes mellitus without complications Home Medications tamsulosin 0.4 mg capsule 0.4 mg PO DAILY urine flow 06/18/17 [History Last Taken 01/28/20] metoprolol succinate 25 mg tablet,extended release 24 hr (Toprol XL) 25 mg PO DAILY heart rate 07/02/17 [History Last Taken 01/28/20] clonazepam 1 mg tablet 1 mg PO TID anxiety 02/19/19 [History Last Taken 01/28/20] prazosin 1 mg capsule 1 mg PO QHS nightmares 12/16/19 [History Last Taken 01/28/20] Eliquis 5 mg PO.IVFORM BID 03/31/22 [History Last Taken Unknown] Probiotic 1 tab PO.IVFORM DAILY 03/31/22 [History Last Taken Unknown] cholecalciferol (vitamin D3) 50 mcg PO.IVFORM DAILY 03/31/22 [History Last Taken Unknown] omeprazole 40 mg capsule,delayed release 80 mg PO DAILY 03/31/22 [History Last Taken Unknown] Lactobacillus acidophilus 1 tab PO DAILY 05/22/22 [History Last Taken Unknown] Allergy/AdvReac Type Severity Reaction Status Date / Time adhesive tape AdvReac THIN Verified 04/06/23 18:55 FRAGILE SKIN codeine AdvReac Nausea Verified 04/06/23 18:55 doxycycline AdvReac Upset Verified 04/06/23 18:55 Stomach ibuprofen AdvReac Nausea Verified 04/06/23 18:55 Family History Mother CHF (congestive heart failure) Surgical History H/O heart artery stent Herniated disc History of coronary artery stent placement (09/10/16) History of total left knee replacement History of total left knee replacement (TKR) lumbar disc Previous back surgery S/P right knee arthroscopy S/P right rotator cuff repair (11/12/17) S/P right unicompartmental knee replacement Social History Smoking Status: Current every day smoker tobacco type: cigarettes counseling given: provider counseling and counseling >10 minutes alcohol intake: never substance use type: does not use additional social history: DOES USE ASPIRIN DOES NOT USE IBUPROFEN ROS <ZEINAB Mari - Last Filed: 04/06/23 20:39> ROS ED ROS Narrative Constitutional: Negative for fever, chills, weight loss, weakness Eyes: Negative for vision loss, vision change, double vision ENT: Negative for any sore throat, ear pain, congestion Cardiovascular: Negative for any chest pain, tightness, palpitations Respiratory: Negative for any cough, sputum production, hemoptysis, dyspnea, dyspnea on exertion, orthopnea Gastrointestinal: Negative for any abdominal pain, nausea, vomiting, diarrhea, constipation, blood in stool, blood in vomit : Negative for any urinary frequency, dysuria, retention, blood in urine Muscle skeletal: Negative for any muscle joint pain, stiffness, myalgias, arthralgias, neck pain, back pain. Positive for right leg pain. Right knee, right lower extremity pain. Neurological: Negative for any headache, syncope, numbness or tingling, dizziness Skin: Negative for any rashes, lumps, itching, abrasions, lacerations Psychiatric: Negative for any depression, anxiety, stress, suicidal ideation, homicidal ideation Hematologic: Negative for any easy bruising, excessive bruising, easy bleeding Allergies: Negative for any eczema, hives, rash EXAM <ZEINAB Mari - Last Filed: 04/06/23 20:39> Physical Exam Narrative Exam Narrative: Vital signs reviewed. Extremities: No peripheral edema, no signs of gross trauma or deformity. Active full range of motion of all extremities. Patient has pain to the anterior knee, inferior knee, calf as well as the ankle. There is no signs or symptoms of trauma, no redness. Neuro: Cranial nerves II through XII intact, no focal neurological deficits. Skin: Clean dry and intact with no rash, purpura, petechiae, vesicles or pustules. Backs/flank: No CVA tenderness, no midline spinal tenderness, no deformity. Psych: Normal mood and affect. No SI, HI or acute psychosis. Const Vital Signs: 04/06/23 18:55 Temperature 96.8 F L Temperature Source Temporal Pulse Rate 68 Respiratory Rate 16 Blood Pressure 103/83 H Blood Pressure Mean 89 Pulse Ox 97 Oxygen Delivery Method Room Air <Dr. Spencer Gatica MD - Last Filed: 04/06/23 21:19> Physical Exam Const Vital Signs: 04/06/23 18:55 Temperature 96.8 F L Temperature Source Temporal Pulse Rate 68 Respiratory Rate 16 Blood Pressure 103/83 H Blood Pressure Mean 89 Pulse Ox 97 Oxygen Delivery Method Room Air MDM <ZEINAB Mari - Last Filed: 04/06/23 20:39> MDM Radiography Diagnostic Testing: Clinical Impression(s) from Imaging Studies Knee X-Ray 04/06/23 20:43 IMPRESSION: Joint effusion. No acute osseous abnormality. Electronically Signed: Roxane Spence MD at 21:06 EDT Reading Location ID and State: [id number] / Tel , Service support , Treatment and Re-Evaluation :: Patient arrives in his wheelchair, patient appears to be in no obvious distress. Vital signs are stable, patient appears nontoxic. Patient will receive x-rays of the right knee, a Percocet, Norflex IM injection. Physical examination is consistent with a muscle strain, muscle spasm. Differential diagnosis include septic joint, cellulitis, DVT. However patient has no redness to the area, there is no edema, there is no systemic symptoms. Patient also is on Eliquis twice a day. The patient does not miss any doses of Eliquis, this makes a DVT less likely. Patient's x-ray returned to the ER physician shows chronic changes. Patient had relief with oral Percocet, Norflex. At this time, there is no evidence of osseous abnormality, deep tissue infection. Patient will continue to use his wheelchair as well as his rollator. He will follow-up outpatient. All questions answered, patient stable for discharge <Dr. Spencer Gatica MD - Last Filed: 04/06/23 21:19> [facility] Narrative Medical decision making narrative: Is a small knee effusion, there is no evidence of infection currently. Patient appears well. He was treated with analgesia and will be discharged in stable condition. Radiography Diagnostic Testing: Clinical Impression(s) from Imaging Studies Knee X-Ray 04/06/23 20:43 IMPRESSION: Joint effusion. No acute osseous abnormality. Electronically Signed: Roxane Spence MD at 21:06 EDT Reading Location ID and State: [id number] / Tel , Service support , Read by me as no fracture. There is a small effusion. Discharge Plan Triage Chief Complaint: Lower Extremity Injury ED Midlevel Provider: Spencer Kumar ED Provider: Spencer Gatica Dx/Rx/DC Orders Clinical Impression: Acute knee pain, Acute leg pain, Knee effusion Instructions: Jazmín MENDEZ for Pain, ED Arthralgia Prescriptions: No Action clonazepam 1 mg tablet 1 mg PO TID Lactobacillus acidophilus Tablet,Chewable 1 tab PO DAILY tamsulosin 0.4 MG capsule 0.4 mg PO DAILY prazosin 1 MG capsule 1 mg PO QHS omeprazole 40 mg capsule,delayed release(DR/EC) 80 mg PO DAILY Patient Comments: Take 1 capsule by mouth twice daily. Eliquis 5 mg PO.IVFORM BID Probiotic 1 tab PO.IVFORM DAILY cholecalciferol (vitamin D3) 50 mcg PO.IVFORM DAILY metoprolol succinate [Toprol XL] 25 mg tablet extended release 24 hr 25 mg PO DAILY Primary Care Provider: Renee Jackson Referrals: Renee Jackson DO [Primary Care Provider] - Activity Restrictions/Additional Instructions: Please follow-up outpatient.
[2023-04-06] MEDS: Orphenadrine 60 MG/2 ML Ampul IM (20:30)
--- NOTE | 2023-04-06 20:43 | RAD_ITS ---
INDICATION: pain EXAMINATION/TECHNIQUE: X-RAY - RIGHT XR Knee Complete 4 Views or More 4 VIEWS COMPARISON: 10/25/2016. FINDINGS: Medial compartment arthroplasty. No acute fracture or dislocation. No periprosthetic fracture. No evidence of loosening. No destructive bone changes. Moderate joint effusion. Mild patellar spurring. Normal alignment. Soft tissues are unremarkable. No radiopaque foreign body or soft tissue gas. RAD/Knee 4 or More Views IMPRESSION: Joint effusion. No acute osseous abnormality. Electronically Signed: Roxane Spence MD at 21:06 EDT Reading Location ID and State: [id number] / Tel , Service support ,
== END 2023-04-06 21:41 | disposition home or self-care (01) ==
LOC: ED 19:49
PROVIDERS: Emergency Provider Emergency Medicine; PCP Family Medicine; Visit Provider Emergency Medicine
DX: M25.561 Pain in right knee (principal); M79.661 Pain in right lower leg; E78.00 Pure hypercholesterolemia, unspecified; M54.9 Dorsalgia, unspecified; G89.29 Other chronic pain; I25.10 Atherosclerotic heart disease of native coronary artery without angina pectoris; I10 Essential (primary) hypertension; I25.2 Old myocardial infarction; F17.210 Nicotine dependence, cigarettes, uncomplicated; M25.461 Effusion, right knee; Z79.01 Long term (current) use of anticoagulants; Z79.899 Other long term (current) drug therapy; Z86.718 Personal history of other venous thrombosis and embolism; Z86.711 Personal history of pulmonary embolism; Z95.5 Presence of coronary angioplasty implant and graft
CPT/HCPCS: 73564; 96372; 99283

== ENCOUNTER 2023-06-18 12:43 | Outpatient (RCR) | payer MEDICARE, SELFPAY ==
[2016-08-31 15:27] VITALS: BMI 33.3
--- NOTE | 2023-11-04 14:28 | HP.PT.NRP ---
Patient Information Patient Information: RADHA BENJAMIN was seen in my office for initial evaluation on 06/18/23. The following Plan of Care was established for this patient: POC Established Initial Frequency: 2-3x /Week Initial Duration: 4-6 Weeks Anticipated Interventions Patient/Client Instruction: Educate patient on: Condition and Plan of Care For the Purpose of:: To improve self management Therapeutic Exercise to Include: Strength training, Endurance training, Balance training, Gait and locomotor training and Dynamic Lumbar Stabilization For the Purpose of:: To decrease pain, To improve muscle performance and motor function and To increase tolerance to activity/condition/position Last Seen Last Seen: This patient was last seen in our office . Pertinent comments regarding their Physical therapy will appear below: Pt was evaluated for B knee pain on the date of 06/18/23. Pt has not returned through todays date and is discontinued at this time. At this point I will be discontinuing this patient from physical therapy. I would be happy to see this patient again in the future if found appropriate by the physician. Thank you! Sergio Sullivan, PT, ATC Balance/Gait/Functional tests Balance/Special Test Scores Lower Extremity Functional Score: 10
== END 2023-06-18 19:00 | disposition home or self-care (01) ==
LOC: PT 12:43
PROVIDERS: PCP Family Medicine
DX: M62.81 Muscle weakness (generalized) (principal); T84.84XD Pain due to internal orthopedic prosthetic devices, implants and grafts, subsequent encounter; Z96.659 Presence of unspecified artificial knee joint
CPT/HCPCS: 97161

== ENCOUNTER → 2023-07-03 | Outpatient (CLI) | payer MEDICARE, SELFPAY ==
[2016-08-31 15:27] VITALS: BMI 33.3
--- NOTE | 2023-07-03 09:35 | NM_ITS ---
CLINICAL: 68-year-old male with history of abdominal pain and bloating. RADIONUCLIDE HEPATOBILIARY SCINTIGRAPHY COMPARISON: None available FINDINGS: Following the intravenous administration of 5.3 mCi of 99m Tc Mebrofenin, hepatobiliary images reveal:. 1. Relatively prompt and homogeneous radiopharmaceutical concentration is noted by a normal sized liver. No parenchymal defects are identified. 2. Gallbladder activity is identified at 30 minutes post radiopharmaceutical administration. 3. Small intestinal tract is observed by 60 minutes following tracer injection. 4. Washout of the radiopharmaceutical by the hepatic parenchyma appears qualitatively normal. Cholecystokinin (0.02 ug/kg) was administered intravenously over a 30-minute period. The post CCK gallbladder ejection fraction calculated at 20 minutes following Cholecystokinin administration was noted to be 79.0 % (normal greater than 35%). During 30 minutes of post CCK imaging, there is scintigraphic evidence of refilling of the gallbladder. Post cholecystokinin duodenal gastric-reflux is demonstrated. NM/Hepatobilliary Img w/Pharm Int IMPRESSION: 1. A gallbladder ejection fraction calculated to be greater than 35% following the administration of Cholecystokinin makes the probability of functional hepatobiliary disease (gallbladder dyskinesia) and/or organic hepatobiliary disease (chronic acalculous cholecystitis and/or cystic duct syndrome) to be low. (Heather Mccracken et al, Journal of Nuclear Medicine 32:1695, 1991). 2. An encountered normal gallbladder ejection fraction with refilling of the gallbladder following CCK administration may represent the presence of Sphincter of Oddi dysfunction. Correlation with Sphincter of Oddi manometry may be of benefit. (Burke and Burke, J Nucl Med 38:1824, 1997). 3. Post cholecystokinin duodenal gastric reflux is defined as articulated above. Electronically Signed: Robbie Santos DO at 22:45 EST ,
== END | disposition home or self-care (01) ==
PROVIDERS: PCP Family Medicine; Referring Provider Family Medicine; Visit Provider Family Medicine
DX: R10.9 Unspecified abdominal pain (principal); R14.0 Abdominal distension (gaseous); K80.20 Calculus of gallbladder without cholecystitis without obstruction
CPT/HCPCS: 78227; A9537; J2805

== ENCOUNTER → 2023-11-01 | Outpatient (CLI) | payer MEDICARE, SELFPAY ==
[2016-08-31 15:27] VITALS: BMI 33.3
--- NOTE | 2023-11-01 14:02 | CT_ITS ---
STUDY: CT CHEST WITHOUT CONTRAST REASON FOR EXAM: Male, 68 years old. HX PULM NODULES, 55 PY SMOKING HX RADIATION DOSAGE (If Supplied By Facility): CTDIvol = ( 18.36 ) mGy, DLP = ( 683.72 ) mGycm TECHNIQUE: Transaxial imaging was performed without the administration of intravenous contrast material. Multiplanar coronal and sagittal images were reformatted. Individualized dose optimization techniques were used for this CT. COMPARISON: Comparison is made with prior study October 12, 2022. FINDINGS: CHEST Stable 2.5 mm pleural-based nodule which is partially calcified in the posterior lateral aspect of the right lower lobe as seen on axial image #68. Mild degree of emphysematous changes. There is no demonstrated pleural abnormality. There are calcifications of the coronary arteries. Normal mediastinum. Normal hilar regions. Normal unenhanced pulmonary arteries. There is atherosclerotic calcification of the aortic arch. There are degenerative changes of the thoracic spine. Solitary gallstone is seen in the region of the neck of the gallbladder. CT/Chest without Contrast IMPRESSION: Stable examination. Coronary artery calcification. Solitary gallstone. Electronically Signed: Kg Wilhelm MD at 9:03 EDT ,
== END | disposition home or self-care (01) ==
PROVIDERS: PCP Family Medicine; Referring Provider Family Medicine; Visit Provider Family Medicine
DX: Z87.891 Personal history of nicotine dependence (principal)
CPT/HCPCS: 71250

== ENCOUNTER → 2024-03-06 | Outpatient (CLI) | payer MEDICARE, SELFPAY ==
[2016-08-31 15:27] VITALS: BMI 33.3
--- NOTE | 2024-03-06 13:46 | VDLE_ITS ---
Reason For Study: LLE Edema, Pain LEFT GSV is normal. CFV is compressible, spontaneous, phasic, competent, and demonstrates normal augmentation. FV is partially compressible with bright intraluminal echoes, Lt FV is INCOMPETENT Lt SSV is partially compressible with bright intraluminal echoes consistent with chronic SVT. POP V is compressible, phasic, and INCOMPETENT for greater than 1.0 second. T/P Trunk is compressible. PTV is compressible. LT PerV is compressible. SFJ is competent and measures 0.67cm x 0.65 cm. GSV proximal thigh measures 0.60cm x 0.60 cm. GSV at knee measures 0.49cm x 0.50 cm. SSV proximal calf is competent and measures 0.14cm x 0.17 cm. VL/Venous Duplex US, Unilateral Interpretation Summary Deep veins of the left lower extremity are patent and compressible segmentally. There is no evidence of left lower extremity deep vein thrombosis. The left great saphenous vein maryann ears patent and compressible segmentally. Positive for reflux in the left femoral vein, popliteal vein. Chronic superficial vein thrombosis noted in the left small saphenous vein. Ordering Physician: Renee Jackson Referring Physician: Renee Jackson Performed By: Julianna Garcia, FLORIN, RVT
--- NOTE | 2024-03-06 13:46 | ART_ITS ---
Reason For Study: Pain, Cold Extremities Procedure A bilateral lower extremity continuous wave Doppler with analog waveform analysis and ankle brachial indexes. Left Segmental Pressures Left brachial= 104mmHg. Left posterior tibial artery = 123mmHg. Left dorsalis pedis artery = 110mmHg. Left digit = 74 mmHg. Right Segmental Pressures Right brachial= 106mmHg. Right posterior tibial artery = 111mmHg. Right dorsalis pedis artery = 108mmHg. Right digit = 55 mmHg. Indices The right ankle brachial index by the posterior tibial artery is 1.05. The right ankle brachial index by the dorsalis pedis is 1.02. The right digital-brachial index is 0.52. The left ankle brachial index by the posterior tibial artery is 1.16. The left ankle brachial index by the dorsalis pedis is 1.04. The left digital-brachial index is 0.70. VL/Ankle Brachial Index Interpretation Summary Right ANTHONY 1.05, normal. Doppler/PVR waveforms of the right ankle normal at rest . 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 Left ANTHONY 1.16, normal. Doppler/PVR waveforms of the left ankle normal at rest. 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 Ordering Physician: Renee Jackson Referring Physician: RENEE JACKSON MD Performed By: Julianna Garcia RDCS/RVT
== END | disposition home or self-care (01) ==
LOC: CVS 13:45
PROVIDERS: PCP Family Medicine; Referring Provider Family Medicine; Visit Provider Family Medicine
DX: M79.605 Pain in left leg (principal); I73.9 Peripheral vascular disease, unspecified; R60.9 Edema, unspecified
CPT/HCPCS: 93922; 93971

== ENCOUNTER → 2024-05-29 | Outpatient (CLI) | payer OTHER, SELFPAY ==
[2016-08-31 15:27] VITALS: BMI 33.3
[2024-05-29 14:41] LABS: AST(SGOT) 44 U/L (15-37); Alanine Aminotransfer ALT/SGPT 69 U/L (16-61); Albumin, Serum 2.8 g/dL (3.2-5.0); Alkaline Phosphatase 89 U/L (45-117); Bilirubin, Direct 0.24 mg/dL (0.00-0.30); Globulin 3.9 g/dL (2.2-4.2); Protein, Total 6.7 g/dL (6.4-8.2)
== END | disposition home or self-care (01) ==
LOC: LAB 06-02 08:44
PROVIDERS: PCP Family Medicine; Referring Provider Chiropractor; Visit Provider Chiropractor
DX: K76.9 Liver disease, unspecified (principal)
CPT/HCPCS: 36415; 80076

== ENCOUNTER → 2024-10-27 | Outpatient (CLI) | payer MEDICARE, SELFPAY ==
[2016-08-31 15:27] VITALS: BMI 33.3
--- NOTE | 2024-10-27 12:52 | US_ITS ---
PROCEDURE: EXT NON VASC LIMITED/SOFT TISS 10/27/2024 REASON FOR EXAM: LT SUBCUTANEOUS MASS TECHNIQUE: Ultrasound targeted to the palpable abnormality at the left leg subcutaneous mass.. COMPARISON: None FINDINGS: Imaging of the palpable lump was performed with ultrasound. No sonographic abnormality is seen. US/Ext Non Vasc Limited/Soft Tiss IMPRESSION: No sonographic abnormality is seen. Reading Location: [place] [id number]
== END | disposition home or self-care (01) ==
PROVIDERS: PCP Family Medicine; Referring Provider Family Medicine; Visit Provider Family Medicine
DX: M79.89 Other specified soft tissue disorders (principal)
CPT/HCPCS: 76882